=== PATIENT | female | born 1995 | race Caucasian/White ===

== ENCOUNTER 2018-01-25 22:03 | Emergency (ER) | payer MEDICAID, SELFPAY ==
[2018-01-25 22:03] VITALS: BP 141/63; PULSE 90; RESP 16; TEMP 36.8; O2SAT 99; BMI 39.0
--- NOTE | 2018-01-25 22:16 | ED.VISSUMM ---
- ER Visit Summary Date of Service: 01/25/18 Chief Complaint: Abscess History of Present Illness: The patient is a 22 F presents to the emergency department abscess. Patient has a history of recurrent MRSA. She has had multiple I&D's. She does follow with Dr. phyllis jose. States over the past 3 days, she has had an increase her right scalp. She does describe some increasing pain. She denies fevers or chills but does admit to mild nausea. She is not on any current antibiotics. She states that her boyfriend tried to squeeze it, but nothing came out. Since then, it has increased in size. Physical Examination: Afebrile, vitals unremarkable. Well-appearing female no acute distress. Patient does have a 2 cm ovoid abscess in the right posterior occipital area at the edge of the hairline. There is some mild crusting. There is some central fluctuance. There is no streaking. There is no cellulitis. Neck is nontender. Heart regular rate and rhythm. Lungs clear. Test Results: [] Emergency Department Course and Treatment: I did feel this was going to require incision and drainage. Patient was consented. The area was prepped in sterile fashion. It was anesthetized with lidocaine. 11 blade was used. Some scant purulence was able to be expressed. Pocket was very small. It would not tolerate any packing. The patient will be placed on Bactrim. She is given her first dose here. She will be given [place] home pack. The patient will be discharged home. She was counseled on wound care and reasons to return. She will follow up with primary care in 48 hours for wound reevaluation or return to the emergency department. Treatment Plan: [] Disposition: Discharge Impression:. Abscess posterior scalp with incision and drainage This note was generated with [employer] dictation software. It may contain incorrect words, spelling, and punctuation that were not noted in review of the chart prior to signing ED Disposition - Plan for ED Patient: Chief Complaint: Wound Check Instructions: ED Abscess IandD Prescriptions: Smz/Tmp Ds [Bactrim Ds] 2 tab PO BID #28 tab Referrals: Peter Levine MD [STAFF PHYSICIAN] - 2 Days for wound check
[2018-01-25] MEDS: HYDROcodone Bitartrate/Apap 5/325 Tablet PO ×2 (22:23→22:46)
[2018-01-25] MEDS: Ondansetron ODT 4 MG Tablet PO ×2 (22:23→22:52)
[2018-01-25] MEDS: Smz/Tmp Ds Tablet 2 TABLET PO (22:47)
[2018-01-25 22:55] VITALS: BP 140/90; PULSE 77; O2SAT 97
== END 2018-01-25 22:58 | disposition home or self-care (01) ==
LOC: ED 22:16
PROVIDERS: Emergency Provider Emergency Medicine
DX: L02.811 Cutaneous abscess of head [any part, except face] (principal); B96.89 Other specified bacterial agents as the cause of diseases classified elsewhere; Z86.14 Personal history of Methicillin resistant Staphylococcus aureus infection; F32.9 Major depressive disorder, single episode, unspecified; Z79.899 Other long term (current) drug therapy
CPT/HCPCS: 10060; 99283

== ENCOUNTER 2018-03-09 17:52 | Emergency (ER) | payer SELFPAY ==
[2018-03-09 17:54] VITALS: BP 146/69; PULSE 104; RESP 16; TEMP 36.6; O2SAT 97; BMI 39.5
--- NOTE | 2018-03-09 18:19 | ED.VISSUMM ---
- ER Visit Summary Date of Service: 03/09/18 Chief Complaint: Abscess History of Present Illness: The patient is a 22 F who has a history of recurrent abscesses. She does have a history of MRSA. Patient noted an abscess to the left axilla over the past 3 days. She reports addictive fevers, myalgias, nausea, and vomiting. She did take a test at home this morning that was negative. Her last dose of Tylenol was approximately 4-1/2 hours ago. Physical Examination: Vital signs are unremarkable. She is afebrile here 97.8. Patient sitting upright in bed no acute distress. She is nontoxic appearing. Heart is regular rate and rhythm. Lung sounds are clear. Abdomen is soft nontender. Active bowel sounds are noted throughout. Skin examination does reveal 1 x 3 cm fluctuant abscess in the left axilla. There is no lymphangitic streaking. Test Results: [] Emergency Department Course and Treatment: Let is applied to the wound. Following this 3 cc 1% lidocaine were infused locally. Incision is made with a #11 blade. There is a significant amount of pus expressed. Loculations were broken up. Patient was treated with [place], Zofran, and Bactrim. She be given prescriptions for the same. Should be referred for follow-up with Dr. Levine who she is seen in the past. Treatment Plan: [] Disposition: Discharge Impression: Left axilla abscess, status post I&D This note was generated with [employer] dictation software. It may contain incorrect words, spelling, and punctuation that were not noted in review of the chart prior to signing ED Disposition - Plan for ED Patient: Disposition: Home or Assisted Living Chief Complaint: Abscess Instructions: ED Abscess IandD Prescriptions: Hydrocodone Bitart/Apap 5-325 [[place] 5MG-325MG] 1 tablet PO Q4H PRN PRN 2 Days #10 tablet PRN Reason: Pain Ondansetron [Zofran Odt] 4 mg PO Q8H PRN PRN #10 tab PRN Reason: Nausea Smz/Tmp Ds [Bactrim Ds] 1 tab PO BID #20 tab Referrals: Peter Levine MD [STAFF PHYSICIAN] - 1-2 Weeks Julissa Bingham NP-C [Primary Care Provider] -
[2018-03-09] MEDS: HYDROcodone Bitartrate/Apap 5/325 Tablet PO (18:44)
[2018-03-09] MEDS: Smz/Tmp Ds Tablet 1 TABLET PO (18:44)
[2018-03-09] MEDS: Ondansetron ODT 4 MG Tablet PO (18:44)
[2018-03-09] MEDS: Lidocaine/Epi/Tetracaine 50 ML 1 APPLIC TOPICAL (18:45)
--- NOTE | 2018-03-09 19:33 | ED.DEP ---
ED Disposition - Plan for ED Patient: Disposition: Home or Assisted Living Chief Complaint: Abscess Instructions: ED Abscess IandD Prescriptions: Hydrocodone Bitart/Apap 5-325 [[place] 5MG-325MG] 1 tablet PO Q4H PRN PRN 2 Days #10 tablet PRN Reason: Pain Ondansetron [Zofran Odt] 4 mg PO Q8H PRN PRN #10 tab PRN Reason: Nausea Smz/Tmp Ds [Bactrim Ds] 1 tab PO BID #20 tab Referrals: Julissa Bingham, FLIGHT INFORMATION EXPEDITER-C [Primary Care Provider] - Peter Levine MD [STAFF PHYSICIAN] - 1-2 Weeks
--- NOTE | 2018-03-09 19:36 | DCINST.ED_ITS ---
ED Disposition - Plan for ED Patient: Disposition: Home or Assisted Living Chief Complaint: Abscess Instructions: ED Abscess IandD Prescriptions: Hydrocodone Bitart/Apap 5-325 [[place] 5MG-325MG] 1 tablet PO Q4H PRN PRN 2 Days # 10 tablet PRN Reason: Pain Ondansetron [Zofran Odt] 4 mg PO Q8H PRN PRN #10 tab PRN Reason: Nausea Smz/Tmp Ds [Bactrim Ds] 1 tab PO BID #20 tab Referrals: Julissa Bingham, MANAGER BUSINESS PROCESS-C [Primary Care Provider] - Peter Levine MD [STAFF PHYSICIAN] - 1-2 Weeks
[2018-03-09 19:42] VITALS: BP 125/78; PULSE 76; RESP 18; O2SAT 100
== END 2018-03-09 19:44 | disposition home or self-care (01) ==
PROVIDERS: Emergency Provider Emergency Medicine; Family Provider Nurse Practitioner Family; PCP Nurse Practitioner Family
DX: L02.412 Cutaneous abscess of left axilla (principal); B96.89 Other specified bacterial agents as the cause of diseases classified elsewhere; Z86.14 Personal history of Methicillin resistant Staphylococcus aureus infection
CPT/HCPCS: 10060; 99282

== ENCOUNTER 2018-04-03 03:20 | Emergency (ER) | payer MEDICAID, SELFPAY ==
[2018-04-03 03:20] VITALS: BP 145/96; PULSE 82; RESP 17; TEMP 36.8; O2SAT 100; BMI 40.5
--- NOTE | 2018-04-03 03:28 | CT_ITS ---
STUDY: CT BRAIN WITHOUT CONTRAST REASON FOR EXAM: Female, 22 years old. Posttraumatic headache status post fall. RADIATION DOSAGE (If Supplied By Facility): CTDIvol = ( 44.99 ) mGy, DLP = ( 796.11 ) mGycm TECHNIQUE: Transaxial CT imaging of the brain was performed without administration of intravenous contrast material. Individualized dose optimization techniques were used for this CT. COMPARISON: None. FINDINGS: Left frontal scalp soft tissue swelling with associated laceration. No underlying fracture. Normal size ventricles and extra-axial spaces for the patient's age. Normal white matter tracts of the cerebral hemispheres. Normal basal ganglia and thalami. Normal brainstem. Normal cerebellum. There is no intracranial hemorrhage. There are no findings of an acute ischemic infarction. Normal visualized paranasal sinuses. CT/Brain/Head without Contrast IMPRESSION: Left frontal scalp laceration and hematoma with no underlying fracture no evidence of an acute intracranial abnormality. Electronically Signed: Neil Gamboa MD at 4:52 EDT Tel , Service support ,
[2018-04-03] MEDS: Ondansetron ODT 4 MG Tablet PO (03:38)
[2018-04-03] MEDS: Diphth,Pertuss(Acell),Tet Vac 0.5 ML Vial IM (03:39)
--- NOTE | 2018-04-03 05:02 | ED.VISSUMM ---
- ER Visit Summary Date of Service: 04/03/18 Chief Complaint: [] History of Present Illness: The patient is a 22 F [] patient reports mechanical fall striking her head into the corner of a counter. Reports headache. Reports obvious laceration to her forehead. Denies neck pain. No other complaints at this time. She is unsure of her tetanus status. Physical Examination: [] Afebrile, vital signs stable. Head exam reveals a 3 cm flap laceration to the left forehead. Remainder of exam is unremarkable. Test Results: [] CT head: Negative. Emergency Department Course and Treatment: [] CT of the head returned negative. Patient was given Zofran ODT and ibuprofen orally for symptom relief. Patient received tetanus update emergency department. Patient had her forehead wound cleaned with saline and Shur-Clens. Patient had the laceration approximated nicely with #4 6.0 nylon sutures. She tolerated the procedure well. Treatment Plan: [] Patient instructed to have sutures removed in 5 days. Follow-up with PCP. Disposition: [] Discharge, stable. Impression: [] Close head injury Head laceration, 3 cm Tetanus update Laceration repair by emergency department physician This note was generated with [employer] dictation software. It may contain incorrect words, spelling, and punctuation that were not noted in review of the chart prior to signing ED Disposition - Plan for ED Patient: Chief Complaint: Head Injury Referrals: Julissa Bingham NP-C [Primary Care Provider] -
--- NOTE | 2018-04-03 05:05 | ED.DEP ---
ED Disposition - Plan for ED Patient: Disposition: Home or Assisted Living Chief Complaint: Head Injury Instructions: ED Concussion, ED Laceration All Referrals: Julissa Bingham, SERA-C [Primary Care Provider] -
[2018-04-03] MEDS: Ibuprofen 400 MG Tablet 800 MG PO (05:13)
--- NOTE | 2018-04-03 05:16 | ED.RN ---
DISCHARGE INSTRUCTIONS GIVEN TO AND REVIEWED WITH PATIENT, PATIENT DENIES QUESTIONS OR CONCERNS AND VOICES UNDERSTANDING OF DISCHARGE INSTRUCTIONS. PT AMBULATES OUT OF ROOM WITHOUT DIFFICULTY.
== END 2018-04-03 05:17 | disposition home or self-care (01) ==
PROVIDERS: Emergency Provider Emergency Medicine; Family Provider Nurse Practitioner Family; PCP Nurse Practitioner Family
DX: S01.81XA Laceration without foreign body of other part of head, initial encounter (principal); W19.XXXA Unspecified fall, initial encounter; Y93.9 Activity, unspecified; Y92.9 Unspecified place or not applicable; F32.9 Major depressive disorder, single episode, unspecified; F41.9 Anxiety disorder, unspecified
CPT/HCPCS: 12013; 70450; 90471; 90715; 99283

== ENCOUNTER 2018-04-03 20:26 | Emergency (ER) | payer MEDICAID, SELFPAY ==
[2018-04-03 20:27] VITALS: BP 150/88; PULSE 81; RESP 16; TEMP 36.9; O2SAT 100; BMI 37.0
[2018-04-03] MEDS: Ketorolac 60 MG/2 ML Vial IM (21:11)
[2018-04-03] MEDS: Ondansetron 8 MG Tablet PO (21:11)
--- NOTE | 2018-04-03 21:15 | NURSING ---
doctor was okay with giving to oral zofran 4 mg pills
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
== END 2018-04-03 22:30 | disposition home or self-care (01) ==
PROVIDERS: Emergency Provider Emergency Medicine
DX: G44.319 Acute post-traumatic headache, not intractable (principal); F07.81 Postconcussional syndrome; F32.9 Major depressive disorder, single episode, unspecified; F41.9 Anxiety disorder, unspecified
CPT/HCPCS: 96372; 99281

== ENCOUNTER 2018-05-29 21:11 | Emergency (ER) | payer MEDICAID, SELFPAY ==
[2018-05-29 21:13] VITALS: BP 127/113; PULSE 79; RESP 18; TEMP 36.7; O2SAT 99; BMI 39.3
[2018-05-29] MEDS: Triamcinolone Acetonide 40 MG/ML Vial 80 MG IM (22:05)
--- NOTE | 2018-05-29 22:10 | ED.DCSUM_ITS ---
- ER Visit Summary Date of Service: 05/29/18 Chief Complaint: Rash on legs History of Present Illness: The patient is a 22 F who states that she has had a rash on her legs for a couple days now. She describes it as burning and spreading up her thighs. Few days ago she had it on her dorsum of her left hand that has went away. She states that she is tried some Tylenol ibuprofen cannot seem to stop the burning. She has tried some topical cortisone cream with no success. Patient denies any change in soaps lotions or creams etc. Physical Examination: Afebrile vital signs are stable Patient has a flat blanching red discrete 1 mm or less lesions about both legs up into the medial thighs. It does look a bit like razor burn but the patient states she has not shaved her legs for a couple weeks. I do not see any pustules. Emergency Department Course and Treatment: I cannot say definitively what this rashes. Patient will be treated with a dose of IM Kenalog. She should continue cortisone cream. She may follow-up with dermatology if not improving Impression: 1. Dermatitis This note was generated with [employer] dictation software. It may contain incorrect words, spelling, and punctuation that were not noted in review of the chart prior to signing ED Disposition - Plan for ED Patient: Disposition: Home or Assisted Living Chief Complaint: Rash Instructions: ED Dermatitis Non Specific Rash Referrals: Jillian Wheeler [NON-STAFF] - 1 Week if not improving
[2018-05-29 22:35] VITALS: BP 120/95
== END 2018-05-29 22:37 | disposition home or self-care (01) ==
PROVIDERS: Emergency Provider Emergency Medicine
DX: L30.9 Dermatitis, unspecified (principal); E66.9 Obesity, unspecified; Z68.39 Body mass index [BMI] 39.0-39.9, adult; Z72.0 Tobacco use
CPT/HCPCS: 96372; 99283

== ENCOUNTER 2018-06-12 16:27 | Emergency (ER) | payer MEDICAID, SELFPAY ==
[2018-06-12 16:28] VITALS: BP 134/98; PULSE 71; RESP 18; TEMP 36.6; O2SAT 98; BMI 39.6
--- NOTE | 2018-06-12 16:42 | ED.VISSUMM ---
- ER Visit Summary Date of Service: 06/12/18 History of Present Illness: The patient is a 22 F who presents with dental pain left lower jar region since yesterday no fever or chills Physical Examination: There is tenderness over the left lower last 2 molars, no abscess no facial swelling normal soft palate normal exam otherwise \ Emergency Department Course and Treatment: Patient will be treated with analgesia, antibiotics she has an appointment with her dentist in the morning. Discharge stable condition Impression: Odontalgia This note was generated with [employer] dictation software. It may contain incorrect words, spelling, and punctuation that were not noted in review of the chart prior to signing ED Disposition - Plan for ED Patient: Disposition: Home or Assisted Living Chief Complaint: Dental Instructions: ED Tooth Pain Prescriptions: Naproxen [Naprosyn] 500 mg PO BID PRN #20 tab Clindamycin [Cleocin] 300 mg PO TID #60 cap Referrals: Care Physician,No Primary [Primary Care Provider] -
[2018-06-12] MEDS: Clindamycin HCl 150 MG Capsule 300 MG PO (17:10)
[2018-06-12] MEDS: HYDROcodone Bitartrate/Apap 5/325 Tablet PO (17:11)
== END 2018-06-12 17:20 | disposition home or self-care (01) ==
PROVIDERS: Emergency Provider Emergency Medicine
DX: K08.89 Other specified disorders of teeth and supporting structures (principal)
CPT/HCPCS: 99283

== ENCOUNTER 2018-08-20 05:14 | Emergency (ER) | payer MEDICAID, SELFPAY ==
[2018-08-20 05:15] VITALS: BP 118/94; PULSE 82; RESP 18; TEMP 36.6; O2SAT 99; BMI 38.7
--- NOTE | 2018-08-20 05:24 | RAD_ITS ---
STUDY: X-RAY - LEFT TIBIA AND FIBULA REASON FOR EXAM: Female, 22 years old. Trauma TECHNIQUE: 2 view(s) of the tibia and fibula were obtained. # of Images: 4 COMPARISON: None. FINDINGS: Normal visualized tibia. Normal visualized fibula. The soft tissue structures are unremarkable. RAD/Tibia & Fibula 2 Views IMPRESSION: Normal x-ray examination of the tibia and fibula. Electronically Signed: Pro Ramos MD at 5:59 EDT Tel , Service support ,
--- NOTE | 2018-08-20 05:25 | RAD_ITS ---
STUDY: X-RAY - LEFT FOOT CLINICAL: Female, 22 years old. Trauma TECHNIQUE: 3 view(s) of the foot. # of Images: 3 COMPARISON: None. FINDINGS: Normal talus, calcaneus, and tarsal bones. Normal visualized subtalar, talonavicular, calcaneocuboid, tarsal and tarsometatarsal articulations. Normal metatarsi. Normal metatarsophalangeal joint of the great toe. Normal tibial and fibular sesamoid bones. Normal interphalangeal joint of the great toe. Normal phalanges of the great toe. Normal second through fifth metatarsophalangeal joints. Normal interphalangeal joints and phalanges of the lesser toes. The soft tissue structures are unremarkable. RAD/Foot min 3 Views IMPRESSION: Normal x-ray examination of the foot. Electronically Signed: Pro Ramos MD at 6:18 EDT Tel , Service support ,
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
[2018-08-20 06:20] VITALS: BP 126/84; PULSE 78; RESP 16; O2SAT 97
== END 2018-08-20 06:43 | disposition home or self-care (01) ==
PROVIDERS: Emergency Provider Emergency Medicine
DX: S93.602A Unspecified sprain of left foot, initial encounter (principal); X50.1XXA Overexertion from prolonged static or awkward postures, initial encounter; Y93.9 Activity, unspecified; Y92.410 Unspecified street and highway as the place of occurrence of the external cause
CPT/HCPCS: 73590; 73630; 99285

== ENCOUNTER 2018-12-20 23:42 | Emergency (ER) | payer MEDICAID, SELFPAY ==
[2018-12-20 23:44] VITALS: BP 134/72; PULSE 86; RESP 15; TEMP 36.8; O2SAT 100; BMI 40.4
--- NOTE | 2018-12-21 00:29 | ED.VISSUMM ---
- ER Visit Summary Date of Service: 12/21/18 Chief Complaint: Nausea, vomiting History of Present Illness: The patient is a 23 F presenting with nausea, vomiting. She states this started one week ago. She has had 4 episodes of vomiting today. Complains of constipation. Denies diarrhea. She has mild abdominal cramping. She denies fever. She does have sick contacts. Denies other complaints. Physical Examination: Vitals are stable. Patient is afebrile. Alert no acute distress. HEENT exam dry mucous membranes Neck is supple. Lungs are clear and equal bilaterally. Heart is regular rate and rhythm. Abdomen is soft mild epigastric tenderness with no rebound or guarding Extremities are unremarkable. Skin is warm and dry. Remainder of exam is unremarkable. Emergency Department Course and Treatment: Patient given IV fluids, Zofran. CBC, chemistries unremarkable. Liver lipase are normal. is positive. She is now tolerating p.o. in the emergency department. She is feeling improved. She is given a prescription for Zofran. Advised to follow-up with her REDEVELOPMENT MANAGER. Advised return to ED for worsening symptoms. Disposition: Discharge home Impression: Nausea vomiting, This note was generated with [employer] dictation software. It may contain incorrect words, spelling, and punctuation that were not noted in review of the chart prior to signing ED Disposition - Plan for ED Patient: Instructions: Care for a Healthy Baby, ED Nausea Vomiting Prescriptions: Ondansetron [Zofran Odt] 4 mg PO Q8H PRN PRN #10 tablet PRN Reason: Nausea Referrals: Nicole Croft MD [STAFF PHYSICIAN] -
[2018-12-21] MEDS: 0.9% Normal Saline 1,000 ML 1000 ML IV ×2 (00:41)
[2018-12-21] MEDS: Ondansetron 4 MG/2 ML Vial IV (00:42)
[2018-12-21 00:54] LABS: Absolute Lymphocyte Count 3.09 X10^3/ul (0.83-4.51); Absolute Neutrophil Count 5.6 X10^3/uL (2.0-7.7); Basophil# 0.02 X10^3/uL; Basophil% 0.2 % (0-1); Eosinophil# 0.08 X10^3/uL; Eosinophils% 0.8 % (0-5); Hematocrit 40.1 % (37-47); Hemoglobin 13.9 g/dl (12.0-15.0); Lymphocyte # 3.09 X10^3/ul (4.0); Lymphocyte % 32.5 % (19-41); Mean Corp Hgb Conc 34.7 g/gl (32-36); Mean Corpuscular Hgb 31.2 pg (27.0-32.0); Mean Corpuscular Volume 89.9 fL (81-99); Mean Platelet Vol. 10.4 fl (6.2-12.0); Monocyte# 0.76 X10^3/uL; Neutrophil # 5.55 X10^3/uL (2.7-7.7); Neutrophil % 58.3 % (47-70); Platelet Count 242 K/mm3 (150-450); RBC Distribution Width CV 13.2 % (11.6-14.6); RBC Distribution Width SD 42.7 fl (35.1-43.9); Red Blood Count 4.46 M/mm3 (4.2-5.4); White Blood Count 9.5 K/mm3 (4.4-11.0)
[2018-12-21 00:55] LABS: POSITIVE DIFFERENTIAL NO
[2018-12-21 00:56] LABS: POSITIVE COUNT NO; POSITIVE MORPHOLOGY NO
[2018-12-21 01:10] LABS: AST(SGOT) 25 U/L (15-37); Alanine Aminotransfer ALT/SGPT 42 U/L (13-56); Albumin, Serum 3.3 g/dL (3.2-5.0); Alkaline Phosphatase 62 U/L (45-117); Anion Gap 8 (5-15); BUN 7 mg/dL (7-18); Bilirubin, Direct 0.09 mg/dL (0.00-0.30); Calcium,Total 8.8 mg/dL (8.5-10.1); Chloride 106 mmol/L (98-107); Creatinine, Serum 0.54 mg/dL (0.55-1.02); EST Glomerular Filtration Rate 150 mL/min (>60); Est Glom Filt Rate - Afr Amer 181 mL/min (>60); Estimated Creatinine Clearance 117.38 ml/min; Globulin 3.7 g/dL (2.2-4.2); Glucose 71 mg/dL (74-106); Lipase 123 U/L (73-393); Potassium 3.6 mmol/L (3.5-5.1); Sodium Level 139 mmol/L (136-145)
[2018-12-21 01:24] LABS: Pregnancy, Serum, hCG Quali. POSITIVE Negative (0-9 Nonpreg)
--- NOTE | 2018-12-21 01:26 | ED.RN ---
DR CUNHA NOTIFIED OF PREG RESULTS
--- NOTE | 2018-12-21 01:48 | ED.DEP ---
ED Disposition - Plan for ED Patient: Instructions: ED Nausea Vomiting, Care for a Healthy Baby Prescriptions: Ondansetron [Zofran Odt] 4 mg PO Q8H PRN PRN #10 tablet PRN Reason: Nausea Referrals: Nicole Croft MD [STAFF PHYSICIAN] -
[2018-12-21 02:04] VITALS: BP 124/68; PULSE 78; RESP 15; O2SAT 100
== END 2018-12-21 02:04 | disposition home or self-care (01) ==
PROVIDERS: Emergency Provider Emergency Medicine
DX: O21.9 Vomiting of pregnancy, unspecified (principal); Z3A.00 Weeks of gestation of pregnancy not specified
CPT/HCPCS: 80048; 80076; 83690; 84703; 85025; 96361; 96374; 99283; J7030; J2405

== ENCOUNTER 2019-01-01 15:22 | Emergency (ER) | payer MEDICAID, SELFPAY ==
[2019-01-01 15:24] VITALS: BP 113/67; PULSE 100; RESP 18; TEMP 37; O2SAT 100; BMI 38.7
[2019-01-01 15:58] LABS: Red Blood Cells-Urine 0 SEEN /hpf (0-5)
[2019-01-01 16:03] LABS: Absolute Lymphocyte Count 0.55 X10^3/ul (0.83-4.51); Absolute Neutrophil Count 5.7 X10^3/uL (2.0-7.7); Basophil# 0.01 X10^3/uL; Basophil% 0.1 % (0-1); Differential Indicated SCAN CRITERIA MET; Eosinophil# 0.05 X10^3/uL; Eosinophils% 0.7 % (0-5); Hematocrit 41.6 % (37-47); Lymphocyte # 0.55 X10^3/ul (4.0); Lymphocyte % 7.7 % (19-41); Mean Corp Hgb Conc 33.7 g/gl (32-36); Mean Corpuscular Hgb 30.3 pg (27.0-32.0); Mean Platelet Vol. 10.2 fl (6.2-12.0); Monocyte% 11.2 % (0-10); Neutrophil # 5.74 X10^3/uL (2.7-7.7); Neutrophil % 80.2 % (47-70); POSITIVE COUNT NO; POSITIVE DIFFERENTIAL YES; POSITIVE MORPHOLOGY NO; Platelet Count 193 K/mm3 (150-450); RBC Distribution Width CV 13.4 % (11.6-14.6); RBC Distribution Width SD 43.3 fl (35.1-43.9); Red Blood Count 4.62 M/mm3 (4.2-5.4); White Blood Count 7.2 K/mm3 (4.4-11.0)
[2019-01-01 16:04] LABS: Color, Urine Yellow (Yellow); Glucose, Dipstick Normal (Normal); Leukocyte Esterase-Dipstick 25 /ul (Negative); Nitrite-Dipstick Negative (Negative); Occult Blood-Urine Negative /ul (Negative); Protein-Dipstick 15 mg/dl (Negative); Urine Bilirubin Dipstick Negative (Negative); Urine Clarity Sl. Cloudy (Clear); Urine Urobilinogen Normal (Normal)
[2019-01-01 16:06] LABS: Ketone-Dipstick 150 mg/dl (Negative)
[2019-01-01 16:10] LABS: Bacteria RARE /hpf (None Seen); Squamous Epithelial Cells - UA 0-5 SEEN /hpf (5-10); White Blood Cells 0-5 SEEN /hpf (0-5)
[2019-01-01 16:11] LABS: Mucous, Urine 1+ /hpf (<or=2+)
[2019-01-01 16:13] LABS: Anion Gap 8 (5-15); BUN 5 mg/dL (7-18); BUN/Creat Ratio 8.7 RATIO (10-20); Calcium,Total 8.8 mg/dL (8.5-10.1); Chloride 108 mmol/L (98-107); Creatinine, Serum 0.58 mg/dL (0.55-1.02); EST Glomerular Filtration Rate 138 mL/min (>60); Est Glom Filt Rate - Afr Amer 167 mL/min (>60); Estimated Creatinine Clearance 109.28 ml/min; Glucose 77 mg/dL (74-106); Potassium 3.6 mmol/L (3.5-5.1); Sodium Level 137 mmol/L (136-145)
[2019-01-01] MEDS: 0.9% Normal Saline 1,000 ML 999 ML IV ×2 (16:29→18:15)
[2019-01-01] MEDS: proMETHazine 25 MG/ML Syringe 6.25 MG IV (16:30)
[2019-01-01 16:37] LABS: Differential Comment SCANNED
--- NOTE | 2019-01-01 16:59 | ED.DCSUM_ITS ---
- ER Visit Summary Date of Service: 01/01/19 Chief Complaint: Nausea, vomiting History of Present Illness: The patient is a 23 F presenting with nausea, vomiting. She states she has had morning sickness and has had vomiting daily for weeks. She states this worsened today. She has had approximately 12 epi sodes of vomiting today. She is 9 weeks . She had an ultrasound last week which showed intrauterine per patient. She is Ab1. She has had some intermittent low back pain. She denies fever. Denies other complaints. Physical Examination: Vitals are stable. Patient is afebrile. Alert no acute distress. HEENT exam is unremarkable. Neck is supple. Lungs are clear and equal bilaterally. Heart is regular rate and rhythm. Abdomen is soft nontender nondistended. No guarding or rebound Back nontender Extremities are unremarkable. Skin is warm and dry. No focal neurologic deficit. Remainder of exam is unremarkable. Emergency Department Course and Treatment: Patient given IV fluids, Phenergan. CBC, chemistries unremarkable. Urinalysis shows ketones, 0-5 white blood cells, 0 red cells. On reevaluation, patient is able to tolerate p.o. Discussed with Dr. Coon. Patient will be given a prescription for Zofran. Advised to follow-up in the office. Advised return to ED for worsening complaints. Disposition: Discharge home Impression: Vomiting in This note was generated with [employer] dictation software. It may contain incorrect words, spelling, and punctuation that were not noted in review of the chart prior to signing ED Disposition - Plan for ED Patient: Instructions: ED Nausea Vomiting Prescriptions: Ondansetron [Zofran Odt] 4 mg PO Q8H PRN PRN #10 tablet PRN Reason: Nausea Referrals: Nicole Croft MD [STAFF PHYSICIAN] -
--- NOTE | 2019-01-01 18:26 | ED.DEP ---
ED Disposition - Plan for ED Patient: Instructions: ED Nausea Vomiting Prescriptions: Ondansetron [Zofran Odt] 4 mg PO Q8H PRN PRN #10 tablet PRN Reason: Nausea Referrals: Nicole Croft MD [STAFF PHYSICIAN] -
[2019-01-01 18:39] VITALS: BP 132/67; PULSE 79; RESP 15; O2SAT 96
[2019-01-01] MEDS: Ondansetron 4 MG/2 ML Vial IV (18:39)
== END 2019-01-01 18:40 | disposition home or self-care (01) ==
PROVIDERS: Emergency Provider Emergency Medicine
DX: O21.9 Vomiting of pregnancy, unspecified (principal); Z3A.09 9 weeks gestation of pregnancy
CPT/HCPCS: 80048; 81001; 85025; 96361; 96374; 96375; 99283; J7030; A4216; J2405

== ENCOUNTER 2019-01-18 23:32 | Emergency (ER) | payer MEDICAID, SELFPAY ==
[2019-01-18 23:33] VITALS: BP 133/88; PULSE 88; RESP 16; TEMP 36.8; O2SAT 100; BMI 39.4
--- NOTE | 2019-01-18 23:40 | ED.VIS.GEN ---
History of Present Illness Chief Complaint: Nausea/Vomiting Informant: Patient Narrative: She is 12 w. She has had nausea and vomiting probable first trimester. Patient stated she took 2 doses of Zofran today but could not keep them down. She has had 10 episodes of emesis throughout the day today. She is been using Zofran daily. 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 She has had 2 ER visits in the last month for nausea and vomiting as well. She has had this in previous pregnancies. She recently had lab work done approximately 2 and half weeks ago that was unremarkable. She denies any pain other than a slight headache. She tried Tylenol earlier today but could not keep it down. She denies any other symptoms. Current severity is moderate. She is trying to drink fluids but is having intermittent success. Past Medical History - Allergies and Home Meds Allergies/Adverse Reactions: Allergies Bleach (Sodium Hypochlorite) Allergy (Verified 01/01/19 15:22) Hives diphenhydramine HCl [From Benadryl] Allergy (Verified 01/01/19 15:22) [facility] Primary [facility] Physician: Nicole Croft MD [Primary Care Provider] - Prior records reviewed: Yes Past Medical History: - - Migraine headache, felon, MRSA skin abscess Surgical History: - - Carpal tunnel Lives: With Family Smoking Status: Never smoker Alcohol: None Drugs: None Review of Systems General: Denies: Chills, Fever, Sweats Eyes: Denies: Visual changes - bilaterally, Diplopia ENT: Denies: Rhinorrhea, Sore throat Cardiovascular: Denies: Chest pain, Palpitations Respiratory: Denies: Dyspnea, Cough, Dyspnea on exertion Gastrointestinal: Reports: Nausea, Vomiting. Denies: Abdominal pain, Diarrhea, Melena, Hematochezia Genitourinary: Denies: Dysuria, Hematuria, Frequency Musculoskeletal: Denies: Back pain, Extremity Pain Skin: Denies: Rash, Wounds Neurological: Reports: Headache. Denies: Weakness, Numbness Physical Exam Vital Signs/Narrative: Vital Signs Temp Pulse Resp BP Pulse Ox 01/18/19 23:33 98.2 F 88 16 133/88 H 100 General: Well nourished, Well developed, No Acute Distress Head: Normocephalic, Atraumatic Eyes: Perrl, EOMI ENT: Moist mucous membranes, No rhinorrhea Neck: Supple, Nontender Cardiovascular: Regular rate, Regular rhythm, No murmurs Respiratory: No distress, CTA bilaterally, Chest nontender Abdomen: Soft, Nontender, Normal bowel sounds, - - She has gravid. Negative for: Guarding, Rebound tenderness Back: Nontender, Normal Inspection Extremities: Nontender, No edema Skin: Normal color, No rash Neurological: Alert, Oriented x3, Cranial nerves II-XII grossly intact, Normal Strength, Normal Sensation Psychological: Normal affect, Normal Mood Diagnostic/Tx/Re-eval - Medical Decision Making Given IV fluids, Phenergan and Tylenol. Patient felt much better after treatment but did need a dose of Zofran and Reglan as well. Nausea has resolved. She did have one diarrheal bowel movement. Given Imodium. I do not think she needs further lab work. I think she is having hyperemesis in her first trimester. She will be discharged with Reglan and Zofran. She will follow-up as an outpatient. ED Disposition - Plan for ED Patient: Diagnosis: Hyperemesis gravidarum Instructions: ED Preg Morning Sickness Prescriptions: Ondansetron [Zofran Odt] 4 mg PO Q8H PRN PRN #10 tab PRN Reason: Nausea Metoclopramide [Reglan] 10 mg PO TID PRN #10 tab PRN Reason: Nausea Referrals: Nicole Croft MD [Primary Care Provider] -
[2019-01-18] MEDS: proMETHazine 25 MG/ML Syringe 12.5 MG IV (23:55)
[2019-01-18] MEDS: 0.9% Normal Saline 1,000 ML 1000 ML IV (23:56)
[2019-01-19] MEDS: Ondansetron 4 MG/2 ML Vial IV (00:59)
[2019-01-19 01:02] VITALS: BP 104/57; PULSE 75; RESP 16; O2SAT 100
[2019-01-19] MEDS: Metoclopramide 10 MG/2 ML Vial 5 MG IV (01:40)
[2019-01-19] MEDS: Loperamide 2 MG Capsule 4 MG PO (02:18)
[2019-01-19 02:19] VITALS: BP 114/85; PULSE 86; RESP 16; O2SAT 100
== END 2019-01-19 02:20 | disposition home or self-care (01) ==
PROVIDERS: Emergency Provider Emergency Medicine; Family Provider Obstetrics & Gynecology; PCP Obstetrics & Gynecology
DX: O21.0 Mild hyperemesis gravidarum (principal); Z3A.11 11 weeks gestation of pregnancy
CPT/HCPCS: 96361; 96374; 96375; 99284; J7030; J7040; A4216; J2405

== ENCOUNTER 2019-01-19 15:16 | Observation (INO) | payer MEDICAID, SELFPAY ==
[2019-01-18 23:33] VITALS: BMI 39.4
[2019-01-19 15:35] VITALS: BP 130/102; PULSE 78; RESP 18; TEMP 37.2; O2SAT 99
--- NOTE | 2019-01-19 16:11 | PCM.HP.OB ---
History Date of Admission: 04/29/16 Final SRIDEVI Source: US <20 weeks History of this : This is a 23 year-old, at 11&6 weeks gestational age presents with N&V. She had been feeling well until yesterday. The N&V was severe and prompted an ED visit. She still has been unable to tolerate any PO today. Patient feels weak and awful. Denies VB/LOF/ctxs. She reports chills but denies fevers. Medical History: Medical History (Last Updated 01/19/19 @ 16:13 by Alvaro Green) Asthma J45.909 Depression affecting O99.340, F32.9 Hepatitis C B19.20 History of MRSA infection Z86.14 Obesity E66.9 Surgical History: Surgical History (Last Updated 01/19/19 @ 16:13 by Alvaro Green) Hx of oral surgery Z98.890 S/P ERCP Z98.890 Allergies Bleach (Sodium Hypochlorite) Allergy (Verified 01/01/19 15:22) Hives diphenhydramine HCl [From Benadryl] Allergy (Verified 01/01/19 15:22) Hives Home Medications: Home Medications Folic Acid DAILY 01/01/19 Ondansetron [Zofran Odt] 4 mg PO Q8H PRN PRN #10 tablet 01/01/19 Vit No.130/Iron/Folic [ Tablet] 1 each PO DAILY 01/01/19 Pyridoxine HCl [Vitamin B-6] 50 mg PO DAILY 01/01/19 Metoclopramide [Reglan] 10 mg PO TID PRN #10 tab 01/19/19 Ondansetron [Zofran Odt] 4 mg PO Q8H PRN PRN #10 tab 01/19/19 Smoking Status: Never smoker History Past Pregnancies: Past Pregnancies Delivery Date Name GA/Weeks Outcome Route Weight Gender Labor Length Anesthesia Delivery Location Provider FOB Review of Systems Constitutional: Reports: Chills Cardiovascular: Denies: Chest Pain, Palpitations Respiratory: Denies: Cough, Shortness of breath at rest, Sputum production Physical Exam Vitals: Vital Signs Temp Pulse Resp BP Pulse Ox 99.0 F 78 18 130/102 H 99 01/19/19 15:35 01/19/19 15:35 01/19/19 15:35 01/19/19 15:35 01/19/19 15:35 Assessment/Plan All Active Problems (Last Updated 01/19/19 @ 16:13 by Alvaro Green) Felon of finger of right hand (Acute) Open wound of right middle finger without damage to nail (Acute) Abscess of left external cheek (Acute) Cutaneous abscess of neck (Acute) Open wound of left cheek (Acute) Open wound of neck (Acute) Hyperemesis gravidarum (Acute) This is a 23 year-old, at 11&6 weeks gestational age with N&V Admit to med surg for 23hr obs Patient with dehydration from suspected GI virus Check labs including LFTs as patient with known hepatitis C IV fluids and antiemetics ordered Routine care FHTs in office 150 and reassuring
[2019-01-19 16:16] VITALS: BMI 38.9
[2019-01-19] MEDS: 0.9% Normal Saline 1,000 ML 500 ML IV (17:01)
[2019-01-19 17:07] LABS: Absolute Lymphocyte Count 1.45 X10^3/ul (0.83-4.51); Absolute Neutrophil Count 3.1 X10^3/uL (2.0-7.7); Basophil# 0.02 X10^3/uL; Basophil% 0.4 % (0-1); Eosinophil# 0.06 X10^3/uL; Eosinophils% 1.2 % (0-5); Hematocrit 34.8 % (37-47); Hemoglobin 11.9 g/dl (12.0-15.0); Lymphocyte # 1.45 X10^3/ul (4.0); Lymphocyte % 29.4 % (19-41); Mean Corp Hgb Conc 34.2 g/gl (32-36); Mean Corpuscular Hgb 30.4 pg (27.0-32.0); Mean Platelet Vol. 9.9 fl (6.2-12.0); Monocyte# 0.33 X10^3/uL; Monocyte% 6.7 % (0-10); Neutrophil # 3.06 X10^3/uL (2.7-7.7); Neutrophil % 62.1 % (47-70); POSITIVE COUNT NO; POSITIVE DIFFERENTIAL NO; POSITIVE MORPHOLOGY NO; Platelet Count 187 K/mm3 (150-450); RBC Distribution Width CV 13.1 % (11.6-14.6); RBC Distribution Width SD 42.4 fl (35.1-43.9); Red Blood Count 3.91 M/mm3 (4.2-5.4); White Blood Count 4.9 K/mm3 (4.4-11.0)
[2019-01-19] MEDS: 0.9% NaCl Peripheral Flush Adult/Peds IV (17:10)
[2019-01-19] MEDS: Ondansetron 4 MG/2 ML Vial IV (17:10)
[2019-01-19 17:27] LABS: AST(SGOT) 19 U/L (15-37); Alanine Aminotransfer ALT/SGPT 22 U/L (13-56); Alkaline Phosphatase 50 U/L (45-117); Anion Gap 9 (5-15); BUN 6 mg/dL (7-18); BUN/Creat Ratio 11.6 RATIO (10-20); Bilirubin, Direct 0.14 mg/dL (0.00-0.30); Calcium,Total 8.3 mg/dL (8.5-10.1); Chloride 109 mmol/L (98-107); Creatinine, Serum 0.52 mg/dL (0.55-1.02); EST Glomerular Filtration Rate 157 mL/min (>60); Est Glom Filt Rate - Afr Amer 189 mL/min (>60); Estimated Creatinine Clearance 121.89 ml/min; Globulin 3.3 g/dL (2.2-4.2); Glucose 72 mg/dL (74-106); Potassium 3.3 mmol/L (3.5-5.1); Protein, Total 6.3 g/dL (6.4-8.2); Sodium Level 140 mmol/L (136-145)
[2019-01-19 18:27] LABS: Color, Urine Yellow (Yellow); Glucose, Dipstick Normal (Normal); Ketone-Dipstick 50 mg/dl (Negative); Leukocyte Esterase-Dipstick 25 /ul (Negative); Nitrite-Dipstick Negative (Negative); Occult Blood-Urine Negative /ul (Negative); Protein-Dipstick 15 mg/dl (Negative); Urine Clarity Clear (Clear); Urine Urobilinogen 12 mg/dl (Normal)
[2019-01-19 18:29] LABS: Urine Bilirubin Dipstick 1 mg/dL (Negative)
[2019-01-19 20:30] VITALS: BP 102/60; PULSE 79; RESP 16; TEMP 36.4; O2SAT 100
[2019-01-19] MEDS: proMETHazine 25 MG/ML Syringe 12.5 MG IV (20:32)
[2019-01-20 02:30] VITALS: BP 101/59; PULSE 67; RESP 16; TEMP 36.6; O2SAT 100
[2019-01-20] MEDS: Ondansetron ODT 4 MG Tablet PO (05:31)
[2019-01-20 06:42] LABS: Color, Urine Straw (Yellow); Glucose, Dipstick Normal (Normal); Ketone-Dipstick Negative (Negative); Leukocyte Esterase-Dipstick 100 /ul (Negative); Nitrite-Dipstick Negative (Negative); Occult Blood-Urine Negative /ul (Negative); Protein-Dipstick Negative (Negative); Specific Gravity, Urine 1.005 (1.002-1.030); Urine Bilirubin Dipstick Negative (Negative); Urine Clarity Clear (Clear); Urine Urobilinogen Normal (Normal)
--- NOTE | 2019-01-20 08:40 | DCINST_ITS ---
- Discharge Diagnoses Reason(s) for Visit for Discharge Instructions: Hyperemesis of at 11+6 weeks gestation You will use the following diet at home:: Regular - Start with BRAT diet and advance as tolerated Your food should be the consistency of: Regular Your liquids should be the consistency of: Regular/Thin Discharge Activity: Return to Normal Activity May resume sexual activity in: No Restrictions Call your doctor if you observe: Fever of 101 or Higher, Inability to urinate, Inability to have a bowel movement Allergies/Adverse Reactions: Allergies Bleach (Sodium Hypochlorite) Allergy (Verified 01/01/19 15:22) Hives diphenhydramine HCl [From Benadryl] Allergy (Verified 01/01/19 15:22) Hives Medications to take at Discharge Folic Acid DAILY 01/01/19 Vit No.130/Iron/Folic [ Tablet] 1 each PO DAILY 01/01/19 Pyridoxine HCl [Vitamin B6] 50 mg PO DAILY 01/01/19 Ondansetron [Zofran Odt] 4 mg PO Q6H PRN PRN #30 tablet 01/20/19 proMETHazine tablet [Phenergan tablet] 12.5 mg PO Q6H PRN PRN #30 tablet 01/20/19 The following prescriptions were given: Ondansetron [Zofran Odt] 4 mg PO Q6H PRN PRN #30 tablet PRN Reason: NAUSEA proMETHazine tablet [Phenergan tablet] 12.5 mg PO Q6H PRN PRN #30 tablet PRN Reason: NAUSEA/VOMITING Primary Care Physician: Care Physician,No Primary [Primary Care Provider] - Test Results: Test results from this visit will be discussed in further detail at your follow- up appointment, if applicable. Please Follow Up With: Alvaro Green - As scheduled next week for appt. and ultrasound Proposed Discharge Date: 01/20/19
--- NOTE | 2019-01-20 08:45 | PN_ITS ---
Patient Problems: Active and Suspected Problems (Last Updated 01/19/19 @ 16:13 by Alvaro Green) Hyperemesis affecting , antepartum (Acute) Subjective: Patient able to sleep well throughout the night. Reports continued nausea but had no emesis overnight. Patient has tolerated IV fluids and PO BRAT diet well. Plan to discharge to home today on PO antiemetic medications. Objective: VSS, Afebrile - see nursing note - Physical Exam General: Alert, Oriented x3, Cooperative HEENT: Atraumatic, Normocephalic Oral: Moist Mucosa Neck: Supple Lungs: Normal air movement Cardiovascular: Regular rate, Regular Rhythm Abdomen: Soft, Non Tender, Passing Flatus, Appropriate for Gestational Age Extremities: No edema, Capillary Refill Less than 3 Seconds Skin: No rashes, No breakdown Musculoskeletal: No Tenderness to Palpation of Joints or Extremities Neurological: Cranial nerves II-XII grossly intact, Deep Tendon Reflexes 2+/4 and Symmetrical Psych/Mental Status: Normal Affect, Appropriate Vital Signs Temp Pulse Resp BP Pulse Ox 97.8 F 67 16 101/59 L 100 01/20/19 02:30 01/20/19 02:30 01/20/19 02:30 01/20/19 02:30 01/20/19 02:30 Oxygen Delivery Method Room Air Weight: 199 lb 11.821 oz Body Mass Index (BMI) 38.9 Intake and Output for Last 24 Hours 01/18/19 01/19/19 01/20/19 23:59 23:59 23:59 Intake Total 440 / 440 2390 / 2390 Output Total 45 / 45 Balance 395 / 395 2390 / 2390 Laboratory Tests Past 24 Hrs 01/19/19 01/19/19 01/19/19 15:40 16:55 16:55 WBC 4.9 RBC 3.91 L Hgb 11.9 L Hct 34.8 L MCV 89.0 MCH 30.4 MCHC 34.2 RDW 13.1 RDW Differential 42.4 Plt Count 187 MPV 9.9 Immature Gran % (Auto) 0.200 Neut % (Auto) 62.1 Lymph % (Auto) 29.4 [place] % (Auto) 6.7 Eos % (Auto) 1.2 Baso % (Auto) 0.4 Absolute Neuts (auto) 3.1 Absolute Lymphs (auto) 1.45 Total Counted Not Reportable Sodium 140 Potassium 3.3 L Chloride 109 H Carbon Dioxide 22.0 Anion Gap 9 BUN 6 L Creatinine 0.52 L Estim Creat Clear Calc 121.89 Est GFR (MDRD) Af Amer 189 Est GFR (MDRD) Non-Af 157 BUN/Creatinine Ratio 11.6 Glucose 72 L Calcium 8.3 L Total Bilirubin 0.40 Direct Bilirubin 0.14 AST 19 ALT 22 Alkaline Phosphatase 50 Total Protein 6.3 L Albumin 3.0 L Globulin 3.3 Urine Color Yellow Urine Clarity Clear Urine pH 7.0 Ur Specific [place] 1.010 Urine Protein 15 H Urine Glucose (UA) Normal Urine Ketones 50 H Urine Occult Blood Negative Urine Nitrite Negative Urine Bilirubin 1 H Urine Urobilinogen 12 H Ur Leukocyte Esterase 25 H 01/20/19 06:30 WBC RBC Hgb Hct MCV MCH MCHC RDW RDW Differential Plt Count MPV Immature Gran % (Auto) Neut % (Auto) Lymph % (Auto) [place] % (Auto) Eos % (Auto) Baso % (Auto) Absolute Neuts (auto) Absolute Lymphs (auto) Total Counted Sodium Potassium Chloride Carbon Dioxide Anion Gap BUN Creatinine Estim Creat Clear Calc Est GFR (MDRD) Af Amer Est GFR (MDRD) Non-Af BUN/Creatinine Ratio Glucose Calcium Total Bilirubin Direct Bilirubin AST ALT Alkaline Phosphatase Total Protein Albumin Globulin Urine Color Straw Urine Clarity Clear Urine pH 7.0 Ur Specific [place] 1.005 Urine Protein Negative Urine Glucose (UA) Normal Urine Ketones Negative Urine Occult Blood Negative Urine Nitrite Negative Urine Bilirubin Negative Urine Urobilinogen Normal Ur Leukocyte Esterase 100 H Medical Necessity - Tobacco Use Smoking Status: Never smoker Assessment/Plan All Active Problems (Last Updated 01/19/19 @ 16:13 by Alvaro Green) Felon of finger of right hand (Acute) Open wound of right middle finger without damage to nail (Acute) Abscess of left external cheek (Acute) Cutaneous abscess of neck (Acute) Open wound of left cheek (Acute) Open wound of neck (Acute) Hyperemesis affecting , antepartum (Acute) 23 y/o @ 11+6 weeks, Hypermesis of P: 1) No emesis overnight - plan to discharge today on PO meds 2) Dr. Green in agreement with plan 3) Discharge teaching reviewed 4) Return to office as scheduled - next visit in 1 week with ultrasound Dilcia Bhat APRN-[place]
[2019-01-20 09:05] VITALS: BP 94/60; PULSE 78; RESP 14; TEMP 36.7; O2SAT 100
[2019-01-20] MEDS: proMETHazine 25 MG Tablet 12.5 MG PO (09:17)
== END 2019-01-20 09:30 | disposition home or self-care (01) ==
PROVIDERS: Admitting Provider Obstetrics & Gynecology; Referring Provider Obstetrics & Gynecology; Visit Provider Obstetrics & Gynecology
DX: O21.1 Hyperemesis gravidarum with metabolic disturbance (principal); Z3A.11 11 weeks gestation of pregnancy; Z86.19 Personal history of other infectious and parasitic diseases
CPT/HCPCS: 36415; 80048; 80076; 81002; 85025; 87086; 87088; 96361; 96374; 96375; 99218; J7030; A4216; G0378; G0379; J2405

== ENCOUNTER 2019-04-30 16:55 | Outpatient (CLI) | payer MEDICAID, SELFPAY ==
[2019-01-19 16:16] VITALS: BMI 38.9
[2019-04-30 17:11] VITALS: BMI 41.3
--- NOTE | 2019-04-30 17:58 | NURSING ---
Pt presented by squad for bilat ankle injury. Reactive NST obtained in OB then transferred to ED for evaluation.
--- NOTE | 2019-04-30 19:38 | OB.TRI.NOTE ---
History of Present Illness Date of Service: 04/30/19 Was patient seen by the physician?: No Reason For Visit: FALL; DECREASED MOVEMENT Date of Service: 04/30/19 Final SRIDEVI Source: US <20 weeks Allergies Bleach (Sodium Hypochlorite) Allergy (Verified 04/30/19 17:46) Hives diphenhydramine HCl [From Benadryl] Allergy (Verified 04/30/19 17:46) Hives - Pertinent Past Medical History Medical History: Past Medical History (Last Updated 01/20/19 @ 08:44 by Dilcia Bhat CNM) Felon of finger of right hand (Acute) felon right long finger Open wound of right middle finger without damage to nail (Acute) open felon wound right long finger Migraine headache without aura (Chronic) Asthma (Chronic) Abscess of left external cheek (Acute) L02.01 left preauricular abscess Cutaneous abscess of neck (Acute) L02.11 left posterior neck abscess Personal history of MRSA (methicillin resistant Staphylococcus aureus) (Chronic) Z86.14 Open wound of left cheek (Acute) open surgical wound left preauricular area Open wound of neck (Acute) open surgical wound left posterior neck Asthma Depression affecting Hepatitis C History of MRSA infection Obesity Surgical History: Past Surgical History (Last Updated 01/19/19 @ 16:13 by Alvaro Green) Hx of oral surgery S/P ERCP NST - FHR Rate Baby A Baseline: 130 Variability:: Moderate Accelerations:: 10 x 10 Decelerations:: None NST Reactive:: Yes, Appropriate for gestational age FHR Category:: Category I Uterine Activity:: no ctx Impression/Plan G3, P2 at 26.2 weeks status post fall with decreased movement NST is reactive no contractions noted on the monitor Rh+ DC to the ER for evaluation of trauma to lower extremity
== END 2019-04-30 17:25 | disposition home or self-care (01) ==
LOC: WPOUT 16:59 → WP 16:59
PROVIDERS: Visit Provider Obstetrics & Gynecology
DX: O99.89 Other specified diseases and conditions complicating pregnancy, childbirth and the puerperium (principal); S89.90XA Unspecified injury of unspecified lower leg, initial encounter; W19.XXXA Unspecified fall, initial encounter; Y93.9 Activity, unspecified; Y92.9 Unspecified place or not applicable; O36.8120 Decreased fetal movements, second trimester, not applicable or unspecified; O99.212 Obesity complicating pregnancy, second trimester; E66.9 Obesity, unspecified; O98.412 Viral hepatitis complicating pregnancy, second trimester; B19.20 Unspecified viral hepatitis C without hepatic coma; O99.342 Other mental disorders complicating pregnancy, second trimester; F32.9 Major depressive disorder, single episode, unspecified; O99.512 Diseases of the respiratory system complicating pregnancy, second trimester; J45.909 Unspecified asthma, uncomplicated; Z3A.26 26 weeks gestation of pregnancy
CPT/HCPCS: 59025; 59050; 99218; G0378

== ENCOUNTER 2019-04-30 17:45 | Emergency (ER) | payer MEDICAID, SELFPAY ==
[2019-04-30 17:11] VITALS: BMI 41.3
[2019-04-30 17:47] VITALS: BP 125/70; PULSE 76; RESP 17; TEMP 36.7; O2SAT 100; BMI 44.4
--- NOTE | 2019-04-30 18:00 | RAD_ITS ---
HISTORY:pain after fall pain after fall COMPARISON: None FINDINGS: # of images incl. paperwork: 3 XR Foot Min 3 Views: Left BONE AND JOINTS: No acute fracture or subluxation. SOFT TISSUES: Unremarkable. No radiopaque foreign body. RAD/Foot min 3 Views IMPRESSION: No acute pathology If symptoms persist repeat study in 7-10 days or sooner if clinically indicated at 1848 Reported and signed by: Caitlin Cortez DO Electronically Signed: Caitlin Cortez DO at 18:47 EDT Tel , Service support ,
--- NOTE | 2019-04-30 18:00 | RAD_ITS ---
HISTORY:PAIN S/P FALL PAIN S/P FALL COMPARISON: None FINDINGS: # of images incl. paperwork: 3 XR Foot Min 3 Views: Right BONE AND JOINTS: No acute fracture or subluxation. SOFT TISSUES: Unremarkable. No radiopaque foreign body. RAD/Foot min 3 Views IMPRESSION: No acute pathology If symptoms persist repeat study in 7-10 days or sooner if clinically indicated at 1846 Reported and signed by: Catilin Cortez DO Electronically Signed: Caitlin Cortez DO at 18:45 EDT Tel , Service support ,
--- NOTE | 2019-04-30 18:00 | RAD_ITS ---
HISTORY:pain after fall. pain after fall. COMPARISON: January 23, 2016 FINDINGS: # of images incl. paperwork: 2 XR Tibia/Fibula 2 Views: Right BONE AND JOINTS: No acute fracture or subluxation. SOFT TISSUES: Unremarkable. No radiopaque foreign body. RAD/Tibia & Fibula 2 Views IMPRESSION: No acute pathology If symptoms persist repeat study in 7-10 days or sooner if clinically indicated at 1851 Reported and signed by: Caitlin Cortez DO Electronically Signed: Caitlin Cortez DO at 18:49 EDT Tel , Service support ,
--- NOTE | 2019-04-30 18:00 | RAD_ITS ---
HISTORY:PAIN S/P FALL PAIN S/P FALL COMPARISON: August 20, 2018 FINDINGS: # of images incl. paperwork: 2 XR Tibia/Fibula 2 Views: Left BONE AND JOINTS: No acute fracture or subluxation. SOFT TISSUES: Unremarkable. No radiopaque foreign body. RAD/Tibia & Fibula 2 Views IMPRESSION: No acute pathology If symptoms persist repeat study in 7-10 days or sooner if clinically indicated at 1847 Reported and signed by: Caitlin Cortez DO Electronically Signed: Caitlin Cortez DO at 18:46 EDT Tel , Service support ,
--- NOTE | 2019-04-30 18:59 | ED.VISSUMM ---
- ER Visit Summary Date of Service: 04/30/19 Chief Complaint: [Fall with injury to both ankles and feet] History of Present Illness: The patient is a 23 F [presents to the emergency department with a fall that occurred about an hour ago. Patient states that she was coming down some steps in a hurry and she slid on the step and fell landing onto her right side and hitting her head on the step. No loss of consciousness. Patient states that she had heard cracks in her ankles. Patient unable to bear weight afterwards. Patient is 6 months . Denies abdominal pain or vaginal bleeding. Patient was initially taken via EMS up to OB for evaluation and was then released to the ER. Patient denies any chest pain or abdominal pain. She denies neck or back pain.] Physical Examination: [HEENT-PERRLA, EOMI. Cranial nerves II through XII grossly intact. TMs clear. Mucous membranes moist. No adenopathy. Cardiovascular-regular rate and rhythm without murmur or ectopy Lungs-clear to auscultation, chest wall stable without crepitus or subcu emphysema Abdomen-normoactive bowel sounds, soft, nontender, no rebound or rigidity, no peritoneal signs. Extremities-intact ?4, normal range of motion, normal pulses, atraumatic. Right leg-patient has diffuse tenderness about the right ankle and foot. There is no ecchymosis or bruising. There is no deformity. She is neurovascular intact distally. Mild tenderness diffusely at the proximal fibular head. Neurovascularly intact. Left leg-patient has diffuse tenderness over the foot and ankle once again as well as the proximal fibular head. No obvious deformity. No soft tissue swelling or ecchymosis noted. She is neurovascular intact.] Test Results: [X-rays of the right foot and right tib-fib obtained showed no fractures. X-rays of the left foot and left tib-fib showed no fractures.] Emergency Department Course and Treatment: [Patient requested pain medication and I offered her Tylenol but she wanted something stronger therefore she was given one [place] p.o. Patient will be given air splint and crutches.] Treatment Plan: [Advised to use Tylenol for discomfort. Patient to ice and elevate the extremities. Patient to follow-up with primary care physician 5 to 7 days. Patient is telling me she has minimal pain in the right leg and she thinks she can use crutches.] Disposition: [Discharged home in stable condition.] Impression: [Chemical fall Foot and ankle sprains bilateral] This note was generated with [employer] dictation software. It may contain incorrect words, spelling, and punctuation that were not noted in review of the chart prior to signing ED Disposition - Plan for ED Patient: Referrals: Care Physician,No Primary [Primary Care Provider] -
--- NOTE | 2019-04-30 19:02 | ED.DEP ---
ED Disposition - Plan for ED Patient: Instructions: Sprain Foot, Sprain, Ankle, No X-Ray Referrals: Care Physician,No Primary [Primary Care Provider] - Nicole Croft MD [STAFF PHYSICIAN] - 5-7 Days
--- NOTE | 2019-04-30 19:30 | ED.RN ---
AFTER DR DUGAN WENT INTO ROOM TO TALK TO PT ABOUT D/C PT'S MOTHER CALLED THIS NURSE OVER THE PHONE AND STARTED YELLING AT THIS NURSE STATING THAT WE NEEDED TO GIVE HER DAUGHTER PAIN MEDS BECAUSE IF WE DIDNT GIVE HER PAIN MEDS SHE WOULD NOT BE ABLE TO TAKE CARE OF HER KIDS AT HOME. THIS PT WAS EXPLAINED TO BY THE DR THAT SHE WAS NOT GETTING PAIN MEDS DUE TO HER BEING 6 MONTHS . THE PT WAS TOLD BY THE DR TO TAKE TYLENOL AT HOME AND ICE AND ELEVATE HER LEGS TO HELP WITH THE PAIN, THE PT UNDERSTOOD. WHEN THIS NURSE WENT IN TO GIVE THIS PT AN AIR STIRRUP, CRUTCHES AND D/C INSTRUCTIONS, THIS NURSE INSTRUCTED THE PT ON HOW TO USE THE CRUTCHES PROPERLY, WHEN THE PT STOOD UP WITH THE CRUTCHES SHE STATED THAT THE PAIN WAS TOO BAD AND THEN PROCEEDED TO LEAN AGAINST THE WALL. THE PT WANTED THIS NURSE TO TALK TO THE DR AGAIN AND ONCE THIS NURSE EXPLAINED TO THE DR WHAT WAS GOING ON HE SAID AGAIN SHE DOES NOT NEED PAIN MEDS. THIS NURSE THEN GRABBED A WHEELCHAIR AND THE PT THEN STATED SHE WAS JUST HUNGRY AND WANTED TO GO HOME AND THEN HOPPED ON HER RIGHT FOOT WITHOUT HESITATION TO THE WHEELCHAIR
== END 2019-04-30 19:19 | disposition home or self-care (01) ==
LOC: ED 18:09
PROVIDERS: Emergency Provider Emergency Medicine
DX: O99.89 Other specified diseases and conditions complicating pregnancy, childbirth and the puerperium (principal); S93.402A Sprain of unspecified ligament of left ankle, initial encounter; S93.401A Sprain of unspecified ligament of right ankle, initial encounter; S93.602A Unspecified sprain of left foot, initial encounter; S93.601A Unspecified sprain of right foot, initial encounter; W10.9XXA Fall (on) (from) unspecified stairs and steps, initial encounter; Y93.01 Activity, walking, marching and hiking; Y93.02 Activity, running; Y92.9 Unspecified place or not applicable; O36.8120 Decreased fetal movements, second trimester, not applicable or unspecified; E66.9 Obesity, unspecified; O98.412 Viral hepatitis complicating pregnancy, second trimester; B19.20 Unspecified viral hepatitis C without hepatic coma; O99.342 Other mental disorders complicating pregnancy, second trimester; O99.512 Diseases of the respiratory system complicating pregnancy, second trimester; J45.909 Unspecified asthma, uncomplicated; Z3A.26 26 weeks gestation of pregnancy
CPT/HCPCS: 59025; 59050; 73590; 73630; 99218; 99285; G0378

== ENCOUNTER 2019-06-26 21:35 | Outpatient (CLI) | payer MEDICAID, SELFPAY ==
[2019-06-26 22:15] LABS: Bacteria 0 SEEN /hpf (None Seen); Mucous, Urine 0 SEEN /hpf (<or=2+); Red Blood Cells-Urine 0 SEEN /hpf (0-5)
[2019-06-26 22:20] LABS: Color, Urine Yellow (Yellow); Glucose, Dipstick Normal (Normal); Ketone-Dipstick Negative (Negative); Leukocyte Esterase-Dipstick 25 /ul (Negative); Nitrite-Dipstick Negative (Negative); Occult Blood-Urine 10 /ul (Negative); Protein-Dipstick Negative (Negative); Urine Bilirubin Dipstick Negative (Negative); Urine Clarity Clear (Clear); Urine Urobilinogen Normal (Normal)
[2019-06-26 22:27] VITALS: BMI 45.8
[2019-06-26 22:27] LABS: Squamous Epithelial Cells - UA 0-5 SEEN /hpf (5-10); White Blood Cells 0-5 SEEN /hpf (0-5)
[2019-06-26 22:39] LABS: ROM Internal Control Test YES-OK TO RESULT pt. (Internal QC); ROM Patient Test Negative (Negative)
[2019-06-27] MEDS: Acetaminophen 500 MG Tablet 1000 MG PO (00:19)
--- NOTE | 2019-06-27 07:58 | OB.TRI.NOTE ---
History of Present Illness Date of Service: 06/26/19 Was patient seen by the physician?: No Reason For Visit: R/O LABOR Date of Service: 06/26/19 Final SRIDEVI: 08/04/19 Final SRIDEVI Source: US <20 weeks Gestational age: 34 Weeks and 4 Days Allergies Bleach (Sodium Hypochlorite) Allergy (Verified 04/30/19 17:46) Hives diphenhydramine HCl [From Benadryl] Allergy (Verified 04/30/19 17:46) Hives - Pertinent Past Medical History Medical History: Past Medical History (Last Updated 01/20/19 @ 08:44 by Dilcia Bhat CNM) Felon of finger of right hand (Acute) felon right long finger Open wound of right middle finger without damage to nail (Acute) open felon wound right long finger Migraine headache without aura (Chronic) Asthma (Chronic) Abscess of left external cheek (Acute) L02.01 left preauricular abscess Cutaneous abscess of neck (Acute) L02.11 left posterior neck abscess Personal history of MRSA (methicillin resistant Staphylococcus aureus) (Chronic) Z86.14 Open wound of left cheek (Acute) open surgical wound left preauricular area Open wound of neck (Acute) open surgical wound left posterior neck Asthma Depression affecting Hepatitis C History of MRSA infection Obesity Surgical History: Past Surgical History (Last Updated 01/19/19 @ 16:13 by Alvaro Green) Hx of oral surgery S/P ERCP Laboratory Studies: Laboratory Tests 06/26/19 06/26/19 Range/Units 22:00 22:00 Urine Color Yellow (Yellow) Urine Clarity Clear (Clear) Urine pH 7.0 (5.0 - 8.0) Ur Specific [place] 1.010 (1.002-1.030) Urine Protein Negative (Negative) mg/dl Urine Glucose (UA) Normal (Normal) mg/dl Urine Ketones Negative (Negative) mg/dl Urine Occult Blood 10 H (Negative) /ul Urine Nitrite Negative (Negative) Urine Bilirubin Negative (Negative) mg/dL Urine Urobilinogen Normal (Normal) mg/dl Ur Leukocyte Esterase 25 H (Negative) /ul Urine RBC 0 SEEN (0-5) /hpf Urine WBC 0-5 SEEN (0-5) /hpf Ur Squamous Epith Cells 0-5 SEEN (5-10) /hpf Urine Bacteria 0 SEEN (None Seen) /hpf Urine Mucus 0 SEEN (<or=2+) /hpf Vag Amniotic Fld Detect Negative (Negative) NST - FHR Rate Baby A Baseline: 120 Variability:: Moderate Accelerations:: 15 x 15 Decelerations:: Variable NST Reactive:: Yes FHR Category:: Category I Uterine Activity:: irregular contractions Impression/Plan 23-year-old 4 para 2 at 34+ weeks gestation-rule out labor. ROM plus was negative Cervix remains unchanged NST was reactive category 1. She did have a few variables but overall the tracing is reassuring for gestational age.
== END 2019-06-27 02:30 | disposition home or self-care (01) ==
LOC: WPOUT 21:43 → WP 21:44
PROVIDERS: Referring Provider Obstetrics & Gynecology; Visit Provider Obstetrics & Gynecology
DX: O47.03 False labor before 37 completed weeks of gestation, third trimester (principal); O99.213 Obesity complicating pregnancy, third trimester; E66.9 Obesity, unspecified; Z3A.34 34 weeks gestation of pregnancy
CPT/HCPCS: 59025; 59050; 81001; 84112; 87086; 87088; 99218; G0378

== ENCOUNTER 2019-06-27 12:40 | Outpatient (CLI) | payer MEDICAID, SELFPAY ==
[2019-06-26 22:27] VITALS: BMI 45.8
[2019-06-27 12:55] VITALS: BMI 45.2
[2019-06-27] MEDS: Lactated Ringers 1,000 ML 999 ML IV (13:05)
[2019-06-27 13:19] LABS: Hematocrit 33.6 % (37-47); Hemoglobin 11.3 g/dL (12.0-15.0); Mean Corp Hgb Conc 33.6 g/dL (32-36); Mean Corpuscular Hgb 30.5 pg (27.0-32.0); Mean Corpuscular Volume 90.8 fL (81-99); Mean Platelet Vol. 9.9 fl (6.2-12.0); Platelet Count 242 K/mm3 (150-450); RBC Distribution Width CV 14.3 % (11.6-14.6); RBC Distribution Width SD 46.5 fl (35.1-43.9); White Blood Count 9.2 K/mm3 (4.4-11.0)
[2019-06-27] MEDS: Ondansetron 4 MG/2 ML Vial 8 MG IV (13:26)
[2019-06-27 13:34] LABS: ALB/GLOB Ratio 0.7 RATIO (0.9-2.4); AST(SGOT) 19 U/L (15-37); Alanine Aminotransfer ALT/SGPT 22 U/L (13-56); Albumin, Serum 2.5 g/dL (3.2-5.0); Alkaline Phosphatase 101 U/L (45-117); Anion Gap 9 (5-15); BUN 5 mg/dL (7-18); BUN/Creat Ratio 9.9 RATIO (10-20); Calcium,Total 8.6 mg/dL (8.5-10.1); Chloride 112 mmol/L (98-107); EST Glomerular Filtration Rate 162 mL/min (>60); Est Glom Filt Rate - Afr Amer 196 mL/min (>60); Estimated Creatinine Clearance 126.77 ml/min; Globulin 3.8 g/dL (2.2-4.2); Glucose 79 mg/dL (74-106); Potassium 3.6 mmol/L (3.5-5.1); Protein, Total 6.3 g/dL (6.4-8.2); Sodium Level 143 mmol/L (136-145)
[2019-06-27] MEDS: Dext 5%-0.45% NS 1,000 ML 200 ML IV (14:13)
[2019-06-27] MEDS: Loperamide 2 MG Capsule 4 MG PO (14:14)
[2019-06-27 15:48] LABS: Color, Urine Yellow (Yellow); Glucose, Dipstick Normal (Normal); Ketone-Dipstick Negative (Negative); Leukocyte Esterase-Dipstick 25 /ul (Negative); Nitrite-Dipstick Negative (Negative); Occult Blood-Urine Negative /ul (Negative); Protein-Dipstick Negative (Negative); Urine Bilirubin Dipstick Negative (Negative); Urine Clarity Cloudy (Clear); Urine Urobilinogen Normal (Normal); Urine pH 6.5 (5.0 - 8.0)
[2019-06-27 16:04] LABS: Amphetamine Urine VISTA NEGATIVE (<1000 ng/mL); Barbiturate Urine VISTA NEGATIVE (< 200 ng/mL); Benzodiazepine Urine VISTA NEGATIVE (< 200 ng/mL); Cocaine Urine VISTA NEGATIVE (< 300 ng/mL); Ecstacy Urine VISTA NEGATIVE (< 500 ng/mL); Methadone Urine VISTA NEGATIVE (< 300 ng/mL); PCP Urine VISTA NEGATIVE (< 25 ng/mL); THC Urine VISTA NEGATIVE (< 50 ng/mL); Vista UDS pH Range 6
--- NOTE | 2019-06-29 12:28 | OB.TRI.HP_ITS ---
History of Present Illness Date of Service: 06/27/19 Was patient seen by the physician?: No Reason For Visit: DEHYDRATION Date of Service: 06/27/19 Final SRIDEVI: 08/04/19 Final SRIDEVI Source: US <20 weeks Gestational age: 34 4/7 Allergies Bleach (Sodium Hypochlorite) Allergy (Verified 04/30/19 17:46) Hives diphenhydramine HCl [From Benadryl] Allergy (Verified 06/27/19 12:57) Hives - Pertinent Past Medical History Medical History: Past Medical History (Last Updated 01/20/19 @ 08:44 by Dilcia Bhat CNM) Felon of finger of right hand (Acute) felon right long finger Open wound of right middle finger without damage to nail (Acute) open felon wound right long finger Migraine headache without aura (Chronic) Asthma (Chronic) Abscess of left external cheek (Acute) L02.01 left preauricular abscess Cutaneous abscess of neck (Acute) L02.11 left posterior neck abscess Personal history of MRSA (methicillin resistant Staphylococcus aureus) (Chronic) Z86.14 Open wound of left cheek (Acute) open surgical wound left preauricular area Open wound of neck (Acute) open surgical wound left posterior neck Asthma Depression affecting Hepatitis C History of MRSA infection Obesity Surgical History: Past Surgical History (Last Updated 01/19/19 @ 16:13 by Alvaro Green) Hx of oral surgery S/P ERCP Laboratory Studies: Laboratory Tests 06/27/19 06/27/19 06/27/19 Range/Units 15:20 15:20 13:05 WBC (4.4-11.0) K/mm3 RBC (4.2-5.4) M/mm3 Hgb (12.0-15.0) g/dL Hct (37-47) % MCV (81-99) fL MCH (27.0-32.0) pg MCHC (32-36) g/dL RDW Std Deviation (35.1-43.9) fl RDW Coeff of Joya (11.6-14.6) % Plt Count (150-450) K/mm3 MPV (6.2-12.0) fl Sodium 143 (136-145) mmol/L Potassium 3.6 (3.5-5.1) mmol/L Chloride 112 H (98-107) mmol/L Carbon Dioxide 22.0 (21.0-32.0) mmol/L Anion Gap 9 (5-15) BUN 5 L (7-18) mg/dL Creatinine 0.50 L (0.55-1.02) mg/dL Estim Creat Clear Calc 126.77 ml/min Est GFR (MDRD) Af Amer 196 (>60) mL/min Est GFR (MDRD) Non-Af 162 (>60) mL/min BUN/Creatinine Ratio 9.9 L (10-20) RATIO Glucose 79 (74-106) mg/dL Calcium 8.6 (8.5-10.1) mg/dL Total Bilirubin 0.30 (0.20-1.00) mg/dL AST 19 (15-37) U/L ALT 22 (13-56) U/L Alkaline Phosphatase 101 (45-117) U/L Total Protein 6.3 L (6.4-8.2) g/dL Albumin 2.5 L (3.2-5.0) g/dL Globulin 3.8 (2.2-4.2) g/dL Albumin/Globulin Ratio 0.7 L (0.9-2.4) RATIO Urine Color Yellow (Yellow) Urine Clarity Cloudy (Clear) Urine pH 6.5 (5.0 - 8.0) Ur Specific [place] 1.010 (1.002-1.030) Urine Protein Negative (Negative) mg/dl Urine Glucose (UA) Normal (Normal) mg/dl Urine Ketones Negative (Negative) mg/dl Urine Occult Blood Negative (Negative) /ul Urine Nitrite Negative (Negative) Urine Bilirubin Negative (Negative) mg/dL Urine Urobilinogen Normal (Normal) mg/dl Ur Leukocyte Esterase 25 H (Negative) /ul Urine Opiates Screen NEGATIVE (< 300 ng/mL) Urine Methadone Screen NEGATIVE (< 300 ng/mL) Ur Barbiturates Screen NEGATIVE (< 200 ng/mL) Ur Phencyclidine Scrn NEGATIVE (< 25 ng/mL) Ur Amphetamines Screen NEGATIVE (<1000 ng/mL) U Methamphetamin-MDMA NEGATIVE (< 500 ng/mL) U Benzodiazepines Scrn NEGATIVE (< 200 ng/mL) Urine Cocaine Screen NEGATIVE (< 300 ng/mL) U Cannabinoids Screen NEGATIVE (< 50 ng/mL) Ur Drug Screen Comment 06/27/19 Range/Units 13:05 WBC 9.2 (4.4-11.0) K/mm3 RBC 3.70 L (4.2-5.4) M/mm3 Hgb 11.3 L (12.0-15.0) g/dL Hct 33.6 L (37-47) % MCV 90.8 (81-99) fL MCH 30.5 (27.0-32.0) pg MCHC 33.6 (32-36) g/dL RDW Std Deviation 46.5 H (35.1-43.9) fl RDW Coeff of Joya 14.3 (11.6-14.6) % Plt Count 242 (150-450) K/mm3 MPV 9.9 (6.2-12.0) fl Sodium (136-145) mmol/L Potassium (3.5-5.1) mmol/L Chloride (98-107) mmol/L Carbon Dioxide (21.0-32.0) mmol/L Anion Gap (5-15) BUN (7-18) mg/dL Creatinine (0.55-1.02) mg/dL Estim Creat Clear Calc ml/min Est GFR (MDRD) Af Amer (>60) mL/min Est GFR (MDRD) Non-Af (>60) mL/min BUN/Creatinine Ratio (10-20) RATIO Glucose (74-106) mg/dL Calcium (8.5-10.1) mg/dL Total Bilirubin (0.20-1.00) mg/dL AST (15-37) U/L ALT (13-56) U/L Alkaline Phosphatase (45-117) U/L Total Protein (6.4-8.2) g/dL Albumin (3.2-5.0) g/dL Globulin (2.2-4.2) g/dL Albumin/Globulin Ratio (0.9-2.4) RATIO Urine Color (Yellow) Urine Clarity (Clear) Urine pH (5.0 - 8.0) Ur Specific [place] (1.002-1.030) Urine Protein (Negative) mg/dl Urine Glucose (UA) (Normal) mg/dl Urine Ketones (Negative) mg/dl Urine Occult Blood (Negative) /ul Urine Nitrite (Negative) Urine Bilirubin (Negative) mg/dL Urine Urobilinogen (Normal) mg/dl Ur Leukocyte Esterase (Negative) /ul Urine Opiates Screen (< 300 ng/mL) Urine Methadone Screen (< 300 ng/mL) Ur Barbiturates Screen (< 200 ng/mL) Ur Phencyclidine Scrn (< 25 ng/mL) Ur Amphetamines Screen (<1000 ng/mL) U Methamphetamin-MDMA (< 500 ng/mL) U Benzodiazepines Scrn (< 200 ng/mL) Urine Cocaine Screen (< 300 ng/mL) U Cannabinoids Screen (< 50 ng/mL) Ur Drug Screen Comment NST - FHR Rate Baby A Baseline: 110 Variability:: Moderate Accelerations:: 15 x 15 Decelerations:: Early NST Reactive:: Yes FHR Category:: Category I Uterine Activity:: irreg ctxs Impression/Plan 23-year-old female high risk multigravida at 34-4/7 weeks gestation. Threatened labor, nausea vomiting and dehydration likely due to viral gastroenteritis. After IV hydration, patient had no further emesis and no further diarrhea while she was here. Was discharged home and follow-up in the office or as needed.
== END 2019-06-27 15:30 | disposition home or self-care (01) ==
LOC: WPOUT 12:44 → WP 12:45
PROVIDERS: Referring Provider Obstetrics & Gynecology; Visit Provider Obstetrics & Gynecology
DX: O60.03 Preterm labor without delivery, third trimester (principal); O26.893 Other specified pregnancy related conditions, third trimester; E86.0 Dehydration; O21.2 Late vomiting of pregnancy; O09.93 Supervision of high risk pregnancy, unspecified, third trimester; O99.513 Diseases of the respiratory system complicating pregnancy, third trimester; J45.909 Unspecified asthma, uncomplicated; O99.213 Obesity complicating pregnancy, third trimester; E66.9 Obesity, unspecified; O99.343 Other mental disorders complicating pregnancy, third trimester; F32.9 Major depressive disorder, single episode, unspecified; Z3A.34 34 weeks gestation of pregnancy; Z86.14 Personal history of Methicillin resistant Staphylococcus aureus infection
CPT/HCPCS: 96361 ×2; 96374; 36415; 59025; 59050; 80053; 80307; 81002; 85027; 99218; J7120; G0378; J2405; J7799

== ENCOUNTER 2019-07-10 18:30 | Outpatient (CLI) | payer MEDICAID, SELFPAY ==
[2019-07-10 19:30] VITALS: BMI 46.3
[2019-07-10 20:00] LABS: Bacteria 0 SEEN /hpf (None Seen); Mucous, Urine 0 SEEN /hpf (<or=2+); White Blood Cells 0 SEEN /hpf (0-5)
[2019-07-10 20:05] LABS: Color, Urine Yellow (Yellow); Glucose, Dipstick Normal (Normal); Ketone-Dipstick Negative (Negative); Leukocyte Esterase-Dipstick 25 /ul (Negative); Nitrite-Dipstick Negative (Negative); Occult Blood-Urine 10 /ul (Negative); Protein-Dipstick Negative (Negative); Urine Bilirubin Dipstick Negative (Negative); Urine Clarity Sl. Cloudy (Clear); Urine Urobilinogen Normal (Normal)
[2019-07-10 20:19] LABS: Red Blood Cells-Urine 0-5 SEEN /hpf (0-5); Squamous Epithelial Cells - UA 0-5 SEEN /hpf (5-10)
--- NOTE | 2019-07-11 08:19 | OB.TRI.NOTE ---
History of Present Illness Reason For Visit: RULE OUT LABOR Final SRIDEVI Source: US <20 weeks Allergies Bleach (Sodium Hypochlorite) Allergy (Verified 04/30/19 17:46) Hives diphenhydramine HCl [From Benadryl] Allergy (Verified 06/27/19 12:57) Hives - Pertinent Past Medical History Medical History: Past Medical History (Last Updated 01/20/19 @ 08:44 by Dilcia Bhat CNM) Felon of finger of right hand (Acute) felon right long finger Open wound of right middle finger without damage to nail (Acute) open felon wound right long finger Migraine headache without aura (Chronic) Asthma (Chronic) Abscess of left external cheek (Acute) L02.01 left preauricular abscess Cutaneous abscess of neck (Acute) L02.11 left posterior neck abscess Personal history of MRSA (methicillin resistant Staphylococcus aureus) (Chronic) Z86.14 Open wound of left cheek (Acute) open surgical wound left preauricular area Open wound of neck (Acute) open surgical wound left posterior neck Asthma Depression affecting Hepatitis C History of MRSA infection Obesity Surgical History: Past Surgical History (Last Updated 01/19/19 @ 16:13 by Alvaro Green) Hx of oral surgery S/P ERCP Laboratory Studies: Laboratory Tests 07/10/19 Range/Units 19:40 Urine Color Yellow (Yellow) Urine Clarity Sl. Cloudy (Clear) Urine pH 7.0 (5.0 - 8.0) Ur Specific [place] 1.010 (1.002-1.030) Urine Protein Negative (Negative) mg/dl Urine Glucose (UA) Normal (Normal) mg/dl Urine Ketones Negative (Negative) mg/dl Urine Occult Blood 10 H (Negative) /ul Urine Nitrite Negative (Negative) Urine Bilirubin Negative (Negative) mg/dL Urine Urobilinogen Normal (Normal) mg/dl Ur Leukocyte Esterase 25 H (Negative) /ul Urine RBC 0-5 SEEN (0-5) /hpf Urine WBC 0 SEEN (0-5) /hpf Ur Squamous Epith Cells 0-5 SEEN (5-10) /hpf Urine Bacteria 0 SEEN (None Seen) /hpf Urine Mucus 0 SEEN (<or=2+) /hpf NST - FHR Rate Baby A Baseline: 110 Variability:: Moderate, Marked Decelerations:: None NST Reactive:: Yes FHR Category:: Category I Uterine Activity:: irreg ctxs Impression/Plan 23-year-old 4 para 2 at 36-3/7 weeks with threatened labor. NST is reactive. No evidence of labor. Patient was discharged home with routine follow-up and instructions.
== END 2019-07-10 19:50 | disposition home or self-care (01) ==
LOC: WPOUT 19:11 → WP 19:11
PROVIDERS: Referring Provider Obstetrics & Gynecology; Visit Provider Obstetrics & Gynecology
DX: O60.03 Preterm labor without delivery, third trimester (principal); O99.213 Obesity complicating pregnancy, third trimester; E66.9 Obesity, unspecified; Z3A.36 36 weeks gestation of pregnancy
CPT/HCPCS: 59025; 59050; 81001; 99218; G0378

== ENCOUNTER 2019-07-28 06:11 | Outpatient (CLI) | payer MEDICAID, SELFPAY ==
[2019-07-28 06:54] VITALS: BMI 47.2
--- NOTE | 2019-07-28 08:43 | OB.TRI.PN ---
Progress Notes Date of Service: 07/28/19 Progress Note: 23 year old female at 39 weeks at 39 weeks. presented for discomfort. Having leg pain, vaginal pain, and overall discomfort. No LOF, VB or regular contractions. Had mild headache on and off, no visual changes or RUQ pain. Tylenol effective and nothing currently. Requesting elective IOL. O: vitals stable Heart: RRR, no murmur Lungs: CTA bilaterally Abd: soft, non tender, no palpable contractions Ext: No edema, clonus negative, DTR +2/4 bilateral patellar FHT 125, moderate variability, accels TOCO: Irregular Cervix: 2-3cm/60/-2, same as office visit yesterday. A: Maternal discomfort Irregular contractions P: 1) Discharge home. Reviewed elective IOL and unable to safely induce at this time due to staffing. IOL rescheduled for 08/01/19 at 7am. 2) Reviewed labor signs and when to call 3) Vague complaints and no signs of pre-e. No current complaints of pre-e symptoms.
== END 2019-07-28 08:55 | disposition home health service (06) ==
LOC: WPOUT 06:49 → WP 06:50
PROVIDERS: Referring Provider Obstetrics & Gynecology; Visit Provider Obstetrics & Gynecology
DX: O26.893 Other specified pregnancy related conditions, third trimester (principal); R10.2 Pelvic and perineal pain; R51 Headache; Z3A.39 39 weeks gestation of pregnancy
CPT/HCPCS: 59025; 59050; 99218; G0378

== ENCOUNTER 2019-07-29 20:42 | Outpatient (CLI) | payer MEDICAID, SELFPAY ==
[2019-07-28 06:54] VITALS: BMI 47.2
[2019-07-29 21:56] VITALS: BMI 46.9
[2019-07-29 22:04] LABS: ROM Internal Control Test YES-OK TO RESULT pt. (Internal QC); ROM Patient Test Negative (Negative); Record Kit Lot#, ROM+ J8255
[2019-07-29 22:15] LABS: Bacteria 0 SEEN /hpf (None Seen); Red Blood Cells-Urine 0 SEEN /hpf (0-5)
[2019-07-29 22:18] LABS: Color, Urine Yellow (Yellow); Glucose, Dipstick Normal (Normal); Ketone-Dipstick 5 mg/dl (Negative); Leukocyte Esterase-Dipstick 100 /ul (Negative); Nitrite-Dipstick Negative (Negative); Occult Blood-Urine 25 /ul (Negative); Protein-Dipstick 30 mg/dl (Negative); Specific Gravity, Urine 1.015 (1.002-1.030); Urine Bilirubin Dipstick Negative (Negative); Urine Clarity Sl. Cloudy (Clear); Urine Urobilinogen 4 mg/dl (Normal); Urine pH 6.5 (5.0 - 8.0)
[2019-07-29 22:36] LABS: White Blood Cells 0-5 SEEN /hpf (0-5)
[2019-07-29 22:37] LABS: Mucous, Urine 1+ /hpf (<or=2+); Squamous Epithelial Cells - UA 0-5 SEEN /hpf (5-10)
[2019-07-29] MEDS: proMETHazine 25 MG/ML Syringe 12.5 MG IM (23:25)
--- NOTE | 2019-07-31 07:37 | OB.TRI.PN_ITS ---
Progress Notes Date of Service: 07/29/19 Progress Note: at 39w1d 23 year old female presents for complaint of uterine contractions and possible ROM. Good movement, no vaginal bleeding O: ROM negative with no gross rupture FHT 125, moderate variability, accels, Reactive strip TOCO: Irregular uterine contractions No cervical change for last exam A: False Labor P: 1) D/C home with labor instructions 2) Return for IOL as instructed Laboratory Studies: Laboratory Tests 07/29/19 07/29/19 Range/Units 21:50 21:00 Urine Color Yellow (Yellow) Urine Clarity Sl. Cloudy (Clear) Urine pH 6.5 (5.0 - 8.0) Ur Specific [place] 1.015 (1.002-1.030) Urine Protein 30 H (Negative) mg/dl Urine Glucose (UA) Normal (Normal) mg/dl Urine Ketones 5 H (Negative) mg/dl Urine Occult Blood 25 H (Negative) /ul Urine Nitrite Negative (Negative) Urine Bilirubin Negative (Negative) mg/dL Urine Urobilinogen 4 H (Normal) mg/dl Ur Leukocyte Esterase 100 H (Negative) /ul Urine RBC 0 SEEN (0-5) /hpf Urine WBC 0-5 SEEN (0-5) /hpf Ur Squamous Epith Cells 0-5 SEEN (5-10) /hpf Urine Bacteria 0 SEEN (None Seen) /hpf Urine Mucus 1+ (<or=2+) /hpf Vag Amniotic Fld Detect Negative (Negative)
== END 2019-07-29 23:40 | disposition home or self-care (01) ==
LOC: WPOUT 21:09 → WP 21:10
PROVIDERS: Obstetrics & Gynecology; Referring Provider Advanced Practice Midwife; Visit Provider Advanced Practice Midwife
DX: O47.1 False labor at or after 37 completed weeks of gestation (principal); Z3A.39 39 weeks gestation of pregnancy
CPT/HCPCS: 59025; 59050; 81001; 84112; 87086; 87088; 96372; 99218; G0378

== ENCOUNTER 2019-08-01 06:57 | Inpatient (IN) | payer MEDICAID, SELFPAY ==
[2019-08-01] VITALS (11 sets, daily range): BP systolic 116–149; BP diastolic 64–85; PULSE 68–90; RESP 15–20; TEMP 36.4–37.5; O2SAT 97–100; BMI 41.5
[2019-08-01] MEDS: Lactated Ringers 1,000 ML 50 ML IV (08:00)
[2019-08-01 08:10] LABS: Absolute Lymphocyte Count 2.23 X10^3/uL (0.83-4.51); Absolute Neutrophil Count 5.4 X10^3/uL (2.0-7.7); Basophil# 0.03 X10^3/uL; Basophil% 0.3 % (0-1); Eosinophil# 0.08 X10^3/uL; Eosinophils% 0.9 % (0-5); Hematocrit 33.4 % (37-47); Lymphocyte # 2.23 X10^3/ul (4.0); Lymphocyte % 25.9 % (19-41); Mean Corp Hgb Conc 32.9 g/dL (32-36); Mean Corpuscular Hgb 29.2 pg (27.0-32.0); Mean Corpuscular Volume 88.6 fL (81-99); Mean Platelet Vol. 10.7 fl (6.2-12.0); Monocyte% 9.3 % (0-10); NRBC Flagged by Analyzer 0 % (0-5); Neutrophil # 5.38 X10^3/uL (2.7-7.7); Neutrophil % 62.6 % (47-70); Platelet Count 210 K/mm3 (150-450); RBC Distribution Width CV 14.1 % (11.6-14.6); RBC Distribution Width SD 45.2 fl (35.1-43.9); Red Blood Count 3.77 M/mm3 (4.2-5.4); White Blood Count 8.6 K/mm3 (4.4-11.0)
[2019-08-01] MEDS: Oxytocin 30 units/NS 500 ml 30 UNITS/500 ML IV.SOLN IV (08:46)
[2019-08-01] MEDS: Lactated Ringers 500 ML 999 ML IV ×3 (10:16→14:36)
[2019-08-01] MEDS: fentaNYL-bupivacaine (epidural) 100 ML BAG EPIDURAL ×2 (11:33→16:30)
[2019-08-01] MEDS: Lactated Ringers 1,000 ML 200 ML IV (15:27)
[2019-08-01] MEDS: Oxytocin 30 units/NS 500 ml 30 UNITS/500 ML IV.SOLN 334 UNITS IV (16:05)
--- NOTE | 2019-08-01 16:25 | HP.PCM_ITS ---
History Date of Admission: 04/29/16 Final SRIDEVI: 08/04/19 Final SRIDEVI Source: US <20 weeks Gestational age: 39 Weeks and 4 Days History of this : This is a 23 year-old, -0-1-2 at 39-4/7 weeks gestation with EDC of 08/04/2019 presents for elective induction of labor. She denies any vaginal bleeding or leaking of fluid. She has had good movement. has been complicated to date by history of kidney stones asthma, hepatitis C, maternal obesity, nausea and vomiting early in , and history of depression. Medical History: Medical History (Last Updated 01/20/19 @ 08:44 by Dilcia Bhat CNM) Felon of finger of right hand (Acute) L03.011 felon right long finger Open wound of right middle finger without damage to nail (Acute) S61.202A open felon wound right long finger Migraine headache without aura (Chronic) G43.009 Asthma (Chronic) J45.909 Abscess of left external cheek (Acute) L02.01 L02.01 left preauricular abscess Cutaneous abscess of neck (Acute) L02.11 L02.11 left posterior neck abscess Personal history of MRSA (methicillin resistant Staphylococcus aureus) (Chronic) Z86.14 Z86.14 Open wound of left cheek (Acute) S01.402A open surgical wound left preauricular area Open wound of neck (Acute) S11.90XA open surgical wound left posterior neck Asthma J45.909 Depression affecting O99.340, F32.9 Hepatitis C B19.20 History of MRSA infection Z86.14 Obesity E66.9 Surgical History: Surgical History (Last Updated 01/19/19 @ 16:13 by Alvaro Green) Hx of oral surgery Z98.890 S/P ERCP Z98.890 Allergies Bleach (Sodium Hypochlorite) Allergy (Verified 08/01/19 07:44) Hives diphenhydramine HCl [From Benadryl] Allergy (Verified 08/01/19 07:44) Hives Home Medications: Home Medications Vit No.130/Iron/Folic [ Tablet] 1 each PO DAILY 01/01/19 Ranitidine [Zantac] 150 mg PO DAILY 07/28/19 Acetaminophen [Tylenol] 650 mg PO PRN PRN 10/01/19 Smoking Status: Never smoker History Past Pregnancies: Past Pregnancies Delivery Date Name GA/Weeks Outcome Route Weight Gender Labor Length Anesthesia Delivery Location Provider FOB Expected Delivery Method: Spontaneous Vaginal Review of Systems Constitutional: Denies: Chills, Fever Eyes: Denies: Blurred vision Cardiovascular: Denies: Chest Pain Respiratory: Reports: Cough Skin: Denies: Rash Neurological: Denies: Blurred vision Physical Exam General: Alert, Cooperative, No apparent distress Cardiovascular: Regular rate Lungs: Normal air movement Abdomen: Soft, Non Tender, Non-Distended, Gravid, Appropriate for Gestational Age Extremities:: Other - edema 2+ DIRECTOR OF FRONT OFFICE: Normal external genitalia Estimated gestational size: Appropriate for gestational size Presentation: Cephalic Cervix Dilation (cm): 4 Station: -2 Effacement (%): 60 Assessment/Plan All Active Problems (Last Updated 01/20/19 @ 08:44 by Dilcia Bhat CNM) Felon of finger of right hand (Acute) Open wound of right middle finger without damage to nail (Acute) Abscess of left external cheek (Acute) Cutaneous abscess of neck (Acute) Open wound of left cheek (Acute) Open wound of neck (Acute) Hyperemesis affecting , antepartum (Acute) This is a 23 year-old, 4 para 2-0-1-2 at 39-4/7 weeks gestation for elective induction of labor. Risk benefits and alternatives to induction been discussed, consent was signed and patient desires to proceed. We will proceed with Pitocin and artificial rupture membranes. In addition patient would like generalization. Discussed with her if acuity and staffing of the unit and anesthesia will allow for this, will proceed. Otherwise may need to be scheduled as outpatient. This is permanent, irreversible risk of failure and regret were discussed with the patient. Reversible methods were reviewed and patient declines them. She would like to proceed with tubal.
--- NOTE | 2019-08-01 16:34 | PCM.OPRPT ---
Vaginal Delivery Maternal Presentation: Elective Induction Method of Induction: Pitocin, Amniotomy Amniotic Membrane Rupture Type: Artificial Amniotic Fluid Description: Clear Final SRIDEVI: 08/03/19 Final SRIDEVI Source: US <20 weeks Gestational age: 39 Weeks and 5 Days Date of Procedure: 08/01/19 Pre-Operative Diagnosis: 39 week , maternal discomfort, labor Post-Operative Diagnosis: same Surgery/ Procedure Performed: Spontaneous Vaginal Delivery Type of Anesthesia: Epidural Description of Procedure: A vigorous [female] was delivered LUI over intact perineum. The remainder the infant was delivered with maternal pushing and gentle traction only in less than 15 seconds. The Pitocin infusion was initiated for active management of the third stage. The cord was clamped and cut [after 1 minute]. The was attended to by the waiting nursing staff. The placenta was delivered spontaneously and intact. The cervix and vagina were intact. Sponge and needle counts were correct. A vaginal sweep was completed by me. Neonates name- Michael Presentation: LUI Placental Delivery Description: Spontaneous Placenta Disposition: [facility] Cord Vessel Description: 3 Vessels Nuchal Cord Compression: Without compression Cord Entanglement: None Drain: - - nonbe Estimated Blood Loss: 200 A gender: Female (1 minute): 8 (5 minute): 9 Episiotomy Description: None Laceration: None Medications given after delivery: IV Pitocin Complications: None
[2019-08-01] MEDS: Methylergonovine 0.2 MG/ML Ampul IM (16:56)
[2019-08-01] MEDS: Lactated Ringers 1,000 ML 100 ML IV (17:26)
--- NOTE | 2019-08-01 17:36 | FALS_PTH ---
PATIENT: RAYA CASTLE LOC: [facility] U#:[id number] AGE/SX: 23/F ROOM: WP005 RE08/01/[address]: Dr. Nicole Croft MD : [id number] BED: 1 DIS: 08/03/2019 SPEC #: [id number] RECD: 08/01/19 23:02 STATUS: RACHELLE BEV #: [id number] EUGENIA: 08/01/19 17:[address]: Nicole Croft DEPT: SURGICAL PATHOLOGY RECD BY: Frank Cody ENTERED: 08/02/19 09:51 SP TYPE: FALL TUBES OTHR DR: No Primary Care Phys Tissues: Fallopian tube Procedures: Surgery Specimen Level II HEADER OPERATION: Tubal ligation PRE-OP DIAGNOSIS: Sterilization TISSUE SUBMITTED: Bilateral fallopian tubes MICROSCOPIC DIAGNOSIS Bilateral fallopian tubes, salpingectomy: Bilateral fallopian tubes including fimbrial ends, no pathologic diagnosis. MARY:zi 08/03/19 MICROSCOPIC DESCRIPTION Slides are reviewed. GROSS DESCRIPTION Received is one container labeled with the patient's name and designated bilateral fallopian tubes. The specimen consists of bilateral fallopian tubes including fimbrial ends measuring 4 cm in length and up to 1 cm in diameter. Sections do not reveal any mass lesion. The fallopian tubes are not identified as right or left. Sections reveal unremarkable cut surfaces. [employer] sections are submitted in two cassettes with each cassette containing one fallopian tube. / SJ:zi 08/02/19 TC:4 [facility]: [id number] x2
--- NOTE | 2019-08-01 18:31 | PCM.OPRPT ---
Report of Operation Date of Procedure: 08/01/19 Pre-Operative Diagnosis: Sterilization request Post-Operative Diagnosis: same Surgery/Procedure Performed:: bilateral salpingectomy Description of Surgical Findings:: normal appearing ovaries and fallopian tubes respiratory therapy director: Apurva blakely Type of Anesthesia:: Epidural Anesthesiologist: Elida Tello Special Medications: none Specimen's removed: bilateral fallopian tubes Drains: none Estimated Blood Loss (mL): 10 Fluids Replaced: 500cc Description of Procedure: The patient was taken to the operating room where she is prepped and draped in dorsal supine position. After ensuring adequacy of anesthesia, an incision that was approximately 4 cm long was made under the umbilicus. It was carried through to underlying fascia with the scalpel. The fascia was incised sharply, and the fascial incision extended with the Hyatt scissors. The peritoneum was entered sharply. The peritoneal incision was stretched. The patient was turned to the left and the right fallopian tube was identified and followed out to the fimbriated end. The LigaSure device was then used to clamp, seal and transect along the antimesenteric portion of the tube to the tubal insertion. The LigaSure device was used to clamp across the tube, seal it and amputate the tube from the corneal end of the uterus. The site hemostatic. Attention was then turned to the other tube, and the same procedure was performed on the contralateral side. Again hemostasis was assured of the pedicles. The fascia and peritoneum were then closed en bloc with a 0 Vicryl suture in a running standard fashion. The subtenons tissue was reapproximated with 3-0 Monocryl suture. The skin was closed in subcuticular with 3-0 Monocryl suture. I performed the entire procedure with assistance. Grafts/Implants Used: none - Complications none - Admit VTE Documentation VTE Present on Admission: No VTE Mechan Device Prophylaxis: SCD's VTE Pharm Prophylaxis ordered?: No Reason prophylaxis not ordered:: Procedure Not Indicated
[2019-08-01] MEDS: Acetaminophen 500 MG Tablet 1000 MG PO (20:16)
[2019-08-01] MEDS: oxyCODONE 5 MG Tablet PO (20:59)
--- NOTE | 2019-08-01 22:10 | NURSING ---
Epidural catheter removed with tip intact. Pt OOB to chair.
[2019-08-02] VITALS (7 sets, daily range): BP systolic 108–133; BP diastolic 55–79; PULSE 68–90; RESP 16–18; TEMP 36.1–37.1; O2SAT 97–99
[2019-08-02] MEDS: oxyCODONE 5 MG Tablet PO ×5 (01:07→19:31)
[2019-08-02 06:03] LABS: Hematocrit 33.4 % (37-47); Hemoglobin 10.7 g/dL (12.0-15.0); Mean Corpuscular Hgb 28.9 pg (27.0-32.0); Mean Corpuscular Volume 90.3 fL (81-99); Mean Platelet Vol. 10.9 fl (6.2-12.0); Platelet Count 187 K/mm3 (150-450); RBC Distribution Width CV 14.3 % (11.6-14.6); RBC Distribution Width SD 46.1 fl (35.1-43.9)
--- NOTE | 2019-08-02 08:35 | PCM.PN.OB ---
Subjective: Doing well per patient and nursing staff. Ambulating and taking PO without difficulty. Voiding and passing flatus. Denies headache, visual changes, increased vaginal bleeding or clots, no leg pain. Pain controlled. Planning D/C home tomorrow. - Physical Exam General: Alert, Oriented x3, Cooperative HEENT: Atraumatic, Normocephalic Neck: Trachea Midline Lungs: Clear to auscultation, Normal air movement, No rhonchi, No wheeze Cardiovascular: Regular rate, Regular Rhythm, No murmurs Abdomen: Bowel Sounds Present, Soft, - - Fundus firm 2 below U. Incision dressing dry and intact Extremities: No edema Psych/Mental Status: Normal Affect, Appropriate Vital Signs Temp Pulse Resp BP Pulse Ox 98.7 F 68 16 118/71 99 08/02/19 07:55 08/02/19 07:55 08/02/19 07:55 08/02/19 07:55 08/02/19 07:55 Oxygen Delivery Method Room Air Weight: 241 lb 13.553 oz Body Mass Index (BMI) 41.5 Intake and Output for Last 24 Hours 07/31/19 08/01/19 08/02/19 23:59 23:59 23:59 Intake Total 3658.53 / 3658.53 Output Total 2850 / 2850 300 / 300 Balance 808.53 / 808.53 -300 / -300 Laboratory Tests Past 24 Hrs 08/01/19 08/02/19 08:00 05:50 WBC 11.0 RBC 3.70 L Hgb 10.7 L Hct 33.4 L MCV 90.3 MCH 28.9 MCHC 32.0 RDW Std Deviation 46.1 H RDW Coeff of Joya 14.3 Plt Count 187 MPV 10.9 Blood Type A POSITIVE Antibody Screen NEGATIVE Medical Necessity - Tobacco Use Smoking Status: Never smoker Assessment/Plan All Active Problems (Last Updated 01/20/19 @ 08:44 by Dilcia Bhat CNM) Felon of finger of right hand (Acute) Open wound of right middle finger without damage to nail (Acute) Abscess of left external cheek (Acute) Cutaneous abscess of neck (Acute) Open wound of left cheek (Acute) Open wound of neck (Acute) Hyperemesis affecting , antepartum (Acute) A:PPD#1 S/P bilateral salpingectomy P: 1) Routine instructions reviewed 2) Continue current pain management 3) vitals and CBC stable 4) Planning D/C home tomorrow
[2019-08-02] MEDS: Naproxen 250 MG Tablet 500 MG PO (09:19)
--- NOTE | 2019-08-02 09:24 | NURSING ---
This nurse directly observed the medication administration documentation completed by Anders Bergman, student nurse.
[2019-08-02] MEDS: Acetaminophen 500 MG Tablet 1000 MG PO (13:44)
--- NOTE | 2019-08-02 15:02 | NURSING ---
This occupational health nursing director reviewed the documentation completed by Elaina, student nurse and it is complete.
--- NOTE | 2019-08-02 15:53 | CASEMGMT ---
Social Work Labor and Delivery Unit Notified by nursing staff of need for social work consult this admission. 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 Chart reviewed. This script writer familiar with MOB from first delivery at [facility]. Will plan to see MOB tomorrow, 08.03.2019, for assessment. -KACY Altman, CULTURIST
[2019-08-02] MEDS: Senna/Docusate Sodium 1 Tablet PO (19:31)
[2019-08-03] MEDS: oxyCODONE 5 MG Tablet PO ×2 (00:15→06:30)
[2019-08-03] MEDS: Naproxen 250 MG Tablet 500 MG PO ×3 (00:16→22:58)
[2019-08-03 02:16] VITALS: BP 106/55; PULSE 62; RESP 16; TEMP 36.7; O2SAT 96
[2019-08-03] MEDS: Acetaminophen 500 MG Tablet 1000 MG PO ×2 (05:01→17:42)
[2019-08-03 08:16] VITALS: BP 112/67; PULSE 87; RESP 16; TEMP 36.6; O2SAT 97
--- NOTE | 2019-08-03 09:25 | PCM.PN.OB ---
Subjective: No complaints - Physical Exam General: Alert, Oriented x3 Abdomen: Soft, Non Tender, Non-Distended - ff mid & below umb; inc - bandage c/d/i Extremities: No Calf Tenderness Vital Signs Temp Pulse Resp BP Pulse Ox 97.9 F 87 16 112/67 97 08/03/19 08:16 08/03/19 08:16 08/03/19 08:16 08/03/19 08:16 08/03/19 08:16 Oxygen Delivery Method Room Air Weight: 241 lb 13.553 oz Body Mass Index (BMI) 41.5 Intake and Output for Last 24 Hours 08/01/19 08/02/19 08/03/19 23:59 23:59 23:59 Intake Total 3658.53 / 3658.53 Output Total 2850 / 2850 1050 / 1050 Balance 808.53 / 808.53 -1050 / -1050 Medical Necessity - Tobacco Use Smoking Status: Never smoker Assessment/Plan All Active Problems (Last Updated 01/20/19 @ 08:44 by Dilcia Bhat CNM) Felon of finger of right hand (Acute) Open wound of right middle finger without damage to nail (Acute) Abscess of left external cheek (Acute) Cutaneous abscess of neck (Acute) Open wound of left cheek (Acute) Open wound of neck (Acute) Hyperemesis affecting , antepartum (Acute) PPD#2 D/c home
--- NOTE | 2019-08-03 09:26 | DCINST_ITS ---
Discharge Diet: No Restrictions Discharge Activity: May not drive while taking narcotic pain medications., May Shower May resume sexual activity in: 6 weeks Weight Bearing Status: Weight bearing as tolerated Call your doctor if your incision/area has: Continuous Slow Oozing, Sudden Increased Bleeding, Increased Pain/ Swelling, Increased Redness, Foul Smelling Discharge, Swelling at the incision site Suture Line Care: Avoid Pulling/Pushing, Avoid Pinching/Bending Cleanse incision/area with: Soap & Water Additional Instructions: If you experience any of the following, contact your healthcare provider. * Bleeding that soaks a pad every hour for 2 hours * Fever 100.4 or higher * Unrelieved incision or abdominal pain * Swelling, redness, discharge or bleeding from your incision or episiotomy site * Your incision begins to separate * Problems urinating (including inability to urinate or burning while urinating). * Visual changes * Severe headache * Flu-like symptoms * Pain or redness in one of both of your breasts * Pain, warmth, tenderness or swelling in your legs, especially the calf area * Frequent nausea and vomiting * Symptoms of depression or anxiety If you experience any of the following, call 911 or go to the nearest Emergency Room. * Chest pain * Problems breathing * Seizure activity * Partial or complete paralysis of a body part, slurred speech, weakness or drooping of the face, or a sudden inability to walk or hold your balance Allergies/Adverse Reactions: Allergies Bleach (Sodium Hypochlorite) Allergy (Verified 08/01/19 07:44) Hives diphenhydramine HCl [From Benadryl] Allergy (Verified 08/01/19 07:44) Hives Medications to take at Discharge Vit No.130/Iron/Folic [ Tablet] 1 each PO DAILY 01/01/19 Ranitidine [Zantac] 150 mg PO DAILY 07/28/19 Acetaminophen [Tylenol] 1,000 mg PO Q8H PRN PRN #60 tab 08/03/19 Ibuprofen 600 mg PO Q8H PRN PRN #40 tab 08/03/19 Oxycodone [Oxyir] 5 mg PO Q6H PRN PRN 2 Days #5 tab 08/03/19 The following prescriptions were given: Ibuprofen 600 mg PO Q8H PRN PRN #40 tab PRN Reason: Pain Score 1-10/10 Prescription Printed Oxycodone [Oxyir] 5 mg PO Q6H PRN PRN 2 Days #5 tab PRN Reason: Pain Score 4-10/10 Prescription Printed Acetaminophen [Tylenol] 1,000 mg PO Q8H PRN PRN #60 tab PRN Reason: Pain Score 1-3/10 Prescription Printed Primary Care Physician: Care Physician,No Primary [Primary Care Provider] - Test Results: Test results from this visit will be discussed in further detail at your follow- up appointment, if applicable.
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
[2019-08-03 14:00] VITALS: BP 136/86; PULSE 95; RESP 16; TEMP 36.9; O2SAT 97
[2019-08-03 14:45] LABS: Pathology Specimen OB SEE PATHOLOGY REPORT
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
[2019-08-03 17:45] VITALS: BP 121/81; PULSE 64; RESP 16; TEMP 36.8; O2SAT 99
[2019-08-03 18:51] VITALS: BP 115/72; PULSE 79; RESP 18; TEMP 36.8; O2SAT 98
--- NOTE | 2019-08-03 19:18 | NURSING ---
1300 Discussing with the pt s/sx of withdrawal the baby is showing. Pt's mom is at the bedside becomes hostile and yelling at this nurse. Explained to the pt the baby scores a VIOLET score of 12. Pt's mom is screaming that I am trying to get the pt in trouble. 1400 Pt states she has been taking Neurontin. 1600 Baby's VIOLET score is 21. I pull the chart up in the pt's room and we went thru it together, I asked the pt specifically do you see the baby jittery, she answered yes, we went thru the entire list together, and I would ask the mom have you seen this an example was sneezing she replies yes have you seen that the baby cries and you cant soothe her the pt replies yes. The result was given to the well baby nursery Lashaun and the baby was taken to the well baby nursery. 1830 reports to this nurse the pt stated to him she may have taken tramodol as well.
[2019-08-03] MEDS: Bisacodyl 10 MG Suppository RECTAL (20:48)
[2019-08-03 23:22] VITALS: BP 126/80; PULSE 80; RESP 16; TEMP 36.7; O2SAT 95
--- NOTE | 2019-08-03 23:37 | NURSING ---
Hotel papers signed and filled out.
== END 2019-08-03 23:37 | disposition home or self-care (01) | DRG 541 ==
PROVIDERS: Admitting Provider Obstetrics & Gynecology; Referring Provider Obstetrics & Gynecology; Visit Provider Obstetrics & Gynecology
DX: O26.893 Other specified pregnancy related conditions, third trimester (principal); O99.02 Anemia complicating childbirth; D50.9 Iron deficiency anemia, unspecified; O21.0 Mild hyperemesis gravidarum; O99.62 Diseases of the digestive system complicating childbirth; K21.9 Gastro-esophageal reflux disease without esophagitis; O98.42 Viral hepatitis complicating childbirth; B19.20 Unspecified viral hepatitis C without hepatic coma; O99.214 Obesity complicating childbirth; E66.01 Morbid (severe) obesity due to excess calories; Z3A.39 39 weeks gestation of pregnancy; Z37.0 Single live birth; Z30.2 Encounter for sterilization
CPT/HCPCS: 59025; 59050; 81001; 84112; 85025; 85027; 86850; 86900; 86901; 87086; 87088; 88302; 96372; 99218; J7120; G0378

== ENCOUNTER 2019-08-20 07:17 | Emergency (ER) | payer MEDICAID, SELFPAY ==
[2019-08-01 07:43] VITALS: BMI 41.5
[2019-08-20 07:18] VITALS: BP 118/92; PULSE 79; RESP 18; TEMP 35.8; O2SAT 96; BMI 37.1
--- NOTE | 2019-08-20 07:26 | ED.DCSUM_ITS ---
- ER Visit Summary Date of Service: 08/20/19 Chief Complaint: Left flank pain History of Present Illness: The patient is a 23 F who presents with left flank pain that began today. Patient states it woke her up approximately 2 hours prior to arrival. Patient describes the pain is sharp. Patient states pain is over the left flank area. Patient states this is similar to prior kidney stone pain. Patient denies any dysuria hematuria. Patient does admit to some nausea and vomiting. Patient denies any fevers or chills. Patient denies any chest pain or shortness of breath. Patient states nothing makes her pain better or worse. Physical Examination: Vital signs are stable. Patient is afebrile. Patient is in no acute distress. Oral mucosa is pink and moist. Neck is supple. Trachea is midline. There is no JVD. Heart was regular rate and rhythm. Lungs are clear and equal bilaterally. Abdomen is soft. Bowel sounds are normal. There is left CVA tenderness. There is no rebound or guarding noted. Cranial nerves II through XII are intact. There are no focal motor or sensory deficits noted. Test Results: CT scan of the abdomen pelvis was obtained. There is a 2 x 1 mm stone at the left ureterovesicular junction. There is hydronephrosis noted. This is interpreted by the radiologist and reviewed by myself. CBC and basic metabolic profile within normal limits. Urinalysis does not show any evidence of urinary tract infection. Serum hCG was positive. Quantitative hCG was then obtained and was 9. Patient had recently delivered a child. Patient also had tubal ligation after her delivery. Emergency Department Course and Treatment: Patient was given IV fluids, Toradol, and Zofran here. Patient was still having some pain with this. Patient was given a dose of morphine here. Patient felt better on reevaluation. Patient was instructed to strain her urine. Patient was instructed to follow-up with her primary care physician in 5 to 7 days. Patient was also instructed to follow-up with Dr. Ignacio in 5 to 7 days as needed. Patient understood and was agreeable with the plan. All questions were answered. Disposition: Discharge home Impression: Left ureteral calculus This note was generated with MySongToYouation software. It may contain incorrect words, spelling, and punctuation that were not noted in review of the chart prior to signing ED Disposition - Plan for ED Patient: Disposition: Home or Assisted Living Diagnosis: Left ureteral calculus Instructions: KIDNEY STONE w/ Colic Prescriptions: Hydrocodone Bitart/Apap 5-325 [[place] 5MG-325MG] 1 tab PO Q6H PRN PRN 3 Days #10 tab PRN Reason: Pain Prescription Printed Referrals: Care Physician,No Primary [Primary Care Provider] - Denver Arreguin MD [NON-STAFF] - 3-5 Days Rob Ignacio MD [STAFF PHYSICIAN] - 3-5 Days if not improving
[2019-08-20 07:39] LABS: Absolute Lymphocyte Count 2.19 X10^3/uL (0.83-4.51); Absolute Neutrophil Count 5.5 X10^3/uL (2.0-7.7); Basophil# 0.06 X10^3/uL; Basophil% 0.7 % (0-1); Eosinophil# 0.18 X10^3/uL; Eosinophils% 2.1 % (0-5); Hematocrit 40.4 % (37-47); Hemoglobin 13.1 g/dL (12.0-15.0); Lymphocyte # 2.19 X10^3/ul (4.0); Lymphocyte % 25.5 % (19-41); Mean Corp Hgb Conc 32.4 g/dL (32-36); Mean Corpuscular Hgb 28.4 pg (27.0-32.0); Mean Corpuscular Volume 87.6 fL (81-99); Mean Platelet Vol. 10.2 fl (6.2-12.0); Monocyte# 0.64 X10^3/uL; Monocyte% 7.5 % (0-10); NRBC Flagged by Analyzer 0 % (0-5); Neutrophil # 5.47 X10^3/uL (2.7-7.7); Neutrophil % 63.6 % (47-70); Platelet Count 327 K/mm3 (150-450); RBC Distribution Width CV 13.3 % (11.6-14.6); RBC Distribution Width SD 42.5 fl (35.1-43.9); Red Blood Count 4.61 M/mm3 (4.2-5.4); White Blood Count 8.6 K/mm3 (4.4-11.0)
[2019-08-20] MEDS: 0.9% Normal Saline 1,000 ML 250 ML IV (07:43)
[2019-08-20] MEDS: Ondansetron 4 MG/2 ML Vial IV (07:43)
[2019-08-20] MEDS: Ketorolac 30 MG/ML Syringe IV (07:43)
[2019-08-20 07:52] LABS: Anion Gap 8 (5-15); BUN 7 mg/dL (7-18); BUN/Creat Ratio 8.4 RATIO (10-20); Calcium,Total 9.1 mg/dL (8.5-10.1); Chloride 111 mmol/L (98-107); Creatinine, Serum 0.83 mg/dL (0.55-1.02); EST Glomerular Filtration Rate 90 mL/min (>60); Est Glom Filt Rate - Afr Amer 109 mL/min (>60); Estimated Creatinine Clearance 87.95 ml/min; Glucose 114 mg/dL (74-106); Potassium 3.4 mmol/L (3.5-5.1); Sodium Level 143 mmol/L (136-145)
--- NOTE | 2019-08-20 08:23 | CT_ITS ---
HISTORY: LEFT FLANK PAIN, HX KS, RECENT CHILD , BILAT SALPINGECTOMY EXAMINATION: CT Abdomen And Pelvis W/O Contrast Injection TECHNIQUE: Helically acquired images were obtained of the abdomen both before and after IV contrast. A radiation dose optimization technique was used for this scan. IV Contrast dosage and agent: Oral contrast: None. COMPARISON: 07/28/2017 FINDINGS: Lower thorax: Clear. No pleural effusion or pericardial effusion. Limited non-infusion exam. No radiopaque gallstones and no biliary dilatation. Negative liver, spleen, and pancreas. Both kidneys are normal in position. The right kidney shows multiple small stones, approximately 6 stones measuring 1-2 mm at the mid and lower pole calyceal regions. No hydronephrosis or hydroureter on the right. Left renal 2 x 1 mm mid pole calyceal stone. Mild hydronephrosis and hydroureter on the left secondary to a 2 x 1 mm left UVJ stone. This stone is new compared to previous. The adrenal glands are not enlarged. Normal abdominal aorta. No ascites or retroperitoneal lymph node enlargement. GI tract: No obstruction. Normal appendix. No pneumoperitoneum. Pelvis: Recent childbirth. The uterus remains mildly enlarged. No endometritis identified. The urinary bladder is normally distended. As above, left UVJ small stone. No free fluid or lymph node enlargement. Ventral abdominal Wall: Lower right parasagittal postsurgical change. No abscess seen. CT/Abdomen/Pelvis without Cont IMPRESSION: 1. Mild hydronephrosis and hydroureter on the left secondary to a left UVJ 2 x 1 mm stone. 2. Bilateral intrarenal small stones, more numerous on the right. No hydronephrosis on the right. 3. Recent childbirth and the uterus remains mildly enlarged. No free fluid. Individualized dose optimization techniques were used for this CT. at 1205 Reported and signed by: Julian Chow MD Electronically Signed: Julian Chow, at 12:04 EDT Tel , Service support ,
[2019-08-20 09:29] LABS: Internal QC Validated? YES +Cl - CLEAR BKGD
[2019-08-20 09:33] LABS: Pregnancy, Serum, hCG Quali. POSITIVE Negative
[2019-08-20 10:14] LABS: hCG Titer Quant., Serum 9 mIU/mL (1-3)
[2019-08-20 10:47] VITALS: BP 112/75; PULSE 59; RESP 16; O2SAT 99
[2019-08-20 10:50] LABS: Bacteria 0 SEEN /hpf (None Seen); Mucous, Urine 0 SEEN /hpf (<or=2+)
[2019-08-20 10:51] LABS: Color, Urine Yellow (Yellow); Glucose, Dipstick Normal (Normal); Ketone-Dipstick Negative (Negative); Leukocyte Esterase-Dipstick 100 /ul (Negative); Nitrite-Dipstick Negative (Negative); Occult Blood-Urine 250 /ul (Negative); Protein-Dipstick 30 mg/dl (Negative); Urine Bilirubin Dipstick Negative (Negative); Urine Clarity Sl. Cloudy (Clear); Urine Urobilinogen Normal (Normal)
[2019-08-20 11:07] LABS: Red Blood Cells-Urine 0-5 SEEN /hpf (0-5); Squamous Epithelial Cells - UA 0-5 SEEN /hpf (5-10); White Blood Cells 5-10 SEEN /hpf (0-5)
[2019-08-20] MEDS: Morphine 4 MG/ML Syringe IV (11:59)
[2019-08-20 13:17] VITALS: BP 126/74; PULSE 47; RESP 16
== END 2019-08-20 13:18 | disposition home or self-care (01) ==
PROVIDERS: Emergency Provider Emergency Medicine
DX: N13.2 Hydronephrosis with renal and ureteral calculous obstruction (principal); Z87.442 Personal history of urinary calculi
CPT/HCPCS: 36415; 74176; 80048; 81001; 84702; 84703; 85025; 96361; 96374; 96375; 99285; J2405

== ENCOUNTER → 2019-09-12 17:19 | Outpatient (CLI) | payer MEDICAID, SELFPAY ==
[2019-08-20 07:18] VITALS: BMI 37.1
== END ==
PROVIDERS: Referring Provider Otolaryngology Otolaryngology/Facial Plastic Surgery; Visit Provider Otolaryngology Otolaryngology/Facial Plastic Surgery
DX: J02.9 Acute pharyngitis, unspecified (principal)
CPT/HCPCS: 87070

== ENCOUNTER 2019-11-06 23:40 | Emergency (ER) | payer MEDICAID, SELFPAY ==
[2019-11-06 23:42] VITALS: BP 157/109; PULSE 82; RESP 21; TEMP 36.5; O2SAT 100; BMI 43.4
[2019-11-06 23:47] VITALS: BP 157/109; PULSE 82; RESP 21; TEMP 36.5; O2SAT 100
--- NOTE | 2019-11-07 00:03 | RAD_ITS ---
STUDY: X-RAY CHEST REASON FOR EXAM: Female, 24 years old. Short of breath. TECHNIQUE: Frontal chest COMPARISON: 10/30/2016 chest radiographs. FINDINGS: No apparent pneumothorax, pneumonia, pleural effusion, or edema. Cardiac silhouette, jeromy and mediastinal contours are within normal limits. No acute osseous abnormality. No evidence of free air under the diaphragm. RAD/Chest 1 View (Portable) IMPRESSION: Negative chest radiograph. Electronically Signed: Zeeshan Patel, at 0:47 EST Tel , Service support ,
--- NOTE | 2019-11-07 00:03 | EKG12_ITS ---
Test Reason : DYSRHYTHMIA Blood Pressure : / mmHG Vent. Rate : 097 BPM Atrial Rate : 097 BPM P-R Int : 118 ms QRS Dur : 080 ms QT Int : 372 ms P-R-T Axes : 042 029 046 degrees QTc Int : 472 ms Sinus rhythm with marked sinus arrhythmia Nonspecific T wave abnormality Confirmed by ARELY ZULAUGA, SHAMIKA ([id number]), rewrite editor COURTNEY WARNER ([id number]) on 11/08/2019 11:03:02 AM Referred By: JASWINDER Confirmed By:SHAMIKA MCGEE MD
--- NOTE | 2019-11-07 00:04 | CT_ITS ---
STUDY: CT BRAIN WITHOUT CONTRAST REASON FOR EXAM: Female, 24 years old. Altered mental status. TECHNIQUE: Transaxial CT imaging of the brain was performed without administration of intravenous contrast material. Individualized dose optimization techniques were used for this CT. COMPARISON: 04/03/2018 CT brain. FINDINGS: No evidence of intracranial hemorrhage, mass, infarct or hydrocephalus. No skull fracture. Visualized paranasal sinuses and mastoid air cells patent. Visualized extracranial soft tissues unremarkable. CT/Brain/Head without Contrast IMPRESSION: Negative CT brain without contrast. Electronically Signed: Zeeshan Patel, at 1:42 EST Tel , Service support ,
--- NOTE | 2019-11-07 00:06 | ED.DCSUM_ITS ---
History of Present Illness Chief Complaint: Overdose Informant: Patient, Family Onset: Today - unk period of time Narrative: Limited evaluation due to patient's altered mental status. She can provide no history about the events prior to her arrival at the ER but she admits to using methamphetamine yesterday. According to her mother who is here with her, states she got a call from the patient's brother that she was acting weird. Upon arriving talking to her daughter, she admitted to using methamphetamine, mother states that was not surprising since he is a drug addict. 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 States she took her gabapentin today when she was put on relatively recently for carpal tunnel in both sides, she is scheduled to have surgery on her hands for that and was put on the gabapentin to help control the nerve pain. She states she took 2 of those tonight but was not overdosing or taking any other pills, drugs, or prescriptions. She denies being suicidal. States she feels numb all over and nauseated. Per EMS, she was hyperventilating and in and out of consciousness at times, relatively briefly. They said she was very anxious and they were trying to calm her down. - Past Medical History (1) Carpal tunnel syndrome, bilateral Status: Chronic (2) Asthma Status: Chronic (3) Migraine headache without aura Status: Chronic (4) Personal history of MRSA (methicillin resistant Staphylococcus aureus) Status: Chronic Comment: Z86.14 Past Medical History - Allergies and Home Meds Allergies/Adverse Reactions: Allergies Bleach (Sodium Hypochlorite) Allergy (Verified 11/06/19 23:48) Hives diphenhydramine HCl [From Benadryl] Allergy (Verified 11/06/19 23:48) Hives Primary Care Physician: [facility] [STAFF PHYSICIAN] - Surgical History: - - Carpal tunnel Smoking Status: Never smoker Review of Systems ROS: Unable to Obtain - very limited eval due to mental status Gastrointestinal: Reports: Nausea Neurological: Reports: Numbness - feel numb all over Psych: Reports: Anxiety. Denies: Suicidal thoughts, Suicidal ideations Physical Exam Vital Signs/Narrative: Vital Signs Temp Pulse Resp BP Pulse Ox 11/06/19 23:47 97.7 F L 82 21 H 157/109 H 100 11/06/19 23:42 97.7 F L 82 21 H 157/109 H 100 Inital Vital Signs reviewed: Yes General: Well nourished, Well developed, Acute Distress - wincing, tachypneic, somewhat somnolent but follows commands and responds to questions; says no when asked to open eyes. GCS 13. Head: Normocephalic, Atraumatic Eyes: Perrl - 2-3mm bilat, EOMI - grossly ENT: Moist mucous membranes, No rhinorrhea Neck: Supple - FROM, Nontender Cardiovascular: Regular rate, Regular rhythm, No murmurs. Negative for: Tachycardia Respiratory: CTA bilaterally, Chest nontender, - - tachypneic Abdomen: Soft, Nontender, Nondistended, Normal bowel sounds Back: Nontender, Normal Inspection Extremities: Nontender, No edema. Negative for: Calf Tenderness Skin: Normal color, No rash, No Trauma Neurological: Alert, Oriented x3, Cranial nerves II-XII grossly intact, Normal Strength - except pt will not move feet; localizes to painful stim. no response on Babinski testing bilat., Normal Sensation Psychological: Agitated Diagnostic/Tx/Re-eval Impressions Chest X-Ray 11/07/19 00:03 IMPRESSION: Negative chest radiograph. Electronically Signed: Zeeshan Patel, at 0:47 EST Tel , Service support , Brain CT 11/07/19 00:04 IMPRESSION: Negative CT brain without contrast. Electronically Signed: Zeeshan Patel, at 1:42 EST Tel , Service support , 11/07/19 00:03 Chest 1 View (Portable) [RAD] Stat 11/07/19 00:04 Brain/Head without Contrast [CT] Stat Laboratory Results 11/06/19 11/06/19 11/06/19 23:45 23:45 23:45 WBC 11.3 H RBC 4.81 Hgb 13.9 Hct 41.8 MCV 86.9 MCH 28.9 MCHC 33.3 RDW Std Deviation 45.5 H RDW Coeff of Joya 14.3 Plt Count 294 MPV 10.0 Immature Gran % (Auto) 0.400 Neut % (Auto) 56.3 Lymph % (Auto) 34.0 Garfield % (Auto) 8.2 Eos % (Auto) 0.6 Baso % (Auto) 0.5 Absolute Neuts (auto) 6.4 Absolute Lymphs (auto) 3.83 Nucleated RBC % 0 Sodium 139 Potassium 3.3 L Chloride 109 H Carbon Dioxide 23.0 Anion Gap 7 BUN 13 Creatinine 0.93 Estim Creat Clear Calc 67.58 Est GFR (MDRD) Af Amer 95 Est GFR (MDRD) Non-Af 79 BUN/Creatinine Ratio 13.9 Glucose 90 Calcium 10.0 Troponin I < 0.015 Urine Color Urine Clarity Urine pH Ur Specific [place] Urine Protein Urine Glucose (UA) Urine Ketones Urine Occult Blood Urine Nitrite Urine Bilirubin Urine Urobilinogen Ur Leukocyte Esterase Urine RBC Urine WBC Ur Squamous Epith Cells Calcium Oxalate Crystal Urine Bacteria Urine Mucus Urine Test Salicylates < 1.7 L Urine Opiates Screen Urine Methadone Screen Acetaminophen < 2.0 L Ur Barbiturates Screen Ur Phencyclidine Scrn Ur Amphetamines Screen U Methamphetamin-MDMA U Benzodiazepines Scrn Urine Cocaine Screen U Cannabinoids Screen Ur Drug Screen Comment POC Glucose 11/07/19 11/07/19 11/07/19 00:36 01:18 01:18 WBC RBC Hgb Hct MCV MCH MCHC RDW Std Deviation RDW Coeff of Joya Plt Count MPV Immature Gran % (Auto) Neut % (Auto) Lymph % (Auto) Garfield % (Auto) Eos % (Auto) Baso % (Auto) Absolute Neuts (auto) Absolute Lymphs (auto) Nucleated RBC % Sodium Potassium Chloride Carbon Dioxide Anion Gap BUN Creatinine Estim Creat Clear Calc Est GFR (MDRD) Af Amer Est GFR (MDRD) Non-Af BUN/Creatinine Ratio Glucose Calcium Troponin I Urine Color Urine Clarity Urine pH Ur Specific [place] Urine Protein Urine Glucose (UA) Urine Ketones Urine Occult Blood Urine Nitrite Urine Bilirubin Urine Urobilinogen Ur Leukocyte Esterase Urine RBC Urine WBC Ur Squamous Epith Cells Calcium Oxalate Crystal Urine Bacteria Urine Mucus Urine Test Negative Salicylates Urine Opiates Screen NEGATIVE Urine Methadone Screen NEGATIVE Acetaminophen Ur Barbiturates Screen NEGATIVE Ur Phencyclidine Scrn NEGATIVE Ur Amphetamines Screen POSITIVE H U Methamphetamin-MDMA POSITIVE H U Benzodiazepines Scrn NEGATIVE Urine Cocaine Screen NEGATIVE U Cannabinoids Screen NEGATIVE Ur Drug Screen Comment POC Glucose 89 11/07/19 01:18 WBC RBC Hgb Hct MCV MCH MCHC RDW Std Deviation RDW Coeff of Joya Plt Count MPV Immature Gran % (Auto) Neut % (Auto) Lymph % (Auto) Garfield % (Auto) Eos % (Auto) Baso % (Auto) Absolute Neuts (auto) Absolute Lymphs (auto) Nucleated RBC % Sodium Potassium Chloride Carbon Dioxide Anion Gap BUN Creatinine Estim Creat Clear Calc Est GFR (MDRD) Af Amer Est GFR (MDRD) Non-Af BUN/Creatinine Ratio Glucose Calcium Troponin I Urine Color Yellow Urine Clarity Sl. Cloudy Urine pH 6.0 Ur Specific [place] 1.025 Urine Protein 100 H Urine Glucose (UA) Normal Urine Ketones 50 H Urine Occult Blood 10 H Urine Nitrite Negative Urine Bilirubin 1 H Urine Urobilinogen 1 H Ur Leukocyte Esterase 100 H Urine RBC 0 SEEN Urine WBC 5-10 SEEN Ur Squamous Epith Cells > 100 SEEN Calcium Oxalate Crystal RARE Urine Bacteria 0 SEEN Urine Mucus 2+ Urine Test Salicylates Urine Opiates Screen Urine Methadone Screen Acetaminophen Ur Barbiturates Screen Ur Phencyclidine Scrn Ur Amphetamines Screen U Methamphetamin-MDMA U Benzodiazepines Scrn Urine Cocaine Screen U Cannabinoids Screen Ur Drug Screen Comment POC Glucose - Medical Decision Making Patient presents in an altered condition. History was barely obtainable from her and help from family members was necessary. Therefore I performed a thorough work-up for altered mental status, taking all factors into consideration. Other than the presence of methamphetamine, her work-up is unremarkable. She was treated in the meantime with IV fluids and Ativan. On reevaluation she is much improved and states that she feels much better, and is able to carry on a normal conversation unlike initially. She is keenly alert. She states that she did not do methamphetamine tonight, the last time she used it was 2 days ago, and that she started the gabapentin 3 or 4 days ago for her carpal tunnel symptoms, she took 2 of them tonight and then bent her wrist in a funny way, saying that it shot signals up her arms, and she could not take it and that was why she was in the condition she was. When asked why she was unable to simply communicate that with us, she had no explanation. When asked if she is addicted to methamphetamine, she states she does not know, she does not use it every day and does not think she is but then states that since she uses from time to time, that she probably has. She was given appropriate resources to use in case she desires treatment, and discharged with her mother i n stable condition. ED Disposition - Plan for ED Patient: Disposition: Home or Assisted Living Diagnosis: Methamphetamine abuse, Psychomotor agitation Instructions: Understanding Methamphetamine Abuse and Addiction, Anxiety Reaction Referrals: [facility] [STAFF PHYSICIAN] -
[2019-11-07 00:14] LABS: Absolute Lymphocyte Count 3.83 X10^3/uL (0.83-4.51); Absolute Neutrophil Count 6.4 X10^3/uL (2.0-7.7); Basophil# 0.06 X10^3/uL; Basophil% 0.5 % (0-1); Eosinophil# 0.07 X10^3/uL; Eosinophils% 0.6 % (0-5); Hematocrit 41.8 % (37-47); Hemoglobin 13.9 g/dL (12.0-15.0); Lymphocyte # 3.83 X10^3/ul (4.0); Mean Corp Hgb Conc 33.3 g/dL (32-36); Mean Corpuscular Hgb 28.9 pg (27.0-32.0); Mean Corpuscular Volume 86.9 fL (81-99); Monocyte# 0.92 X10^3/uL; Monocyte% 8.2 % (0-10); NRBC Flagged by Analyzer 0 % (0-5); Neutrophil # 6.35 X10^3/uL (2.7-7.7); Neutrophil % 56.3 % (47-70); Platelet Count 294 K/mm3 (150-450); RBC Distribution Width CV 14.3 % (11.6-14.6); RBC Distribution Width SD 45.5 fl (35.1-43.9); Red Blood Count 4.81 M/mm3 (4.2-5.4); White Blood Count 11.3 K/mm3 (4.4-11.0)
[2019-11-07] MEDS: 0.9% Normal Saline 1,000 ML 999 ML IV (00:25)
[2019-11-07] MEDS: LORazepam 2 MG/ML Syringe 1 MG IV (00:26)
[2019-11-07] MEDS: Ondansetron 4 MG/2 ML Vial IV (00:26)
[2019-11-07 00:27] LABS: Anion Gap 7 (5-15); BUN 13 mg/dL (7-18); BUN/Creat Ratio 13.9 RATIO (10-20); Chloride 109 mmol/L (98-107); Creatinine, Serum 0.93 mg/dL (0.55-1.02); EST Glomerular Filtration Rate 79 mL/min (>60); Est Glom Filt Rate - Afr Amer 95 mL/min (>60); Estimated Creatinine Clearance 67.58 ml/min; Glucose 90 mg/dL (74-106); Potassium 3.3 mmol/L (3.5-5.1); Sodium Level 139 mmol/L (136-145)
[2019-11-07 00:45] LABS: Bedside Glucose 89 mg/dL (70-110)
[2019-11-07 00:45] LABS: Acetaminophen (Tylenol) Level < 2.0 ug/mL (10.0-30.0); Salicylate < 1.7 mg/dL (2.8-20.0)
[2019-11-07 00:47] VITALS: TEMP 36.8
[2019-11-07 01:25] LABS: Bacteria 0 SEEN /hpf (None Seen); Red Blood Cells-Urine 0 SEEN /hpf (0-5)
[2019-11-07 01:26] LABS: Color, Urine Yellow (Yellow); Glucose, Dipstick Normal (Normal); Ketone-Dipstick 50 mg/dl (Negative); Leukocyte Esterase-Dipstick 100 /ul (Negative); Nitrite-Dipstick Negative (Negative); Occult Blood-Urine 10 /ul (Negative); Protein-Dipstick 100 mg/dl (Negative); Specific Gravity, Urine 1.025 (1.002-1.030); Urine Clarity Sl. Cloudy (Clear); Urine Urobilinogen 1 mg/dl (Normal)
[2019-11-07 01:28] LABS: Internal QC Validated? YES +Cl - CLEAR BKGD; Pregnancy, Urine Negative Negative
[2019-11-07 01:29] LABS: Urine Bilirubin Dipstick 1 mg/dL (Negative)
[2019-11-07 01:30] LABS: Vista UDS pH Range 6
[2019-11-07 01:37] LABS: Calcium Oxalate Crystals Ur RARE /hpf (<or=2+); Mucous, Urine 2+ /hpf (<or=2+); Squamous Epithelial Cells - UA > 100 SEEN /hpf (5-10); White Blood Cells 5-10 SEEN /hpf (0-5)
[2019-11-07 01:41] VITALS: BP 119/98; PULSE 101; RESP 16; O2SAT 97
[2019-11-07 01:43] LABS: Amphetamine Urine VISTA POSITIVE (<1000 ng/mL); Barbiturate Urine VISTA NEGATIVE (< 200 ng/mL); Benzodiazepine Urine VISTA NEGATIVE (< 200 ng/mL); Cocaine Urine VISTA NEGATIVE (< 300 ng/mL); Ecstacy Urine VISTA POSITIVE (< 500 ng/mL); Methadone Urine VISTA NEGATIVE (< 300 ng/mL); PCP Urine VISTA NEGATIVE (< 25 ng/mL); THC Urine VISTA NEGATIVE (< 50 ng/mL)
[2019-11-07 02:24] VITALS: BP 119/98; PULSE 101; RESP 16; O2SAT 97
== END 2019-11-07 02:24 | disposition home or self-care (01) ==
PROVIDERS: Emergency Provider Emergency Medicine
DX: F15.10 Other stimulant abuse, uncomplicated (principal); R45.1 Restlessness and agitation; R06.4 Hyperventilation; R41.82 Altered mental status, unspecified; G56.03 Carpal tunnel syndrome, bilateral upper limbs; J45.909 Unspecified asthma, uncomplicated; G43.909 Migraine, unspecified, not intractable, without status migrainosus; F41.9 Anxiety disorder, unspecified; Z79.899 Other long term (current) drug therapy; Z88.8 Allergy status to other drugs, medicaments and biological substances; Z86.14 Personal history of Methicillin resistant Staphylococcus aureus infection; Z86.19 Personal history of other infectious and parasitic diseases
CPT/HCPCS: 70450; 71045; 80048; 80307; 80329; 81001; 81025; 82962; 84484; 85025; 93005; 96361; 96374; 96375; 99285; J7030; A4216; G0480; J2405

== ENCOUNTER 2019-11-15 14:42 | Emergency (ER) | payer MEDICAID, SELFPAY ==
[2019-11-15 14:43] VITALS: BP 159/31; PULSE 82; RESP 26; TEMP 35.6; O2SAT 99; BMI 43.4
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
[2019-11-15] MEDS: Ondansetron 4 MG/2 ML Vial IV (15:15)
[2019-11-15] MEDS: Ketorolac 30 MG/ML Syringe IV (15:15)
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
[2019-11-15 16:00] LABS: Bacteria 0 SEEN /hpf (None Seen); Mucous, Urine 0 SEEN /hpf (<or=2+)
[2019-11-15 16:05] LABS: Color, Urine Yellow (Yellow); Glucose, Dipstick Normal (Normal); Ketone-Dipstick 5 mg/dl (Negative); Leukocyte Esterase-Dipstick 25 /ul (Negative); Nitrite-Dipstick Negative (Negative); Occult Blood-Urine 250 /ul (Negative); Protein-Dipstick 15 mg/dl (Negative); Urine Bilirubin Dipstick Negative (Negative); Urine Clarity Cloudy (Clear); Urine Urobilinogen 1 mg/dl (Normal)
[2019-11-15] MEDS: Morphine 4 MG/ML Syringe IV (16:10)
[2019-11-15 16:14] LABS: Internal QC Validated? YES +Cl - CLEAR BKGD; Pregnancy, Urine Negative Negative
[2019-11-15 16:49] LABS: Red Blood Cells-Urine 10-25 SEEN /hpf (0-5); Squamous Epithelial Cells - UA 0-5 SEEN /hpf (5-10); White Blood Cells 0-5 SEEN /hpf (0-5)
== END 2019-11-15 17:24 | disposition home or self-care (01) ==
PROVIDERS: Emergency Provider Emergency Medicine
DX: N23 Unspecified renal colic (principal); N13.30 Unspecified hydronephrosis; Z87.442 Personal history of urinary calculi; S60.222A Contusion of left hand, initial encounter; Y09 Assault by unspecified means; Z72.0 Tobacco use
CPT/HCPCS: 73130; 74176; 81001; 81025; 96374; 96375; 99283; J7030; A4216; J2405

== ENCOUNTER 2019-11-20 16:04 | Emergency (ER) | payer MEDICAID, SELFPAY ==
[2019-11-20 16:05] VITALS: BP 130/75; PULSE 78; RESP 16; TEMP 35.9; BMI 43.7
[2019-11-20] MEDS: Ondansetron ODT 4 MG Tablet 8 MG PO (16:55)
[2019-11-20] MEDS: morphine 10 MG/ML Syringe 4 MG SC (16:55)
[2019-11-20] MEDS: Ketorolac 30 MG/ML Syringe IM (16:56)
--- NOTE | 2019-11-20 17:12 | ED.DCSUM_ITS ---
History of Present Illness Chief Complaint: Complaint Informant: Patient - Abdominal Pain/Flank Pain Onset: Hours - several Context: Sudden Onset Timing: Continuous, Waxes and wanes Quality: Aching Location: Right Flank Current Severity: Severe Maximum Severity: Severe Worsened by: Nothing - tried aleve, tylenol Relieved by: Nothing - Nausea/Vomiting/Emesis GI Symptom: Nausea. Negative for: Vomiting - Diarrhea/Melena/Hematochezia GI Symptom: Negative for: Diarrhea, Melena, Hematochezia Associated Symptoms: Negative for: Dysuria, Frequency, Hematuria Prior similar symptoms: Yes - KS pain she had last week; surg to remove KS in past - Past Medical History (1) Kidney stones Status: Chronic (2) Asthma Status: Chronic (3) Migraine headache without aura Status: Chronic (4) Personal history of MRSA (methicillin resistant Staphylococcus aureus) Status: Chronic Comment: Z86.14 Past Medical History - Allergies and Home Meds Allergies/Adverse Reactions: Allergies Bleach (Sodium Hypochlorite) Allergy (Verified 11/06/19 23:48) Hives diphenhydramine HCl [From Benadryl] Allergy (Verified 11/06/19 23:48) Hives Primary Care Physician: Care Physician,No Primary [Primary Care Provider] - Surgical History: - - Carpal tunnel Smoking Status: Never smoker Drugs: None Review of Systems General: Denies: Chills, Fever, Sweats Eyes: Denies: Visual changes - bilaterally, Diplopia ENT: Denies: Bilateral ear pain, Rhinorrhea, Sore throat Cardiovascular: Denies: Chest pain, Palpitations Respiratory: Denies: Dyspnea, Cough, Dyspnea on exertion Gastrointestinal: Reports: Nausea. Denies: Abdominal pain, Vomiting, Diarrhea, Melena, Hematochezia Genitourinary: Denies: Dysuria, Hematuria, Frequency Musculoskeletal: Reports: Back pain. Denies: Extremity Pain Skin: Denies: Rash, Wounds Neurological: Denies: Headache, Weakness, Numbness Physical Exam Vital Signs/Narrative: Vital Signs Temp Pulse Resp BP 11/20/19 16:05 96.6 F L 78 16 130/75 H Inital Vital Signs reviewed: Yes General: Well nourished, Well developed, Obese, Acute Distress - mild, pain Head: Normocephalic, Atraumatic Eyes: Perrl, EOMI ENT: Moist mucous membranes, No rhinorrhea Neck: Supple, Nontender Cardiovascular: Regular rate, Regular rhythm, No murmurs Respiratory: No distress, CTA bilaterally, Chest nontender Abdomen: Soft, Nontender, Nondistended, Normal bowel sounds Back: Normal Inspection, CVA tenderness - right Extremities: Nontender, No edema Skin: Normal color, No rash Neurological: Alert, Oriented x3, Cranial nerves II-XII grossly intact, Normal Strength, Normal Sensation, Normal Gait Psychological: Normal affect, Normal Mood Diagnostic/Tx/Re-eval Laboratory Results 11/20/19 16:45 Urine Color Yellow Urine Clarity Cloudy Urine pH 5.0 Ur Specific [place] 1.025 Urine Protein 15 H Urine Glucose (UA) Normal Urine Ketones 15 H Urine Occult Blood 150 H Urine Nitrite Negative Urine Bilirubin Negative Urine Urobilinogen 1 H Ur Leukocyte Esterase 25 H Urine RBC 5-10 SEEN Urine WBC 0-5 SEEN Ur Squamous Epith Cells 0-5 SEEN Urine Bacteria 1+ Urine Mucus 2+ - Medical Decision Making Patient feels much better after morphine, Toradol, Zofran. Her pain is well controlled. She had a CT scan last week that showed multiple tiny stones in the right kidney. I presume 1 of those is now passing and in her right ureter. I do not think she needs a new CT scan given her exam and symptoms and history. Her urine shows no sign of infection and is positive for a small amount of blood consistent with all of this. She is stable for discharge home, expectant management is indicated at this time. Given reasons to follow-up with urology, prescription for analgesics and Zofran as well as strainers for home. Also, removed some sutures in her right hand that have been in for 2 weeks. She had 2 different lacerations, the more distal one in her palm were ready to be removed, the more proximal ones may be not and she is following up with orthopedics who put them in in 3 days. They were all bothering her, so she wanted the more distal 1000 if it they were ready and they are. Procedures Procedure(s): Suture removal. 2 sutures in the distal right palm of the hand were removed after prepping with isopropanol. There were no complications, bleeding, dehiscence. The skin is nontender and without any erythema. ED Disposition - Plan for ED Patient: Disposition: Home or Assisted Living Diagnosis: Urolithiasis, Ureteral colic, Encounter for removal of sutures Instructions: KIDNEY STONE w/ Colic Prescriptions: Hydrocodone Bitart/Apap 5-325 [[place] 5MG-325MG] 1 tablet PO Q6H PRN PRN 3 Days #10 tablet PRN Reason: Pain Transmission Status: Sent to [facility] [place] [facility] Ondansetron [Zofran Odt] 4 - 8 mg PO Q8H PRN PRN #16 tab PRN Reason: Nausea Transmission Status: Pending to [facility] [place] [facility] Referrals: Care Physician,No Primary [Primary Care Provider] - Genaro Mcgraw MD [STAFF PHYSICIAN] - Keep [facility] appointment Stefany Angel MD [STAFF PHYSICIAN] - 1 Week if not improving
[2019-11-20 17:32] LABS: Color, Urine Yellow (Yellow); Glucose, Dipstick Normal (Normal); Ketone-Dipstick 15 mg/dl (Negative); Leukocyte Esterase-Dipstick 25 /ul (Negative); Nitrite-Dipstick Negative (Negative); Occult Blood-Urine 150 /ul (Negative); Protein-Dipstick 15 mg/dl (Negative); Specific Gravity, Urine 1.025 (1.002-1.030); Urine Bilirubin Dipstick Negative (Negative); Urine Clarity Cloudy (Clear); Urine Urobilinogen 1 mg/dl (Normal)
[2019-11-20 17:38] LABS: Mucous, Urine 2+ /hpf (<or=2+)
[2019-11-20 17:39] LABS: Red Blood Cells-Urine 5-10 SEEN /hpf (0-5); White Blood Cells 0-5 SEEN /hpf (0-5)
[2019-11-20 17:40] LABS: Bacteria 1+ /hpf (None Seen)
[2019-11-20 17:42] LABS: Squamous Epithelial Cells - UA 0-5 SEEN /hpf (5-10)
[2019-11-20 18:25] VITALS: PULSE 67; RESP 16; O2SAT 99
== END 2019-11-20 18:39 | disposition home or self-care (01) ==
PROVIDERS: Emergency Provider Emergency Medicine
DX: N20.0 Calculus of kidney (principal); N23 Unspecified renal colic; Z87.442 Personal history of urinary calculi; Z48.02 Encounter for removal of sutures; E66.9 Obesity, unspecified; Z68.41 Body mass index [BMI] 40.0-44.9, adult
CPT/HCPCS: 81001; 96372; 99284

== ENCOUNTER 2019-11-24 12:22 | Emergency (ER) | payer MEDICAID, SELFPAY ==
[2019-11-24 12:23] VITALS: BP 154/94; PULSE 81; RESP 18; TEMP 36.6; O2SAT 99; BMI 43.0
--- NOTE | 2019-11-24 13:47 | ED.VISSUMM ---
- ER Visit Summary Date of Service: 11/24/19 Chief Complaint: Recurrent intermittent right flank pain History of Present Illness: The patient is a 24 F no history of kidney stones. Also hep C and migraine headaches and asthma. Patient states the last 2 weeks she is had intermittent episodes of right flank pain other times she is felt well. Been pain-free. Is also had intermittent nausea vomiting. Denies any dysuria. She is had a prior tubal ligation. Last menstrual period was about 3 days ago. She denies any fever or chills. She was seen in the emergency department 2 times prior to today. She has known multiple kidney stones in the right kidney but they did not see any obstruction on her most recent CAT scan. Physical Examination: Young female no acute distress complaining of right flank pain. Vital signs are stable she is afebrile. She does not look septic or toxic. H EENT exam unremarkable. Moist with membranes. Neck nontender. Lungs clear to auscultation bilaterally. Heart regular rhythm no murmur. Abdomen is soft. Nontender. Nondistended. Normal bowel sounds. Extremities moves all 4. Neurovascular intact. No edema. Tattoos. Skin unremarkable. Back she describes right flank tenderness is not reproducible. Neurologically she is awake alert with no focal motor deficits. Test Results: Urinalysis will be obtained except for blood otherwise no acute abnormality. No infection. A prior CAT scan showed multiple right renal stones but no ureteral calculi at that time and no obstruction. I do not think she needs to be CAT scan today. Emergency Department Course and Treatment: Patient treated with IV morphine, Toradol and Phenergan and reassess. Exam patient is doing well at 1552. She is resting comfortably. She and I went over her test results. There is no signs of urinary tract infection. Treatment Plan: Toradol for pain. Follow-up with local urologist. Disposition: Discharge Impression: Acute right flank pain History ureteral calculi This note was generated with [employer] dictation software. It may contain incorrect words, spelling, and punctuation that were not noted in review of the chart prior to signing ED Disposition - Plan for ED Patient: Referrals: Care Physician,No Primary [Primary Care Provider] -
[2019-11-24] MEDS: Ketorolac 30 MG/ML Syringe IV (14:08)
[2019-11-24] MEDS: morphine 8 MG/ML Syringe IV (14:09)
[2019-11-24] MEDS: proMETHazine 25 MG/ML Syringe 12.5 MG IV (14:11)
[2019-11-24 14:12] VITALS: BP 124/71; PULSE 64; RESP 14; O2SAT 100
[2019-11-24 14:58] LABS: Bacteria 0 SEEN /hpf (None Seen); Mucous, Urine 0 SEEN /hpf (<or=2+); Red Blood Cells-Urine 0 SEEN /hpf (0-5); Squamous Epithelial Cells - UA 0 SEEN /hpf (5-10); White Blood Cells 0 SEEN /hpf (0-5)
[2019-11-24 15:11] LABS: Color, Urine Yellow (Yellow); Glucose, Dipstick Normal (Normal); Ketone-Dipstick Negative (Negative); Leukocyte Esterase-Dipstick 25 /ul (Negative); Nitrite-Dipstick Negative (Negative); Occult Blood-Urine 150 /ul (Negative); Protein-Dipstick 15 mg/dl (Negative); Specific Gravity, Urine 1.015 (1.002-1.030); Urine Bilirubin Dipstick Negative (Negative); Urine Clarity Sl. Cloudy (Clear); Urine Urobilinogen Normal (Normal); Urine pH 6.5 (5.0 - 8.0)
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
--- NOTE | 2019-11-24 15:53 | ED.DEP ---
ED Disposition - Plan for ED Patient: Disposition: Home or Assisted Living Instructions: FLANK PAIN, Uncertain Cause Prescriptions: Ketorolac [Toradol] 10 mg PO Q6H #14 tab Prescription Printed Referrals: Rob Ignacio MD [STAFF PHYSICIAN] - 3-5 Days if not improving Additional Instructions: Follow-up with the urologist if you not improving. Toradol for pain as needed. May also use Tylenol.
[2019-11-24 16:08] VITALS: BP 122/88; PULSE 57; RESP 16; O2SAT 100
== END 2019-11-24 16:17 | disposition home or self-care (01) ==
PROVIDERS: Emergency Provider Emergency Medicine
DX: R10.9 Unspecified abdominal pain (principal); Z87.442 Personal history of urinary calculi; N20.0 Calculus of kidney; J45.909 Unspecified asthma, uncomplicated; G43.909 Migraine, unspecified, not intractable, without status migrainosus; Z86.19 Personal history of other infectious and parasitic diseases
CPT/HCPCS: 81001; 96374; 96375; 99284; J7030; A4216

== ENCOUNTER 2019-12-17 22:54 | Emergency (ER) | payer MEDICAID, SELFPAY ==
[2019-12-17 22:56] VITALS: BP 152/101; PULSE 86; RESP 15; TEMP 36.1; O2SAT 100; BMI 44.7
--- NOTE | 2019-12-17 23:25 | ED.VIS.GEN ---
History of Present Illness Chief Complaint: Other, Pain/Inj Detail of Chief Complaint: Neck pain and headache Informant: Patient Onset: Days - 3 days Context: Gradual Onset Current Severity: Moderate Maximum Severity: Moderate Narrative: Patient presents with 3-day history of left posterior neck pain. She states was mildly achy the first day and the next day seem to worsen and spasm. She now has pain that radiates up across the back of her head and she feels like this is triggering her migraine. She is tried multiple [id number] medications without improvement. She states pain will occasionally go down her left arm. She denies any known injury. - Past Medical History (1) Asthma Status: Chronic (2) Carpal tunnel syndrome, bilateral Status: Chronic (3) Kidney stones Status: Chronic (4) Migraine headache without aura Status: Chronic Past Medical History - Allergies and Home Meds Allergies/Adverse Reactions: Allergies Bleach (Sodium Hypochlorite) Allergy (Verified 12/17/19 22:55) Hives diphenhydramine HCl [From Benadryl] Allergy (Verified 12/17/19 22:55) Hives Primary Care Physician: Care Physician,No Primary [Primary Care Provider] - Prior records reviewed: Yes Surgical History: - - Carpal tunnel Lives: With Family Smoking Status: Current every day smoker Review of Systems General: Denies: Chills, Fever Eyes: Reports: Blurred Vision - bilaterally ENT: Denies: Bilateral ear pain Cardiovascular: Denies: Chest pain Respiratory: Denies: Dyspnea, Cough Gastrointestinal: Denies: Abdominal pain, Vomiting, Diarrhea Musculoskeletal: Reports: Neck pain, Extremity Pain Skin: Denies: Rash Neurological: Reports: Headache Allergy: Denies: Uticaria Physical Exam Vital Signs/Narrative: Vital Signs Temp Pulse Resp BP Pulse Ox 12/17/19 22:56 96.9 F L 86 15 152/101 H 100 Inital Vital Signs reviewed: Yes General: Well nourished, Well developed Head: Normocephalic ENT: Moist mucous membranes Neck: Supple, - - Patient has reproducible tenderness in the left cervical paraspinal muscles with palpable spasm. There is a superficial skin abrasion noted but no sign of infection or abscess. Cardiovascular: Regular rate, Regular rhythm Respiratory: No distress, CTA bilaterally Abdomen: Soft, Nontender Extremities: Nontender Skin: Normal color, No rash Neurological: Alert, Oriented x3, Normal Strength, Normal Sensation Psychological: Normal affect Diagnostic/Tx/Re-eval - Medical Decision Making Patient be given 1 tab of [place] here along with Flexeril for muscle spasm. Prescription for naproxen and Flexeril be sent to [facility] [place] for her. ED Disposition - Plan for ED Patient: Disposition: Home or Assisted Living Diagnosis: Muscle spasm Instructions: Muscle Spasm Prescriptions: cycloBENZAPRine HCl [Flexeril] 10 mg PO TID PRN #20 tab PRN Reason: Muscle Spasm Transmission Status: Pending to [facility] [place] #[facility] Naproxen [Naprosyn] 500 mg PO BID PRN #14 tab PRN Reason: Pain Score 4-10/10 Transmission Status: Pending to [facility] [place] #[facility] Referrals: Siddhartha Manriquez MD [NON-STAFF] - As Needed
[2019-12-17] MEDS: cycloBENZAPRine HCl 10 MG Tablet PO (23:33)
[2019-12-17] MEDS: HYDROcodone Bitartrate/Apap 5/325 Tablet PO (23:33)
[2019-12-17 23:42] VITALS: RESP 16
== END 2019-12-17 23:43 | disposition home or self-care (01) ==
PROVIDERS: Emergency Provider Emergency Medicine
DX: M62.838 Other muscle spasm (principal); M54.2 Cervicalgia; R51 Headache; J45.909 Unspecified asthma, uncomplicated; F17.200 Nicotine dependence, unspecified, uncomplicated
CPT/HCPCS: 99283

== ENCOUNTER 2020-01-09 13:34 | Emergency (ER) | payer MEDICAID, SELFPAY ==
[2020-01-09 13:35] VITALS: BP 142/98; PULSE 124; RESP 18; TEMP 35.8; O2SAT 100; BMI 43.0
[2020-01-09 14:20] VITALS: BP 142/98; PULSE 80; RESP 18; TEMP 36.6; O2SAT 100
--- NOTE | 2020-01-09 14:23 | ED.VIS.GEN ---
History of Present Illness Chief Complaint: Flank Pain Informant: Patient Onset: Today Current Severity: Moderate Maximum Severity: Moderate Narrative: Patient presents with right flank pain that started between 9 and 10 AM this morning. She does have history of multiple kidney stones that feels similar. She denies hematuria. She states she has urinary frequency but is only able to pass a small amount of urine. She does have some nausea but no vomiting. She does not follow with a urologist. - Past Medical History (1) Asthma Status: Chronic (2) Carpal tunnel syndrome, bilateral Status: Chronic (3) Kidney stones Status: Chronic (4) Migraine headache without aura Status: Chronic (5) Personal history of MRSA (methicillin resistant Staphylococcus aureus) Status: Chronic Comment: Z86.14 Past Medical History - Allergies and Home Meds Allergies/Adverse Reactions: Allergies Bleach (Sodium Hypochlorite) Allergy (Verified 01/09/20 13:35) Hives diphenhydramine HCl [From Benadryl] Allergy (Verified 01/09/20 13:35) Hives Primary Care Physician: Care Physician,No Primary [Primary Care Provider] - Prior records reviewed: Yes Surgical History: - - Carpal tunnel Lives: With Family Smoking Status: Current every day smoker Review of Systems General: Denies: Chills, Fever Eyes: Denies: Visual changes - bilaterally ENT: Denies: Bilateral ear pain Cardiovascular: Denies: Chest pain Respiratory: Denies: Dyspnea, Cough Gastrointestinal: Reports: Abdominal pain, Nausea. Denies: Vomiting, Diarrhea Genitourinary: Reports: Frequency. Denies: Dysuria Musculoskeletal: Denies: Extremity Pain Skin: Denies: Rash Neurological: Denies: Headache Hematologic: Denies: Easy bruising, Easy bleeding Allergy: Denies: Uticaria Physical Exam Vital Signs/Narrative: Vital Signs Temp Pulse Resp BP Pulse Ox 01/09/20 14:20 98 F 80 18 142/98 H 100 01/09/20 13:35 96.4 F L 124 H 18 142/98 H 100 Inital Vital Signs reviewed: Yes General: Well nourished, Well developed Head: Normocephalic ENT: Moist mucous membranes Neck: Supple Cardiovascular: Regular rate, Regular rhythm Respiratory: No distress, CTA bilaterally Abdomen: Soft, Tender - Mild tenderness in the right lower quadrant., Hypoactive bowel sounds Back: CVA tenderness - Right CVA tenderness. Extremities: Nontender Skin: Normal color, No rash Neurological: Alert, Oriented x3 Psychological: Normal affect Diagnostic/Tx/Re-eval Laboratory Results 01/09/20 01/09/20 01/09/20 14:40 14:40 14:40 WBC 7.3 RBC 4.57 Hgb 13.2 Hct 40.1 MCV 87.7 MCH 28.9 MCHC 32.9 RDW Std Deviation 42.4 RDW Coeff of Joya 13.3 Plt Count 226 MPV 9.6 Immature Gran % (Auto) 0.700 Neut % (Auto) 69.3 Lymph % (Auto) 20.4 [place] % (Auto) 8.8 Eos % (Auto) 0.4 Baso % (Auto) 0.4 Absolute Neuts (auto) 5.1 Absolute Lymphs (auto) 1.49 Nucleated RBC % 0 Sodium 141 Potassium 3.4 L Chloride 111 H Carbon Dioxide 24.0 Anion Gap 6 BUN 7 Creatinine 0.95 Estim Creat Clear Calc 66.15 Est GFR (MDRD) Af Amer 93 Est GFR (MDRD) Non-Af 77 BUN/Creatinine Ratio 7.4 L Glucose 89 Calcium 9.3 Serum , Qual NEGATIVE Urine Color Urine Clarity Urine pH Ur Specific [place] Urine Protein Urine Glucose (UA) Urine Ketones Urine Occult Blood Urine Nitrite Urine Bilirubin Urine Urobilinogen Ur Leukocyte Esterase Urine RBC Urine WBC Ur Squamous Epith Cells Urine Bacteria Urine Mucus 01/09/20 15:00 WBC RBC Hgb Hct MCV MCH MCHC RDW Std Deviation RDW Coeff of [place] Plt Count MPV Immature Gran % (Auto) Neut % (Auto) Lymph % (Auto) [place] % (Auto) Eos % (Auto) Baso % (Auto) Absolute Neuts (auto) Absolute Lymphs (auto) Nucleated RBC % Sodium Potassium Chloride Carbon Dioxide Anion Gap BUN Creatinine Estim Creat Clear Calc Est GFR (MDRD) Af Amer Est GFR (MDRD) Non-Af BUN/Creatinine Ratio Glucose Calcium Serum , Qual Urine Color Yellow Urine Clarity Clear Urine pH 7.0 Ur Specific [place] 1.010 Urine Protein Negative Urine Glucose (UA) Normal Urine Ketones Negative Urine Occult Blood 10 H Urine Nitrite Negative Urine Bilirubin Negative Urine Urobilinogen Normal Ur Leukocyte Esterase 25 H Urine RBC 0-5 SEEN Urine WBC 0 SEEN Ur Squamous Epith Cells 0-5 SEEN Urine Bacteria 1+ Urine Mucus 0 SEEN - Medical Decision Making Patient was treated with Toradol, morphine, Zofran, and IV fluids. On repeat evaluation symptoms are improved. I did review her CT scan from November 15 of this year. She had tiny nonobstructive right intrarenal calculi at that time. I do not think repeat CT image at this time will change our management. Patient will be treated for kidney stones and will be referred to Dr. Angel for outpatient follow-up. ED Disposition - Plan for ED Patient: Disposition: Home or Assisted Living Diagnosis: Kidney stone Instructions: KIDNEY STONE w/ Colic Prescriptions: Hydrocodone Bitart/Apap 5-325 [[place] 5MG-325MG] 1 tablet PO Q6H PRN PRN 3 Days #10 tablet PRN Reason: Pain Transmission Status: Sent to [facility]30 - [place] Ketorolac [Toradol] 10 mg PO Q6H PRN #14 tab PRN Reason: Pain Score 4-10/10 Transmission Status: Pending to [facility] - [place] Ondansetron [Zofran Odt] 4 mg PO Q8H PRN PRN #10 tab PRN Reason: Nausea Transmission Status: Pending to [facility] - [place] Referrals: Stefany Angel MD [STAFF PHYSICIAN] - 1-2 Weeks
[2020-01-09] MEDS: Ketorolac 30 MG/ML Syringe IV (14:51)
[2020-01-09] MEDS: 0.9% Normal Saline 1,000 ML 250 ML IV (14:51)
[2020-01-09 14:52] LABS: Absolute Lymphocyte Count 1.49 X10^3/uL (0.83-4.51); Absolute Neutrophil Count 5.1 X10^3/uL (2.0-7.7); Basophil# 0.03 X10^3/uL; Basophil% 0.4 % (0-1); Eosinophil# 0.03 X10^3/uL; Eosinophils% 0.4 % (0-5); Hematocrit 40.1 % (37-47); Hemoglobin 13.2 g/dL (12.0-15.0); Lymphocyte # 1.49 X10^3/ul (4.0); Lymphocyte % 20.4 % (19-41); Mean Corp Hgb Conc 32.9 g/dL (32-36); Mean Corpuscular Hgb 28.9 pg (27.0-32.0); Mean Corpuscular Volume 87.7 fL (81-99); Mean Platelet Vol. 9.6 fl (6.2-12.0); Monocyte# 0.64 X10^3/uL; Monocyte% 8.8 % (0-10); NRBC Flagged by Analyzer 0 % (0-5); Neutrophil # 5.06 X10^3/uL (2.7-7.7); Neutrophil % 69.3 % (47-70); Platelet Count 226 K/mm3 (150-450); RBC Distribution Width CV 13.3 % (11.6-14.6); RBC Distribution Width SD 42.4 fl (35.1-43.9); Red Blood Count 4.57 M/mm3 (4.2-5.4); White Blood Count 7.3 K/mm3 (4.4-11.0)
[2020-01-09] MEDS: Ondansetron 4 MG/2 ML Vial IV (14:52)
[2020-01-09] MEDS: Morphine 4 MG/ML Syringe IV (14:53)
[2020-01-09 15:05] LABS: Mucous, Urine 0 SEEN /hpf (<or=2+); White Blood Cells 0 SEEN /hpf (0-5)
[2020-01-09 15:05] LABS: Anion Gap 6 (5-15); BUN 7 mg/dL (7-18); BUN/Creat Ratio 7.4 RATIO (10-20); Calcium,Total 9.3 mg/dL (8.5-10.1); Chloride 111 mmol/L (98-107); Creatinine, Serum 0.95 mg/dL (0.55-1.02); EST Glomerular Filtration Rate 77 mL/min (>60); Est Glom Filt Rate - Afr Amer 93 mL/min (>60); Estimated Creatinine Clearance 66.15 ml/min; Glucose 89 mg/dL (74-106); Potassium 3.4 mmol/L (3.5-5.1); Sodium Level 141 mmol/L (136-145)
[2020-01-09 15:10] LABS: Color, Urine Yellow (Yellow); Glucose, Dipstick Normal (Normal); Ketone-Dipstick Negative (Negative); Leukocyte Esterase-Dipstick 25 /ul (Negative); Nitrite-Dipstick Negative (Negative); Occult Blood-Urine 10 /ul (Negative); Protein-Dipstick Negative (Negative); Urine Bilirubin Dipstick Negative (Negative); Urine Clarity Clear (Clear); Urine Urobilinogen Normal (Normal)
[2020-01-09 15:10] LABS: Internal QC Validated? YES +Cl - CLEAR BKGD; Pregnancy, Serum, hCG Quali. NEGATIVE Negative
[2020-01-09 15:16] LABS: Bacteria 1+ /hpf (None Seen); Red Blood Cells-Urine 0-5 SEEN /hpf (0-5); Squamous Epithelial Cells - UA 0-5 SEEN /hpf (5-10)
[2020-01-09 16:02] VITALS: PULSE 71; RESP 16; O2SAT 98
== END 2020-01-09 16:03 | disposition home or self-care (01) ==
PROVIDERS: Emergency Provider Emergency Medicine
DX: N20.0 Calculus of kidney (principal); Z87.442 Personal history of urinary calculi; Z72.0 Tobacco use
CPT/HCPCS: 80048; 81001; 84703; 85025; 96361; 96374; 96375; 99283; J7030; A4216; J2405

== ENCOUNTER 2020-01-22 17:59 | Emergency (ER) | payer MEDICAID, SELFPAY ==
[2020-01-22 18:00] VITALS: BP 132/79; PULSE 93; RESP 16; TEMP 36.6; O2SAT 98; BMI 45.3
[2020-01-22] MEDS: Clindamycin HCl 150 MG Capsule 300 MG PO (18:22)
--- NOTE | 2020-01-22 18:30 | ED.DEP ---
ED Disposition - Plan for ED Patient: Instructions: ABSCESS, Incision and Drainage Prescriptions: Clindamycin [Cleocin] 300 mg PO 4X/DAY #80 capsule Referrals: Pro Corbin MD [NON-STAFF] -
--- NOTE | 2020-01-22 18:36 | ED.VISSUMM ---
- ER Visit Summary Date of Service: 01/22/20 Chief Complaint: Abscess History of Present Illness: The patient is a 24 F presenting with abscess right jaw. Patient states this started 2 days ago. She has a history of previous methamphetamine use but has not used recently. She states she used to get these when she used methamphetamine. She denies fever. Denies drainage. Denies other complaints. Physical Examination: Vitals are stable. Patient is afebrile. Alert no acute distress. HEENT exam 2cm abscess right mandible with induration, no fluctuance. No intraoral fluctuance. No sublingual edema Neck is supple. Lungs are clear and equal bilaterally. Heart is regular rate and rhythm. Extremities are unremarkable. Skin is warm and dry. Remainder of exam is unremarkable. Emergency Department Course and Treatment: I&D was performed. Anesthetized with lidocaine. Incised with 11 blade. Probed to break up loculations. Small amount of pus was drained. Irrigated with saline. Patient was put on clindamycin. She is given Tylenol. Advised to follow-up with primary care physician. Advised return to ED if worsening complaints. Disposition: Discharge home Impression: Facial abscess, I&D This note was generated with Canatu dictation software. It may contain incorrect words, spelling, and punctuation that were not noted in review of the chart prior to signing ED Disposition - Plan for ED Patient: Instructions: ABSCESS, Incision and Drainage Prescriptions: Clindamycin [Cleocin] 300 mg PO 4X/DAY #80 cap Prescription Printed Referrals: Pro Corbin MD [NON-STAFF] -
[2020-01-22] MEDS: Acetaminophen 500 MG Tablet 1000 MG PO (18:47)
[2020-01-22 18:58] VITALS: RESP 18
== END 2020-01-22 19:01 | disposition home or self-care (01) ==
LOC: ED 18:46
PROVIDERS: Emergency Provider Emergency Medicine; PCP Nurse Practitioner Pediatrics
DX: L02.01 Cutaneous abscess of face (principal)

== ENCOUNTER 2020-01-22 20:32 | Emergency (ER) | payer MEDICAID, SELFPAY ==
[2020-01-22 18:00] VITALS: BMI 45.3
[2020-01-22 20:35] VITALS: BP 144/102; PULSE 84; RESP 16; TEMP 36.9; O2SAT 99; BMI 45.3
[2020-01-22] MEDS: Ondansetron ODT 4 MG Tablet PO (20:49)
--- NOTE | 2020-01-22 21:03 | ED.DCSUM_ITS ---
History of Present Illness Chief Complaint: Nausea/Vomiting Informant: Patient Onset: Today Context: Sudden Onset Timing: Intermittent Quality: Emesis x1 Location: Hold Current Severity: - - Complains of nausea and facial pain Maximum Severity: - - Not applicable Worsened by: Nothing Relieved by: Nothing Associated Symptoms: Facial pain status post I&D of subcutaneous abscess Narrative: Patient is a 24-year-old woman with history of methamphetamine who was seen earlier today and had incision and drainage of facial abscess right side over the area of the body of the mandible. There is no dental pain. There is no trismus. There is no difficulty opening closing mouth. Is no change in voice. There is no difficulty swallowing or change in voice. She has no other complaints. Prior similar symptoms: No Recent Illness/Hospitalization: Yes - Past Medical History (1) Abscess of left external cheek Status: Acute Comment: L02.01 left preauricular abscess (2) Asthma Status: Chronic (3) Carpal tunnel syndrome, bilateral Status: Chronic (4) Kidney stones Status: Chronic (5) Migraine headache without aura Status: Chronic (6) Personal history of MRSA (methicillin resistant Staphylococcus aureus) Status: Chronic Comment: Z86.14 Past Medical History - Allergies and Home Meds Allergies/Adverse Reactions: Allergies Bleach (Sodium Hypochlorite) Allergy (Verified 01/22/20 18:03) Hives diphenhydramine HCl [From Benadryl] Allergy (Verified 01/22/20 18:03) Hives Primary Care Physician: Stella Joradn NP-C [Primary Care Provider] - Prior records reviewed: Yes Surgical History: - - Carpal tunnel Lives: Spouse/ Significant Other Smoking Status: Never smoker Alcohol: Rare Drugs: - - History of methamphetamine use Review of Systems General: Denies: Chills, Fever, Malaise, Sweats Eyes: Denies: Visual changes - bilaterally, Blurred Vision - bilaterally ENT: Reports: - - Repeat HPI. Denies: Bilateral ear pain, Sore throat Respiratory: Denies: Dyspnea, Cough, Sputum Gastrointestinal: Reports: Nausea, Vomiting. Denies: Abdominal pain, Diarrhea Musculoskeletal: Denies: Myalgias, Arthralgias, Neck pain, Back pain, Swelling, Extremity Pain Skin: Reports: Abscess - At his post drainage 2 hours prior to return visit, Wounds - Due to I&D. Denies: Rash Hematologic: Denies: Easy bruising, Easy bleeding Physical Exam Vital Signs/Narrative: Vital Signs Temp Pulse Resp BP Pulse Ox 01/22/20 20:35 98.4 F 84 16 144/102 H 99 Inital Vital Signs reviewed: Yes General: Well nourished, Well developed, Obese, No Acute Distress Head: Normocephalic, Atraumatic Eyes: Perrl, EOMI. Negative for: Pale conjunctiva, Scleral icterus ENT: Moist mucous membranes, No rhinorrhea, TM's clear, - - Is no trismus. There is no TMJ tenderness. Site of I&D is slightly tender. There is no erythema, warmth or induration. There is no fluctuance. There is no submandibular lymphadenopathy. Neck: Supple, Nontender, No lymphadenopathy Cardiovascular: Regular rate, Regular rhythm, No murmurs, Normal S1, Normal S2 Respiratory: No distress, CTA bilaterally Skin: Normal color, No rash Neurological: Alert, Oriented x3, Cranial nerves II-XII grossly intact, Normal Strength, Normal Sensation Psychological: Depressed Diagnostic/Tx/Re-eval - Medical Decision Making Patient was treated with Zofran 4 mg ODT. 30 minutes later she was treated with Naprosyn and one [place] tablet. ED Disposition - Plan for ED Patient: Disposition: Home or Assisted Living Diagnosis: Nausea with vomiting, Pain associated with surgical procedure Instructions: VOMITING (7y-Adult) Prescriptions: Ondansetron [Zofran Odt] 4 mg PO Q8H PRN PRN #3 tab PRN Reason: Nausea Transmission Status: Pending to [facility] #30 Referrals: Stella Jordan NP-C [Primary Care Provider] - 2 Days for wound check
[2020-01-22] MEDS: Naproxen 500 MG Tablet PO (21:24)
[2020-01-22] MEDS: HYDROcodone Bitartrate/Apap 5/325 Tablet PO (21:24)
== END 2020-01-22 21:27 | disposition home or self-care (01) ==
PROVIDERS: Emergency Provider Emergency Medicine; PCP Nurse Practitioner Pediatrics
DX: R11.2 Nausea with vomiting, unspecified (principal); E66.9 Obesity, unspecified; M27.2 Inflammatory conditions of jaws; L02.01 Cutaneous abscess of face
CPT/HCPCS: 42310; 99283

== ENCOUNTER 2020-04-29 11:08 | Emergency (ER) | payer MEDICAID, SELFPAY ==
[2020-04-29 11:11] VITALS: BP 152/87; PULSE 78; RESP 18; TEMP 36.4; O2SAT 98; BMI 45.5
--- NOTE | 2020-04-29 12:53 | ED.DCSUM_ITS ---
- ER Visit Summary Date of Service: 04/29/20 Chief Complaint: Right hand pain and swelling History of Present Illness: The patient is a 24 F who presents with right hand pain and swelling that is been getting worse over the past couple days. Patient states she had carpal tunnel surgery done [address] Mcgraw at [facility] here in [place]. Patient states she has not followed up with him. Patient came to the emergency department today because she thought it was getting infected. Patient denies any fevers or chills. Patient denies any discharge or drainage. Patient admits to some increased swelling around the incision. Physical Examination: Vital signs are stable. Patient is afebrile. Patient is in no acute distress. Musculoskeletal exam reveals tenderness over the palmar aspect of the right hand over the incision. There is some surrounding erythema. There is no active discharge or drainage. Sutures are in place. Range of motion was limited in all motions of the fingers of the right hand secondary to pain. Sensation was intact to light touch in all digits. Capillary refill was less than 2 seconds in all digits. There is no tenderness over the flexor tendon sheath. Radial pulses are equal bilaterally. Test Results: CBC and basic metabolic profile were obtained and were within normal limits. X-rays of the right hand were obtained. There is minimal soft tissue swelling. There is no other acute abnormality. This was interpreted by the radiologist and reviewed by myself. Emergency Department Course and Treatment: Patient was given IV fluids. Patient was given a dose of Ancef here. Patient was given a dose of morphine. Patient was given a prescription for Keflex. Patient was instructed to follow-up with her surgeon in 2 to 3 days. Patient understood and was agreeable with the plan. All questions were answered. Disposition: Discharge home Impression: 1. Postoperative pain 2. Wound infection This note was generated with GROUNDFLOORation software. It may contain incorrect words, spelling, and punctuation that were not noted in review of the chart prior to signing ED Disposition - Plan for ED Patient: Disposition: Home or Assisted Living Diagnosis: Postoperative pain, Wound infection after surgery Instructions: ED Wound Infection after surgery Prescriptions: Cephalexin [Keflex] 500 mg PO Q6 #40 cap Prescription Printed Referrals: Stella Jordan NP-C [NON-STAFF] - 3-5 Days Genaro Mcgraw MD [STAFF PHYSICIAN] - 2 Days
[2020-04-29 13:26] LABS: Absolute Lymphocyte Count 2.55 X10^3/uL (0.83-4.51); Absolute Neutrophil Count 6.4 X10^3/uL (2.0-7.7); Basophil# 0.06 X10^3/uL; Basophil% 0.6 % (0-1); Eosinophils% 2.9 % (0-5); Hematocrit 43.4 % (37-47); Hemoglobin 13.6 g/dL (12.0-15.0); Lymphocyte # 2.55 X10^3/ul (4.0); Mean Corp Hgb Conc 31.3 g/dL (32-36); Mean Corpuscular Hgb 29.2 pg (27.0-32.0); Mean Corpuscular Volume 93.1 fL (81-99); Mean Platelet Vol. 10.2 fl (6.2-12.0); Monocyte# 0.82 X10^3/uL; NRBC Flagged by Analyzer 0 % (0-5); Neutrophil # 6.44 X10^3/uL (2.7-7.7); Platelet Count 224 K/mm3 (150-450); RBC Distribution Width CV 13.3 % (11.6-14.6); RBC Distribution Width SD 44.7 fl (35.1-43.9); Red Blood Count 4.66 M/mm3 (4.2-5.4); White Blood Count 10.2 K/mm3 (4.4-11.0)
[2020-04-29] MEDS: Morphine 4 MG/ML Syringe IV (13:38)
[2020-04-29] MEDS: Cefazolin 1 GM/50 ML BAG IV (13:40)
[2020-04-29 13:41] LABS: Anion Gap 5 (5-15); BUN 9 mg/dL (7-18); BUN/Creat Ratio 14.4 RATIO (10-20); Calcium,Total 8.7 mg/dL (8.5-10.1); Chloride 110 mmol/L (98-107); Creatinine, Serum 0.62 mg/dL (0.55-1.02); EST Glomerular Filtration Rate 125 mL/min (>60); Est Glom Filt Rate - Afr Amer 151 mL/min (>60); Estimated Creatinine Clearance 101.37 ml/min; Glucose 73 mg/dL (74-106); Potassium 4.7 mmol/L (3.5-5.1); Sodium Level 135 mmol/L (136-145)
--- NOTE | 2020-04-29 13:42 | RAD_ITS ---
STUDY: X-RAY - RIGHT HAND REASON FOR EXAM: Female, 24 years old. RIGHT HAND PAIN, SWELLING. INFECTION IN WOUND POST CARPAL TUNNEL SURGERY X 2 WEEKS AGO TECHNIQUE: 3 view(s) of the hand. COMPARISON: None. FINDINGS: No acute fracture, dislocation or osseous destruction. No significant joint space narrowing. No significant productive changes. Minimal soft tissue swelling. No radiopaque foreign body. RAD/Hand Min 3 Views IMPRESSION: Right hand intact Minimal soft tissue swelling Electronically Signed: Leandro Jacobo DO at 13:57 EDT Tel , Service support ,
[2020-04-29 14:44] VITALS: BP 133/84; PULSE 72; RESP 15; TEMP 36.6; O2SAT 98
== END 2020-04-29 14:45 | disposition home or self-care (01) ==
PROVIDERS: Emergency Provider Emergency Medicine
DX: G89.18 Other acute postprocedural pain (principal); L08.9 Local infection of the skin and subcutaneous tissue, unspecified
CPT/HCPCS: 73130; 80048; 85025; 96365; 96375; 99285; A4216

== ENCOUNTER 2020-06-28 23:02 | Emergency (ER) | payer MEDICAID, SELFPAY ==
[2020-06-28 23:03] VITALS: BP 143/87; PULSE 87; RESP 16; TEMP 36.5; O2SAT 100; BMI 44.9
--- NOTE | 2020-06-28 23:11 | ED.VIS.GEN ---
History of Present Illness Chief Complaint: Complaint Informant: Patient Narrative: Stated she started having hematuria today. She has some left lower back and flank pain. History of renal stones in the remote past. Multiple visits for flank pain in the past. She denies any dysuria. She does have a urgency and frequency. No intra-abdominal pain. No blood thinners. Current severity is mild. Comes in for further evaluation. No home treatment. - Past Medical History (1) Abscess of left external cheek Status: Acute Comment: L02.01 left preauricular abscess (2) Cutaneous abscess of neck Status: Acute Comment: L02.11 left posterior neck abscess (3) Felon of finger of right hand Status: Acute Comment: felon right long finger (4) Hyperemesis affecting , antepartum Status: Acute (5) Open wound of left cheek Status: Acute Comment: open surgical wound left preauricular area (6) Open wound of neck Status: Acute Comment: open surgical wound left posterior neck (7) Open wound of right middle finger without damage to nail Status: Acute Comment: open felon wound right long finger (8) Asthma Status: Chronic (9) Carpal tunnel syndrome, bilateral Status: Chronic (10) Kidney stones Status: Chronic (11) Migraine headache without aura Status: Chronic (12) Personal history of MRSA (methicillin resistant Staphylococcus aureus) Status: Chronic Comment: Z86.14 Past Medical History - Allergies and Home Meds Allergies/Adverse Reactions: Allergies Bleach (Sodium Hypochlorite) Allergy (Verified 06/28/20 23:05) Hives diphenhydramine HCl [From Benadryl] Allergy (Verified 06/28/20 23:05) Hives Primary Care Physician: Rob Ignacio MD [STAFF PHYSICIAN] - Prior records reviewed: Yes Past Medical History: - - See problem list Surgical History: - - Carpal tunnel Lives: With Family Smoking Status: Never smoker Alcohol: None Drugs: None Review of Systems General: Denies: Chills, Fever, Sweats Eyes: Denies: Visual changes - bilaterally, Diplopia ENT: Denies: Rhinorrhea, Sore throat Cardiovascular: Denies: Chest pain, Palpitations Respiratory: Denies: Dyspnea, Cough, Dyspnea on exertion Gastrointestinal: Reports: - - Left flank pain. Denies: Abdominal pain, Nausea, Vomiting, Diarrhea, Melena, Hematochezia Genitourinary: Reports: Hematuria, Frequency. Denies: Dysuria Musculoskeletal: Reports: Back pain - Left lower back pain. Denies: Extremity Pain Skin: Denies: Rash, Wounds Neurological: Denies: Headache, Weakness, Numbness Physical Exam Vital Signs/Narrative: Vital Signs Temp Pulse Resp BP Pulse Ox 06/28/20 23:03 97.7 F L 87 16 143/87 H 100 General: Well nourished, Well developed, No Acute Distress Head: Normocephalic, Atraumatic Eyes: Perrl, EOMI ENT: Moist mucous membranes, No rhinorrhea Neck: Supple, Nontender Cardiovascular: Regular rate, Regular rhythm, No murmurs Respiratory: No distress, CTA bilaterally, Chest nontender Abdomen: Soft, Nontender, Nondistended, Normal bowel sounds Back: Nontender, Normal Inspection Extremities: Nontender, No edema Skin: Normal color, No rash Neurological: Alert, Oriented x3, Cranial nerves II-XII grossly intact, Normal Strength, Normal Sensation Psychological: Normal affect, Normal Mood Diagnostic/Tx/Re-eval - Medical Decision Making Established given IV fluids Toradol morphine Zofran. Lab work obtained. Lab work shows no acute abnormalities other than hematuria with RBCs in the urine. He she has 5-10 white blood cells but only rare bacteria. I do not feel this is an infection. At this time I feel the patient likely has a kidney stone. We discussed doing a CAT scan but this time I think we should hold off that she has had them in the past. She will be given a short course of Percocet and Zofran for home and follow-up with urology as I suspect a kidney stone ED Disposition - Plan for ED Patient: Disposition: Home or Assisted Living Diagnosis: Kidney stone Instructions: Understanding Kidney Stones Prescriptions: Oxycodone HCl/Acetaminophen [Percocet 5/325] 1 - 2 tab PO Q6H PRN PRN 3 Days #12 tab PRN Reason: Pain Prescription Printed Ondansetron [Zofran Odt] 8 mg PO Q8H PRN PRN #20 tab PRN Reason: Nausea Prescription Printed Referrals: Rob Ignacio MD [STAFF PHYSICIAN] -
[2020-06-28] MEDS: 0.9% Normal Saline 1,000 ML 250 ML IV (23:30)
[2020-06-28] MEDS: Ondansetron 4 MG/2 ML Vial IV (23:31)
[2020-06-28] MEDS: Ketorolac 30 MG/ML Syringe IV (23:32)
[2020-06-28] MEDS: Morphine 4 MG/ML Syringe IV (23:34)
[2020-06-28 23:37] LABS: Absolute Lymphocyte Count 2.95 X10^3/uL (0.83-4.51); Absolute Neutrophil Count 5.6 X10^3/uL (2.0-7.7); Basophil# 0.05 X10^3/uL; Basophil% 0.5 % (0-1); Eosinophil# 0.23 X10^3/uL; Eosinophils% 2.4 % (0-5); Hematocrit 38.6 % (37-47); Hemoglobin 12.8 g/dL (12.0-15.0); Lymphocyte # 2.95 X10^3/ul (4.0); Lymphocyte % 30.5 % (19-41); Mean Corp Hgb Conc 33.2 g/dL (32-36); Mean Corpuscular Hgb 29.4 pg (27.0-32.0); Mean Corpuscular Volume 88.5 fL (81-99); Mean Platelet Vol. 9.9 fl (6.2-12.0); Monocyte# 0.78 X10^3/uL; Monocyte% 8.1 % (0-10); NRBC Flagged by Analyzer 0 % (0-5); Neutrophil # 5.62 X10^3/uL (2.7-7.7); Platelet Count 238 K/mm3 (150-450); RBC Distribution Width CV 12.8 % (11.6-14.6); RBC Distribution Width SD 41.3 fl (35.1-43.9); Red Blood Count 4.36 M/mm3 (4.2-5.4); White Blood Count 9.7 K/mm3 (4.4-11.0)
[2020-06-28 23:38] VITALS: BP 143/87; PULSE 87; RESP 16; TEMP 36.5; O2SAT 100
[2020-06-28 23:49] LABS: Anion Gap 7 (5-15); BUN 9 mg/dL (7-18); BUN/Creat Ratio 13.7 RATIO (10-20); Calcium,Total 8.6 mg/dL (8.5-10.1); Chloride 111 mmol/L (98-107); Creatinine, Serum 0.66 mg/dL (0.55-1.02); EST Glomerular Filtration Rate 118 mL/min (>60); Est Glom Filt Rate - Afr Amer 142 mL/min (>60); Estimated Creatinine Clearance 95.22 ml/min; Glucose 100 mg/dL (74-106); Potassium 3.5 mmol/L (3.5-5.1); Sodium Level 143 mmol/L (136-145)
[2020-06-29] LABS: Internal QC Validated? YES +Cl - CLEAR BKGD; Pregnancy, Serum, hCG Quali. NEGATIVE Negative
[2020-06-29] LABS: Color, Urine Amber (Yellow); Glucose, Dipstick Normal (Normal); Ketone-Dipstick 5 mg/dl (Negative); Leukocyte Esterase-Dipstick 100 /ul (Negative); Mucous, Urine 0 SEEN /hpf (<or=2+); Nitrite-Dipstick Negative (Negative); Occult Blood-Urine 250 /ul (Negative); Protein-Dipstick 30 mg/dl (Negative); Urine Bilirubin Dipstick Negative (Negative); Urine Clarity Cloudy (Clear); Urine Urobilinogen 1 mg/dl (Normal)
[2020-06-29 00:12] LABS: White Blood Cells 5-10 SEEN /hpf (0-5)
[2020-06-29 00:13] LABS: Bacteria RARE /hpf (None Seen); Squamous Epithelial Cells - UA 0-5 SEEN /hpf (5-10)
[2020-06-29 00:18] LABS: Red Blood Cells-Urine > 100 SEEN /hpf (0-5)
[2020-06-29] MEDS: Morphine 4 MG/ML Syringe IV (00:26)
[2020-06-29 00:33] VITALS: BP 103/92; PULSE 69; RESP 18; TEMP 36.6; O2SAT 100
== END 2020-06-29 00:45 | disposition home or self-care (01) ==
PROVIDERS: Emergency Provider Emergency Medicine
DX: N20.0 Calculus of kidney (principal); Z87.442 Personal history of urinary calculi; Z86.14 Personal history of Methicillin resistant Staphylococcus aureus infection
CPT/HCPCS: 80048; 81001; 84703; 85025; 96361; 96374; 96375; 96376; 99283; J7030; A4216; J2405

== ENCOUNTER 2020-07-06 22:48 | Emergency (ER) | payer MEDICAID, SELFPAY ==
[2020-07-06 22:49] VITALS: BP 149/99; PULSE 73; RESP 16; TEMP 36.5; BMI 48.0
--- NOTE | 2020-07-06 23:04 | CT_ITS ---
HISTORY: RT FLANK PAIN,NAUSEA AND VOMITING,PT HAD DIARRHEA YESTERDAY,PREG TEST WAS NEGATIVEHX:,HEP C,KIDNEY STONES-HAS HAD STONE RETRIVAL SURGERY EXAMINATION: CT Abdomen And Pelvis W/O Contrast Injection TECHNIQUE: Helically acquired images were obtained of the abdomen and pelvis without oral or IV contrast as per renal stone protocol. A radiation dose optimization technique was used for this scan. IV Contrast dosage and agent: None Oral contrast: None. COMPARISON: 11/15/2019 FINDINGS: Lower thorax: Clear. No pleural effusion or pericardial effusion. No radiopaque gallstones and no biliary dilatation. Limited non-infusion exam. Allowing for this, normal liver, spleen, and pancreas. Both kidneys show normal size and position. Previously approximately 4 small right renal stones which are no longer identified and compatible with interval passage. 2 mm calyceal stone, mid pole of the left kidney without significant change. No ureteral stones identified. No hydronephrosis or hydroureter. No perinephric inflammatory change seen. The adrenal glands are not enlarged. Abdominal aorta stone in caliber. No ascites or retroperitoneal lymph node enlargement. GI tract: No obstruction. Normal appendix. Pelvis: Anteverted uterus which is normal in size. Poor distention of the urinary bladder. Pelvic phleboliths. No urinary bladder stones identified. Bones: No acute osseous abnormality. CT/Abdomen/Pelvis without Cont IMPRESSION: 1. Previously approximately 4 small right renal stones which are no longer identified compatible with interval passage. 2. Left renal tiny nonobstructing stone, unchanged. 3. No current findings of hydronephrosis or obstructive uropathy. No acute abdominal disease identified. Individualized dose optimization techniques were used for this CT. at 0126 Reported and signed by: Julian Chow MD Electronically Signed: Julian Chow, at 1:25 EDT Tel , Service support ,
[2020-07-06] MEDS: Ketorolac 30 MG/ML Syringe IV (23:15)
[2020-07-06] MEDS: Ondansetron 4 MG/2 ML Vial IV (23:16)
[2020-07-06] MEDS: 0.9% Normal Saline 1,000 ML 250 ML IV (23:16)
[2020-07-06] MEDS: Morphine 4 MG/ML Syringe IV (23:16)
--- NOTE | 2020-07-06 23:21 | ED.DCSUM_ITS ---
- ER Visit Summary Date of Service: 07/06/20 Chief Complaint: Flank pain History of Present Illness: The patient is a [address] Angel and [facility] as her primary care physician. She reports that she has had flank pain for months. It worsened today. She describes it as a throbbing pain is 10 out of 10 in severity. It is worsened by movement. She taken Tylenol without relief. She does report that she has mild relief with the position. She is had nausea, vomiting. She reports she had 10 episodes of diarrhea yesterday. She has not had diarrhea today. She denies any blood in her stools or black tarry stools. Patient reports that she has dysuria and frequency. She is on her menstrual period now. She denies any vaginal discharge. States that this is similar to when she had kidney stones in the past. Physical Examination: Vitals: Stable. Afebrile. General: Well-nourished and well-developed. Head: Normocephalic atraumatic. Neck: Supple, no lymphadenopathy. No JVD. Nontender. Cardiovascular: Regular rate and rhythm. No murmurs. Respiratory: No respiratory distress. Clear to auscultation bilaterally. Abdominal: Soft, mild diffuse tenderness to palpation. No localized tenderness, nondistended, normal bowel sounds. No guarding, rebound, or peritoneal signs. Back: Mild diffuse tenderness palpation over the entire thoracic and lumbar spine. Moderate CVA tenderness bilaterally. 5 out of 5 dorsiflexion, plantarflexion, extensor hallucis longus bilaterally. Normal sensation light touch. Negative straight leg raise bilaterally. Extremities: Nontender, no edema. Skin: Normal color, no rash. Neurologic: Alert and oriented ?3. Cranial nerves II through XII are intact. Normal strength and sensation. Psych: Normal affect. Test Results: CBC shows a hematocrit of 36.6. Chem-7 shows a chloride of 112. UA shows no evidence of infection. There are 10-25 red blood cells, but the patient is on her menses. test is negative. Clinical Impression(s) from Imaging Studies Abdomen/Pelvis CT 07/06/20 23:04 IMPRESSION: 1. Previously approximately 4 small right renal stones which are no longer identified compatible with interval passage. 2. Left renal tiny nonobstructing stone, unchanged. 3. No current findings of hydronephrosis or obstructive uropathy. No acute abdominal disease identified. Individualized dose optimization techniques were used for this CT. at 0126 Reported and signed by: Julian Chow MD Electronically Signed: Julian Chow, at 1:25 EDT Tel , Service support , Emergency Department Course and Treatment: Patient had an IV placed. She is gi mayco a liter normal saline. She was given Toradol, Zofran, and morphine IV. She is resting more comfortably. An [facility] report was obtained which shows patient's had 8 prescriptions for opiates in the past year. She got a prescription for 12 Percocet 1 week ago. Treatment Plan: Patient will be discharged with naproxen and Zofran. Instructed to follow-up with her primary care physician in 1 week if not improving. Return to the emergency department for any worsening symptoms. Disposition: To home in improved and stable condition. Impression: 1. Back pain. This note was generated with [employer] dictation software. It may contain incorrect words, spelling, and punctuation that were not noted in review of the chart prior to signing ED Disposition - Plan for ED Patient: Instructions: ED Back Pain Acute or Chronic Prescriptions: Naproxen [Naprosyn] 500 mg PO BID #14 tablet Ondansetron [Zofran Odt] 4 mg PO Q8H PRN PRN #10 tablet PRN Reason: Nausea Referrals: Greta Shields PA [Primary Care Provider] - 1 Week if not improving
[2020-07-06 23:26] LABS: Bacteria 0 SEEN /hpf (None Seen); Mucous, Urine 0 SEEN /hpf (<or=2+); Squamous Epithelial Cells - UA 0 SEEN /hpf (5-10)
[2020-07-06 23:28] LABS: Color, Urine Yellow (Yellow); Glucose, Dipstick Normal (Normal); Ketone-Dipstick Negative (Negative); Leukocyte Esterase-Dipstick 25 /ul (Negative); Nitrite-Dipstick Negative (Negative); Occult Blood-Urine 250 /ul (Negative); Protein-Dipstick 15 mg/dl (Negative); Urine Bilirubin Dipstick Negative (Negative); Urine Clarity Clear (Clear); Urine Urobilinogen 4 mg/dl (Normal)
[2020-07-06 23:30] LABS: Absolute Lymphocyte Count 3.39 X10^3/uL (0.83-4.51); Absolute Neutrophil Count 5.4 X10^3/uL (2.0-7.7); Basophil# 0.06 X10^3/uL; Basophil% 0.6 % (0-1); Eosinophil# 0.23 X10^3/uL; Eosinophils% 2.3 % (0-5); Hematocrit 36.6 % (37-47); Hemoglobin 12.3 g/dL (12.0-15.0); Lymphocyte # 3.39 X10^3/ul (4.0); Lymphocyte % 34.5 % (19-41); Mean Corp Hgb Conc 33.6 g/dL (32-36); Mean Corpuscular Hgb 29.1 pg (27.0-32.0); Mean Corpuscular Volume 86.5 fL (81-99); Monocyte# 0.74 X10^3/uL; Monocyte% 7.5 % (0-10); NRBC Flagged by Analyzer 0 % (0-5); Neutrophil # 5.39 X10^3/uL (2.7-7.7); Neutrophil % 54.8 % (47-70); Platelet Count 270 K/mm3 (150-450); RBC Distribution Width CV 12.7 % (11.6-14.6); RBC Distribution Width SD 39.4 fl (35.1-43.9); Red Blood Count 4.23 M/mm3 (4.2-5.4); White Blood Count 9.8 K/mm3 (4.4-11.0)
[2020-07-06 23:35] LABS: Red Blood Cells-Urine 10-25 SEEN /hpf (0-5); White Blood Cells 0-5 SEEN /hpf (0-5)
[2020-07-06 23:40] LABS: Anion Gap 7 (5-15); BUN 10 mg/dL (7-18); BUN/Creat Ratio 11.8 RATIO (10-20); Calcium,Total 8.8 mg/dL (8.5-10.1); Chloride 112 mmol/L (98-107); Creatinine, Serum 0.84 mg/dL (0.55-1.02); EST Glomerular Filtration Rate 88 mL/min (>60); Est Glom Filt Rate - Afr Amer 107 mL/min (>60); Estimated Creatinine Clearance 74.82 ml/min; Glucose 95 mg/dL (74-106); Potassium 3.7 mmol/L (3.5-5.1); Sodium Level 143 mmol/L (136-145)
[2020-07-06 23:54] LABS: Internal QC Validated? YES +Cl - CLEAR BKGD; Pregnancy, Serum, hCG Quali. NEGATIVE Negative
[2020-07-07 01:35] VITALS: PULSE 82; RESP 16; O2SAT 98
== END 2020-07-07 01:37 | disposition home or self-care (01) ==
LOC: ED 23:11
PROVIDERS: Emergency Provider Emergency Medicine; PCP Physician Assistant
DX: M54.9 Dorsalgia, unspecified (principal); Z87.442 Personal history of urinary calculi
CPT/HCPCS: 74176; 80048; 81001; 84703; 85025; 96361; 96374; 96375; 99283; J7030; A4216; J2405

== ENCOUNTER 2020-09-18 21:31 | Emergency (ER) | payer MEDICAID, SELFPAY ==
[2020-09-18 21:33] VITALS: BP 145/95; PULSE 88; RESP 16; TEMP 36; O2SAT 100; BMI 46.8
--- NOTE | 2020-09-18 21:47 | ED.DCSUM_ITS ---
- ER Visit Summary Date of Service: 09/18/20 Chief Complaint: Stepped on a nail History of Present Illness: The patient is a [address] Shields. She reports that approximately an hour ago she stepped on a nail that was sticking out through her carpet. She was barefoot. She complains of a sharp, throbbing pain is 9-10 [address] she walks and 7 out of 10 at rest. She is not taken anything for pain. Her tetanus is not up-to-date. Physical Examination: Vitals: Stable. Afebrile. General: Well-nourished and well-developed. Head: Normocephalic atraumatic. Neck: Supple, no lymphadenopathy. No JVD. Nontender. Cardiovascular: Regular rate and rhythm. No murmurs. Respiratory: No respiratory distress. Clear to auscultation bilaterally. Abdominal: Soft, nontender, nondistended, normal bowel sounds. No guarding, rebound, or peritoneal signs. Back: Nontender. Extremities: Mild tenderness to palpation over the plantar surface of her foot over the distal first metatarsal. However, there is no puncture wound visualized. There is no bleeding. She has a 2+ dorsalis pedis pulse. Skin: Normal color, no rash. Neurologic: Alert and oriented ?3. Cranial nerves II through XII are intact. Normal strength and sensation. Psych: Normal affect. Emergency Department Course and Treatment: Patient was reassured. She had her tetanus updated. She refused pain medications. Treatment Plan: Patient be discharged instructions to watch for redness. Follow-up with her primary care physician 1 week if not improving. Return to the emergency department for any worsening symptoms. Disposition: To home in improved and stable condition. Impression: 1. Puncture wound right foot. This note was generated with [employer] dictation software. It may contain incorrect words, spelling, and punctuation that were not noted in review of the chart prior to signing ED Disposition - Plan for ED Patient: Instructions: ED Wound Puncture Foot Referrals: Greta Shields PA [Primary Care Provider] - 1 Week if not improving
[2020-09-18] MEDS: Diphth,Pertuss(Acell),Tet Vac 0.5 ML Vial IM (22:10)
== END 2020-09-18 22:26 | disposition home or self-care (01) ==
LOC: ED 21:46
PROVIDERS: Emergency Provider Emergency Medicine; PCP Physician Assistant
DX: S91.331A Puncture wound without foreign body, right foot, initial encounter (principal); W45.0XXA Nail entering through skin, initial encounter
CPT/HCPCS: 90471; 90715; 99282

== ENCOUNTER 2020-10-08 12:28 | Emergency (ER) | payer MEDICAID, SELFPAY ==
[2020-10-08 12:29] VITALS: BP 152/99; PULSE 99; RESP 22; TEMP 36.6; O2SAT 97; BMI 46.8
--- NOTE | 2020-10-08 12:50 | ED.DCSUM_ITS ---
- ER Visit Summary Date of Service: 10/08/20 Chief Complaint: [Sore throat and cough, vomiting and diarrhea] History of Present Illness: The patient is a 25 F [presents to the emergency department with multiple complaints. Patient states she started feeling poorly about 4 days ago. Patient initially started with nausea and vomiting. Since yesterday she has been having diarrhea as well and has had about 8-9 watery stools. She denies urinary symptoms. She complains of sore throat as well as cough and body aches. She complains of bilateral ear pain. Patient had chills and sweats. She denies any exposures to COVID-19. Patient has history of hep C and MRSA.] Patient states that she cannot keep anything down anytime she tries to drink. Complains of feeling lightheaded at times. Physical Examination: [HEENT-PERRLA, EOMI. Cranial nerves II through XII grossly intact. TMs clear. Mucous membranes moist. No adenopathy. Cardiovascular-regular rate and rhythm without murmur or ectopy Lungs-clear to auscultation, chest wall stable without crepitus or subcu emphysema Abdomen-normoactive bowel sounds, soft, nontender, no rebound or rigidity, no peritoneal signs. Extremities-intact ?4, normal range of motion, normal pulses, atraumatic. Patient has a small soft tissue abscess to the right axilla measuring approximately 3 cm in diameter. There are some faint surrounding erythema. Area is firm to palpation and tender to palpation.] Test Results: [CBC with differential showing a 10.4, hemoglobin 13.5, hematocrit 39.7, placed 275. Chemistries unremarkable. Urinalysis was normal. Chest x- ray was normal. COVID-19 test was negative] Emergency Department Course and Treatment: [IV line established on arrival. Patient was given a liter mostly fluid bolus. Patient treated with Zofran 4 mg IV. Patient was offered incision and drainage of suspected abscess to which she agreed. Patient states that she got a lot of purulent debris from it this morning. Area sterilely draped and prepped. Wound cleansed with Shur-Clens. Wound anesthetized locally with 1% lidocaine total 4 cc. Using an 11 blade a 2 cm incision was made with small amount of purulent debris obtained. I used curved hemostats to undermine the tissues and again expressed small amount of purulent debris. Wound was irrigated. Clean dressing applied.] Treatment Plan: [Patient will be started on clindamycin and given Zofran. Patient requested something to help her sleep at night and I will write her prescription for few Ambien. Patient states that she has tried [id number] Benadryl and melatonin without any success.] Disposition: [Discharged home in stable condition] Impression: [Viral syndrome Soft tissue abscess right axilla with incision and drainage] This note was generated with [employer] dictation software. It may contain incorrect words, spelling, and punctuation that were not noted in review of the chart prior to signing ED Disposition - Plan for ED Patient: Referrals: Greta Shields, PA [NON-STAFF] -
[2020-10-08] MEDS: Lidocaine 1% (20 ml mdv) 20 ML Vial 4 ML INFILT (13:09)
[2020-10-08] MEDS: Ondansetron 4 MG/2 ML Vial IV (13:09)
[2020-10-08] MEDS: 0.9% Normal Saline 1,000 ML 1000 ML IV (13:09)
[2020-10-08 13:11] LABS: Absolute Lymphocyte Count 1.66 X10^3/uL (0.83-4.51); Absolute Neutrophil Count 7.9 X10^3/uL (2.0-7.7); Basophil# 0.05 X10^3/uL; Basophil% 0.5 % (0-1); Eosinophil# 0.09 X10^3/uL; Eosinophils% 0.9 % (0-5); Hematocrit 39.7 % (37-47); Hemoglobin 13.5 g/dL (12.0-15.0); Lymphocyte # 1.66 X10^3/ul (4.0); Lymphocyte % 15.9 % (19-41); Mean Corpuscular Hgb 29.4 pg (27.0-32.0); Mean Corpuscular Volume 86.5 fL (81-99); Mean Platelet Vol. 10.1 fl (6.2-12.0); Monocyte# 0.67 X10^3/uL; Monocyte% 6.4 % (0-10); NRBC Flagged by Analyzer 0 % (0-5); Neutrophil # 7.93 X10^3/uL (2.7-7.7); Neutrophil % 75.9 % (47-70); Platelet Count 275 K/mm3 (150-450); RBC Distribution Width CV 12.8 % (11.6-14.6); RBC Distribution Width SD 39.6 fl (35.1-43.9); Red Blood Count 4.59 M/mm3 (4.2-5.4); White Blood Count 10.4 K/mm3 (4.4-11.0)
[2020-10-08 13:12] VITALS: BP 152/99; PULSE 99; RESP 22; TEMP 36.6; O2SAT 97
--- NOTE | 2020-10-08 13:15 | RAD_ITS ---
STUDY: X-RAY CHEST REASON FOR EXAM: Female, 25 years old. Fatigue, shortness of breath, cough, sore throat TECHNIQUE: Single AP portable view of the chest. COMPARISON: Comparison is made with prior study dated 11/07/2019. FINDINGS: The lungs are clear and expanded. There is no demonstrated pleural abnormality. Normal size heart. Normal mediastinum and jeromy. Normal visualized pulmonary arteries. Normal visualized aortic arch and descending thoracic aorta. Normal visualized thoracic spine. Normal visualized ribs, clavicles, and shoulders. There is no demonstrated abnormality of the visualized soft tissue structures of the upper abdomen. RAD/Chest 1 View (Portable) IMPRESSION: Normal x-ray examination of the chest. Electronically Signed: Colby Colmenares, at 13:35 EST , Service support ,
[2020-10-08 13:26] LABS: Anion Gap 7 (5-15); BUN 5 mg/dL (7-18); BUN/Creat Ratio 8.5 RATIO (10-20); Calcium,Total 8.8 mg/dL (8.5-10.1); Chloride 110 mmol/L (98-107); Creatinine, Serum 0.59 mg/dL (0.55-1.02); EST Glomerular Filtration Rate 133 mL/min (>60); Est Glom Filt Rate - Afr Amer 161 mL/min (>60); Estimated Creatinine Clearance 105.61 ml/min; Glucose 89 mg/dL (74-106); Potassium 3.4 mmol/L (3.5-5.1); Sodium Level 140 mmol/L (136-145)
[2020-10-08 13:40] LABS: Bacteria 0 SEEN /hpf (None Seen); Mucous, Urine 0 SEEN /hpf (<or=2+); White Blood Cells 0 SEEN /hpf (0-5)
[2020-10-08 13:47] LABS: Color, Urine Yellow (Yellow); Glucose, Dipstick Normal (Normal); Ketone-Dipstick Negative (Negative); Leukocyte Esterase-Dipstick Negative /ul (Negative); Nitrite-Dipstick Negative (Negative); Occult Blood-Urine Negative /ul (Negative); Protein-Dipstick Negative (Negative); Urine Bilirubin Dipstick Negative (Negative); Urine Clarity Clear (Clear); Urine Urobilinogen Normal (Normal); Urine pH 6.5 (5.0 - 8.0)
[2020-10-08 13:54] LABS: Red Blood Cells-Urine 0-5 SEEN /hpf (0-5); Squamous Epithelial Cells - UA 0-5 SEEN /hpf (5-10)
--- NOTE | 2020-10-08 14:06 | ED.DEP ---
ED Disposition - Plan for ED Patient: Instructions: ED Viral Syndrome (Adult), ED Abscess Incision And Drainage Prescriptions: Zolpidem Tartrate [Ambien] 10 mg PO QHS PRN #7 tab PRN Reason: Insomnia Prescription Printed Clindamycin HCl [Cleocin] 300 mg PO Q6H #40 cap Prescription Printed Ondansetron [Zofran Odt] 4 mg PO Q8H PRN PRN #10 tab PRN Reason: Nausea Prescription Printed Referrals: Greta Shields PA [NON-STAFF] - 3-5 Days
== END 2020-10-08 14:17 | disposition home or self-care (01) ==
LOC: ED 13:20
PROVIDERS: Emergency Provider Emergency Medicine; PCP Nurse Practitioner Family
DX: B34.9 Viral infection, unspecified (principal); L02.411 Cutaneous abscess of right axilla
CPT/HCPCS: 10060; 71045; 80048; 81001; 85025; 87426; 96374; 99283; J7030; A4216; J2405

== ENCOUNTER 2020-11-12 21:49 | Emergency (ER) | payer MEDICAID, SELFPAY ==
[2020-11-12 21:50] VITALS: BP 135/95; PULSE 89; RESP 18; TEMP 36.6; O2SAT 97; BMI 46.8
--- NOTE | 2020-11-12 22:10 | ED.VIS.GEN ---
History of Present Illness Chief Complaint: Wound Informant: Patient Onset: Hours Context: Sudden Onset Timing: Continuous Quality: Pain Location: Right heel Current Severity: Mild Maximum Severity: Moderate Worsened by: Movement Relieved by: Remaining still Associated Symptoms: No other complaints Narrative: Patient is a 25-year-old woman who was walking in her house wearing socks. She stepped on a finishing nail. Finishing nail has penetrated the plantar surface of her right foot near the posterior aspect of the heel. She denies paresthesia, anesthesia or motor weakness. She denies history of diabetes. Prior similar symptoms: No Recent Illness/Hospitalization: No - Past Medical History (1) Asthma Status: Chronic (2) Kidney stones Status: Chronic Past Medical History - Allergies and Home Meds Allergies/Adverse Reactions: Allergies Bleach (Sodium Hypochlorite) Allergy (Verified 11/12/20 21:50) Hives diphenhydramine HCl [From Benadryl] Allergy (Verified 11/12/20 21:50) Hivgene Primary Care Physician: Elizabeth Jones CALENDER RUNNER, CALENDER RUNNER-C [Primary Care Provider] - Surgical History: noncontributory, - - Carpal tunnel Lives: Spouse/ Significant Other Smoking Status: Never smoker Alcohol: None Drugs: None Review of Systems General: Denies: Chills, Fever, Malaise Musculoskeletal: Reports: Extremity Pain. Denies: Myalgias, Arthralgias, Swelling Skin: Reports: Wounds. Denies: Rash Neurological: Denies: Weakness, Parasthesia, Numbness Hematologic: Denies: Easy bruising, Easy bleeding Physical Exam Vital Signs/Narrative: Vital Signs Temp Pulse Resp BP Pulse Ox 11/12/20 21:50 97.9 F 89 18 135/95 H 97 Inital Vital Signs reviewed: Yes General: Well nourished, Well developed, Acute Distress Head: Normocephalic, Atraumatic Eyes: Perrl, EOMI Cardiovascular: Regular rate, Regular rhythm Respiratory: No distress Extremities: Tenderness, - - A finishing nail is noted plantar surface right foot over the calcaneus. PT and PT pulse are palpable. Skin: Normal color, Trauma Neurological: Alert, Oriented x3, Cranial nerves II-XII grossly intact, Normal Strength, Normal Sensation Diagnostic/Tx/Re-eval Chest X-Ray - ED: 2 View, Read by ED Physician, - - View x-ray of the foot was obtained. There is a metallic foreign body consistent with a finishing nail noted in the soft tissue. There is no involvement of the calcaneus. The x-ray was interpreted by me at 2239. Impressions Foot X-Ray 11/12/20 22:18 IMPRESSION: Foreign body consistent with a nail embedded in the soft tissues of the heel. Electronically Signed: Ernie Simon MD at 22:39 EST , Service support , 11/12/20 22:18 Xray Foot [Foot 2 Views] [RAD] Stat - Medical Decision Making Tray was ordered to determine if the nail is in the calcaneus or just in soft tissue. If it is in the calcaneus will consult podiatry. Otherwise will remove nail and treat for puncture wound. Procedures Procedure(s): The nail was removed without difficulty. ED Disposition - Plan for ED Patient: Disposition: Home or Assisted Living Diagnosis: Puncture wound of foot with foreign body Instructions: ED Puncture Wound (Foot) Referrals: Elizabeth Jones NP, CALENDER RUNNER-C [Primary Care Provider] - As Needed
--- NOTE | 2020-11-12 22:18 | RAD_ITS ---
STUDY: X-RAY - RIGHT FOOT CLINICAL: Female, 25 years old. STEPPED ON FINISHING NAIL AND GOT STUCK IN PATIENT''S HEEL. TECHNIQUE: 2 view(s) of the foot. COMPARISON: None. FINDINGS: There is a nail embedded in the soft tissues of the heel. It extends approximately 1.5 cm into the soft tissues. It does not reach the calcaneus. No other abnormalities. RAD/Foot 2 Views IMPRESSION: Foreign body consistent with a nail embedded in the soft tissues of the heel. Electronically Signed: Ernie Simon MD at 22:39 EST , Service support ,
== END 2020-11-12 23:33 | disposition home or self-care (01) ==
PROVIDERS: Emergency Provider Emergency Medicine; PCP Nurse Practitioner Family
DX: S91.341A Puncture wound with foreign body, right foot, initial encounter (principal); Y93.01 Activity, walking, marching and hiking
CPT/HCPCS: 73620; 99284

== ENCOUNTER 2020-12-04 08:59 | Emergency (ER) | payer MEDICAID, SELFPAY ==
[2020-12-04 09:00] VITALS: BP 158/79; PULSE 103; RESP 17; TEMP 36.6; O2SAT 97; BMI 43.7
--- NOTE | 2020-12-04 09:09 | CT_ITS ---
STUDY: CT ABDOMEN AND PELVIS WITHOUT CONTRAST REASON FOR EXAM: Female, 25 years old. LEFT FLANK PAIN WITH HISTORY OF KIDNEY STONES RADIATION DOSAGE (If Supplied By Facility): CTDIvol = ( 21.84 ) mGy, DLP = ( 1135.18 ) mGycm TECHNIQUE: Transaxial images were obtained from the dome of the diaphragm to the symphysis pubis without oral contrast, and without intravenous contrast. Sagittal and coronal images were reconstructed. Individualized dose optimization techniques were used for this CT. COMPARISON: Comparison is made with prior study of 07/07/2020. FINDINGS: The visualized lung bases are unremarkable. The visualized portions of the heart are within normal limits. There is decreased attenuation of the liver consistent with steatosis. Normal gallbladder and extrahepatic biliary system. Normal spleen. Normal pancreas. Normal bilateral adrenal glands. Normal right kidney. Mild degree of left hydronephrosis and left hydroureter due to a 1 cm calculus in the mid left ureter. Normal visualized stomach. Normal small intestine. Normal colon. The appendix is visualized and appears normal. Normal abdominal aorta. Normal inferior vena cava. Normal retroperitoneum. Normal urinary bladder. Normal abdominal wall. Normal osseous structures. CT/Abdomen/Pelvis without Cont IMPRESSION: 1 cm calculus in the midportion of the left ureter causing left hydronephrosis and left hydroureter. Electronically Signed: Colby Colmenares MD at 10:44 EST , Service support ,
--- NOTE | 2020-12-04 09:18 | ED.DCSUM_ITS ---
- ER Visit Summary Date of Service: 12/04/20 Chief Complaint: Left flank pain History of Present Illness: The patient is a 25 F presenting with left flank pain. Patient states this started last night. It feels similar to her previous kidney stones. She has nausea with no vomiting. Denies fever. Denies other complaints. Physical Examination: Vitals are stable. Patient is afebrile. Alert no acute distress. HEENT exam is unremarkable. Neck is supple. Lungs are clear and equal bilaterally. Heart is regular rate and rhythm. Abdomen is soft nontender nondistended. Back: Left CVA tenderness Extremities are unremarkable. Skin is warm and dry. Remainder of exam is unremarkable. Emergency Department Course and Treatment: Patient was given morphine, Zofran IV. She continued to have pain was given Dilaudid and Toradol. She later ment ioned that she is on Subutex per Dr. Parker. Urinalysis shows 10-25 white blood cells. hCG negative. Urine culture was sent. CT flank shows 1 cm calculus in the midportion of the left ureter causing left hydronephrosis and left hydroureter. CBC, chemistries unremarkable. CT addendum report. The previously mentioned 1 cm calculus in the left ureter most likely represents a pill in the small bowel loop. There is however a 3 mm calculus in the distal portion of the left ureter just proximal to the ureterovesical junction. Discussed with Dr. Ignacio. He is in agreement that the previously mentioned 1 cm calculus is a pill. She has a 3 mm calculus distal portion of the left ureter. She was given prescriptions for Bactrim, Zofran, Naprosyn. She is advised to follow-up with Dr. Ignacio as needed. Advised return to the ED for worsening complaints. Disposition: Discharge home Impression: Urolithiasis This note was generated with [employer] dictation software. It may contain incorrect words, spelling, and punctuation that were not noted in review of the chart prior to signing ED Disposition - Plan for ED Patient: Instructions: ED Kidney Stone w/ Colic Prescriptions: Smz/Tmp Ds [Bactrim Ds] 1 tab PO BID #14 tab Prescription Printed Naproxen [Naprosyn] 500 mg PO BID PRN #20 tab Prescription Printed Ondansetron [Zofran Odt] 4 mg PO Q8H PRN PRN #10 tab PRN Reason: Nausea Prescription Printed Referrals: Rob Ignacio MD [STAFF PHYSICIAN] - Elizabeth Jones NP, PEDIATRIC SPEECH THERAPIST-C [Primary Care Provider] -
[2020-12-04] MEDS: 0.9% Normal Saline 1,000 ML 1000 ML IV (09:20)
[2020-12-04] MEDS: Morphine 4 MG/ML Syringe IV (09:20)
[2020-12-04] MEDS: Ondansetron 4 MG/2 ML Vial IV (09:20)
[2020-12-04 09:38] LABS: Internal QC Validated? YES +Cl - CLEAR BKGD; Pregnancy, Serum, hCG Quali. NEGATIVE Negative
[2020-12-04] MEDS: Ketorolac 15 MG/ML Vial IV (10:04)
[2020-12-04] MEDS: HYDROmorphone 1 MG/ML Syringe IV ×2 (10:05→11:44)
[2020-12-04 11:03] LABS: Mucous, Urine 0 SEEN /hpf (<or=2+)
[2020-12-04 11:05] LABS: Color, Urine Yellow (Yellow); Glucose, Dipstick Normal (Normal); Ketone-Dipstick 5 mg/dl (Negative); Leukocyte Esterase-Dipstick 100 /ul (Negative); Nitrite-Dipstick Negative (Negative); Occult Blood-Urine 50 /ul (Negative); Protein-Dipstick 30 mg/dl (Negative); Specific Gravity, Urine 1.025 (1.002-1.030); Urine Bilirubin Dipstick Negative (Negative); Urine Clarity Turbid (Clear); Urine Urobilinogen 1 mg/dl (Normal)
[2020-12-04 11:11] LABS: Amorphous Sediment 2+ URATE; Bacteria 2+ /hpf (None Seen); Calcium Oxalate Crystals Ur 1+ /hpf (<or=2+); Red Blood Cells-Urine 0-5 SEEN /hpf (0-5); Squamous Epithelial Cells - UA 0-5 SEEN /hpf (5-10); White Blood Cells 10-25 SEEN /hpf (0-5)
[2020-12-04 11:38] VITALS: BP 123/85; O2SAT 99
[2020-12-04 11:55] LABS: Absolute Lymphocyte Count 2.52 X10^3/uL (0.83-4.51); Absolute Neutrophil Count 3.6 X10^3/uL (2.0-7.7); Basophil# 0.05 X10^3/uL; Basophil% 0.7 % (0-1); Eosinophil# 0.26 X10^3/uL; Eosinophils% 3.8 % (0-5); Hematocrit 40.6 % (37-47); Hemoglobin 13.5 g/dL (12.0-15.0); Lymphocyte # 2.52 X10^3/ul (4.0); Lymphocyte % 36.4 % (19-41); Mean Corp Hgb Conc 33.3 g/dL (32-36); Mean Corpuscular Hgb 28.7 pg (27.0-32.0); Mean Corpuscular Volume 86.4 fL (81-99); Monocyte# 0.53 X10^3/uL; Monocyte% 7.6 % (0-10); NRBC Flagged by Analyzer 0 % (0-5); Neutrophil # 3.55 X10^3/uL (2.7-7.7); Neutrophil % 51.2 % (47-70); Platelet Count 306 K/mm3 (150-450); RBC Distribution Width CV 12.8 % (11.6-14.6); RBC Distribution Width SD 40.1 fl (35.1-43.9); White Blood Count 6.9 K/mm3 (4.4-11.0)
[2020-12-04 12:16] LABS: Anion Gap 4 (5-15); BUN 12 mg/dL (7-18); Calcium,Total 9.2 mg/dL (8.5-10.1); Chloride 113 mmol/L (98-107); Creatinine, Serum 0.71 mg/dL (0.55-1.02); EST Glomerular Filtration Rate 108 mL/min (>60); Est Glom Filt Rate - Afr Amer 130 mL/min (>60); Estimated Creatinine Clearance 101.07 ml/min; Glucose 94 mg/dL (74-106); Potassium 3.8 mmol/L (3.5-5.1); Sodium Level 143 mmol/L (136-145)
--- NOTE | 2020-12-04 12:36 | DCINST.ED_ITS ---
ED Disposition - Plan for ED Patient: Instructions: ED Kidney Stone w/ Colic Prescriptions: Smz/Tmp Ds [Bactrim Ds] 1 tab PO BID #14 tab Prescription Printed Naproxen [Naprosyn] 500 mg PO BID PRN #20 tab Prescription Printed Ondansetron [Zofran Odt] 4 mg PO Q8H PRN PRN #10 tab PRN Reason: Nausea Prescription Printed Referrals: Elizabeth Jones NP, SPECIAL CERTIFICATE DICTATOR-C [Primary Care Provider] - Rob Ignacio MD [STAFF PHYSICIAN] -
[2020-12-04 12:39] VITALS: BP 117/76; PULSE 76; RESP 16; TEMP 36.7; O2SAT 98
[2020-12-04] MEDS: Smz/Tmp Ds Tablet 1 TABLET PO (12:50)
== END 2020-12-04 12:51 | disposition home or self-care (01) ==
LOC: ED 09:19
PROVIDERS: Emergency Provider Emergency Medicine; PCP Nurse Practitioner Family
DX: N20.9 Urinary calculus, unspecified (principal); Z87.442 Personal history of urinary calculi
CPT/HCPCS: 74176; 80048; 81001; 84703; 85025; 87086; 87088; 96361; 96374; 96375; 96376; 99284; J7030; A4216; J2405

== ENCOUNTER 2021-04-01 08:40 | Emergency (ER) | payer MEDICAID, SELFPAY ==
[2021-04-01 08:42] VITALS: BP 126/66; PULSE 73; RESP 15; TEMP 36.8; O2SAT 100
--- NOTE | 2021-04-01 08:58 | EDS_ITS ---
HPI History of Present Illness Chief Complaint: Headache Detail of Chief Complaint: Patient with a headache that started initially 2 weeks ago Informant: patient Onset/Context/Timing Context: Gradual Quality -Headache: Positive for Similar Prior Headaches and Throbbing Location: Diffuse Associated Symptoms/Injury Associated Symptoms: Positive for Nausea, Vomiting and Photophobia Injury - PEGUERO: Negative for Direct Trauma, Fall and Assault Narrative Narrative: Patient presents to the emergency department with a headache that she has had off-and-on for the last 2 weeks. Patient states that the headache came on gradually and she has been trying to manage at home with Tylenol and ibuprofen and Excedrin. This morning she woke up and the pain was more severe and she felt lightheaded and vomited. Patient has vomited x2. She had similar headaches in the past but this 1 seems to be more severe. She has been to the ER before for migraines. She is had no falls or head injuries. She denies re cent illness. Patient has no significant medical history otherwise. No family history of brain tumors or brain aneurysms. [facility] Medical History (Updated 04/01/21 @ 10:[address] Anastacia Portillo, ) Abscess of left external cheek Asthma Asthma Cutaneous abscess of neck Depression affecting Felon of finger of right hand Hepatitis C History of MRSA infection Migraine headache without aura Obesity Open wound of left cheek Open wound of neck Open wound of right middle finger without damage to nail Personal history of MRSA (methicillin resistant Staphylococcus aureus) Home Medications buprenorphine-naloxone 1 ea SL DAILY 11/12/20 [History Last Taken Unknown] buprenorphine-naloxone 12/04/20 [History Last Taken Unknown] Allergy/AdvReac Type Severity Reaction Status Date / Time Bleach (Sodium Hypochlorite) Allergy Hives Verified 04/01/21 08:41 diphenhydramine HCl Allergy Hives Verified 04/01/21 08:41 [From Benadryl] Surgical History Hx of oral surgery S/P ERCP Social History Smoking Status: Never smoker ROS ROS ED Constitutional Constitutional ED: Reports systems reviewed and no addt'l complaints, except as documented; Denies body ache(s), change in weight or chills Eyes Eyes: Denies acute decrease in peripheral vision, change in vision, double vision or loss of vision ENT ENT ED: Reports none; Denies ear pain, lip swelling, loss taste/smell, neck pain, otalgia or sore throat Cardiovascular Cardiovascular: Reports none; Denies abdominal pain, chest pain with activity, leg edema, lightheadedness, palpitations, rapid heart rate or syncope Respiratory/Chest Respiratory/Chest: Reports none; Denies change in mental status, dry cough, dyspnea, hemoptysis, shortness of breath at rest or shortness of breath with exertion Gastrointestinal Gastrointestinal: Reports none, nausea and vomiting; Denies abdominal pain, change in stool character, diarrhea, hematemesis, hematochezia, melena or rectal bleeding Genitourinary Genitourinary ED: Reports none; Denies abdominal discomfort, anuria, dysuria, genital pain or polyuria Musculoskeletal Musculoskeletal: Reports none; Denies arthralgias, back pain, difficulty walking, extremity pain, muscle weakness or myalgias Integumentary Reports none; Denies abscess or rash Neurologic Neurologic: Reports none and headache(s); Denies abnormal gait, confusion, focal weakness, frequent falls, loss of vision, numbness, paresthesias, radicular pain, vertigo or weakness Psychiatric Psychiatric: Reports systems reviewed and no addt'l complaints, except as documented and none; Denies behavioral changes, confusion, difficulty concentrating, hallucinations, suicidal ideation, tactile hallucinations or visual hallucinations Endocrine Endocrinology: Denies none, cold intolerance, excessive sweating, fatigue or heat intolerance Hematologic/Lymphatic Hematologic/Lymphatic: Reports none; Denies anemia, easy bleeding or easy bruising Allergic/Immunologic Allergic/Immunologic ED: Denies as per HPI, none, lip swelling, mouth swelling, throat swelling, tongue swelling or hives EXAM Physical Exam Const Vital Signs: 04/01/21 08:42 Temperature 98.3 F Temperature Source Oral Pulse Rate 73 Respiratory Rate 15 Blood Pressure 126/66 H Blood Pressure Mean 86 Pulse Ox 100 Oxygen Delivery Method Room Air Positive well nourished and well developed General Appearance ED: well developed and NAD HEENT Reports TM's clear and moist mucous membranes normocephalic and atraumatic; Negative for trauma or tenderness Tympanic Membrane ED: Yes TM's clear Eyes PERRL and EOMs intact bilaterally General Eye ED: Negative for pale conjunctiva or scleral icterus Neck no lymphadenopathy, supple and no JVD General: Negative for tenderness Chest Wall inspection of chest normal and palpation of chest normal Chest: Negative for tenderness Resp normal respiratory effort and clear to auscultation bilaterally Effort and Inspection: Negative for respiratory distress or pain with movement Auscultation: Negative for rhonchi, wheezes or diminished lung sounds Cardio regular rate, regular rhythm, S1 normal heart sound, S2 normal heart sound and no murmurs Peripheral Pulses: pulses 2+ throughout GI normal to inspection, nondistended, normoactive bowel sounds, soft to palpation, non-tender, non-distended and no masses Back/Spine no CVA tenderness and no thoracic nor lumbar tenderness Extremity normal to inspection General Extremety ED: Negative for edema General Extremity: Negative for edema Neuro oriented x3, CN's II-XII intact bilaterally, no sensory deficits noted and gait normal Sensorium / Orientation: awake, alert, oriented to person, oriented to place and oriented to time Coordination / Balance: [id number] test normal, orjy-gr-[id number] test normal and Romberg test negative Speech: speech normal Motor Exam: strength 5/5 throughout and strength abnormal Psych mental status grossly normal Skin no rashes or lesions noted and no wounds Rashes: no rashes MDM MDM MDM Narrative Medical decision making narrative: Patient received Reglan as well as Toradol as well as a liter of fluid initially. Patient started feeling very anxious related to the Reglan and she received a milligram of Cogentin which resolved her symptoms. Currently her headaches resolved. Discharge Plan Triage Chief Complaint: Headache ED Provider: Anastacia Portillo Dx/Rx/DC Orders Clinical Impression: Headache, migraine Instructions: ED, Migraine (Classical) Prescriptions: No Action buprenorphine-naloxone 1 EACH tablet, sublingual 1 ea SL DAILY RF: 0 buprenorphine-naloxone 1 EACH tablet, sublingual RF: 0 Primary Care Provider: Elizabeth Jones NP Referrals: Elizabeth Jones NP, [facility] [Primary Care Provider] - 3-5 Days Disposition Disposition: Home, self care
[2021-04-01] MEDS: Metoclopramide 10 MG/2 ML Vial IV (09:05)
[2021-04-01] MEDS: Ketorolac 30 MG/ML Syringe IV (09:05)
[2021-04-01 10:18] VITALS: BP 134/69; PULSE 71; RESP 15; O2SAT 98
== END 2021-04-01 10:22 | disposition home or self-care (01) ==
PROVIDERS: Emergency Provider Emergency Medicine; PCP Nurse Practitioner Family
DX: G43.909 Migraine, unspecified, not intractable, without status migrainosus (principal)
CPT/HCPCS: 96374; 96375; 99285; J7030

== ENCOUNTER 2021-05-06 04:16 | Emergency (ER) | payer MEDICAID, SELFPAY ==
[2021-05-06 04:18] VITALS: BP 119/85; PULSE 76; RESP 20; TEMP 36; O2SAT 100; BMI 42.5
--- NOTE | 2021-05-06 04:29 | EX.ED.DYSGE1 ---
HPI History of Present Illness Chief Complaint: Anxiety Narrative Narrative: Patient presenting for evaluation secondary to anxiety and diarrhea. Patient states that she has been dealing with a GI illness over the course of the last couple of days. She reports that she likely contracted this from her daughter. States that it was initially associated with nausea and vomiting, now the nausea and vomiting have since subsided but she has been having persistent issues with loose watery diarrhea. She states that she had a virtual visit with a physician coming earlier this morning, but states that she now is having issues with anxiety. She reports that she took melatonin tonight, but woke up tossing and turning and is very concerned, and her relaxation techniques have not been alleviating this. She does not take any controller or as needed medications for anxiety but does have a history of anxiety in the past. Patient states specifically she was anxious about the fact that her boss is threatening to fire her if she does not come back into work. Patient has been taking Pepto-Bismol for treatment of her diarrhea, initially they gave her some relief but now she is having crampy abdominal pain and continued diarrhea. No recent antibiotic exposures or sick contacts other than her daughter [facility] exposures, hospital exposures. Review of systems otherwise negative. PFSH [facility] Medical History Abscess of left external cheek Asthma Asthma Cutaneous abscess of neck Depression affecting Felon of finger of right hand Hepatitis C History of MRSA infection Migraine headache without aura Obesity Open wound of left cheek Open wound of neck Open wound of right middle finger without damage to nail Personal history of MRSA (methicillin resistant Staphylococcus aureus) Home Medications hydroxyzine pamoate 25 mg PO TID PRN PRN #30 capsule 05/06/21 [Rx Last Taken Unknown] ondansetron 4 mg PO Q8H PRN PRN #10 tab 05/06/21 [Rx Last Taken Unknown] Allergy/AdvReac Type Severity Reaction Status Date / Time Bleach (Sodium Hypochlorite) Allergy Hives Verified 04/01/21 08:41 diphenhydramine HCl Allergy Hives Verified 04/01/21 08:41 [From Benadryl] Surgical History Hx of oral surgery S/P ERCP Social History Smoking Status: Never smoker ROS ROS ED Constitutional Constitutional ED: Denies chills or fever(s) ENT ENT ED: Denies rhinorrhea Cardiovascular Cardiovascular: Denies chest pain Respiratory/Chest Respiratory/Chest: Denies cough or dyspnea Gastrointestinal Gastrointestinal: Reports abdominal pain, diarrhea, nausea and vomiting Genitourinary Genitourinary ED: Denies dysuria or hematuria Musculoskeletal Musculoskeletal: Denies back pain Integumentary Denies rash Neurologic Neurologic: Denies paresthesias or weakness Psychiatric Psychiatric: Reports anxiety Endocrine Endocrinology: Denies fatigue Allergic/Immunologic Allergic/Immunologic ED: Denies urticaria EXAM Physical Exam Const Vital Signs: 05/06/21 04:18 Temperature 96.8 F L Temperature Source Temporal Pulse Rate 76 Respiratory Rate 20 H Blood Pressure 119/85 H Blood Pressure Mean 96 Pulse Ox 100 Oxygen Delivery Method Room Air Positive well nourished and well developed General Appearance ED: well developed and NAD HEENT Reports moist mucous membranes Negative for trauma or tenderness Eyes EOMs intact bilaterally Neck no lymphadenopathy, supple and no JVD Chest Wall inspection of chest normal Resp normal respiratory effort and clear to auscultation bilaterally Cardio regular rate, regular rhythm, no murmurs and peripheral pulses 2+ throughout GI normal to inspection, nondistended, normoactive bowel sounds, non-tender and no masses GI Narrative: Patient does not have any reproducible abdominal tenderness Palpation: soft Back/Spine normal to inspection Extremity normal to inspection General Extremety ED: Negative for tenderness Neuro oriented x3 and no sensory deficits noted Sensorium / Orientation: alert Motor Exam: strength 5/5 throughout Psych mental status grossly normal Psych Narrative: Patient is well-appearing, has good insight and judgment, reports anxiety but does not appear to be internally stimulated is not suicidal homicidal or hallucinating. Skin no rashes or lesions noted MDM MDM MDM Narrative Medical decision making narrative: Patient presented with a GI illness as well as anxiety. Patient does not appear to have decompensation of her psychiatric status I believe that she safely can be treated with a course of hydroxyzine at home. Patient did develop some nausea vomiting in the emergency department she was treated with Zofran should be discharged with a course of the same. Recommended that she use as needed Imodium for treatment of her diarrhea. Patient will be provided with a work note. Patient was discharged in stable condition. Discharge Plan Triage Chief Complaint: Anxiety ED Provider: Pilo Mckeon Dx/Rx/DC Orders Clinical Impression: Anxiety, Gastroenteritis Instructions: ED Gastroenteritis, Noninfectious, ED Panic Attack Prescriptions: New ondansetron 4 mg tablet,disintegrating 4 mg PO Q8H PRN PRN (Reason: Nausea) Qty: 10 RF: 0 hydroxyzine pamoate 25 mg capsule 25 mg PO TID PRN PRN (Reason: Anxiety) Qty: 30 RF: 0 Primary Care Provider: Elizabeth Jones NP Referrals: Elizabeth Jones NP, [facility] [Primary Care Provider] - Disposition Disposition: Home, Self Care
[2021-05-06] MEDS: Ondansetron ODT 4 MG Tablet PO (04:43)
[2021-05-06] MEDS: hydrOXYzine PAM 25 MG Capsule PO (04:59)
== END 2021-05-06 05:00 | disposition home or self-care (01) ==
PROVIDERS: Emergency Provider Emergency Medicine; PCP Nurse Practitioner Family
DX: F41.9 Anxiety disorder, unspecified (principal); K52.9 Noninfective gastroenteritis and colitis, unspecified; E66.9 Obesity, unspecified; Z86.14 Personal history of Methicillin resistant Staphylococcus aureus infection
CPT/HCPCS: 99283

== ENCOUNTER 2021-08-06 00:26 | Emergency (ER) | payer MEDICAID, SELFPAY ==
[2021-08-06] VITALS (10 sets, daily range): BP systolic 100–135; BP diastolic 65–99; PULSE 65–89; RESP 12–21; TEMP 36.6; O2SAT 95–99; BMI 38.7
--- NOTE | 2021-08-06 01:02 | EX.ED.VIS.PS ---
HPI HPI - Psych History of Present Illness Chief Complaint: Overdose Informant: patient and EMS Onset/Context/Timing Onset: Today and Hours Conflict: Family Timing: Continuous Current Severity: Moderate Maximum Severity: Moderate Associated Symptoms Associated Symptoms - Psych: Positive for Depressed Narrative Narrative: 25-year-old female history of anxiety and depression. PTSD and borderline personality disorder. Reportedly patient got an argument with her mother glen. And tried to commit suicide by overdosing on her hydroxyzine she took around thirty 25 mg pills around 2 hours ago. She does state this was a suicide attempt. Patient denies any prior attempts. She denies any recent psychiatric hospitalization. She states she does go to the counseling center. She denies overdosing on anything else. Prior similar symptoms: No Recent Illness/Hospitalization: No PFSH PFSH Medical History Abscess of left external cheek Asthma Asthma Borderline personality disorder Cutaneous abscess of neck Depression affecting Felon of finger of right hand Hepatitis C History of MRSA infection Migraine headache without aura Obesity Open wound of left cheek Open wound of neck Open wound of right middle finger without damage to nail Personal history of MRSA (methicillin resistant Staphylococcus aureus) PTSD (post-traumatic stress disorder) Home Medications hydroxyzine pamoate 25 mg PO TID PRN PRN #30 capsule 05/06/21 [Rx Last Taken Unknown] Allergy/AdvReac Type Severity Reaction Status Date / Time Bleach (Sodium Hypochlorite) Allergy Hives Verified 08/06/21 00:36 diphenhydramine HCl Allergy Hives Verified 08/06/21 00:36 [From Benadryl] Surgical History Hx of oral surgery S/P ERCP Social History Smoking Status: Never smoker ROS ROS ED ROS Narrative Denies recent illness. Review of Systems ROS Unobtainable: Denies due to encephalopathy Constitutional Constitutional ED: Denies fever(s) Eyes Eyes: Denies change in vision ENT ENT ED: Denies ear pain Cardiovascular Cardiovascular: Denies chest pain Respiratory/Chest Respiratory/Chest: Denies dyspnea Gastrointestinal Gastrointestinal: Denies abdominal pain, diarrhea, nausea or vomiting Genitourinary Genitourinary ED: Denies dysuria Musculoskeletal Musculoskeletal: Denies myalgias Integumentary Denies rash Neurologic Neurologic: Denies headache(s) Psychiatric Psychiatric: Denies depression Endocrine Endocrinology: Denies polyuria Hematologic/Lymphatic Hematologic/Lymphatic: Denies easy bruising Allergic/Immunologic Allergic/Immunologic ED: Denies urticaria EXAM Physical Exam Narrative Exam Narrative: 25-year-old female no acute distress. Vital signs are stable afebrile. Pulse ox 99%. Patient is resting comfortably in bed. She is drowsy but will answer questions awake and alert easily arousable. H EENT exam unremarkable. Moist with memories. Neck nontender no lymphadenopathy. Lungs clear to auscultation bilaterally. Heart regular rhythm rate about 80 no murmur. Abdomen soft nontender normal bowel sounds no peritoneal signs. Moving all 4 extremities. No signs of trauma. No lacerations. Back nontender. Neurologically she is awake she is alert she is answering questions. She is drowsy but easily arousable. Const Vital Signs: 08/06/21 00:28 08/06/21 01:27 Temperature 97.8 F Temperature Source Oral Pulse Rate 83 75 Respiratory Rate 14 20 H Blood Pressure 132/99 H 118/68 Blood Pressure Mean 110 84 Pulse Ox 99 96 Oxygen Delivery Method Room Air Room Air Positive well nourished, well developed and obese; Negative for cachectic, contractures or unkempt General Appearance ED: well developed and NAD; Negative for unkempt, cachectic, contractures or pallor Nutritional Appearance: obese; Negative for cachectic HEENT Reports moist mucous membranes normocephalic and atraumatic; Negative for trauma or tenderness Eyes PERRL and EOMs intact bilaterally Neck no lymphadenopathy, supple and no JVD Resp normal respiratory effort and clear to auscultation bilaterally Auscultation: Negative for rales, rhonchi or wheezes Cardio S1 normal heart sound, S2 normal heart sound and no murmurs Rate: regular rate Rhythm: regular rhythm GI non-tender, non-distended and no masses Inspection: Negative for abdominal distention Auscultation: normoactive bowel sounds Palpation: soft; Negative for tender or guarding Back/Spine no CVA tenderness Extremity normal to inspection Extremity Narrative: No signs of injury or self-inflicted wounds. General Extremety ED: Negative for edema or tenderness General Extremity: Negative for edema Neuro oriented x3 Sensorium / Orientation: alert, oriented to person, oriented to place and oriented to time; Negative for confused, lethargic or stuporous Psych Negative for denies suicidal ideation Psych Narrative: Depressed and suicidal. Appearance: grossly normal; Negative for unkempt Skin General Skin Exam: Negative for jaundice or pallor Lesions: no lesions Rashes: no rashes Trauma: Negative for abrasion or laceration MDM MDM MDM Narrative Medical decision making narrative: 25-year-old female history of anxiety and depression. Mom called and spoke to nursing the patient is upset because her significant other is going to go to snf for reportedly lengthy period time. She became more depressed. She and her mom got in a argument tonight and she tried to overdose and took around 30 hydroxyzine. Patient will undergo an ED mental health evaluation. She will be placed in the hospital overnight for close observation due to the overdose. And then she will need to be sent to a psychiatric facility. Once she is medically cleared. Repeat exam at 2:16 AM patient doing well. Responds to questioning. She is relaxing comfortably. She is in no distress. She will will be observed overnight. Her labs are basically unremarkable. She has not become any more somnolent and she is easily arousable. Crisis will be involved in the morning for placement. Lab Data Attestation: I reviewed the patient's lab results. Lab results narrative: CBC unremarkable white count 11.6. Hemoglobin 13.4. Electrolytes unremarkable gap at 9 normal creatinine. Glucose 96 Tox screen positive for amphetamines. Alcohol negative. Serum test negative. Tylenol level negative. Labs: Laboratory Results - last 24 hr 08/06/21 08/06/21 08/06/21 01:00 01:08 01:08 WBC 11.6 H RBC 4.44 Hgb 13.4 Hct 39.6 MCV 89.2 MCH 30.2 MCHC 33.8 RDW Std Deviation 41.4 RDW Coeff of Joya 12.7 Plt Count 273 MPV 9.8 Immature Gran % (Auto) 0.600 Neut % (Auto) 55.0 Lymph % (Auto) 34.4 Webster % (Auto) 7.8 Eos % (Auto) 1.7 Baso % (Auto) 0.5 Absolute Neuts (auto) 6.4 Absolute Lymphs (auto) 4.00 Nucleated RBC % 0 Sodium 141 Potassium 3.6 Chloride 106 Carbon Dioxide 26.0 Anion Gap 9 BUN 12 Creatinine 0.76 Estim Creat Clear Calc 98.56 Est GFR (MDRD) Af Amer 120 Est GFR (MDRD) Non-Af 99 BUN/Creatinine Ratio 15.9 Glucose 96 Calcium 9.1 Serum , Qual Urine Opiates Screen NEGATIVE Urine Methadone Screen NEGATIVE Acetaminophen Ur Barbiturates Screen NEGATIVE Ur Phencyclidine Scrn NEGATIVE Ur Amphetamines Screen POSITIVE H U Methamphetamin-MDMA NEGATIVE U Benzodiazepines Scrn NEGATIVE Urine Cocaine Screen NEGATIVE U Cannabinoids Screen NEGATIVE Ur Drug Screen Comment Ethyl Alcohol 08/06/21 08/06/21 08/06/21 01:08 01:08 01:08 WBC RBC Hgb Hct MCV MCH MCHC RDW Std Deviation RDW Coeff of Joya Plt Count MPV Immature Gran % (Auto) Neut % (Auto) Lymph % (Auto) Webster % (Auto) Eos % (Auto) Baso % (Auto) Absolute Neuts (auto) Absolute Lymphs (auto) Nucleated RBC % Sodium Potassium Chloride Carbon Dioxide Anion Gap BUN Creatinine Estim Creat Clear Calc Est GFR (MDRD) Af Amer Est GFR (MDRD) Non-Af BUN/Creatinine Ratio Glucose Calcium Serum , Qual NEGATIVE Urine Opiates Screen Urine Methadone Screen Acetaminophen < 2.0 L Ur Barbiturates Screen Ur Phencyclidine Scrn Ur Amphetamines Screen U Methamphetamin-MDMA U Benzodiazepines Scrn Urine Cocaine Screen U Cannabinoids Screen Ur Drug Screen Comment Ethyl Alcohol 10.0 Discharge Plan Triage Chief Complaint: Overdose ED Provider: Sadi Thomas Dx/Rx/DC Orders Clinical Impression: Suicide attempt, Overdose, History of depression Prescriptions: No Action hydroxyzine pamoate 25 mg capsule 25 mg PO TID PRN PRN (Reason: Anxiety) Qty: 30 RF: 0 Primary Care Provider: Elizabeth Jones NP Referrals: Elizabeth Jones NP, [employer] [Primary Care Provider] - Disposition Disposition: Psychiatric Hospital or Unit
[2021-08-06 01:19] LABS: Absolute Neutrophil Count 6.4 X10^3/uL (2.0-7.7); Basophil# 0.06 X10^3/uL; Basophil% 0.5 % (0-1); Eosinophils% 1.7 % (0-5); Hematocrit 39.6 % (37-47); Hemoglobin 13.4 g/dL (12.0-15.0); Lymphocyte % 34.4 % (19-41); Mean Corp Hgb Conc 33.8 g/dL (32-36); Mean Corpuscular Hgb 30.2 pg (27.0-32.0); Mean Corpuscular Volume 89.2 fL (81-99); Mean Platelet Vol. 9.8 fl (6.2-12.0); Monocyte# 0.91 X10^3/uL; Monocyte% 7.8 % (0-10); NRBC Flagged by Analyzer 0 % (0-5); Neutrophil # 6.39 X10^3/uL (2.7-7.7); Platelet Count 273 K/mm3 (150-450); RBC Distribution Width CV 12.7 % (11.6-14.6); RBC Distribution Width SD 41.4 fl (35.1-43.9); Red Blood Count 4.44 M/mm3 (4.2-5.4); White Blood Count 11.6 K/mm3 (4.4-11.0)
[2021-08-06 01:23] LABS: Amphetamine Urine VISTA POSITIVE (<1000 ng/mL); Barbiturate Urine VISTA NEGATIVE (< 200 ng/mL); Benzodiazepine Urine VISTA NEGATIVE (< 200 ng/mL); Cocaine Urine VISTA NEGATIVE (< 300 ng/mL); Ecstacy Urine VISTA NEGATIVE (< 500 ng/mL); Methadone Urine VISTA NEGATIVE (< 300 ng/mL); PCP Urine VISTA NEGATIVE (< 25 ng/mL); THC Urine VISTA NEGATIVE (< 50 ng/mL); Vista UDS pH Range 5
[2021-08-06 01:29] LABS: Internal QC Validated? YES +Cl - CLEAR BKGD; Pregnancy, Serum, hCG Quali. NEGATIVE Negative
[2021-08-06 01:33] LABS: Anion Gap 9 (5-15); BUN 12 mg/dL (7-18); BUN/Creat Ratio 15.9 RATIO (10-20); Calcium,Total 9.1 mg/dL (8.5-10.1); Chloride 106 mmol/L (98-107); Creatinine, Serum 0.76 mg/dL (0.55-1.02); EST Glomerular Filtration Rate 99 mL/min (>60); Est Glom Filt Rate - Afr Amer 120 mL/min (>60); Estimated Creatinine Clearance 98.56 ml/min; Glucose 96 mg/dL (74-106); Potassium 3.6 mmol/L (3.5-5.1); Sodium Level 141 mmol/L (136-145)
[2021-08-06 01:45] LABS: Acetaminophen (Tylenol) Level < 2.0 ug/mL (10.0-30.0)
--- NOTE | 2021-08-06 07:10 | NURSING ---
CALLED [facility]. TALKED TO ANSWERING SERVICE. RONEY GEOSPATIAL INFORMATION SCIENTIST
--- NOTE | 2021-08-06 07:48 | NURSING ---
RONEY, MARGOT, CALLED BACK. IT WILL GO TO NEXT SHIFT. WILL FAX CHART TO BOTH NUMBERS
[2021-08-06] MEDS: LORazepam 1 MG Tablet PO (10:05)
--- NOTE | 2021-08-06 10:06 | ED.RN ---
Pt. requesting something for diarrhea. Will follow up with doctor.
[2021-08-06] MEDS: Loperamide 2 MG Capsule 4 MG PO (10:27)
--- NOTE | 2021-08-06 10:37 | NURSING ---
GIOVANY, CRISIS, HERE FOR PATIENT
--- NOTE | 2021-08-06 11:57 | ED.RN ---
CR[facility] PLANS TO PLACE PT
--- NOTE | 2021-08-06 12:57 | NURSING ---
PHYSICIANS STATED AT 12:56P, THAT THE ETA FOR THIS PATIENT WOULD BE 90MIN
--- NOTE | 2021-08-06 13:12 | ED.RN ---
PHYSICIANS ETA 90 MINUTES
--- NOTE | 2021-08-06 15:02 | NURSING ---
CALLED PHYSICANS. ETA IS 30 MIN
== END 2021-08-06 16:04 ==
PROVIDERS: Emergency Provider Emergency Medicine; PCP Nurse Practitioner Family
DX: T43.592A Poisoning by other antipsychotics and neuroleptics, intentional self-harm, initial encounter (principal); E66.9 Obesity, unspecified; Y92.9 Unspecified place or not applicable; Z79.899 Other long term (current) drug therapy
CPT/HCPCS: 80048; 80307; 80329; 82077; 84703; 85025; 87426; 99285; A4216; G0480

== ENCOUNTER 2022-03-25 19:22 | Emergency (ER) | payer MEDICAID, SELFPAY ==
[2022-03-25 19:23] VITALS: BP 124/68; PULSE 55; RESP 19; TEMP 36.3; O2SAT 100; BMI 40.4
--- NOTE | 2022-03-25 19:36 | EX.ED.VIS.HA ---
HPI History of Present Illness Chief Complaint: Headache Informant: patient Narrative Narrative: Patient presents with migraine headache. She states she has gotten these for a long time ever since she was a child but she does not get them frequently. This 1 started yesterday. She is not sure exactly what time but it slowly gotten worse. She tried Tylenol Motrin which did not help. She came in because she is now started nausea and vomiting which is typical for her. She has no sinus congestion. No cough. No neck pain. No trauma. This is a typical pattern of her headache that runs from the front across the top to the back. Nothing specifically starts them. Patient is on multiple meds but none of these are new. She is on hydroxyzine, trazodone, Suboxone, and a few other meds for bipolar depression [facility] Medical History Abscess of left external cheek Asthma Asthma Borderline personality disorder Cutaneous abscess of neck Depression affecting Felon of finger of right hand Hepatitis C History of MRSA infection Migraine headache without aura Obesity Open wound of left cheek Open wound of neck Open wound of right middle finger without damage to nail Personal history of MRSA (methicillin resistant Staphylococcus aureus) PTSD (post-traumatic stress disorder) Home Medications hydroxyzine pamoate 25 mg PO TID PRN PRN #30 capsule 05/06/21 [Rx Last Taken Unknown] buprenorphine-naloxone 03/25/22 [History Last Taken Unknown] prazosin 1 mg PO QHS 03/25/22 [History Last Taken Unknown] sertraline 50 mg PO QHS 03/25/22 [History Last Taken Unknown] trazodone 100 mg PO QHS 03/25/22 [History Last Taken Unknown] Allergy/AdvReac Type Severity Reaction Status Date / Time Bleach (Sodium Hypochlorite) Allergy Hives Verified 03/25/22 19:24 diphenhydramine HCl Allergy Hives Verified 03/25/22 19:24 [From Benadryl] Surgical History Hx of oral surgery S/P ERCP Social History Smoking Status: Never smoker ROS ROS ED Constitutional Constitutional ED: Denies chills or fever(s) Eyes Eyes: Reports other Details: Mild photophobia ; Denies blurry vision, change in vision or diplopia ENT ENT ED: Denies rhinorrhea or sore throat Cardiovascular Cardiovascular: Denies chest pain Respiratory/Chest Respiratory/Chest: Denies cough or dyspnea Gastrointestinal Gastrointestinal: Reports nausea and vomiting; Denies abdominal pain or diarrhea Genitourinary Genitourinary ED: Denies dysuria Musculoskeletal Musculoskeletal: Denies myalgias Integumentary Denies rash Neurologic Neurologic: Reports headache(s); Denies weakness Psychiatric Psychiatric: Reports anxiety and depression Endocrine Endocrinology: Denies polydipsia or polyuria Hematologic/Lymphatic Hematologic/Lymphatic: Denies easy bruising Allergic/Immunologic Allergic/Immunologic ED: Denies urticaria EXAM Physical Exam Const Vital Signs: 03/25/22 19:23 Temperature 97.3 F L Temperature Source Temporal Pulse Rate 55 L Respiratory Rate 19 H Blood Pressure 124/68 H Blood Pressure Mean 86 Pulse Ox 100 Oxygen Delivery Method Room Air Positive well nourished and well developed General Appearance ED: well developed and NAD; Negative for cyanotic or diaphoretic HEENT Reports normocephalic HEENT Narrative: No sinus tenderness. No temporal artery tenderness. No facial rashes. Mucous membranes are still moist. atraumatic Eyes PERRL and EOMs intact bilaterally Eyes Narrative: Very mild photophobia. Normal range of motion. No injection of the conjunctive a. Neck no lymphadenopathy, supple and no meningeal signs Resp normal respiratory effort and clear to auscultation bilaterally Cardio regular rate and regular rhythm GI non-tender and non-distended Palpation: soft Back/Spine no CVA tenderness Extremity Extremity Narrative: No edema or tenderness. There is an electronic ankle bracelet on her right ankle. No erosions or irritation. Neuro oriented x3 and no sensory deficits noted Sensorium / Orientation: awake and alert; Negative for lethargic Speech: speech normal Motor Exam: strength 5/5 throughout Skin Lesions: no lesions Rashes: no rashes MDM MDM MDM Narrative Medical decision making narrative: Patient is given IV fluids Zofran and Toradol. She has improvement of her pain. It is getting much better. Plan will be to get her home. She states that she is so much better. We discussed reasons to return. Discharge Plan Triage Chief Complaint: Headache ED Provider: Ramos King Dx/Rx/DC Orders Clinical Impression: Headache, migraine Instructions: ED, Migraine (Classical) Prescriptions: No Action hydroxyzine pamoate 25 mg capsule 25 mg PO TID PRN PRN (Reason: Anxiety) Qty: 30 RF: 0 prazosin 1 mg Capsule 1 mg PO QHS RF: 0 trazodone 100 mg Tablet 100 mg PO QHS RF: 0 sertraline 50 mg Tablet 50 mg PO QHS RF: 0 buprenorphine-naloxone 8-2 mg film RF: 0 Primary Care Provider: Elizabeth Jones NP Referrals: Elizabeth Jones NP, RADIOLOGY CT TECHNOLOGIST-C [Primary Care Provider] - As Needed Disposition Disposition: Home, Self Care
[2022-03-25] MEDS: 0.9% Normal Saline 1,000 ML 999 ML IV (19:42)
[2022-03-25] MEDS: Ondansetron 4 MG/2 ML Vial IV (19:42)
[2022-03-25] MEDS: Ketorolac 15 MG/ML Vial IV (19:42)
== END 2022-03-25 20:34 | disposition home or self-care (01) ==
LOC: ED 19:50
PROVIDERS: Emergency Provider Emergency Medicine; PCP Nurse Practitioner Family; Visit Provider Emergency Medicine
DX: G43.909 Migraine, unspecified, not intractable, without status migrainosus (principal); F43.10 Post-traumatic stress disorder, unspecified; Z79.899 Other long term (current) drug therapy
CPT/HCPCS: 96361; 96374; 96375; 99284; J2405

== ENCOUNTER 2022-04-14 21:56 | Emergency (ER) | payer MEDICAID, SELFPAY ==
[2022-04-14 21:57] VITALS: BP 147/90; PULSE 78; RESP 14; TEMP 36.3; O2SAT 97; BMI 43.6
--- NOTE | 2022-04-14 22:19 | EX.ED.DYSGE1 ---
HPI History of Present Illness Chief Complaint: Back Narrative Narrative: Patient is a 26-year-old female who reports that she has had bilateral back pain for approximately 1 to 2 weeks. She denies any trauma prior to the pain beginning. She states the pain is in the bilateral back and is worse with motion. She denies any loss of bowel or bladder control or IV drug use. She does admit to being on Suboxone for previous opiate addiction but states its been about 5 months since her last use. She denies any type of dysuria or hematuria or concern for . She states she is been trying [id number] medications with minimal symptom improvement and therefore comes in for evaluation [facility] Medical History Abscess of left external cheek Asthma Asthma Borderline personality disorder Cutaneous abscess of neck Depression affecting Felon of finger of right hand Hepatitis C History of MRSA infection Migraine headache without aura Obesity Open wound of left cheek Open wound of neck Open wound of right middle finger without damage to nail Personal history of MRSA (methicillin resistant Staphylococcus aureus) PTSD (post-traumatic stress disorder) Home Medications hydroxyzine pamoate 25 mg PO TID PRN PRN #30 capsule 05/06/21 [Rx Last Taken Unknown] buprenorphine-naloxone 03/25/22 [History Last Taken Unknown] prazosin 1 mg PO QHS 03/25/22 [History Last Taken Unknown] sertraline 50 mg PO QHS 03/25/22 [History Last Taken Unknown] trazodone 100 mg PO QHS 03/25/22 [History Last Taken Unknown] buprenorphine-naloxone [Suboxone] 8 ea SUBLINGUAL BID 04/14/22 [History Last Taken Unknown] methocarbamol 1,000 mg PO 4X/DAY PRN PRN 7 Days #56 tab 04/14/22 [Rx Last Taken Unknown] Allergy/AdvReac Type Severity Reaction Status Date / Time Bleach (Sodium Hypochlorite) Allergy Hives Verified 04/14/22 21:57 diphenhydramine HCl Allergy Hives Verified 04/14/22 21:57 [From Benadryl] Surgical History Hx of oral surgery S/P ERCP Social History Smoking Status: Never smoker ROS ROS ED Constitutional Constitutional ED: Denies chills or fever(s) ENT ENT ED: Denies sore throat Cardiovascular Cardiovascular: Denies chest pain Respiratory/Chest Respiratory/Chest: Denies cough or dyspnea Gastrointestinal Gastrointestinal: Denies abdominal pain, diarrhea, nausea or vomiting Genitourinary Genitourinary ED: Denies dysuria Musculoskeletal Musculoskeletal: Reports back pain; Denies myalgias Integumentary Denies rash Neurologic Neurologic: Denies headache(s) or paresthesias Hematologic/Lymphatic Hematologic/Lymphatic: Denies easy bleeding or easy bruising EXAM Physical Exam Const Vital Signs: 04/14/22 21:57 Temperature 97.3 F L Temperature Source Temporal Pulse Rate 78 Respiratory Rate 14 Blood Pressure 147/90 H Blood Pressure Mean 109 Pulse Ox 97 Oxygen Delivery Method Room Air Positive well nourished and well developed General Appearance ED: well developed Eyes PERRL and EOMs intact bilaterally Neck supple Resp normal respiratory effort and clear to auscultation bilaterally Cardio regular rate and regular rhythm Back/Spine Back/Spine Narrative: No bony deformity or step-off of the thoracic or lumbar spine. There is diffuse pain with palpation of the bilateral paralumbar and lower parathoracic muscle belly region. The pain is worse with extension and rotation. No saddle anesthesia. Negative straight leg. No clonus or Babinski. Patellar reflexes are plus 3 out of 4 bilaterally. No overlying soft tissue changes to suggest trauma or infection Extremity normal to inspection Neuro oriented x3 and CN's II-XII intact bilaterally Sensorium / Orientation: alert Motor Exam: strength 5/5 throughout Psych mental status grossly normal Skin no rashes or lesions noted MDM MDM MDM Narrative Medical decision making narrative: Patient presented to the ER in no acute distress with no report or signs of trauma. She does have a remote history of drug use but has not been ending for 4 to 5 months. On top of this she has not had any type of fever. Her exam is most consistent with musculoskeletal cause of her pain that is worse with motion and is bilateral. We discussed possible urine sample and blood work with possible imaging study to further assess the cause of your back pain. The patient states that she is scheduled to have blood work done in a few days and as the exam indicates this is most likely musculoskeletal in nature she does not want to perform any testing at this time. Therefore patient was given Toradol and Norflex and Decadron and was released on Robaxin for home. She was instructed on symptomatic care for musculoskeletal back pain and advised to return if symptoms fail to improve or worsen. Patient states she is agreeable to this plan. Discharge Plan Triage Chief Complaint: Back ED Provider: Fabrizio Nguyen Dx/Rx/DC Orders Clinical Impression: Acute lumbosacral myofascial strain, Muscle spasm of back Instructions: ED Back Spasm, No Trauma, ED Back Sprain/Strain Prescriptions: New methocarbamol 500 mg tablet 1,000 mg PO 4X/DAY PRN PRN (Reason: Muscle pain/spasm) 7 Days Qty: 56 RF: 0 No Action hydroxyzine pamoate 25 mg capsule 25 mg PO TID PRN PRN (Reason: Anxiety) Qty: 30 RF: 0 prazosin 1 mg Capsule 1 mg PO QHS RF: 0 trazodone 100 mg Tablet 100 mg PO QHS RF: 0 sertraline 50 mg Tablet 50 mg PO QHS RF: 0 buprenorphine-naloxone 8-2 mg film RF: 0 buprenorphine-naloxone [Suboxone] 8-2 mg film 8 ea sublingual BID RF: 0 Primary Care Provider: Elizabeth Jones NP Referrals: Elizabeth Jones NP, LENS SHAPER GRINDER-C [Primary Care Provider] - Activity Restrictions/Additional Instructions: Please continue to stretch and heat your back to help reduce pain and speed healing. If you develop a fever over 100.4 or do not have any symptom improvement please return to the ER for repeat evaluation Disposition Disposition: Home, Self Care
[2022-04-14] MEDS: Ketorolac 30 MG/ML Syringe IM (22:43)
[2022-04-14] MEDS: Orphenadrine 60 MG/2 ML Ampul IM (22:45)
[2022-04-14] MEDS: dexAMETHasone 10 MG/ML Vial IM (22:48)
[2022-04-14 23:05] VITALS: BP 136/90; PULSE 76; RESP 15; O2SAT 98
== END 2022-04-14 23:05 | disposition home or self-care (01) ==
PROVIDERS: Emergency Provider Emergency Medicine; PCP Nurse Practitioner Family; Visit Provider Emergency Medicine
DX: S39.012A Strain of muscle, fascia and tendon of lower back, initial encounter (principal); M62.830 Muscle spasm of back; Z23 Encounter for immunization; X58.XXXA Exposure to other specified factors, initial encounter
CPT/HCPCS: 90471; 96372; 99284

== ENCOUNTER 2022-05-05 00:35 | Emergency (ER) | payer MEDICAID, SELFPAY ==
[2022-05-05 00:38] VITALS: BP 151/88; PULSE 96; RESP 18; TEMP 36.4; O2SAT 98; BMI 44.9
--- NOTE | 2022-05-05 00:54 | EDS_ITS ---
HPI History of Present Illness Chief Complaint: Dental Informant: patient Narrative Narrative: Patient's been having dental pain for a while. She bit into something a few days ago and she is having more pain in the right upper jaw. No swelling. No fevers chills. No drainage. Chewing her cold things make it worse. Nothing makes it better. [facility] Medical History Abscess of left external cheek Asthma Asthma Borderline personality disorder Cutaneous abscess of neck Depression affecting Felon of finger of right hand Hepatitis C History of MRSA infection Migraine headache without aura Obesity Open wound of left cheek Open wound of neck Open wound of right middle finger without damage to nail Personal history of MRSA (methicillin resistant Staphylococcus aureus) PTSD (post-traumatic stress disorder) Home Medications buprenorphine 8 mg-naloxone 2 mg sublingual film 03/25/22 [History Last Taken Unknown] sertraline 50 mg tablet 50 mg PO QHS 03/25/22 [History Last Taken Unknown] trazodone 100 mg tablet 100 mg PO QHS 03/25/22 [History Last Taken Unknown] buprenorphine 8 mg-naloxone 2 mg sublingual film (Suboxone) 8 ea sublingual BID 04/14/22 [History Last Taken Unknown] hydroxyzine pamoate 25 mg capsule 25 mg PO 4X/DAY 05/05/22 [History Last Taken Unknown] naproxen 500 mg tablet 500 mg PO BID #20 tabs 05/05/22 [Rx Last Taken Unknown] penicillin V potassium 500 mg tablet 500 mg PO 4X/DAY #40 tabs 05/05/22 [Rx Last Taken Unknown] Allergy/AdvReac Type Severity Reaction Status Date / Time Bleach (Sodium Hypochlorite) Allergy Hives Verified 05/05/22 00:36 diphenhydramine HCl Allergy Hives Verified 05/05/22 00:36 [From Benadryl] Surgical History Hx of oral surgery S/P ERCP Social History Smoking Status: Current every day smoker tobacco type: e-cigarettes ROS ROS ED Constitutional Constitutional ED: Denies chills or fever(s) ENT ENT ED: Reports other Details: See history of present illness peer Cardiovascular Cardiovascular: Denies chest pain Gastrointestinal Gastrointestinal: Denies nausea or vomiting Hematologic/Lymphatic Hematologic/Lymphatic: Denies easy bleeding, easy bruising or lymphadenopathy EXAM Physical Exam Const Vital Signs: 05/05/22 00:38 Temperature 97.5 F L Temperature Source Temporal Pulse Rate 96 Respiratory Rate 18 Blood Pressure 151/88 H Blood Pressure Mean 109 Pulse Ox 98 Oxygen Delivery Method Room Air Positive well nourished and well developed Constitutional Narrative: Patient sitting calmly on the bed. No sign of significant discomfort. Nontoxic in appearance. General Appearance ED: well developed and NAD HEENT HEENT Narrative: She has multiple teeth that are poor. She has multiple cavities in the upper jaw. The most posterior molar that she has on the right does have a posterior segment that is missing and she has tenderness. Mild erythema of the gums. No swelling. No sign of Ludewig's angina. Voice is normal for Eyes EOMs intact bilaterally Neck no lymphadenopathy, supple and no JVD Cardio regular rate Skin no rashes or lesions noted MDM MDM MDM Narrative Medical decision making narrative: Patient we treated with nonsteroidals and antibiotics. Only allergy to medications is Benadryl. She is already on Suboxone. She will follow-up with a dentist. Discharge Plan Triage Chief Complaint: Dental ED Provider: Ramos King Dx/Rx/DC Orders Clinical Impression: Pain, dental Instructions: ED Dental Pain Prescriptions: New penicillin V potassium 500 mg tablet 500 mg PO 4X/DAY Qty: 40 0RF naproxen 500 mg tablet 500 mg PO BID Qty: 20 0RF No Action trazodone 100 mg Tablet 100 mg PO QHS sertraline 50 mg Tablet 50 mg PO QHS buprenorphine-naloxone 8-2 mg film Label Comments: PLACE 1 FILM UNDER THE TONGUE TWICE DAILY buprenorphine-naloxone [Suboxone] 8-2 mg film 8 ea sublingual BID Label Comments: Place 1 film under tongue twice a day hydroxyzine pamoate 25 mg capsule 25 mg PO 4X/DAY Primary Care Provider: Elizabeth Jones NP Referrals: Elizabeth Jones NP, TICKETING CLERK-C [Primary Care Provider] - Activity Restrictions/Additional Instructions: Follow-up with your dentist as soon as possible. A list is provided for extra resources. Disposition Disposition: Home, Self Care
[2022-05-05] MEDS: Penicillin Vk 250 MG Tablet 500 MG PO (01:06)
[2022-05-05] MEDS: Naproxen 500 MG Tablet PO (01:07)
== END 2022-05-05 01:10 | disposition home or self-care (01) ==
PROVIDERS: Emergency Provider Emergency Medicine; PCP Nurse Practitioner Family; Visit Provider Emergency Medicine
DX: K08.89 Other specified disorders of teeth and supporting structures (principal); F60.3 Borderline personality disorder; F43.10 Post-traumatic stress disorder, unspecified; F17.290 Nicotine dependence, other tobacco product, uncomplicated; Z79.899 Other long term (current) drug therapy
CPT/HCPCS: 99283

== ENCOUNTER 2022-05-29 07:08 | Emergency (ER) | payer MEDICAID, SELFPAY ==
[2022-05-29 07:11] VITALS: BP 104/61; PULSE 80; RESP 17; TEMP 36.7; O2SAT 100; BMI 43.9
--- NOTE | 2022-05-29 07:26 | EX.ED.DYSGE1 ---
HPI History of Present Illness Chief Complaint: Nausea/Vomiting/Diarrhea Informant: patient Onset/Context/Timing Onset: Days (2) Context: Gradual Onset Timing: Continuous Quality: Pressure Location: Head Worsened by: Nothing Relieved by: Nothing Narrative Narrative: Patient presents with nausea, vomiting, diarrhea, and headache that has been getting worse over the last 2 days. Patient states it is gradually getting worse. Patient states she ran out of her Suboxone 3 to 4 days ago. Patient states her headache is diffuse across her head and radiates into her neck. Patient states nothing makes it better nothing makes it worse. Patient admits to some nausea and vomiting. Patient denies any hematemesis or coffee-ground emesis. Patient admits to diarrhea but denies any melena or hematochezia. Patient denies any urinary complaints. Patient admits to subjective chills and some blurry vision with her headache. [facility] Medical History (Updated 05/29/22 @ 10:[address] Leandro Burdick, DO) Abscess of left external cheek Asthma Asthma Borderline personality disorder Cutaneous abscess of neck Depression affecting Felon of finger of right hand Hepatitis C History of MRSA infection Kidney stones Migraine headache without aura Murmur Obesity Open wound of left cheek Open wound of neck Open wound of right middle finger without damage to nail Personal history of MRSA (methicillin resistant Staphylococcus aureus) PTSD (post-traumatic stress disorder) Home Medications sertraline 50 mg tablet 50 mg PO QHS 03/25/22 [History Last Taken Unknown] trazodone 100 mg tablet 100 mg PO QHS 03/25/22 [History Last Taken Unknown] buprenorphine 8 mg-naloxone 2 mg sublingual film (Suboxone) 8 ea sublingual BID 04/14/22 [History Last Taken 05/25/22] hydroxyzine pamoate 25 mg capsule 25 mg PO 4X/DAY 05/05/22 [History Last Taken Unknown] Allergy/AdvReac Type Severity Reaction Status Date / Time Bleach (Sodium Hypochlorite) Allergy Hives Verified 05/29/22 07:09 diphenhydramine HCl Allergy Hives Verified 05/29/22 07:09 [From Benadryl] Surgical History Hx of oral surgery S/P ERCP Social History Smoking Status: Current every day smoker tobacco type: e-cigarettes ROS ROS ED Constitutional Constitutional ED: Reports chills and subjective; Denies fever(s) Eyes Eyes: Reports blurry vision; Denies change in vision ENT ENT ED: Denies rhinorrhea or sore throat Cardiovascular Cardiovascular: Denies chest pain or palpitations Respiratory/Chest Respiratory/Chest: Reports cough; Denies dyspnea Gastrointestinal Gastrointestinal: Reports diarrhea, nausea and vomiting Genitourinary Genitourinary ED: Denies dysuria or hematuria Musculoskeletal Musculoskeletal: Reports neck pain; Denies back pain Integumentary Reports rash; Denies abscess Neurologic Neurologic: Reports headache(s); Denies weakness Allergic/Immunologic Allergic/Immunologic ED: Denies mouth swelling or urticaria EXAM Physical Exam Const Vital Signs: 05/29/22 07:11 05/29/22 08:46 Temperature 98.0 F Temperature Source Temporal Pulse Rate 80 68 Respiratory Rate 17 18 Blood Pressure 104/61 100/61 Blood Pressure Mean 75 74 Pulse Ox 100 98 Oxygen Delivery Method Room Air Room Air Positive well nourished, well developed and obese General Appearance ED: well developed and NAD Nutritional Appearance: obese HEENT Reports moist mucous membranes Neck supple and no JVD Resp normal respiratory effort and clear to auscultation bilaterally Cardio regular rate, regular rhythm and no murmurs GI normal to inspection, nondistended, normoactive bowel sounds and non-tender Palpation: soft Extremity normal to inspection General Extremety ED: Negative for edema or tenderness General Extremity: Negative for edema Neuro oriented x3, CN's II-XII intact bilaterally and no sensory deficits noted Sensorium / Orientation: alert Motor Exam: strength 5/5 throughout Psych Mood & Affect: anxious MDM MDM MDM Narrative Medical decision making narrative: Patient was given IV fluids, Reglan, Cogentin, and Toradol. Patient does have an allergy to Benadryl. Patient was also given a dose of clonidine here. COVID-19 rapid antigen was obtained and was positive. CBC was within normal limits. Comprehensive metabolic profile was within normal limits. Urinalysis does not show any evidence of urinary tract infection. Patient is feeling better on reevaluation. Patient was instructed to rest in a dark quiet room. Patient was instructed to wear a mask. Patient was instructed to quarantine. Patient was instructed to follow-up with her primary care physician in 5 to 7 days. Patient understood and was agreeable with the plan. All questions were answered. Lab Data Attestation: I reviewed the patient's lab results. Labs: Laboratory Results - last 24 hr 05/29/22 05/29/22 05/29/22 08:10 08:10 08:10 WBC 6.8 RBC 4.20 Hgb 12.7 Hct 37.2 MCV 88.6 MCH 30.2 MCHC 34.1 RDW Std Deviation 40.2 RDW Coeff of Joya 12.6 Plt Count 203 MPV 10.3 Immature Gran % (Auto) 0.600 Neut % (Auto) 81.4 H Lymph % (Auto) 6.6 L [place] % (Auto) 11.0 H Eos % (Auto) 0.1 Baso % (Auto) 0.3 Absolute Neuts (auto) 5.5 Absolute Lymphs (auto) 0.45 L Nucleated RBC % 0 Sodium 138 Potassium 3.8 Chloride 106 Carbon Dioxide 27.0 Anion Gap 5 BUN 10 Creatinine 0.67 Estim Creat Clear Calc 92.20 Est GFR (MDRD) Af Amer 138 Est GFR (MDRD) Non-Af 114 BUN/Creatinine Ratio 15.0 Glucose 112 H Calcium 8.7 Total Bilirubin 0.40 AST 20 ALT 36 Alkaline Phosphatase 68 Total Protein 6.7 Albumin 3.6 Globulin 3.1 Albumin/Globulin Ratio 1.2 Urine Color Yellow Urine Clarity Clear Urine pH 6.5 Ur Specific [place] 1.015 Urine Protein 15 H Urine Glucose (UA) Normal Urine Ketones 5 H Urine Occult Blood Negative Urine Nitrite Negative Urine Bilirubin Negative Urine Urobilinogen 8 H Ur Leukocyte Esterase Negative Urine RBC 0 SEEN Urine WBC 0 SEEN Ur Squamous Epith Cells 0-5 SEEN Urine Bacteria 0 SEEN Urine Mucus 0 SEEN Discharge Plan Triage Chief Complaint: Nausea/Vomiting/Diarrhea ED Provider: Leandro Burdick Dx/Rx/DC Orders Clinical Impression: COVID-19, Headache, migraine Instructions: Coronavirus Disease 2019 (COVID-19): Caring for Yourself or Others, ED, Migraine (Classical) Prescriptions: No Action trazodone 100 mg Tablet 100 mg PO QHS sertraline 50 mg Tablet 50 mg PO QHS buprenorphine-naloxone [Suboxone] 8-2 mg film 8 ea sublingual BID Label Comments: Place 1 film under tongue twice a day hydroxyzine pamoate 25 mg capsule 25 mg PO 4X/DAY Stand Alone Forms: ED Work / School Excuse Primary Care Provider: Elizabeth Jones NP Referrals: Elizabeth Jones NP, [employer] OF NURSING DIRECTOR-C [Primary Care Provider] - 5-7 Days Disposition Disposition: Home, Self Care
[2022-05-29 08:20] LABS: Bacteria 0 SEEN /hpf (None Seen); Mucous, Urine 0 SEEN /hpf (<or=2+); Red Blood Cells-Urine 0 SEEN /hpf (0-5); White Blood Cells 0 SEEN /hpf (0-5)
[2022-05-29 08:24] LABS: Absolute Lymphocyte Count 0.45 X10^3/uL (0.83-4.51); Absolute Neutrophil Count 5.5 X10^3/uL (2.0-7.7); Basophil# 0.02 X10^3/uL; Basophil% 0.3 % (0-1); Eosinophil# 0.01 X10^3/uL; Eosinophils% 0.1 % (0-5); Hematocrit 37.2 % (37-47); Hemoglobin 12.7 g/dL (12.0-15.0); Lymphocyte # 0.45 X10^3/ul (0.83-4.51); Lymphocyte % 6.6 % (19-41); Mean Corp Hgb Conc 34.1 g/dL (32-36); Mean Corpuscular Hgb 30.2 pg (27.0-32.0); Mean Corpuscular Volume 88.6 fL (81-99); Mean Platelet Vol. 10.3 fl (6.2-12.0); Monocyte# 0.75 X10^3/uL; NRBC Flagged by Analyzer 0 % (0-5); Neutrophil # 5.52 X10^3/uL (2.7-7.7); Neutrophil % 81.4 % (47-70); POSITIVE DIFFERENTIAL YES; Platelet Count 203 K/mm3 (150-450); RBC Distribution Width CV 12.6 % (11.6-14.6); RBC Distribution Width SD 40.2 fl (35.1-43.9); White Blood Count 6.8 K/mm3 (4.4-11.0)
[2022-05-29 08:25] LABS: Differential Indicated SCAN CRITERIA MET
[2022-05-29] MEDS: Metoclopramide 10 MG/2 ML Vial IV (08:29)
[2022-05-29] MEDS: 0.9% Normal Saline 1,000 ML 999 ML IV (08:29)
[2022-05-29] MEDS: Ketorolac 30 MG/ML Syringe IV (08:29)
[2022-05-29 08:31] LABS: Color, Urine Yellow (Yellow); Glucose, Dipstick Normal (Normal); Ketone-Dipstick 5 mg/dl (Negative); Leukocyte Esterase-Dipstick Negative /ul (Negative); Nitrite-Dipstick Negative (Negative); Occult Blood-Urine Negative /ul (Negative); Protein-Dipstick 15 mg/dl (Negative); Specific Gravity, Urine 1.015 (1.002-1.030); Urine Bilirubin Dipstick Negative (Negative); Urine Clarity Clear (Clear); Urine Urobilinogen 8 mg/dl (Normal); Urine pH 6.5 (5.0 - 8.0)
[2022-05-29 08:40] LABS: ALB/GLOB Ratio 1.2 RATIO (0.9-2.4); AST(SGOT) 20 U/L (15-37); Alanine Aminotransfer ALT/SGPT 36 U/L (13-56); Albumin, Serum 3.6 g/dL (3.2-5.0); Alkaline Phosphatase 68 U/L (45-117); Anion Gap 5 (5-15); BUN 10 mg/dL (7-18); Calcium,Total 8.7 mg/dL (8.5-10.1); Chloride 106 mmol/L (98-107); Creatinine, Serum 0.67 mg/dL (0.55-1.02); EST Glomerular Filtration Rate 114 mL/min (>60); Est Glom Filt Rate - Afr Amer 138 mL/min (>60); Globulin 3.1 g/dL (2.2-4.2); Glucose 112 mg/dL (74-106); Potassium 3.8 mmol/L (3.5-5.1); Protein, Total 6.7 g/dL (6.4-8.2); Sodium Level 138 mmol/L (136-145)
[2022-05-29 08:44] LABS: Squamous Epithelial Cells - UA 0-5 SEEN /hpf (5-10)
[2022-05-29 08:46] VITALS: BP 100/61; PULSE 68; RESP 18; O2SAT 98
[2022-05-29] MEDS: cloNIDine HCl 0.1 MG Tablet PO (09:30)
[2022-05-29 10:21] VITALS: BP 93/52; PULSE 66; RESP 18; O2SAT 97
== END 2022-05-29 10:26 | disposition home or self-care (01) ==
PROVIDERS: Emergency Provider Emergency Medicine; PCP Nurse Practitioner Family; Visit Provider Emergency Medicine
DX: U07.1 COVID-19 (principal); G43.909 Migraine, unspecified, not intractable, without status migrainosus; F17.290 Nicotine dependence, other tobacco product, uncomplicated; F43.10 Post-traumatic stress disorder, unspecified; Z79.899 Other long term (current) drug therapy
CPT/HCPCS: 36415; 80053; 81001; 85025; 87811; 96374; 96375; 99283; J7030; A4216

== ENCOUNTER 2022-05-30 13:40 | Emergency (ER) | payer MEDICAID, SELFPAY ==
[2022-05-30 13:41] VITALS: BP 127/83; PULSE 73; RESP 18; TEMP 36.8; O2SAT 100; BMI 44.1
--- NOTE | 2022-05-30 14:05 | EX.ED.VIS.HA ---
HPI History of Present Illness Chief Complaint: Headache Informant: patient Onset/Context/Timing Onset: Today Context: Gradual Timing: Continuous Current Severity: Mild Maximum Severity: Mild Associated Symptoms/Injury Associated Symptoms: Positive for Nausea and Vomiting; Negative for Numbness, Tingling, Preceding Aura, Visual Changes, Blurred Vision, Photophobia or Visual Loss Injury - PEGUERO: Negative for Direct Trauma, Fall or Assault Narrative Narrative: 26-year-old female diagnosed with COVID yesterday. Complaining of body aches, headache myalgias with nausea vomiting. She denies any head trauma. She has had extensive imaging of her brain in the past including CAT scans and MRIs all of which were negative. She has a history of PTSD and hep C. She is not vaccinated against COVID. Prior similar symptoms: No Recent Illness/Hospitalization: No PFSH PFSH Medical History Abscess of left external cheek Asthma Asthma Borderline personality disorder Cutaneous abscess of neck Depression affecting Felon of finger of right hand Hepatitis C History of MRSA infection Kidney stones Migraine headache without aura Murmur Obesity Open wound of left cheek Open wound of neck Open wound of right middle finger without damage to nail Personal history of MRSA (methicillin resistant Staphylococcus aureus) PTSD (post-traumatic stress disorder) Home Medications sertraline 50 mg tablet 50 mg PO QHS 03/25/22 [History Last Taken Unknown] trazodone 100 mg tablet 100 mg PO QHS 03/25/22 [History Last Taken Unknown] buprenorphine 8 mg-naloxone 2 mg sublingual film (Suboxone) 8 ea sublingual BID 04/14/22 [History Last Taken 05/25/22] hydroxyzine pamoate 25 mg capsule 25 mg PO 4X/DAY 05/05/22 [History Last Taken Unknown] nirmatrelvir 300 mg (150 mg x2)-ritonavir 100 mg tablet,dose pack(EUA) (Paxlovid) See Rx Instructions PO .COMPLEX 5 days #30 tabs 05/30/22 [Rx Last Taken Unknown] ondansetron 4 mg disintegrating tablet 4 mg PO Q8H PRN nausea and vomiting 43 days #7 tabs 05/30/22 [Rx Last Taken Unknown] Allergy/AdvReac Type Severity Reaction Status Date / Time Bleach (Sodium Hypochlorite) Allergy Hives Verified 05/30/22 13:41 diphenhydramine HCl Allergy Hives Verified 05/30/22 13:41 [From Benadryl] Surgical History Hx of oral surgery S/P ERCP Social History Smoking Status: Current every day smoker tobacco type: e-cigarettes ROS ROS ED ROS Narrative Headache, body aches, nausea and vomiting. Cough. Review of Systems ROS Unobtainable: Denies due to encephalopathy Constitutional Constitutional ED: Denies chills or fever(s) Eyes Eyes: Denies blurry vision ENT ENT ED: Reports rhinorrhea; Denies ear pain Cardiovascular Cardiovascular: Denies chest pain Respiratory/Chest Respiratory/Chest: Reports cough Gastrointestinal Gastrointestinal: Reports nausea and vomiting; Denies abdominal pain, constipation, diarrhea or melena Genitourinary Genitourinary ED: Denies dysuria or hematuria Musculoskeletal Musculoskeletal: Denies arthralgias Integumentary Denies abscess Neurologic Neurologic: Reports headache(s) Psychiatric Psychiatric: Denies anxiety Endocrine Endocrinology: Denies polydipsia Hematologic/Lymphatic Hematologic/Lymphatic: Denies easy bleeding EXAM Physical Exam Narrative Exam Narrative: [id number] female no acute distress. Is emotionally upset and tearful. She does not look septic or toxic. H EENT exam unremarkable. Pupils round reactive light. No facial or head trauma. No facial droop. Normal speech. Neck nontender no meningismus. No lymphadenopathy. Lungs clear. Heart regular rhythm rate about 70. Abdomen soft nontender. Moving all 4 extremities. 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 Back nontender. Neurologically she is awake alert with no focal motor deficits. NIH is 0. Const Vital Signs: 05/30/22 13:41 Temperature 98.2 F Temperature Source Temporal Pulse Rate 73 Respiratory Rate 18 Blood Pressure 127/83 H Blood Pressure Mean 97 Pulse Ox 100 Oxygen Delivery Method Room Air Positive well nourished, well developed and obese; Negative for cachectic, contractures or unkempt General Appearance ED: well developed and NAD; Negative for unkempt, cachectic, contractures, cyanotic or diaphoretic Nutritional Appearance: obese; Negative for cachectic HEENT Reports normocephalic and moist mucous membranes; Denies dry mucous membranes atraumatic; Negative for trauma or tenderness Face and Sinus: Negative for sinus tenderness Mouth ED: No dry mucous membranes Mouth: No dry mucous membranes Eyes PERRL and EOMs intact bilaterally General Eye ED: Negative for pale conjunctiva Neck no lymphadenopathy, supple, no meningeal signs and no JVD General: Negative for tenderness Resp normal respiratory effort and clear to auscultation bilaterally Effort and Inspection: Negative for retractions Auscultation: Negative for rales, rhonchi or wheezes Cardio regular rate, regular rhythm, S1 normal heart sound, S2 normal heart sound and no murmurs Rate: Negative for bradycardia Rhythm: Negative for abnormal rhythm GI non-tender and non-distended Auscultation: normoactive bowel sounds Palpation: soft; Negative for firm, tender, guarding or rigid Back/Spine no CVA tenderness General Back: Negative for CVA tenderness Cervical Spine: Negative for cervical spine tenderness Thoracic Spine / Upper Back: Negative for thoracic spinal tenderness Lumbar Spine / Lower Back: Negative for lumbar spinal tenderness Extremity normal to inspection, full ROM and normal capillary refill General Extremety ED: Negative for edema or tenderness General Extremity: Negative for edema Neuro oriented x3 and CN's II-XII intact bilaterally Sensorium / Orientation: awake, alert, oriented to person, oriented to place and oriented to time; Negative for orientation impaired, lethargic or stuporous Coordination / Balance: [id number] test normal Speech: speech normal Motor Exam: strength 5/5 throughout Comatose: Negative for other Psych mental status grossly normal Appearance: Negative for unkempt Attitude: No agitated Mood & Affect: tearful; Negative for depressed or anxious Skin Lesions: no lesions Rashes: no rashes MDM MDM MDM Narrative Medical decision making narrative: 29-year-old female with a headache and diagnosed with COVID yesterday. She be treated with IV Toradol, fluids and Zofran. Reassessed. Repeat exam patient is doing better. We went over her test results. She did 1 be placed on an antiviral Paxil event for her COVID. And she will also be given a prescription for Zofran. Lab Data Attestation: I reviewed the patient's lab results. Lab results narrative: Urinalysis negative. Labs: Laboratory Results - last 24 hr 05/30/22 14:45 Urine Color Yellow Urine Clarity Clear Urine pH 6.0 Ur Specific [place] 1.015 Urine Protein 15 H Urine Glucose (UA) Normal Urine Ketones Negative Urine Occult Blood Negative Urine Nitrite Negative Urine Bilirubin Negative Urine Urobilinogen 1 H Ur Leukocyte Esterase Negative Urine RBC 0 SEEN Urine WBC 0 SEEN Ur Squamous Epith Cells 0-5 SEEN Urine Bacteria 1+ Urine Mucus 0 SEEN Discharge Plan Triage Chief Complaint: Headache ED Provider: Sadi Thomas Dx/Rx/DC Orders Clinical Impression: Headache, COVID-19, Nausea & vomiting Instructions: Human Coronaviruses, ED Headache Unspecified Prescriptions: New Paxlovid (EUA) 300 mg (150 mg x 2)-100 mg tablets,dose pack See Rx Instructions .ROUTE .COMPLEX 5 Days Qty: 30 0RF Rx Instructions: take TWO 150 mg tablets of nirmatrelvir with ONE 100 mg tablet of ritonavir twice daily for 5 days ondansetron 4 mg tablet,disintegrating 4 mg PO Q8H PRN (Reason: nausea and vomiting) 43 Days Qty: 7 0RF No Action trazodone 100 mg Tablet 100 mg PO QHS sertraline 50 mg Tablet 50 mg PO QHS buprenorphine-naloxone [Suboxone] 8-2 mg film 8 ea sublingual BID Label Comments: Place 1 film under tongue twice a day hydroxyzine pamoate 25 mg capsule 25 mg PO 4X/DAY Primary Care Provider: Elizabeth Jones NP Referrals: Elizabeth Jones NP, [employer] [Primary Care Provider] - 1 Week if not improving Activity Restrictions/Additional Instructions: Plenty of fluids and rest. Motrin and Tylenol for body aches and fever. Zofran as needed for nausea. You may swallow it or let dissolve on your tongue. The antiviral Paxlovid for your COVID. Disposition Disposition: Home, Self Care
[2022-05-30] MEDS: Ondansetron 4 MG/2 ML Vial IV ×2 (14:16→15:34)
[2022-05-30] MEDS: 0.9% Normal Saline 1,000 ML 1000 ML IV (14:16)
[2022-05-30] MEDS: Ketorolac 30 MG/ML Syringe IV (14:16)
[2022-05-30 14:52] LABS: Mucous, Urine 0 SEEN /hpf (<or=2+); Red Blood Cells-Urine 0 SEEN /hpf (0-5); White Blood Cells 0 SEEN /hpf (0-5)
[2022-05-30 14:54] LABS: Color, Urine Yellow (Yellow); Glucose, Dipstick Normal (Normal); Ketone-Dipstick Negative (Negative); Leukocyte Esterase-Dipstick Negative /ul (Negative); Nitrite-Dipstick Negative (Negative); Occult Blood-Urine Negative /ul (Negative); Protein-Dipstick 15 mg/dl (Negative); Specific Gravity, Urine 1.015 (1.002-1.030); Urine Bilirubin Dipstick Negative (Negative); Urine Clarity Clear (Clear); Urine Urobilinogen 1 mg/dl (Normal)
[2022-05-30 16:21] LABS: Bacteria 1+ /hpf (None Seen)
[2022-05-30 16:22] LABS: Squamous Epithelial Cells - UA 0-5 SEEN /hpf (5-10)
[2022-05-30 17:09] VITALS: BP 99/72; PULSE 62; RESP 19; O2SAT 99
== END 2022-05-30 17:14 | disposition home or self-care (01) ==
PROVIDERS: Emergency Provider Emergency Medicine; PCP Nurse Practitioner Family; Visit Provider Emergency Medicine
DX: U07.1 COVID-19 (principal); R11.2 Nausea with vomiting, unspecified; R51.9 Headache, unspecified; F43.10 Post-traumatic stress disorder, unspecified; F17.290 Nicotine dependence, other tobacco product, uncomplicated; E66.9 Obesity, unspecified; Z28.310 Unvaccinated for COVID-19; Z79.899 Other long term (current) drug therapy
CPT/HCPCS: 81001; 96361; 96374; 96375; 96376; 99283; J7030; A4216; J2405

== ENCOUNTER 2022-08-06 20:01 | Inpatient (IN) | payer MEDICAID, SELFPAY ==
[2022-08-06 20:03] VITALS: BP 160/112; PULSE 118; RESP 18; TEMP 37.2; O2SAT 100; BMI 38.7
[2022-08-06 20:08] VITALS: BP 149/102; PULSE 97; RESP 20; O2SAT 100
[2022-08-06 20:26] VITALS: PULSE 100; RESP 16; O2SAT 100
[2022-08-06 21:23] LABS: Absolute Lymphocyte Count 2.99 X10^3/uL (0.83-4.51); Absolute Neutrophil Count 6.4 X10^3/uL (2.0-7.7); Basophil# 0.04 X10^3/uL; Basophil% 0.4 % (0-1); Eosinophil# 0.17 X10^3/uL; Eosinophils% 1.7 % (0-5); Hematocrit 39.7 % (37-47); Hemoglobin 13.8 g/dL (12.0-15.0); Lymphocyte # 2.99 X10^3/ul (0.83-4.51); Lymphocyte % 29.1 % (19-41); Mean Corp Hgb Conc 34.8 g/dL (32-36); Mean Corpuscular Volume 89.2 fL (81-99); Mean Platelet Vol. 9.7 fl (6.2-12.0); Monocyte# 0.66 X10^3/uL; Monocyte% 6.4 % (0-10); NRBC Flagged by Analyzer 0 % (0-5); Neutrophil # 6.37 X10^3/uL (2.7-7.7); Platelet Count 301 K/mm3 (150-450); RBC Distribution Width CV 13.4 % (11.6-14.6); RBC Distribution Width SD 43.8 fl (35.1-43.9); Red Blood Count 4.45 M/mm3 (4.2-5.4); White Blood Count 10.3 K/mm3 (4.4-11.0)
--- NOTE | 2022-08-06 21:26 | EX.ED.SAOD ---
HPI History of Present Illness Chief Complaint: Substance Abuse Narrative Narrative: Patient presents with her friend for detox from polysubstance abuse. She states that she injects fentanyl, drinks alcohol, abuses crystal meth, and smokes marijuana. She last drank alcohol last evening and injected fentanyl early this morning at 2 or 3:00, over 15 hours ago. She also used meth this afternoon. She states that she went through a rehab program once but called that a cult and that it does not work. She presents for detox from alcohol and fentanyl. [facility] Medical History Abscess of left external cheek Asthma Asthma Borderline personality disorder Cutaneous abscess of neck Depression affecting Felon of finger of right hand Hepatitis C History of MRSA infection Kidney stones Migraine headache without aura Murmur Obesity Open wound of left cheek Open wound of neck Open wound of right middle finger without damage to nail Personal history of MRSA (methicillin resistant Staphylococcus aureus) PTSD (post-traumatic stress disorder) Home Medications NK 08/06/22 [History Last Taken Unknown] Allergy/AdvReac Type Severity Reaction Status Date / Time Bleach (Sodium Hypochlorite) Allergy Hives Verified 08/06/22 20:02 diphenhydramine HCl Allergy Hives Verified 08/06/22 20:02 [From Benadryl] Family History Other Alcohol abuse Diabetes Drug abuse Hypertension Schizophrenia Tumor Surgical History History of salpingectomy History of tonsillectomy Hx of oral surgery S/P ERCP Social History Smoking Status: Current every day smoker tobacco type: e-cigarettes ROS ROS ED ROS Narrative Constitutional: No fever, no chills. HEENT: No sore throat. No neck pain. No loss of vision. No rhinorrhea. Cardiovascular: No chest pain. No palpitations. No pedal edema. Respiratory: No cough, no shortness of breath. Abdominal: No abdominal pain. No nausea. No vomiting. Genitourinary: No dysuria. No hematuria. Musculoskeletal: No myalgias. No arthralgias. Neurologic: No headaches. No dizziness. No lightheadedness. Skin: No rash. No change in color. Psychiatric: No depression. No anxiety. EXAM Physical Exam Narrative Exam Narrative: Afebrile. Vital signs noted. HEENT: Normocephalic. Atraumatic. PERRL, EOMI. Neck soft and supple. No point tenderness or step off. Cardiovascular: Regular rate and rhythm with intermittent tachycardia. No murmurs, rubs, or gallops appreciated. Respiratory: No tachypnea. Lungs clear to auscultation bilaterally. Gastrointestinal: Abdomen soft, nontender, with normoactive bowel sounds. No rebound or guarding. Neurological: Awake. Alert. Intermittently drowsy. Nonfocal, nonlateralizing. Moves all extremities. Skin: No rash. Normal color. No pallor. Musculoskeletal: No pedal edema. Full range of motion extremities. Const Vital Signs: 08/06/22 20:03 08/06/22 20:08 08/06/22 20:26 Temperature 98.9 F Temperature Source Temporal Pulse Rate 118 H 97 100 Respiratory Rate 18 20 H 16 Blood Pressure 160/112 H 149/102 H Blood Pressure Mean 128 117 Pulse Ox 100 100 100 Oxygen Delivery Method Room Air Room Air Room Air MDM MDM MDM Narrative Medical decision making narrative: Medical screening labs were obtained. CBC is grossly unremarkable. Urinalysis is positive for amphetamines and ecstasy, but negative for opiates. Ethyl alcohol is also negative. Potassium slightly low at 3.2. Serum is negative. Patient was discussed with Dr. Espinosa for admission to detox. Patient is in stable condition. Lab Data Attestation: I reviewed the patient's lab results. Labs: Laboratory Results - last 24 hr 08/06/22 08/06/22 08/06/22 20:55 21:00 21:00 WBC 10.3 RBC 4.45 Hgb 13.8 Hct 39.7 MCV 89.2 MCH 31.0 MCHC 34.8 RDW Std Deviation 43.8 RDW Coeff of Joya 13.4 Plt Count 301 MPV 9.7 Immature Gran % (Auto) 0.400 Neut % (Auto) 62.0 Lymph % (Auto) 29.1 [place] % (Auto) 6.4 Eos % (Auto) 1.7 Baso % (Auto) 0.4 Absolute Neuts (auto) 6.4 Absolute Lymphs (auto) 2.99 Nucleated RBC % 0 Sodium Potassium Chloride Carbon Dioxide Anion Gap BUN Creatinine Estim Creat Clear Calc Est GFR (MDRD) Af Amer Est GFR (MDRD) Non-Af BUN/Creatinine Ratio Glucose Calcium Total Bilirubin AST ALT Alkaline Phosphatase Total Protein Albumin Globulin Albumin/Globulin Ratio Serum , Qual Urine Opiates Screen NEGATIVE Urine Methadone Screen NEGATIVE Ur Barbiturates Screen NEGATIVE Ur Phencyclidine Scrn NEGATIVE Ur Amphetamines Screen POSITIVE H MDMA (Ecstasy) Screen POSITIVE H U Benzodiazepines Scrn NEGATIVE Urine Cocaine Screen NEGATIVE U Cannabinoids Screen NEGATIVE Ur Drug Screen Comment Ethyl Alcohol < 3.0 08/06/22 08/06/22 21:00 21:00 WBC RBC Hgb Hct MCV MCH MCHC RDW Std Deviation RDW Coeff of Joya Plt Count MPV Immature Gran % (Auto) Neut % (Auto) Lymph % (Auto) [place] % (Auto) Eos % (Auto) Baso % (Auto) Absolute Neuts (auto) Absolute Lymphs (auto) Nucleated RBC % Sodium 140 Potassium 3.2 L Chloride 107 Carbon Dioxide 27.0 Anion Gap 6 BUN 9 Creatinine 0.75 Estim Creat Clear Calc 82.36 Est GFR (MDRD) Af Amer 121 Est GFR (MDRD) Non-Af 100 BUN/Creatinine Ratio 12.0 Glucose 85 Calcium 9.4 Total Bilirubin 0.60 AST 22 ALT 37 Alkaline Phosphatase 68 Total Protein 7.4 Albumin 4.1 Globulin 3.3 Albumin/Globulin Ratio 1.2 Serum , Qual NEGATIVE Urine Opiates Screen Urine Methadone Screen Ur Barbiturates Screen Ur Phencyclidine Scrn Ur Amphetamines Screen MDMA (Ecstasy) Screen U Benzodiazepines Scrn Urine Cocaine Screen U Cannabinoids Screen Ur Drug Screen Comment Ethyl Alcohol Discharge Plan Dx/Rx/DC Orders Clinical Impression: Desire for detoxification, Polysubstance dependence Disposition Disposition: Acute Care Hospital [facility] Discharge Date/Time: 08/06/22 22:34
[2022-08-06 21:35] LABS: Internal QC Validated? YES +Cl - CLEAR BKGD; Pregnancy, Serum, hCG Quali. NEGATIVE Negative
[2022-08-06 21:42] LABS: ALB/GLOB Ratio 1.2 RATIO (0.9-2.4); AST(SGOT) 22 U/L (15-37); Alanine Aminotransfer ALT/SGPT 37 U/L (13-56); Albumin, Serum 4.1 g/dL (3.2-5.0); Alkaline Phosphatase 68 U/L (45-117); Anion Gap 6 (5-15); BUN 9 mg/dL (7-18); Calcium,Total 9.4 mg/dL (8.5-10.1); Chloride 107 mmol/L (98-107); Creatinine, Serum 0.75 mg/dL (0.55-1.02); EST Glomerular Filtration Rate 100 mL/min (>60); Est Glom Filt Rate - Afr Amer 121 mL/min (>60); Estimated Creatinine Clearance 82.36 ml/min; Globulin 3.3 g/dL (2.2-4.2); Glucose 85 mg/dL (74-106); Potassium 3.2 mmol/L (3.5-5.1); Protein, Total 7.4 g/dL (6.4-8.2); Sodium Level 140 mmol/L (136-145)
[2022-08-06 21:51] LABS: Alcohol, Blood (Medical)-Serum < 3.0 mg/dL
[2022-08-06 21:52] LABS: Amphetamine Urine VISTA POSITIVE (<1000 ng/mL); Barbiturate Urine VISTA NEGATIVE (< 200 ng/mL); Benzodiazepine Urine VISTA NEGATIVE (< 200 ng/mL); Cocaine Urine VISTA NEGATIVE (< 300 ng/mL); Ecstacy Urine VISTA POSITIVE (< 500 ng/mL); Methadone Urine VISTA NEGATIVE (< 300 ng/mL); PCP Urine VISTA NEGATIVE (< 25 ng/mL); THC Urine VISTA NEGATIVE (< 50 ng/mL); Vista UDS pH Range 4
--- NOTE | 2022-08-06 21:57 | HP.PCM.HOS_ITS ---
HPI - General General Date of Admission: 08/06/22 Date of Service: 08/06/22 Chief Complaint: Desire for detoxification HPI Narrative RAYA CASTLE, is a 26 F with a significant history of polysubstance abuse; and tobacco abuse who presents to the emergency department for detoxification. Of note patient was a heavy user of polysubstances but she had detoxification from December 2021 to March 2022. She reported her previous place of detoxification was like a cult and she does not want to go back there. Fentanyl use: She reports using fentanyl on and off for 4 years. Of note she stopped and resumed using only about 3 to 4 days before presentation. Reportedly she snorts and shoots. However she reports using only a minimal amount from friends. Last time she used was a day before presentation. Methamphetamine use: All in all she has been using for about 8 years. She shoots eats and smoke it. She stopped and resumed using the end of May 2022. Last time she used was few hours before presentation. At that time she gave up the rest of all her tracks to a friend. Marijuana use: Also patient smokes marijuana Patient denies being an alcoholic. However about 2 days before presentation she drank about 6 bottles of beer. She reports a feeling of fatigue and feeling like being hit by a truck. [facility] Medical History Abscess of left external cheek Asthma Asthma Borderline personality disorder Cutaneous abscess of neck Depression affecting Felon of finger of right hand Hepatitis C History of MRSA infection Kidney stones Migraine headache without aura Murmur Obesity Open wound of left cheek Open wound of neck Open wound of right middle finger without damage to nail Personal history of MRSA (methicillin resistant Staphylococcus aureus) PTSD (post-traumatic stress disorder) Allergy/AdvReac Type Severity Reaction Status Date / Time Bleach (Sodium Hypochlorite) Allergy Hives Verified 08/06/22 20:02 diphenhydramine HCl Allergy Hives Verified 08/06/22 20:02 [From Benadryl] Family History Other Alcohol abuse Diabetes Drug abuse Hypertension Schizophrenia Tumor Surgical History History of salpingectomy History of tonsillectomy Hx of oral surgery S/P ERCP Social History Smoking Status: Current every day smoker tobacco type: e-cigarettes ROS ROS Narrative Pertinent positives and pertinent negatives as noted in HPI. All other systems were reviewed and are negative Vital Signs Vital Signs Vital Signs: 08/06/22 20:03 08/06/22 20:08 08/06/22 20:26 Temperature 98.9 F Temperature Source Temporal Pulse Rate 118 H 97 100 Respiratory Rate 18 20 H 16 Blood Pressure 160/112 H 149/102 H Blood Pressure Mean 128 117 Pulse Ox 100 100 100 Oxygen Delivery Method Room Air Room Air Room Air Weight Weight: 90.1 kg Body Mass Index (BMI) 38.7 Physical Exam Narrative Physical exam: General: Well-nourished, well-developed. Head: Normocephalic, atraumatic, no tenderness Eyes: Vision is grossly intact. EOMI ENT, no trauma, moist mucous membranes, no rhinorrhea Neck: Nontender, full range of motion, no spinal tenderness. CVS: Regular rate and rhythm. S1-S2 present. No murmur, gallop or rub. Respiratory : clear to auscultation bilaterally, chest wall nontender, no wheezing Abdomen: Soft, nontender, nondistended, normal bowel sounds, no masses : Deferred Back: Nontender, no CVA tenderness, no midline spinal tenderness, deformities, step-offs Extremities: Nontender full range of motion, no trauma Skin: Erythema of bilateral hands and feet. Normal color, no trauma, abrasions Neuro: Drowsy, oriented, cranial nerves II through XII grossly intact. Psychiatry: Normal mood. Normal affect. Not depressed. Not anxious. Results Lab / Micro Data Result Diagrams: 08/06/22 21:00 08/06/22 21:00 Labs: Laboratory Results - last 24 hr 08/06/22 20:55: Urine Opiates Screen NEGATIVE, Urine Methadone Screen NEGATIVE, Ur Barbiturates Screen NEGATIVE, Ur Phencyclidine Scrn NEGATIVE, Ur Amphetamines Screen POSITIVE H, MDMA (Ecstasy) Screen POSITIVE H, U Benzodiazepines Scrn NEG ATIVE, Urine Cocaine Screen NEGATIVE, U Cannabinoids Screen NEGATIVE, Ur Drug Screen Comment 08/06/22 21:00: WBC 10.3, RBC 4.45, Hgb 13.8, Hct 39.7, MCV 89.2, MCH 31.0, MCHC 34.8, RDW Std Deviation 43.8, RDW Coeff of Joya 13.4, Plt Count 301, MPV 9.7, Immature Gran % (Auto) 0.400, Neut % (Auto) 62.0, Lymph % (Auto) 29.1, [place] % (Auto) 6.4, Eos % (Auto) 1.7, Baso % (Auto) 0.4, Absolute Neuts (auto) 6.4, Absolute Lymphs (auto) 2.99, Nucleated RBC % 0 08/06/22 21:00: Ethyl Alcohol < 3.0 08/06/22 21:00: Serum , Qual NEGATIVE 08/06/22 21:00: Sodium 140, Potassium 3.2 L, Chloride 107, Carbon Dioxide 27.0, Anion Gap 6, BUN 9, Creatinine 0.75, Estim Creat Clear Calc 82.36, Est GFR (MDRD) Af Amer 121, Est GFR (MDRD) Non-Af 100, BUN/Creatinine Ratio 12.0, Glucose 85, Calcium 9.4, Total Bilirubin 0.60, AST 22, ALT 37, Alkaline Phosphatase 68, Total Protein 7.4, Albumin 4.1, Globulin 3.3, Albumin/Globulin Ratio 1.2 Assessment & Plan Assessment/Plan (1) Polysubstance dependence: (2) Desire for detoxification: (3) Opioid use: (4) Methamphetamine abuse: PLAN: Plan Opioid abuse and desire for detoxification CBC on presentation normal. Serum negative. Toxicology positive for amphetamines and ecstasy. Negative for opiates. Negative for cannabinoids. Alcohol level less than 3. Due to minimal use and reportedly resuming use about 3 to 4 days prior to presentation would hold off Subutex at this time. We will start Subutex if need be. Adjunctive medications: Gabapentin as needed; dicyclomine as needed; Vistaril as needed; methocarbamol as needed; clonidine as needed; Imodium as needed; trazodone as needed and Zofran as needed. Monitor COWS and CINA score Methamphetamine abuse Supportive treatment as above. Hypokalemia Potassium of 3.2 on presentation. 40 mEq of potassium ordered. Check magnesium. Tobacco abuse Counseled Nicotine patch and nicotine gum prescribed. DVT prophylaxis Low risk Encourage to ambulate Charges/Coding Visit Charges Inpatient E&M: 60617 Init Hosp L2
[2022-08-06 22:14] VITALS: BP 130/94; PULSE 96; RESP 18; TEMP 36.4; O2SAT 99
[2022-08-06 22:44] VITALS: BMI 38.0
[2022-08-06 22:46] VITALS: BP 138/95; PULSE 100; RESP 16; TEMP 36.6; O2SAT 100
[2022-08-06] MEDS: Potassium Chloride Oral Tablet 20 MEQ 40 MEQ PO (23:06)
[2022-08-06] MEDS: traZODone 100 MG Tablet PO (23:55)
[2022-08-06] MEDS: Gabapentin 300 MG Capsule PO (23:55)
[2022-08-07 00:07] LABS: Magnesium 2.2 mg/dL (1.6-2.6)
[2022-08-07 06:49] VITALS: BP 77/63; PULSE 86; RESP 14; TEMP 36.6; O2SAT 100
[2022-08-07 09:00] VITALS: BP 116/79; PULSE 73; RESP 16; TEMP 36.7; O2SAT 99
--- NOTE | 2022-08-07 11:28 | PN.HOSP_ITS ---
Subjective Subjective Patient seen and examined. She had no active complaints and had an uneventful night. She denies any symptoms of withdrawal. Review of systems is otherwise negative. Objective Data Objective Data Vital Signs: Vital Signs Temp Pulse Resp BP Pulse Ox O2 Del Method 98.0 F 73 16 116/79 99 Room Air 08/07/22 09:00 08/07/22 09:00 08/07/22 09:00 08/07/22 09:00 08/07/22 09:00 08/07/22 09:00 Oxygen Delivery Method Room Air Weight: 194 lb 14.218 oz Body Mass Index (BMI) 38.0 Lab / Micro Data Result Diagrams: 08/06/22 21:00 08/06/22 21:00 Labs: Laboratory Results - last 24 hr 08/06/22 20:55: Urine Opiates Screen NEGATIVE, Urine Methadone Screen NEGATIVE, Ur Barbiturates Screen NEGATIVE, Ur Phencyclidine Scrn NEGATIVE, Ur Amphetamines Screen POSITIVE H, MDMA (Ecstasy) Screen POSITIVE H, U Benzodiazepines Scrn NEGATIVE, Urine Cocaine Screen NEGATIVE, U Cannabinoids Screen NEGATIVE, Ur Drug Screen Comment 08/06/22 21:00: WBC 10.3, RBC 4.45, Hgb 13.8, Hct 39.7, MCV 89.2, MCH 31.0, MCHC 34.8, RDW Std Deviation 43.8, RDW Coeff of Joya 13.4, Plt Count 301, MPV 9.7, Immature Gran % (Auto) 0.400, Neut % (Auto) 62.0, Lymph % (Auto) 29.1, [place] % (Auto) 6.4, Eos % (Auto) 1.7, Baso % (Auto) 0.4, Absolute Neuts (auto) 6.4, Absolute Lymphs (auto) 2.99, Nucleated RBC % 0 08/06/22 21:00: Ethyl Alcohol < 3.0 08/06/22 21:00: Serum , Qual NEGATIVE 08/06/22 21:00: Sodium 140, Potassium 3.2 L, Chloride 107, Carbon Dioxide 27.0, Anion Gap 6, BUN 9, Creatinine 0.75, Estim Creat Clear Calc 82.36, Est GFR (MDRD) Af Amer 121, Est GFR (MDRD) Non-Af 100, BUN/Creatinine Ratio 12.0, Glucose 85, Calcium 9.4, Total Bilirubin 0.60, AST 22, ALT 37, Alkaline Phosphatase 68, Total Protein 7.4, Albumin 4.1, Globulin 3.3, Albumin/Globulin Ratio 1.2 08/06/22 21:00: Magnesium 2.2 Physical Exam Const alert, oriented x3 and no apparent distress HEENT head/scalp atraumatic, moist oral mucous membranes and oropharynx normal Head and Scalp: normocephalic Mouth: oral and palatal mucosa normal Eyes PERRL, EOMs intact bilaterally and conjunctivae normal Neck no lymphadenopathy and supple Resp normal respiratory effort, no retractions, no use of accessory muscles and clear to auscultation bilaterally Cardio regular rate, regular rhythm, S1 normal heart sound, S2 normal heart sound and no murmurs GI normal to inspection, nondistended, normoactive bowel sounds, soft to palpation, non-tender and non-distended Extremity normal to inspection, full ROM and no clubbing, cyanosis or edema Neuro oriented x3, CN's II-XII intact bilaterally, moves all extremities and no focal motor deficits Sensorium / Orientation: awake and alert Motor Exam: strength 5/5 throughout Psych affect normal Assessment & Plan Assessment/Plan (1) Opioid use: (2) Desire for detoxification: PLAN: Plan #Acute opioid withdrawal * on opioid withdrawal protocol with buprenorphine * monitor CINA score * urine tox positive for amphetamines and ecstasy. alcohol level less than 3 * start buprenorphine * adjunctive meds for symptomatic relief * # Hypokalemia: potassium was 3.2 and was replaced. Will trend. #Nicotine dependence: counseled to quit. Nicotine patch 21mg daily DVT prophylaxis: low risk. Encourage to ambulate. Charges/Coding Visit Charges Inpatient E&M: 20391 Subs Hosp L2
--- NOTE | 2022-08-07 11:34 | NURSING ---
RESTING IN BED W/EYES CLOSED. NO DISTRESS NOTED. PT AROUSES W/VERBAL STIMULI STATES I DON'T FEEL GOOD. PT CONTINUES W/MUMBLED SPEECH. THIS NURSE ASKED FOR PT TO REPEAT WHAT SHE SAID. PT ROLLED OVER ONTO HER SIDE, MUMBLED AND APPEARED TO FALL ASLEEP. NO SYMPTOMS NOTED, NO SHAKING, ANXIETY, SWEATING ECT, PT APPEARS TO BE RESTING W/OUT DISTRESS. WILL CONT TO MONITOR.
--- NOTE | 2022-08-07 14:03 | ADDICTION ---
This com writer met with PT to conduct ASAM, MSE, AUDIT, DUDIT assessments and to plan for d/c. PT A+Ox4 and participated actively. All assessments completed and placed in PT's chart. PT plans to f/u with [facility] for residential treatment services. [facility] will provide transportation post d/c from [facility] on Wednesday by noon. [facility] when [facility] arrive.
[2022-08-07 14:28] VITALS: BP 132/90; PULSE 87; RESP 16; TEMP 36.8; O2SAT 100
[2022-08-07] MEDS: Gabapentin 300 MG Capsule PO (14:37)
[2022-08-07] MEDS: cloNIDine HCl 0.1 MG Tablet PO (14:37)
[2022-08-07] MEDS: Methocarbamol 750 MG Tablet 1500 MG PO ×2 (14:37→20:49)
[2022-08-07] MEDS: Ondansetron 8 MG Tablet PO (14:37)
[2022-08-07] MEDS: Dicyclomine 10 MG Capsule 20 MG PO (14:37)
[2022-08-07] MEDS: Buprenorphine HCl 2 MG TAB.SUBL SL ×2 (14:42→23:28)
[2022-08-07] MEDS: Nicotine Polacrilex 2 MG GUM PO (15:39)
[2022-08-07 17:29] VITALS: BP 120/74; PULSE 72; RESP 14; TEMP 36.6; O2SAT 98
[2022-08-07 19:11] LABS: Color, Urine Yellow (Yellow); Glucose, Dipstick Normal (Normal); Ketone-Dipstick 5 mg/dl (Negative); Leukocyte Esterase-Dipstick 25 /ul (Negative); Nitrite-Dipstick Negative (Negative); Occult Blood-Urine Negative /ul (Negative); Protein-Dipstick 30 mg/dl (Negative); Urine Clarity Sl. Cloudy (Clear); Urine Urobilinogen 1 mg/dl (Normal)
[2022-08-07 19:12] LABS: Urine Bilirubin Dipstick 1 mg/dL (Negative)
[2022-08-07 20:37] VITALS: BP 114/78; PULSE 61; RESP 16; TEMP 36.6; O2SAT 96
[2022-08-07] MEDS: Hydrocortisone 2.5% Crm 1 APPLIC TOPICAL (20:53)
[2022-08-07 23:25] VITALS: BP 117/79; PULSE 64; RESP 16; TEMP 36.4; O2SAT 98
[2022-08-07] MEDS: traZODone 100 MG Tablet PO (23:28)
[2022-08-08 02:45] VITALS: BP 122/67; PULSE 80; RESP 18; TEMP 35.8; O2SAT 96
[2022-08-08] MEDS: Buprenorphine HCl 2 MG TAB.SUBL SL ×3 (06:22→22:49)
[2022-08-08 06:26] VITALS: BP 104/55; PULSE 62; RESP 20; TEMP 36.2; O2SAT 93
[2022-08-08] MEDS: Gabapentin 300 MG Capsule PO ×2 (06:31→20:01)
--- NOTE | 2022-08-08 10:31 | PN.HOSP_ITS ---
Subjective Subjective Patient seen and examined. She complained of difficulty urinating overnight. However, her nurse informs me that patient urinated during the night. She denied any burning with urination. Review of systems is otherwise negative. Urinalysis showed no evidence of UTI Objective Data Objective Data Vital Signs: Vital Signs Temp Pulse Resp BP Pulse Ox O2 Del Method 97.2 F L 62 20 H 104/55 L 93 Room Air 08/08/22 06:26 08/08/22 06:26 08/08/22 06:26 08/08/22 06:26 08/08/22 06:26 08/08/22 06:26 Oxygen Delivery Method Room Air Weight: 194 lb 14.218 oz Body Mass Index (BMI) 38.0 Intake & Output: Intake and Output for Last 24 Hours 08/06/22 08/07/22 08/08/22 23:59 23:59 23:59 Intake Total 400 / 400 Balance 400 / 400 Lab / Micro Data Result Diagrams: 08/06/22 21:00 08/06/22 21:00 Labs: Laboratory Results - last 24 hr 08/07/22 18:46: Urine Color Yellow, Urine Clarity Sl. Cloudy, Urine pH 5.0, Ur Specific [place] 1.030, Urine Protein 30 H, Urine Glucose (UA) Normal, Urine Ketones 5 H, Urine Occult Blood Negative, Urine Nitrite Negative, Urine Bilirubin 1 H, Urine Urobilinogen 1 H, Ur Leukocyte Esterase 25 H Physical Exam Const alert, oriented x3 and no apparent distress HEENT head/scalp atraumatic, moist oral mucous membranes and oropharynx normal Head and Scalp: normocephalic Mouth: oral and palatal mucosa normal Eyes PERRL, EOMs intact bilaterally and conjunctivae normal Neck no lymphadenopathy and supple Resp normal respiratory effort, no retractions, no use of accessory muscles and clear to auscultation bilaterally Cardio regular rate, regular rhythm, S1 normal heart sound, S2 normal heart sound and no murmurs GI normal to inspection, nondistended, normoactive bowel sounds, soft to palpation, non-tender and non-distended Extremity normal to inspection, full ROM and no clubbing, cyanosis or edema Neuro oriented x3, CN's II-XII intact bilaterally, moves all extremities and no focal motor deficits Sensorium / Orientation: awake and alert Motor Exam: strength 5/5 throughout Psych affect normal Assessment & Plan Assessment/Plan (1) Opioid use: (2) Desire for detoxification: PLAN: Plan #Acute opioid withdrawal * on opioid withdrawal protocol with buprenorphine * monitor CINA score * urine tox positive for amphetamines and ecstasy. alcohol level less than 3 * start buprenorphine * adjunctive meds for symptomatic relief * # Hypokalemia: was replaced. Stable #Nicotine dependence: counseled to quit. Nicotine patch 21mg daily DVT prophylaxis: low risk. Encourage to ambulate. Charges/Coding Visit Charges Inpatient E&M: 97413 Subs Hosp L2
[2022-08-08 11:47] VITALS: BP 123/78; PULSE 66; RESP 16; TEMP 36.6; O2SAT 96
[2022-08-08] MEDS: Hydrocortisone 2.5% Crm 1 APPLIC TOPICAL ×2 (11:50→22:49)
[2022-08-08] MEDS: Methocarbamol 750 MG Tablet 1500 MG PO (17:33)
[2022-08-08 19:47] VITALS: BP 108/74; PULSE 68; RESP 12; TEMP 36.7; O2SAT 98
[2022-08-08] MEDS: Ondansetron 8 MG Tablet PO (19:56)
[2022-08-08] MEDS: traZODone 100 MG Tablet PO (22:49)
[2022-08-09 02:00] VITALS: BP 109/68; PULSE 62; RESP 12; TEMP 36.6; O2SAT 99
[2022-08-09] MEDS: Acetaminophen 325 MG Tablet 650 MG PO ×2 (02:44→09:04)
[2022-08-09] MEDS: Buprenorphine HCl 2 MG TAB.SUBL SL (06:47)
[2022-08-09 08:58] VITALS: BP 109/68; PULSE 80; RESP 16; TEMP 36.4; O2SAT 99
[2022-08-09] MEDS: Hydrocortisone 2.5% Crm 1 APPLIC TOPICAL (09:05)
--- NOTE | 2022-08-09 10:08 | PCM.DC ---
Discharge Instructions Diet Discharge Diet: No restrictions Activity Discharge Activity: Return to Normal Activity Weight Bearing Status: Weight bearing as tolerated Dressing / Incision Call your doctor if you observe: Fever of 101 or Higher, Shortness of breath, Dizziness, Swelling in the ankles, Chest pain and Increased palpitations (irregular heartbeat) Follow Up Care Test Results: Test results from this visit will be discussed in further detail at your follow-up appointment, if applicable. Discharge Plan Admission Admit Date/Time: 08/06/22 21:51 Primary Reason for Your Visit: acute opioid withdrawal Attending Provider: Keren De La Vega Primary Care Provider: Elizabeth Jones NP Consulting Providers: Ajay Espinosa Instructions Patient Instructions: ED Opioid Withdrawal Discharge Orders/Prescriptions Prescriptions: No Action NK Referrals / Follow Up: Elizabeth Jones NP, COAL DRIER OPERATOR-C [Primary Care Provider] - Within 2 Weeks Disposition Disposition (needs filled in before D/C Order can be placed): Home, Self Care
--- NOTE | 2022-08-09 10:09 | DS.PCM_ITS ---
Providers Date of Admission: 08/06/22 Date of Discharge: 08/09/22 Primary Care Physician: NEGRO Villa Diagnosis Discharge Diagnosis (1) Opioid use: Status: Acute Code(s): F11.90 - Opioid use, unspecified, uncomplicated (2) Desire for detoxification: Status: Acute Plan #Acute opioid withdrawal * on opioid withdrawal protocol with buprenorphine * monitor CINA score * urine tox positive for amphetamines and ecstasy. alcohol level less than 3 * start buprenorphine * adjunctive meds for symptomatic relief * # Hypokalemia: was replaced. Stable #Nicotine dependence: counseled to quit. Nicotine patch 21mg daily DVT prophylaxis: low risk. Encourage to ambulate. Medications at Discharge Home Medications NK 08/06/22 Hospital Course Procedures None Summary of Care Provided Minutes Spent on Discharge: 45 Hospital Course: Patient is a 26-year-old female with a past medical history of polysubstance abuse who was admitted through the ED on 08/06/2022 for acute opioid withdrawal. She had been on fentanyl and says she had been using it for 4 years on and off and stopped and had resumed this about 3 to 4 days prior to admission. She usually snorted or injected and last use was the day before presentation. Patient also admitted to using methamphetamine and marijuana. Urine tox was positive for amphetamines and ecstasy and negative for opiates and cannabinoids. Serum alcohol level was less than 3. She was admitted to be managed for acute opiate withdrawal. She was started on opiate withdrawal protocol with buprenorphine. She tolerated a 3-day detox process. Hospital course was complicated by hypokalemia which was replaced successfully. Patient remained stable and was discharged to [facility] services for residential treatm ent services. Patient seen and examined prior to discharge. She says she felt horrible but had no active complaints. She had an uneventful night and review of systems otherwise negative. Labs and vitals reviewed. Home medication reviewed and reconciled. Physical Exam Const alert, oriented x3 and no apparent distress General Appearance: cooperative, comfortable and well kempt Orientation / Consciousness: awake Exam Limitations: no limitations HEENT normocephalic, head/scalp atraumatic, hearing grossly normal bilaterally, moist oral mucous membranes and oropharynx normal Mouth: oral and palatal mucosa normal Eyes PERRL, EOMs intact bilaterally and conjunctivae normal Neck no lymphadenopathy and supple Resp normal respiratory effort, no retractions, no use of accessory muscles and clear to auscultation bilaterally Cardio regular rate, regular rhythm, S1 normal heart sound, S2 normal heart sound and no murmurs GI normal to inspection, nondistended, normoactive bowel sounds, soft to palpation, non-tender and non-distended Extremity normal to inspection, full ROM and no clubbing, cyanosis or edema Skin no rashes or lesions noted Neuro oriented x3, CN's II-XII intact bilaterally, moves all extremities and no focal motor deficits Sensorium / Orientation: awake and alert Motor Exam: strength 5/5 throughout Psych affect normal Weight / BMI Weight Weight: 194 lb 14.218 oz Body Mass Index (BMI) 38.0 ABG / Lab / Microbiology Data Result Diagrams: 08/06/22 21:00 08/06/22 21:00 D/C Instructions Discharge Diet: No restrictions Weight Bearing Status: Weight bearing as tolerated Call your doctor if you observe: Fever of 101 or Higher, Shortness of breath, Dizziness, Swelling in the ankles, Chest pain and Increased palpitations (irregular heartbeat) Meaningful Use Info Meaningful Use Diagnoses (Choose all that apply): None applicable Discharge Plan Admission Admit Date/Time: 08/06/22 21:51 Primary Reason for Your Visit: acute opioid withdrawal Attending Provider: Keren De La Vega Primary Care Provider: Elizabeth Jones NP Consulting Providers: Ajay Espinosa Instructions Patient Instructions: ED Opioid Withdrawal Discharge Orders/Prescriptions Prescriptions: No Action NK Referrals / Follow Up: Elizabeth Jones NP, DATA BASE DESIGN ANALYST-C [Primary Care Provider] - Within 2 Weeks Disposition Disposition (needs filled in before D/C Order can be placed): Inpatient Rehab Unit/Facility Charges/Coding Visit Charges Inpatient E&M: 19080 Disch Hosp
== END 2022-08-09 10:34 | DRG 773 ==
LOC: ED 21:48 → MS3 22:09
PROVIDERS: Admitting Provider Hospitalist; Emergency Provider Emergency Medicine; PCP Nurse Practitioner Family; Visit Provider Student in an Organized Health Care Education/Training Program
DX: F11.23 Opioid dependence with withdrawal (principal); E66.9 Obesity, unspecified; F15.10 Other stimulant abuse, uncomplicated; E87.6 Hypokalemia; F17.290 Nicotine dependence, other tobacco product, uncomplicated; J45.909 Unspecified asthma, uncomplicated; Z86.16 Personal history of COVID-19; Z68.38 Body mass index [BMI] 38.0-38.9, adult; Z86.19 Personal history of other infectious and parasitic diseases
CPT/HCPCS: 80053; 80307; 81002; 82077; 83735; 84703; 85025; 99285

== ENCOUNTER 2023-03-16 21:06 | Emergency (ER) | payer MEDICAID, SELFPAY ==
[2023-03-16 21:07] VITALS: BP 153/108; PULSE 97; RESP 17; TEMP 36.2; O2SAT 100; BMI 38.3
--- NOTE | 2023-03-16 21:16 | EX.ED.DYSGE1 ---
HPI History of Present Illness Chief Complaint: Overdose Informant: patient and EMS Narrative Narrative: Presents by EMS from home parents called due to accidental overdose. Patient states she smoked for which she thought was meth. EMS was contacted status post 8 mg of Narcan. EMS gave for Zofran for nausea. She had a fentanyl overdose this past August when she stopped using. She states since then has been smoking meth. She was injecting fentanyl previously. She states right before her overdose she is feeling some left kidney pain. Dysuria. Last menstrual period 5 days ago. Prior similar symptoms: Yes PFSH PFSH Medical History Abscess of left external cheek Asthma Asthma Borderline personality disorder Cutaneous abscess of neck Depression affecting Felon of finger of right hand Hepatitis C History of MRSA infection Kidney stones Migraine headache without aura Murmur Obesity Open wound of left cheek Open wound of neck Open wound of right middle finger without damage to nail Opioid use Personal history of MRSA (methicillin resistant Staphylococcus aureus) Polysubstance dependence PTSD (post-traumatic stress disorder) Home Medications cefuroxime axetil 500 mg tablet 500 mg PO BID #14 tabs 03/16/23 [Rx Last Taken Unknown] Allergy/AdvReac Type Severity Reaction Status Date / Time Bleach (Sodium Hypochlorite) Allergy Hives Verified 03/16/23 21:12 diphenhydramine HCl Allergy Hives Verified 03/16/23 21:12 [From Benadryl] Family History Other Alcohol abuse Diabetes Drug abuse Hypertension Schizophrenia Tumor Surgical History History of salpingectomy History of tonsillectomy Hx of oral surgery S/P ERCP Social History Smoking Status: Current every day smoker tobacco type: e-cigarettes ROS ROS ED Constitutional Constitutional ED: Denies chills, fever(s) or sweats Eyes Eyes: Denies change in vision ENT ENT ED: Denies dysphagia or sore throat Cardiovascular Cardiovascular: Denies chest pain, leg edema, palpitations or racing heartbeat Respiratory/Chest Respiratory/Chest: Denies cough, dyspnea or dyspnea on exertion Gastrointestinal Gastrointestinal: Denies abdominal pain, diarrhea, nausea or vomiting Genitourinary Genitourinary ED: Reports dysuria; Denies hematuria or urinary frequency Musculoskeletal Musculoskeletal: Reports back pain; Denies extremity pain or neck pain Integumentary Denies rash or wounds Neurologic Neurologic: Denies headache(s), paresthesias or weakness EXAM Physical Exam Const Vital Signs: 03/16/23 21:07 Temperature 97.2 F L Temperature Source Temporal Pulse Rate 97 Respiratory Rate 17 Blood Pressure 153/108 H Blood Pressure Mean 123 Pulse Ox 100 Oxygen Delivery Method Room Air Positive well nourished and well developed Constitutional Narrative: Awake answering questions, nontoxic General Appearance ED: well developed and NAD HEENT Reports moist mucous membranes normocephalic and atraumatic Eyes PERRL, EOMs intact bilaterally and conjunctivae normal General Eye ED: Yes normal appearance of both eyes Neck no lymphadenopathy and supple General: Negative for tenderness Chest Wall Chest: Negative for tenderness Resp normal respiratory effort and normal air movement Effort and Inspection: symmetric chest movement; Negative for respiratory distress Cardio regular rate, regular rhythm and no murmurs Peripheral Pulses: pulses 2+ throughout GI normal to inspection, nondistended, normoactive bowel sounds and non-tender Palpation: Negative for guarding or rebound tenderness present Back/Spine no CVA tenderness and no thoracic nor lumbar tenderness Extremity normal to inspection General Extremety ED: Negative for edema or tenderness General Extremity: Negative for edema Neuro oriented x3 and no sensory deficits noted Sensorium / Orientation: awake and alert Skin no rashes or lesions noted and no wounds MDM MDM MDM Narrative Medical decision making narrative: Interventions / MDM: Differential diagnosis: Opiate overdose, UTI Diagnosis considered but do not suspect: Kidney stones, however clinically stable no significant discomfort or concerns of this at this time My EKG interpretation: N/A Imaging independently reviewed and interpreted by myself: N/A External documents reviewed: N/A Test considered but not ordered: CT abdomen pelvis, however clinically no significant pain. ED course: Patient presenting overdose status post Narcan awake alert vitals are stable she was monitored. Reported left flank pain with dysuria. Work-up was initiated labs are stable creatinine 0.91 white count 6.1. urine did note infection signs. She has back pain culture sent and treated for complicated UTI. Rocephin IV, cefuroxime prescription sent to her pharmacy. She will use Tylenol or ibuprofen. Re-evaluation: stable, discussed drug use and overdose, she states she has been trying to get into the [employer] house however unsuccessful. She states she will try up in [place]. Disposition discussed with patient/family/significant other: Patient Case discussed with consulting clinician: N/A Lab Data Attestation: I reviewed the patient's lab results. Labs: Laboratory Results - last 24 hr 03/16/23 03/16/23 03/16/23 21:32 21:32 21:32 WBC 6.1 RBC 4.63 Hgb 14.0 Hct 41.3 MCV 89.2 MCH 30.2 MCHC 33.9 RDW Std Deviation 42.7 RDW Coeff of Joya 13.2 Plt Count 210 MPV 9.6 Immature Gran % (Auto) 0.300 Neut % (Auto) 45.9 L Lymph % (Auto) 45.0 H [place] % (Auto) 7.2 Eos % (Auto) 0.8 Baso % (Auto) 0.8 Absolute Neuts (auto) 2.8 Absolute Lymphs (auto) 2.76 Nucleated RBC % 0 Differential Comment SCANNED Sodium 140 Potassium 3.4 L Chloride 106 Carbon Dioxide 27.0 Anion Gap 7 BUN 8 Creatinine 0.91 Estim Creat Clear Calc 67.29 Est GFR (MDRD) Af Amer 96 Est GFR (MDRD) Non-Af 79 BUN/Creatinine Ratio 8.8 L Glucose 118 H Calcium 9.0 Serum , Qual NEGATIVE Urine Color Urine Clarity Urine pH Ur Specific [place] Urine Protein Urine Glucose (UA) Urine Ketones Urine Occult Blood Urine Nitrite Urine Bilirubin Urine Urobilinogen Ur Leukocyte Esterase Urine RBC Urine WBC Ur Squamous Epith Cells Amorphous Sediment Urine Bacteria Urine Mucus 03/16/23 22:30 WBC RBC Hgb Hct MCV MCH MCHC RDW Std Deviation RDW Coeff of Joya Plt Count MPV Immature Gran % (Auto) Neut % (Auto) Lymph % (Auto) [place] % (Auto) Eos % (Auto) Baso % (Auto) Absolute Neuts (auto) Absolute Lymphs (auto) Nucleated RBC % Differential Comment Sodium Potassium Chloride Carbon Dioxide Anion Gap BUN Creatinine Estim Creat Clear Calc Est GFR (MDRD) Af Amer Est GFR (MDRD) Non-Af BUN/Creatinine Ratio Glucose Calcium Serum , Qual Urine Color Mindy Urine Clarity Cloudy Urine pH 6.0 Ur Specific [place] 1.025 Urine Protein 30 H Urine Glucose (UA) Normal Urine Ketones 5 H Urine Occult Blood 50 H Urine Nitrite Positive H Urine Bilirubin 1 H Urine Urobilinogen 1 H Ur Leukocyte Esterase 500 H Urine RBC 5-10 SEEN Urine WBC 50-100 SEEN Ur Squamous Epith Cells 5-10 SEEN Amorphous Sediment 2+ URATE Urine Bacteria 1+ Urine Mucus 2+ Discharge Plan Triage Chief Complaint: Overdose ED Provider: Claude Thompson Dx/Rx/DC Orders Clinical Impression: Accidental overdose, Complicated urinary tract infection Instructions: Urinary Tract Infections in Women, ED Overdose, Opiate Prescriptions: New cefuroxime axetil 500 mg tablet 500 mg PO BID Qty: 14 0RF Primary Care Provider: Care Physician,No Primary Referrals: Elizabeth Jones MANAGER WASTEWATER, MANAGER WASTEWATER-C [Non-Staff] - 3-5 Days Activity Restrictions/Additional Instructions: Work-up positive for urinary tract infection. Take antibiotic as prescribed. Use ibuprofen as needed. Follow-up with your doctor. Disposition Disposition: Home, Self Care
[2023-03-16] MEDS: 0.9% Normal Saline 1,000 ML 1000 ML IV (21:31)
[2023-03-16 21:41] LABS: Absolute Lymphocyte Count 2.76 X10^3/uL (0.83-4.51); Absolute Neutrophil Count 2.8 X10^3/uL (2.0-7.7); Basophil# 0.05 X10^3/uL; Basophil% 0.8 % (0-1); Eosinophil# 0.05 X10^3/uL; Eosinophils% 0.8 % (0-5); Hematocrit 41.3 % (37-47); Lymphocyte # 2.76 X10^3/ul (0.83-4.51); Mean Corp Hgb Conc 33.9 g/dL (32-36); Mean Corpuscular Hgb 30.2 pg (27.0-32.0); Mean Corpuscular Volume 89.2 fL (81-99); Mean Platelet Vol. 9.6 fl (6.2-12.0); Monocyte# 0.44 X10^3/uL; Monocyte% 7.2 % (0-10); NRBC Flagged by Analyzer 0 % (0-5); Neutrophil # 2.81 X10^3/uL (2.7-7.7); Neutrophil % 45.9 % (47-70); POSITIVE MORPHOLOGY YES; Platelet Count 210 K/mm3 (150-450); RBC Distribution Width CV 13.2 % (11.6-14.6); RBC Distribution Width SD 42.7 fl (35.1-43.9); Red Blood Count 4.63 M/mm3 (4.2-5.4); White Blood Count 6.1 K/mm3 (4.4-11.0)
[2023-03-16 21:56] LABS: Anion Gap 7 (5-15); BUN 8 mg/dL (7-18); BUN/Creat Ratio 8.8 RATIO (10-20); Chloride 106 mmol/L (98-107); Creatinine, Serum 0.91 mg/dL (0.55-1.02); EST Glomerular Filtration Rate 79 mL/min (>60); Est Glom Filt Rate - Afr Amer 96 mL/min (>60); Estimated Creatinine Clearance 67.29 ml/min; Glucose 118 mg/dL (74-106); Potassium 3.4 mmol/L (3.5-5.1); Sodium Level 140 mmol/L (136-145)
[2023-03-16 21:58] LABS: Differential Indicated SCAN CRITERIA MET; Internal QC Validated? YES +Cl - CLEAR BKGD; Pregnancy, Serum, hCG Quali. NEGATIVE Negative
[2023-03-16 22:10] LABS: Differential Comment SCANNED
[2023-03-16 22:46] LABS: Color, Urine Amber (Yellow); Glucose, Dipstick Normal (Normal); Ketone-Dipstick 5 mg/dl (Negative); Leukocyte Esterase-Dipstick 500 /ul (Negative); Nitrite-Dipstick Positive (Negative); Occult Blood-Urine 50 /ul (Negative); Protein-Dipstick 30 mg/dl (Negative); Specific Gravity, Urine 1.025 (1.002-1.030); Urine Clarity Cloudy (Clear); Urine Urobilinogen 1 mg/dl (Normal)
[2023-03-16 22:48] LABS: Urine Bilirubin Dipstick 1 mg/dL (Negative)
[2023-03-16 22:56] LABS: Bacteria 1+ /hpf (None Seen); Mucous, Urine 2+ /hpf (<or=2+); Red Blood Cells-Urine 5-10 SEEN /hpf (0-5); Squamous Epithelial Cells - UA 5-10 SEEN /hpf (5-10); White Blood Cells 50-100 SEEN /hpf (0-5)
[2023-03-16 22:57] LABS: Amorphous Sediment 2+ URATE
[2023-03-16] MEDS: Ceftriaxone 1 GM/50 ML BAG IV (23:12)
[2023-03-16 23:35] VITALS: BP 142/102; PULSE 74; RESP 19; O2SAT 100
--- NOTE | 2023-03-16 23:40 | ED.RN ---
Pt family asking questions about pt overdose @ bedside. RN explained plan of care and discharge instructions. Family showing concern for pt stating, she didn't actually overdose family asking why Narcan was given. RN explained Narcan given by family pre-hospital with Zofran given by EMS for nausea. Pt not showing concern or asking any questions. Family @ bedside satisfied with RN answers. no further questions @ this time.
== END 2023-03-16 23:47 | disposition home or self-care (01) ==
PROVIDERS: Emergency Provider Emergency Medicine; Visit Provider Emergency Medicine
DX: F11.10 Opioid abuse, uncomplicated (principal); N39.0 Urinary tract infection, site not specified; F17.290 Nicotine dependence, other tobacco product, uncomplicated; Z87.891 Personal history of nicotine dependence
CPT/HCPCS: 80048; 81001; 84703; 85025; 87086; 87088; 87186; 96365; 99285; J7030; A4216

== ENCOUNTER 2023-07-04 05:02 | Emergency (ER) | payer MEDICAID, SELFPAY ==
[2023-07-04 05:03] VITALS: BP 150/99; PULSE 108; RESP 18; TEMP 35.8; O2SAT 100; BMI 34.9
--- NOTE | 2023-07-04 05:33 | EDS_ITS ---
HPI History of Present Illness Chief Complaint: Dental Informant: patient Onset/Context/Timing Onset: Weeks Context: Gradual Onset Timing: Continuous Quality: Sharp Location: Right lower premolar area Worsened by: Everything Relieved by: - (Cloves) Associated Symptoms Assocated Symptom - Dental: jaw swelling, cold sensitivity and hot sensitivity; Negative for fever or face swelling Narrative Narrative: Patient presents with right lower dental pain that has been getting worse over the past 3-1/2 weeks. Patient states it is gradually getting worse. Patient describes her pain as sharp. Patient states that everything makes it worse. Patient states that cloves seem to make it better. Patient admits to some swelling of her jaw. Patient also admits to hot and cold sensitivity. Patient has not seen a dentist for this. Patient denies any fevers or chills. PFSH [facility] Medical History Abscess of left external cheek Asthma Asthma Borderline personality disorder Cutaneous abscess of neck Depression affecting Felon of finger of right hand Hepatitis C History of MRSA infection Kidney stones Migraine headache without aura Murmur Obesity Open wound of left cheek Open wound of neck Open wound of right middle finger without damage to nail Opioid use Personal history of MRSA (methicillin resistant Staphylococcus aureus) Polysubstance dependence PTSD (post-traumatic stress disorder) Home Medications penicillin V potassium 500 mg tablet 500 mg PO 4X/DAY #40 tabs 07/04/23 [Rx Last Taken Unknown] Allergy/AdvReac Type Severity Reaction Status Date / Time Bleach (Sodium Hypochlorite) Allergy Hives Verified 07/04/23 05:03 diphenhydramine HCl Allergy Hives Verified 07/04/23 05:03 [From Benadryl] Family History Other Alcohol abuse Diabetes Drug abuse Hypertension Schizophrenia Tumor Surgical History History of salpingectomy History of tonsillectomy Hx of oral surgery S/P ERCP Social History Smoking Status: Current every day smoker tobacco type: e-cigarettes ROS ROS ED Constitutional Constitutional ED: Denies chills or fever(s) Eyes Eyes: Denies blurry vision or change in vision ENT ENT ED: Denies rhinorrhea or sore throat Cardiovascular Cardiovascular: Denies chest pain or palpitations Respiratory/Chest Respiratory/Chest: Denies cough or dyspnea Gastrointestinal Gastrointestinal: Denies nausea or vomiting Genitourinary Genitourinary ED: Denies dysuria or hematuria Musculoskeletal Musculoskeletal: Denies back pain or neck pain Integumentary Denies abscess or rash Neurologic Neurologic: Denies headache(s) or weakness Allergic/Immunologic Allergic/Immunologic ED: Denies mouth swelling or urticaria EXAM Physical Exam Const Vital Signs: 07/04/23 05:03 Temperature 96.5 F L Temperature Source Temporal Pulse Rate 108 H Respiratory Rate 18 Blood Pressure 150/99 H Blood Pressure Mean 116 Pulse Ox 100 Positive well nourished and well developed General Appearance ED: well developed and NAD HEENT Mouth ED: Yes lips normal and Yes tongue normal Mouth: lips normal and tongue normal Teeth and Gingiva: caries and gingiva abnormal Positive for gingival edema Throat: posterior oropharynx normal Eyes PERRL and EOMs intact bilaterally Neck no lymphadenopathy, supple and no JVD General: normal visual inspection; Negative for anterior neck swelling, tenderness or submandibular swelling Neuro oriented x3, CN's II-XII intact bilaterally, moves all extremities, no focal motor deficits and no sensory deficits noted Sensorium / Orientation: alert Motor Exam: strength 5/5 throughout Psych mental status grossly normal MDM MDM MDM Narrative Medical decision making narrative: Patient was advised that this most likely infected dental caries. Patient was given a dose of Pen-Vee K here. Patient is given a prescription for Pen-Vee K. Patient was given a dental referral list. Patient was instructed to follow-up with a dentist in 5 to 7 days. Patient was instructed to take Tylenol or ibuprofen as needed for pain. Patient understood and was agreeable with the plan. All questions were answered. Discharge Plan Triage Chief Complaint: Dental ED Provider: Leandro Burdick Dx/Rx/DC Orders Clinical Impression: Infected dental caries Instructions: ED Dental Pain, ED Dental Cavity Prescriptions: New penicillin V potassium 500 mg tablet 500 mg PO 4X/DAY Qty: 40 0RF Primary Care Provider: Care Physician,No Primary Referrals: Merna Villaseñor [Non-Staff] - 5-7 Days Care Physician,No Primary [Primary Care Provider] - Disposition Disposition: Home, Self Care
[2023-07-04] MEDS: Penicillin Vk 250 MG Tablet 500 MG PO (05:44)
[2023-07-04] MEDS: Acetaminophen 500 MG Tablet 1000 MG PO (05:45)
== END 2023-07-04 05:47 | disposition home or self-care (01) ==
PROVIDERS: Emergency Provider Emergency Medicine; Visit Provider Emergency Medicine
DX: K02.9 Dental caries, unspecified (principal); F17.290 Nicotine dependence, other tobacco product, uncomplicated
CPT/HCPCS: 99283

== ENCOUNTER 2023-08-21 08:28 | Inpatient (IN) | payer MEDICAID, SELFPAY ==
[2023-08-21 08:29] VITALS: BP 148/114; PULSE 110; RESP 16; TEMP 36.6; O2SAT 100; BMI 31.4
--- NOTE | 2023-08-21 08:40 | EX.ED.DYSGE1 ---
HPI History of Present Illness Chief Complaint: Substance Abuse Narrative Narrative: Patient is here for detox. She uses fentanyl and heroin, she also uses meth. She detoxed 2 years ago and was sober for 8-1/2 months. She denies . No fevers or chills, she missed a few times in the past few weeks on injection but she has bruises she has no signs of infection. [facility] Medical History Abscess of left external cheek Asthma Asthma Borderline personality disorder Cutaneous abscess of neck Depression affecting Felon of finger of right hand Hepatitis C History of MRSA infection Kidney stones Migraine headache without aura Murmur Obesity Open wound of left cheek Open wound of neck Open wound of right middle finger without damage to nail Opioid use Personal history of MRSA (methicillin resistant Staphylococcus aureus) Polysubstance dependence PTSD (post-traumatic stress disorder) Home Medications penicillin V potassium 500 mg tablet 500 mg PO 4X/DAY #40 tabs 07/04/23 [Rx Last Taken Unknown] Allergy/AdvReac Type Severity Reaction Status Date / Time Bleach (Sodium Hypochlorite) Allergy Hives Verified 08/21/23 08:29 diphenhydramine HCl Allergy Hives Verified 08/21/23 08:29 [From Benadryl] Family History Other Alcohol abuse Diabetes Drug abuse Hypertension Schizophrenia Tumor Surgical History History of salpingectomy History of tonsillectomy Hx of oral surgery S/P ERCP Social History Smoking Status: Current every day smoker tobacco type: e-cigarettes ROS ROS ED ROS Narrative Past medical history: Reviewed Medications: Reviewed Social history: Noncontributory Review of systems: All systems negative except as indicated General: No fever Eyes: No visual changes ENT: No upper airway congestion, normal voice Neck: No neck pain Cardiovascular: No chest pain Respiratory: No shortness of breath or cough Gastrointestinal: No abdominal pain, nausea vomiting or diarrhea Genitourinary: No dysuria Musculoskeletal: Denies myalgias no difficulty with ambulation Skin: No rash Neurological: No memory loss, confusion or any focal weakness Psych: She does feel anxious EXAM Physical Exam Narrative Exam Narrative: Physical exam General: Patient appears relatively comfortable. Head: Normocephalic, Atraumatic Eyes: Conjunctiva not pale ENT: Moist mucous membranes. Widespread dental decay right lower tooth has some tenderness and it is decayed but there is no abscess. Neck: Supple, Nontender, No lymphadenopathy Cardiovascular: Regular rhythm, slightly tachycardic. I listen at all 4 points, there is no murmur. Respiratory: No distress, CTA bilaterally Abdomen: Soft, Nontender, Nondistended Back: Nontender, Normal Inspection. Negative for: CVA tenderness Extremities: Multiple track maria on both arms, some ecchymoses but no erythema calor or any signs of infection. Skin: Normal color, No rash Neurological: Alert, Normal Strength, Normal Sensation Psychological: Somewhat anxious Const Vital Signs: 08/21/23 08:29 Temperature 97.8 F Temperature Source Temporal Pulse Rate 110 H Respiratory Rate 16 Blood Pressure 148/114 H Blood Pressure Mean 125 Pulse Ox 100 Oxygen Delivery Method Room Air MDM MDM MDM Narrative Medical decision making narrative: Patient will be medically cleared. We will try to get a room for her for detox. At this time she appears well. There is no signs of endocarditis, no signs of any kind of cellulitis. She has dental decay but I do not see any obvious dental infection. I do not believe antibiotics are needed. Discharge Plan Triage Chief Complaint: Substance Abuse ED Provider: Gideon Gardiner Dx/Rx/DC Orders Clinical Impression: Desire for detoxification, Opiate addiction, Arm bruise Prescriptions: No Action penicillin V potassium 500 mg tablet 500 mg PO 4X/DAY Qty: 40 0RF Primary Care Provider: Care Physician,No Primary Referrals: Care Physician,No Primary [Primary Care Provider] - Disposition Disposition: Acute Care [facility]
[2023-08-21 09:10] LABS: Amphetamine Urine VISTA POSITIVE (<1000 ng/mL); Barbiturate Urine VISTA NEGATIVE (< 200 ng/mL); Benzodiazepine Urine VISTA NEGATIVE (< 200 ng/mL); Cocaine Urine VISTA NEGATIVE (< 300 ng/mL); Ecstacy Urine VISTA POSITIVE (< 500 ng/mL); Methadone Urine VISTA NEGATIVE (< 300 ng/mL); PCP Urine VISTA NEGATIVE (< 25 ng/mL); THC Urine VISTA NEGATIVE (< 50 ng/mL); Vista UDS pH Range 5
[2023-08-21 09:22] LABS: Absolute Lymphocyte Count 2.58 X10^3/uL (0.83-4.51); Absolute Neutrophil Count 3.9 X10^3/uL (2.0-7.7); Basophil# 0.05 X10^3/uL; Basophil% 0.7 % (0-1); Eosinophil# 0.08 X10^3/uL; Eosinophils% 1.1 % (0-5); Hematocrit 38.6 % (37-47); Lymphocyte # 2.58 X10^3/ul (0.83-4.51); Lymphocyte % 36.1 % (19-41); Mean Corp Hgb Conc 33.7 g/dL (32-36); Mean Corpuscular Hgb 30.7 pg (27.0-32.0); Mean Corpuscular Volume 91.3 fL (81-99); Mean Platelet Vol. 9.4 fl (6.2-12.0); Monocyte# 0.49 X10^3/uL; Monocyte% 6.9 % (0-10); NRBC Flagged by Analyzer 0 % (0-5); Neutrophil # 3.92 X10^3/uL (2.7-7.7); Neutrophil % 54.9 % (47-70); Platelet Count 280 K/mm3 (150-450); RBC Distribution Width CV 12.9 % (11.6-14.6); RBC Distribution Width SD 41.8 fl (35.1-43.9); Red Blood Count 4.23 M/mm3 (4.2-5.4); White Blood Count 7.1 K/mm3 (4.4-11.0)
[2023-08-21 09:28] VITALS: BP 132/78; PULSE 64; RESP 14; TEMP 36.4; O2SAT 99
[2023-08-21 09:30] LABS: Internal QC Validated? YES +Cl - CLEAR BKGD; Pregnancy, Serum, hCG Quali. NEGATIVE Negative
[2023-08-21 09:37] LABS: Alcohol, Blood (Medical)-Serum < 3.0 mg/dL
[2023-08-21 09:38] LABS: Anion Gap 9 (5-15); BUN 13 mg/dL (7-18); BUN/Creat Ratio 18.3 RATIO (10-20); Calcium,Total 8.9 mg/dL (8.5-10.1); Chloride 107 mmol/L (98-107); Creatinine, Serum 0.71 mg/dL (0.55-1.02); EST Glomerular Filtration Rate 105 mL/min (>60); Est Glom Filt Rate - Afr Amer 127 mL/min (>60); Estimated Creatinine Clearance 94.97 ml/min; Glucose 95 mg/dL (74-106); Potassium 3.8 mmol/L (3.5-5.1); Sodium Level 143 mmol/L (136-145)
--- NOTE | 2023-08-21 09:52 | HP.PCM_ITS ---
HPI - General General Date of Admission: 08/21/23 Date of Service: 08/21/23 Chief Complaint: acute opioid withdrawal HPI Narrative RAYA CASTLE, is a 27 F with a PMh as outlined who presents via the ED on 08/21/2023 for acute opioid withdrawal. She uses fentanyl and heroin IV, and also admits to using methamphetamine. She went through detox over a year ago and managed to stay clean for about 8 months but subsequently relapsed. She comes in with complaints of active withdrawal. She last took heroin and fentanyl in the day before admission. She denies any dizziness or lightheadedness, palpitations, dizziness, nausea or vomiting. Review of systems otherwise negative. Vitals at time of review were blood pressure 110/73, pulse rate of 96, respirate rate of 16 and temperature of 97.5 Fahrenheit. She was saturating at 100% on room air. CBC and BMP were unremarkable. Urine tox was positive for amphetamines and MDMA. Serum alcohol level was less than 3. She has been admitted to manage for acute care. Withdrawal. [facility] Medical History Abscess of left external cheek Asthma Asthma Borderline personality disorder Cutaneous abscess of neck Depression affecting Felon of finger of right hand Hepatitis C History of MRSA infection Kidney stones Migraine headache without aura Murmur Obesity Open wound of left cheek Open wound of neck Open wound of right middle finger without damage to nail Opioid use Personal history of MRSA (methicillin resistant Staphylococcus aureus) Polysubstance dependence PTSD (post-traumatic stress disorder) Home Medications NK 08/21/23 [History Last Taken Unknown] Allergy/AdvReac Type Severity Reaction Status Date / Time Bleach (Sodium Hypochlorite) Allergy Hives Verified 08/21/23 08:29 diphenhydramine HCl Allergy Hives Verified 08/21/23 08:29 [From Benadryl] Family History Other Alcohol abuse Diabetes Drug abuse Hypertension Schizophrenia Tumor Surgical History History of salpingectomy History of tonsillectomy Hx of oral surgery S/P ERCP Social History Smoking Status: Current every day smoker tobacco type: e-cigarettes ROS Constitutional Constitutional: Denies anorexia, chills, fatigue, fever(s), malaise, night sweats, weakness or weight gain Eyes Eyes: Denies change in vision ENT HEENT: Denies dysphagia or headache(s) Cardiovascular Cardiovascular: Denies chest pain, edema, orthopnea, palpitations, paroxysmal nocturnal dyspnea or syncope Respiratory/Chest Respiratory/Chest: Denies cough, shortness of breath at rest or shortness of breath with exertion Gastrointestinal Gastrointestinal: Denies abdominal pain, nausea or vomiting Genitourinary Genitourinary: Denies dysuria Musculoskeletal Musculoskeletal: Denies muscle weakness Neurologic Neurologic: Denies dizziness, focal weakness, headache(s), lack of coordination, numbness or seizures Psychiatric Psychiatric: Denies anxiety or depression Vital Signs Vital Signs Vital Signs: 08/21/23 08:29 Temperature 97.8 F Temperature Source Temporal Pulse Rate 110 H Respiratory Rate 16 Blood Pressure 148/114 H Blood Pressure Mean 125 Pulse Ox 100 Oxygen Delivery Method Room Air Weight Weight: 171 lb 14.4 oz Body Mass Index (BMI) 31.4 Physical Exam Const alert, oriented x3 and no apparent distress Constitutional Narrative: lethargic HEENT normocephalic, head/scalp atraumatic, moist oral mucous membranes and oropharynx normal Eyes PERRL and EOMs intact bilaterally Neck no lymphadenopathy and supple Lymph Lymphatic: no lymphadenopathy noted and no lymphedema noted Resp normal respiratory effort, normal air movement and clear to auscultation bilaterally Cardio regular rate, regular rhythm, S1 normal heart sound, S2 normal heart sound and no murmurs GI normal to inspection, nondistended, normoactive bowel sounds, soft to palpation, non-tender and non-distended Extremity normal capillary refill, no clubbing, cyanosis or edema and no calf tenderness General Extremity: no tenderness to palpation of joints or extremities Skin Skin Narrative: multiple track maria over extremities Neuro CN's II-XII intact bilaterally, no focal motor deficits, no sensory deficits noted and deep tendon reflexes 2+ bilaterally Motor Exam: strength 5/5 throughout and general weakness Psych thought process normal and cooperative Mood & Affect: flat affect Results Lab / Micro Data 08/21/23 09:16 08/21/23 09:16 Labs: Laboratory Results - last 24 hr 08/21/23 08:49: Urine Opiates Screen NEGATIVE, Urine Methadone Screen NEGATIVE, Ur Barbiturates Screen NEGATIVE, Ur Phencyclidine Scrn NEGATIVE, Ur Amphetamines Screen POSITIVE H, MDMA (Ecstasy) Screen POSITIVE H, U Benzodiazepines Scrn NEGATIVE, Urine Cocaine Screen NEGATIVE, U Cannabinoids Screen NEGATIVE, Ur Drug Screen Comment 08/21/23 09:16: WBC 7.1, RBC 4.23, Hgb 13.0, Hct 38.6, MCV 91.3, MCH 30.7, MCHC 33.7, RDW Std Deviation 41.8, RDW Coeff of Joya 12.9, Plt Count 280, MPV 9.4, Immature Gran % (Auto) 0.300, Neut % (Auto) 54.9, Lymph % (Auto) 36.1, Stone % (Auto) 6.9, Eos % (Auto) 1.1, Baso % (Auto) 0.7, Absolute Neuts (auto) 3.9, Absolute Lymphs (auto) 2.58, Nucleated RBC % 0, Sodium 143, Potassium 3.8, Chloride 107, Carbon Dioxide 27.0, Anion Gap 9, BUN 13, Creatinine 0.71, Estim Creat Clear Calc 94.97, Est GFR (MDRD) Af Amer 127, Est GFR (MDRD) Non-Af 105, BUN/Creatinine Ratio 18.3, Glucose 95, Calcium 8.9, Serum , Qual NEGATIVE, Ethyl Alcohol < 3.0 Assessment & Plan Assessment/Plan (1) Opiate addiction: (2) Desire for detoxification: (3) Arm bruise: PLAN: Plan #Acute opioid withdrawal * She uses heroin and fentanyl IV. Urine tox positive for MDMA and amphetamines. * Admit to MedSurg 3. Started on opioid withdrawal protocol with buprenorphine monitor CINA score * Adjunctive meds for symptomatic relief. * Urine tox positive for amphetamines and MDMA * DVT prophylaxis: Low risk encourage ambulation. Charges/Coding Visit Charges Inpatient E&M: 92292 Init Hosp L3
[2023-08-21 12:30] VITALS: BP 110/73; PULSE 96; RESP 16; TEMP 36.4; O2SAT 100; BMI 31.4
--- NOTE | 2023-08-21 12:39 | NURSING ---
pt states she snorts, smokes, injects whatever I can. states last use was around 0630 this am about 1/2- 3/4 of gram of meth, injection. reports last use of heroin/fentanyl was 3 days ago. Smokes 1 ppd cigarettes/vape. denies any marijuana use.
--- NOTE | 2023-08-21 12:42 | NURSING ---
pt states she last took her Abilify in December 2022, unsure of dose, unsure of frequency.
[2023-08-21] MEDS: Methocarbamol 750 MG Tablet PO (13:59)
[2023-08-21] MEDS: hydrOXYzine PAM 25 MG Capsule 50 MG PO (13:59)
[2023-08-21] MEDS: Ondansetron 8 MG Tablet PO (13:59)
[2023-08-21] MEDS: Dicyclomine 10 MG Capsule 20 MG PO (13:59)
[2023-08-21] MEDS: cloNIDine HCl 0.1 MG Tablet PO (13:59)
[2023-08-21] MEDS: Buprenorphine HCl 2 MG TAB.SUBL SL (13:59)
--- NOTE | 2023-08-21 14:50 | CASEMGMT ---
Social Work Pt requesting to speak to SW and emotional per nursing. SW introduced self and role to patient. Pt tearful and requesting help. SW provided emotional support. SDOH indicated and explained to patient who agreed to assessment of needs. Pt needs assistance in all areas and has been homeless residing with a friend. Pt intends to do follow up care and would likely benefit from one-eighty assistance. SW also provided resources and information for patient. Patient additionally expressed concerns regarding the residence she left prior to coming to the hospital. Pt provided exceptionally concerning information regarding the children in that household. Pt reports difficulty leaving for detox due to being the only one that feeds and looks out for safety of 3 children in the home. Pt provided detailed information and stated belief that the children have been in grave danger and are currently at risk. Pt expressed guilt regarding situation. SW gathered detailed information of adults in residence, conditions, concerns, address, names of children and any other pertinent information and made immediate report to [facility] CPS. Deedee Anguiano FINANCIAL COST ANALYST, CASE PACKER AND SEALER
[2023-08-21] MEDS: Gabapentin 300 MG Capsule PO (16:02)
[2023-08-21 16:08] VITALS: BP 133/94; PULSE 93; RESP 18; TEMP 36.5; O2SAT 100
--- NOTE | 2023-08-21 16:16 | NURSING ---
approximately 1400- pt tearful and requesting nurse make phone call to pt mother and then to pt boyfriend and update them as her kids are under someones care. informed pt that said nurse will notify MARK who is here on the floor of pt request d/t some social issues. pt states she would like to talk to MARK. MARK Mark on floor and is aware of pt request to speak to her regarding social issues including pt children.
[2023-08-21 22:41] VITALS: BP 106/66; PULSE 72; RESP 18; TEMP 36.2; O2SAT 98
[2023-08-22 05:56] VITALS: BP 109/64; PULSE 75; RESP 18; TEMP 36.4; O2SAT 98
[2023-08-22] MEDS: Methocarbamol 750 MG Tablet PO ×3 (06:01→22:46)
[2023-08-22] MEDS: Buprenorphine HCl 2 MG TAB.SUBL SL ×3 (06:01→22:47)
[2023-08-22 10:00] VITALS: BP 107/58; PULSE 74; RESP 18; TEMP 36.6; O2SAT 100
[2023-08-22] MEDS: hydrOXYzine PAM 25 MG Capsule 50 MG PO (10:19)
--- NOTE | 2023-08-22 12:02 | PN_ITS ---
Subjective Subjective Patient seen and examined. She complained of feeling horrible, due to withdrawal symptoms. She denied any fever, chills, cough, chest pain, palpitations or any other symptoms. Review of systems is otherwise negative. Objective Data Objective Data Vital Signs: Vital Signs Temp Pulse Resp BP Pulse Ox O2 Del Method 97.8 F 74 18 107/58 L 100 Room Air 08/22/23 10:00 08/22/23 10:00 08/22/23 10:00 08/22/23 10:00 08/22/23 10:00 08/22/23 10:00 Oxygen Delivery Method Room Air Weight: 171 lb 14.4 oz Body Mass Index (BMI) 31.4 Intake & Output: Intake and Output for Last 24 Hours 08/20/23 08/21/23 08/22/23 23:59 23:59 23:59 Intake Total 200 / 200 100 / 100 Balance 200 / 200 100 / 100 Lab / Micro Data 08/21/23 09:16 08/21/23 09:16 Physical Exam Const alert, oriented x3 and no apparent distress HEENT normocephalic, head/scalp atraumatic, moist oral mucous membranes and oropharynx normal Eyes PERRL and EOMs intact bilaterally Neck no lymphadenopathy and supple Lymph Lymphatic: no lymphadenopathy noted and no lymphedema noted Resp normal respiratory effort, normal air movement and clear to auscultation alan aterally Cardio regular rate, regular rhythm, S1 normal heart sound, S2 normal heart sound and no murmurs GI normal to inspection, nondistended, normoactive bowel sounds, soft to palpation, non-tender and non-distended Extremity normal capillary refill, no clubbing, cyanosis or edema and no calf tenderness General Extremity: no tenderness to palpation of joints or extremities Skin Skin Narrative: multiple track maria over extremities Neuro CN's II-XII intact bilaterally, no focal motor deficits, no sensory deficits noted and deep tendon reflexes 2+ bilaterally Motor Exam: strength 5/5 throughout and general weakness Psych thought process normal and cooperative Activity / Motor Behavior: restless Assessment & Plan Assessment/Plan (1) Opiate addiction: (2) Desire for detoxification: (3) Arm bruise: PLAN: Plan #Acute opioid withdrawal * She uses heroin and fentanyl IV. Urine tox positive for MDMA and amphetamines. * on opioid withdrawal protocol with buprenorphine monitor CINA score * Adjunctive meds for symptomatic relief. * Urine tox positive for amphetamines and MDMA * DVT prophylaxis: Low risk encourage ambulation. Charges/Coding Visit Charges Inpatient E&M: 12623 Subs Hosp L2
[2023-08-22] MEDS: cloNIDine HCl 0.1 MG Tablet PO (15:14)
[2023-08-22] MEDS: Gabapentin 300 MG Capsule PO (15:14)
[2023-08-22 22:38] VITALS: BP 104/53; PULSE 81; RESP 16; TEMP 37; O2SAT 99
[2023-08-23 05:56] VITALS: BP 102/54; PULSE 63; RESP 18; TEMP 36.6; O2SAT 99
[2023-08-23] MEDS: Buprenorphine HCl 2 MG TAB.SUBL SL ×2 (06:02→14:38)
[2023-08-23 09:43] VITALS: BP 95/60; PULSE 65; RESP 18; TEMP 36.3; O2SAT 100
[2023-08-23] MEDS: Methocarbamol 750 MG Tablet PO ×2 (09:51→20:54)
--- NOTE | 2023-08-23 12:18 | PN.HOSP_ITS ---
Subjective Subjective Has a bit of a migraine this morning, no issues overnight. Cina score of 2 Objective Data Objective Data Vital Signs: Vital Signs Temp Pulse Resp BP Pulse Ox O2 Del Method 97.4 F L 65 18 95/60 100 Room Air 08/23/23 09:43 08/23/23 09:43 08/23/23 09:43 08/23/23 09:43 08/23/23 09:43 08/23/23 09:43 Oxygen Delivery Method Room Air Weight: 171 lb 14.4 oz Body Mass Index (BMI) 31.4 Intake & Output: Intake and Output for Last 24 Hours 08/22/23 08/23/23 08/24/23 03:59 03:59 03:59 Intake Total 200 / 200 500 / 500 200 / 200 Balance 200 / 200 500 / 500 200 / 200 Lab / Micro Data 08/21/23 09:16 08/21/23 09:16 Physical Exam Narrative General: Alert, Oriented x3, Cooperative, No apparent distress HEENT: Atraumatic, PERRLA, EOMI, Normocephalic Oral: Moist Mucosa Neck: Supple, No JVD Lungs: Clear to auscultation, Normal air movement, No rhonchi, No wheeze, No rales Cardiovascular: Regular rate, Regular Rhythm, Normal S1, Normal S2, No murmurs Abdomen: Soft, Non Tender, Non-Distended, No Hepato-splenomegaly Extremities: No edema, Capillary Refill Less than 3 Seconds Skin: Areas of either track maria or picking in various stages of healing Musculoskeletal: No Tenderness to Palpation of Joints or Extremities Neurological: Cranial nerves II-XII grossly intact, Motor Exam 5/5 strength throughout, Sensory exam intact to light touch and pain Psych/Mental Status: Flat Assessment & Plan Assessment/Plan (1) Opiate addiction: (2) Desire for detoxification: (3) Arm bruise: PLAN: Plan 1. Acute opiate withdrawal ? Continue with the opiate withdrawal protocol ? We will have her meet with [facility] for discharge planning ? She did test positive for MDMA as well as amphetamines DVT: Ambulation Charges/Coding Visit Charges Inpatient E&M: 53573 Subs Hosp L2
[2023-08-23] MEDS: Acetaminophen 325 MG Tablet 650 MG PO (15:32)
[2023-08-23 15:56] VITALS: BP 98/66; PULSE 88; RESP 16; TEMP 36.6; O2SAT 98
[2023-08-23 20:43] VITALS: BP 103/56; PULSE 72; RESP 16; TEMP 36.7; O2SAT 99
[2023-08-23] MEDS: cloNIDine HCl 0.1 MG Tablet PO (20:54)
[2023-08-24 02:43] VITALS: BP 108/63; PULSE 92; RESP 16; TEMP 36.6; O2SAT 100
[2023-08-24] MEDS: Acetaminophen 325 MG Tablet 650 MG PO (02:50)
[2023-08-24] MEDS: Hydrocortisone 2.5% Crm 1 APPLIC TOPICAL (02:51)
[2023-08-24] MEDS: Buprenorphine HCl 2 MG TAB.SUBL SL (02:51)
[2023-08-24] MEDS: Methocarbamol 750 MG Tablet PO ×2 (02:54→13:28)
--- NOTE | 2023-08-24 10:01 | PCM.PN.HOSP ---
Subjective Subjective Doing well, no issues overnight. CINA score of 2 Objective Data Objective Data Vital Signs: Vital Signs Temp Pulse Resp BP Pulse Ox O2 Del Method 97.9 F 92 16 108/63 100 Room Air 08/24/23 02:43 08/24/23 02:43 08/24/23 02:43 08/24/23 02:43 08/24/23 02:43 08/24/23 02:43 Oxygen Delivery Method Room Air Weight: 171 lb 14.4 oz Body Mass Index (BMI) 31.4 Intake & Output: Intake and Output for Last 24 Hours 08/23/23 08/24/23 08/25/23 03:59 03:59 03:59 Intake Total 500 / 500 1700 / 1700 300 / 300 Balance 500 / 500 1700 / 1700 300 / 300 Lab / Micro Data 08/21/23 09:16 08/21/23 09:16 Physical Exam Narrative General: Alert, Oriented x3, Cooperative, No apparent distress HEENT: Atraumatic, PERRLA, EOMI, Normocephalic Oral: Moist Mucosa Neck: Supple, No JVD Lungs: Clear to auscultation, Normal air movement, No rhonchi, No wheeze, No rales Cardiovascular: Regular rate, Regular Rhythm, Normal S1, Normal S2, No murmurs Abdomen: Soft, Non Tender, Non-Distended, No Hepato-splenomegaly Extremities: No edema, Capillary Refill Less than 3 Seconds Skin: Areas of either track maria or picking in various stages of healing Musculoskeletal: No Tenderness to Palpation of Joints or Extremities Neurological: Cranial nerves II-XII grossly intact, Motor Exam 5/5 strength throughout, Sensory exam intact to light touch and pain Psych/Mental Status: Flat Assessment & Plan Assessment/Plan (1) Opiate addiction: (2) Desire for detoxification: (3) Arm bruise: PLAN: Plan 1. Acute opiate withdrawal ? Continue with the opiate withdrawal protocol ? Plan for discharge to inpatient rehab tomorrow ? She did test positive for MDMA as well as amphetamines DVT: Ambulation Charges/Coding Visit Charges Inpatient E&M: 38769 Subs Hosp L2
[2023-08-24 10:26] VITALS: BP 106/69; PULSE 69; RESP 14; TEMP 36.6; O2SAT 99
[2023-08-24 13:26] VITALS: BP 112/60; PULSE 70; RESP 16; TEMP 36.6; O2SAT 100
[2023-08-24] MEDS: Ondansetron 8 MG Tablet PO (13:28)
[2023-08-24] MEDS: Gabapentin 300 MG Capsule PO (13:28)
--- NOTE | 2023-08-24 13:43 | ADDICTION ---
This commercial underwriter met with PT to conduct ASAM, MSE, AUDIT, DUDIT assessments and to plan for d/c. PT A+Ox4 and participated actively. All assessments completed and placed in PT's chart. PT plans to f/u with [facility] for follow-up in patient treatment services on Wednesday. [facility] will transport to treatment.
[2023-08-24] MEDS: Dicyclomine 10 MG Capsule 20 MG PO (18:54)
[2023-08-24] MEDS: hydrOXYzine PAM 25 MG Capsule 50 MG PO (18:54)
[2023-08-24 21:30] VITALS: BP 118/66; PULSE 74; RESP 18; TEMP 36.6; O2SAT 100
[2023-08-25 05:30] VITALS: BP 106/67; PULSE 72; RESP 16; TEMP 36.7; O2SAT 98
--- NOTE | 2023-08-25 07:11 | DCINST_ITS ---
Discharge Instructions Diet Discharge Diet: No restrictions Activity Discharge Activity: Return to Normal Activity Dressing / Incision Call your doctor if you observe: Fever of 101 or Higher, Shortness of breath, Dizziness, Fainting spells, Swelling in the ankles, Chest pain and Increased palpitations (irregular heartbeat) Follow Up Care Test Results: Test results from this visit will be discussed in further detail at your follow- up appointment, if applicable. Discharge Plan Admission Admit Date/Time: 08/21/23 09:53 Attending Provider: Tito Lang Primary Care Provider: Care Physician,Rosa Primary Consulting Providers: Keren De La Vega Discharge Orders/Prescriptions Prescriptions: No Action NK Referrals / Follow Up: Care Physician,No Primary [Primary Care Provider] - Disposition Disposition (needs filled in before D/C Order can be placed): Inpatient Rehab Unit/Facility
[2023-08-25 10:00] VITALS: BP 117/65; PULSE 74; RESP 18; TEMP 36.7; O2SAT 98
--- NOTE | 2023-08-25 14:46 | PCM.DC.SUM ---
Providers Date of Admission: 08/21/23 Primary Care Physician: No Primary Care Phys Reason For Visit: ACUTE OPIOID WITHDRAWAL Diagnosis Discharge Diagnosis (1) Opiate addiction: Status: Acute Code(s): F11.20 - Opioid dependence, uncomplicated (2) Desire for detoxification: Status: Acute (3) Arm bruise: Status: Acute Code(s): S40.029A - Contusion of unspecified upper arm, initial encounter Plan 1. Acute opiate withdrawal ? Continue with the opiate withdrawal protocol ? Plan for discharge to inpatient rehab tomorrow ? She did test positive for MDMA as well as amphetamines DVT: Ambulation Medications at Discharge Home Medications NK 08/21/23 Hospital Course Operations None Procedures None Summary of Care Provided Minutes Spent on Discharge: 32 Hospital Course: Per HPI: RAYA CASTLE, is a 27 F with a PMh as outlined who presents via the ED on 08/21/2023 for acute opioid withdrawal. She uses fentanyl and heroin IV, and also admits to using methamphetamine. She went through detox over a year ago and managed to stay clean for about 8 months but subsequently relapsed. She comes in with complaints of active withdrawal. She last took heroin and fentanyl in the day before admission. She denies any dizziness or lightheadedness, palpitations, dizziness, nausea or vomiting. Review of systems otherwise negative. Vitals at time of review were blood pressure 110/73, pulse rate of 96, respirate rate of 16 and temperature of 97.5 Fahrenheit. She was saturating at 100% on room air. CBC and BMP were unremarkable. Urine tox was positive for amphetamines and MDMA. Serum alcohol level was less than 3. She has been admitted to manage for acute care. Withdrawal. Hospital Course: 1. Acute opiate withdrawal?28-year-old female presents to the hospital requesting detox from opiates. She had been clean for about 8 months and relapsed over the last month or 2. She successfully completed the 3-day opiate detox and met with [facility] and requested inpatient rehab. She was able to be discharged today directly [facility] inpatient rehab. I discussed with her the plan for discharge today she expressed understanding of the risk benefits of going to rehab facility and would like to go today. Physical Exam Narrative General: Alert, Oriented x3, Cooperative, No apparent distress HEENT: Atraumatic, PERRLA, EOMI, Normocephalic Oral: Moist Mucosa Neck: Supple, No JVD Lungs: Clear to auscultation, Normal air movement, No rhonchi, No wheeze, No rales Cardiovascular: Regular rate, Regular Rhythm, Normal S1, Normal S2, No murmurs Abdomen: Soft, Non Tender, Non-Distended, No Hepato-splenomegaly Extremities: No edema, Capillary Refill Less than 3 Seconds Skin: Areas of either track maria or picking in various stages of healing Musculoskeletal: No Tenderness to Palpation of Joints or Extremities Neurological: Cranial nerves II-XII grossly intact, Motor Exam 5/5 strength throughout, Sensory exam intact to light touch and pain Psych/Mental Status: Flat Weight / BMI Weight Weight: 171 lb 14.4 oz Body Mass Index (BMI) 31.4 ABG / Lab / Microbiology Data 08/21/23 09:16 08/21/23 09:16 D/C Instructions Discharge Diet: No restrictions Call your doctor if you observe: Fever of 101 or Higher, Shortness of breath, Dizziness, Fainting spells, Swelling in the ankles, Chest pain and Increased palpitations (irregular heartbeat) Meaningful Use Info Meaningful Use Diagnoses (Choose all that apply): None applicable Discharge Plan Admission Admit Date/Time: 08/21/23 09:53 Attending Provider: Tito Lang Primary Care Provider: Care Physician,No Primary Consulting Providers: Keren De La Vega Discharge Orders/Prescriptions Prescriptions: No Action NK Referrals / Follow Up: Care Physician,No Primary [Primary Care Provider] - Disposition Disposition (needs filled in before D/C Order can be placed): Inpatient Rehab Unit/Facility Charges/Coding Visit Charges Inpatient E&M: 65547 Disch Hosp >30min
== END 2023-08-25 10:27 | DRG 773 ==
LOC: ED 09:16 → MS3 12:14
PROVIDERS: Admitting Provider Student in an Organized Health Care Education/Training Program; Emergency Provider Emergency Medicine; Visit Provider Family Medicine
DX: F11.23 Opioid dependence with withdrawal (principal); F17.290 Nicotine dependence, other tobacco product, uncomplicated; Z59.01 Sheltered homelessness; Z81.1 Family history of alcohol abuse and dependence; Z81.3 Family history of other psychoactive substance abuse and dependence
CPT/HCPCS: 36415; 80048; 80307; 82077; 84703; 85025; 99283

== ENCOUNTER 2023-11-17 20:29 | Emergency (ER) | payer MEDICAID, SELFPAY ==
[2023-11-17] VITALS (22 sets, daily range): BP systolic 118–146; BP diastolic 81–101; PULSE 73–94; RESP 14–26; TEMP 35.6; O2SAT 100; BMI 35.6
--- NOTE | 2023-11-17 21:04 | EKG12_ITS ---
Test Reason : CP Blood Pressure : / mmHG Vent. Rate : 094 BPM Atrial Rate : 094 BPM P-R Int : 132 ms QRS Dur : 074 ms QT Int : 354 ms P-R-T Axes : 034 023 019 degrees QTc Int : 442 ms Normal sinus rhythm Normal ECG Confirmed by JOB ZULUAGA, CHICA ([id number]), medical transcription editor WANDER STRONG ([id number]) on 11/19/2023 9:48:26 AM Referred By: Confirmed By:CHICA KAISER MD
--- NOTE | 2023-11-17 21:04 | ED.VIS.CHEST ---
HPI History of Present Illness Chief Complaint: Chest Pain Informant: patient Onset/Context/Timing Onset: Today Narrative Narrative: Patient presents with dizziness and near syncope followed by chest pain that started around 5:30 PM this evening. She complains of intermittent sharp pain along the left lateral ribs. She has been nauseated. [facility] Medical History Abscess of left external cheek Asthma Asthma Borderline personality disorder Cutaneous abscess of neck Depression affecting Felon of finger of right hand Hepatitis C History of MRSA infection Kidney stones Migraine headache without aura Murmur Obesity Open wound of left cheek Open wound of neck Open wound of right middle finger without damage to nail Opioid use Personal history of MRSA (methicillin resistant Staphylococcus aureus) Polysubstance dependence PTSD (post-traumatic stress disorder) Home Medications naproxen 500 mg tablet (Naprosyn) 500 mg PO BID PRN pain #20 tabs 11/17/23 [Rx Last Taken Unknown] Allergy/AdvReac Type Severity Reaction Status Date / Time Bleach (Sodium Hypochlorite) Allergy Hives Verified 11/17/23 20:33 diphenhydramine HCl Allergy Hives Verified 11/17/23 20:33 [From Benadryl] Family History Other Alcohol abuse Diabetes Drug abuse Hypertension Schizophrenia Tumor Surgical History History of salpingectomy History of tonsillectomy Hx of oral surgery S/P ERCP Social History Smoking Status: Current every day smoker tobacco type: e-cigarettes ROS ROS ED Constitutional Constitutional ED: Denies chills or fever(s) Eyes Eyes: Denies discharge from eye(s) ENT ENT ED: Denies discharge from eye(s), rhinorrhea or sore throat Cardiovascular Cardiovascular: Reports chest pain; Denies palpitations Respiratory/Chest Respiratory/Chest: Reports dyspnea; Denies cough Gastrointestinal Gastrointestinal: Reports nausea; Denies abdominal pain, diarrhea or vomiting Genitourinary Genitourinary ED: Denies dysuria Musculoskeletal Musculoskeletal: Denies back pain or extremity pain Integumentary Denies Abrasions or rash Neurologic Neurologic: Reports weakness; Denies headache(s) Psychiatric Psychiatric: Denies anxiety or depression Allergic/Immunologic Allergic/Immunologic ED: Denies lip swelling or urticaria EXAM Physical Exam Const Vital Signs: 11/17/23 20:30 11/17/23 20:54 11/17/23 21:05 Temperature 96.0 F L Temperature Source Temporal Pulse Rate 89 Respiratory Rate 15 Respiratory Pattern Normal Blood Pressure 146/101 H Blood Pressure Mean 116 Pulse Ox 100 Oxygen Delivery Method Room Air Room Air Positive well nourished HEENT Reports moist mucous membranes Eyes EOMs intact bilaterally Chest Wall inspection of chest normal and palpation of chest normal Resp normal respiratory effort and clear to auscultation bilaterally Cardio regular rate and regular rhythm GI soft to palpation and non-tender Extremity normal to inspection Extremity Narrative: No calf tenderness or edema. Neuro oriented x3 and no sensory deficits noted Motor Exam: strength 5/5 throughout Psych mental status grossly normal Skin no rashes or lesions noted MDM MDM MDM Narrative Medical decision making narrative: Patient placed on site monitor. IV line initiated. EKG obtained to evaluate for cardiac arrhythmia/ischemia. Chest x-ray obtained to evaluate for acute lung pathology, cardiac size, or mediastinal abnormality. Labwork obtained to evaluate for leukocytosis, anemia, and electrolyte derangement. Patient given IV fluids along with Zofran for nausea. History & Record Review Discussion w/independent historian: Patient Lab Data Attestation: I reviewed the patient's lab results. Labs: Laboratory Results - last 24 hr 11/17/23 11/17/23 20:53 22:54 WBC 7.7 RBC 4.86 Hgb 14.6 Hct 43.0 MCV 88.5 MCH 30.0 MCHC 34.0 RDW Std Deviation 40.5 RDW Coeff of Joya 12.3 Plt Count 163 MPV 11.5 Immature Gran % (Auto) 0.400 Neut % (Auto) 49.6 Lymph % (Auto) 39.0 Emmet % (Auto) 7.5 Eos % (Auto) 2.7 Baso % (Auto) 0.8 Absolute Neuts (auto) 3.8 Absolute Lymphs (auto) 3.01 Nucleated RBC % 0 Differential Comment SCANNED D-Dimer Quant (PE/DVT) < 0.27 L Sodium 141 Potassium 3.6 Chloride 107 Carbon Dioxide 27.0 Anion Gap 7 BUN 7 Creatinine 0.66 Estim Creat Clear Calc 132.27 Est GFR (MDRD) Af Amer 137 Est GFR (MDRD) Non-Af 113 BUN/Creatinine Ratio 10.5 Glucose 96 Calcium 10.0 Troponin I High Sens < 3 L < 3 L Radiography Chest X-Ray - ED: 1 View, Read by ED Physician, Normal, Heart, Lungs and Mediastinum Diagnostic Testing: Clinical Impression(s) from Imaging Studies Chest X-Ray 11/17/23 21:16 IMPRESSION: No radiographic evidence of acute cardiopulmonary disease. Electronically Signed: Jose Miguel Sauceda DO at 21:54 EST , EKG Initial EKG: Attestation: I personally reviewed and interpreted this EKG as follows: Interpretation: Sinus Rhythm (Sinus at 94 with no acute ischemia.) Treatment and Re-Evaluation :: CBC reveals normal white count 7.7 with normal differential. Hemoglobin normal at 14.6. Chemistry studies unremarkable. Initial troponin is less than 3 with repeat delta troponin of less than 3. D-dimer is less than 0.27. Portable chest x-ray per my interpretation feels no acute findings. Radiology interpretation reviewed and agrees. EKG is sinus rhythm with no evidence of ischemia. Patient has had no significant arrhythmias while here. She was given a dose of IV Toradol to help with pain. Test results are discussed with her and I will treat her with anti-inflammatories. She is comfortable with the plan. Discharge Plan Triage Chief Complaint: Chest Pain ED Provider: Yasmine Godinez Dx/Rx/DC Orders Clinical Impression: Atypical chest pain Instructions: ED Chest Pain, Uncertain Cause Prescriptions: New naproxen [Naprosyn] 500 mg tablet 500 mg PO BID PRN (Reason: pain) Qty: 20 0RF Primary Care Provider: Care Physician,No Primary Referrals: Jonathan Nelson MD [Med Staff - [employer]] - As Needed Care Physician,No Primary [Primary Care Provider] - Disposition Disposition: Home, Self Care Capacity Legal Checker In Reflex Medical hold order details:: IF a medical hold is selected below, a suggested order for a MEDICAL HOLD will reflex upon signing the document. Next of kin: [place] law dictates a PRIORITY LIST for identifying legal decision-maker/legal next of kin in the following order (LNOK): 1st: The patient?s legal guardian, if any 2nd: The patient's spouse (if status is questionable, consult Risk Management) 3rd: The patient?s adult child(katie) (majority, if multiple children) 4th: The patient?s parents 5th: The patient?s adult siblings (majority, if multiple children siblings)
[2023-11-17] MEDS: Ondansetron 4 MG/2 ML Vial IV (21:08)
[2023-11-17] MEDS: 0.9% Normal Saline (1000mL) 1,000 ML 150 ML IV (21:08)
[2023-11-17 21:15] LABS: Absolute Lymphocyte Count 3.01 X10^3/uL (0.83-4.51); Absolute Neutrophil Count 3.8 X10^3/uL (2.0-7.7); Basophil# 0.06 X10^3/uL; Basophil% 0.8 % (0-1); Eosinophil# 0.21 X10^3/uL; Eosinophils% 2.7 % (0-5); Hemoglobin 14.6 g/dL (12.0-15.0); Lymphocyte # 3.01 X10^3/ul (0.83-4.51); Mean Corpuscular Volume 88.5 fL (81-99); Mean Platelet Vol. 11.5 fl (6.2-12.0); Monocyte# 0.58 X10^3/uL; Monocyte% 7.5 % (0-10); NRBC Flagged by Analyzer 0 % (0-5); Neutrophil # 3.83 X10^3/uL (2.7-7.7); Neutrophil % 49.6 % (47-70); POSITIVE COUNT YES; Platelet Count 163 K/mm3 (150-450); RBC Distribution Width CV 12.3 % (11.6-14.6); RBC Distribution Width SD 40.5 fl (35.1-43.9); Red Blood Count 4.86 M/mm3 (4.2-5.4); White Blood Count 7.7 K/mm3 (4.4-11.0)
[2023-11-17 21:16] LABS: Differential Indicated SCAN CRITERIA MET
--- NOTE | 2023-11-17 21:16 | RAD_ITS ---
EXAM: XR CHEST, 1 VIEW CLINICAL INDICATION: chest pain TECHNIQUE: Frontal view of the chest. COMPARISON: 10/08/2020. FINDINGS: LUNGS AND PLEURAL SPACES: No significant abnormality. No consolidation or edema. No pneumothorax. No effusion. HEART: No significant abnormality. Cardiac silhouette not enlarged. MEDIASTINUM: Central airways and mediastinal contour are unremarkable. BONES/JOINTS: No significant abnormality. No acute fracture. SOFT TISSUES: No significant abnormality. RAD/Chest 1 View (Portable) IMPRESSION: No radiographic evidence of acute cardiopulmonary disease. Electronically Signed: Jose Miguel Sauceda DO at 21:54 EST ,
[2023-11-17 21:30] LABS: Anion Gap 7 (5-15); BUN 7 mg/dL (7-18); BUN/Creat Ratio 10.5 RATIO (10-20); Chloride 107 mmol/L (98-107); Creatinine, Serum 0.66 mg/dL (0.55-1.02); EST Glomerular Filtration Rate 113 mL/min (>60); Est Glom Filt Rate - Afr Amer 137 mL/min (>60); Estimated Creatinine Clearance 132.27 ml/min; Glucose 96 mg/dL (74-106); Potassium 3.6 mmol/L (3.5-5.1); Sodium Level 141 mmol/L (136-145); Troponin-I HS (w/2H Reflex) < 3 pg/mL (3.0-54.0)
--- OUTSIDE RECORDS SUMMARY | 2023-11-17 21:33 | XMS RPT_ITS | CCD ---
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 Primary Care Physicia n LIZ STERN MD Attending Unavail able [facility], [facility] Primary Care Unavailabl e [facility] WOOL BRUSHER.VESSEL SPECIALIST, [facility] Primary Care Provider Unavailable Primary Care Provider Unavailnic cobos Unknown, Pcp Unavailable Unavailable Charles Del Rosario Unavailable PROVIDER, UNKNOWN Attending Unavailable PROVIDER, UNKNOWN Admitting Unavailable LATOYA FARRELL Attending Unavailable PROVIDER, UNKNOWN Admitting Unavailable Adele Vogel MD Unavailable Unavailable KELSI MEZA Attending U claudio UNKNOWN, PCP Primary Care Unavailable KELSI MEZA Referring U navmaheshable Charles Del Rosario Attending Unavailab le UNKNOWN, PCP Primary Care Unavailable Blas Woods Attending Unavailable UNKNOWN, PCP Primary Care Unavailable Lakshmi Rodriguez MD Unavailable Unavailable Adele Vogel MD Unavailable Unavailable Unavailable Primary Care Provider UnavailAdele Lei MD Unavailable Unavailable Adele Vogel MD Unavailable [phone] ELIZABETH JONES Attending Unavailable THOMAS, ELIZABETH Referring Unavailable THOMAS, ELIZABETH Primary Care Unavailable THOMAS, ELIZABETH Primary Care Unavailable THOMAS, ELIZABETH Attending Unavailable ELIZABETH JONES Primary Care Unavailable ELIZABETH JONES Attending Unavailable ELIZABETH JONES Primary Care Unavailable ELIZABETH JONES Referring Unavailable THOMASELIZABETH Primary Care Unavailable Allergies Allergy Classification Reported Allergen(s) Allergy Type Date of Onset Reaction(s) Facility (4 sources) diphenhydrAMINE; Translations: [Benadryl] Drug Allergy 11-25-19 16 [facility] Repository (1 source) benedryl; Translations: [benedryl] Propensity to adverse reactions to drug (disorder) AOF [facility] Repository (2 sources) BLEACH drug allergy 11-25-19 16 [facility] Work Phone: (15 sources) diphenhydrAMINE; Translations: [DIPHENHYDRAMINE HCL] Drug Allergy 04-02-20 14 Hives, Rash [facility] (14 sources) Seasonal allergy; Translations: [SEASONAL ALLERGIES] Allergy to substance 07-26-20 14 Other: See Comments [facility] Work Phone: (1 source) diphenhydrAMINE / Pseudoephedrine Drug Allergy [facility] (1 source) diphenhydrAMINE; Translations: [DIPHENHYDRAMINE] Drug Allergy 10-12-20 22 [facility] Repository (2 sources) diphenhydrAMINE / Zinc acetate Drug Allergy 11-23-19 23 [facility] Work Phone: Medications Current Medications Medication Drug Class(es) Dates Sig (Normalized) Sig (Original) 2 antibiotic-unsure (1 source) Start: 02-27-2017 2 antibiotic-unsure 2 antibiotic-unsure , See Instructions, 0 Refill(s) Start Date: 02/27/17 Status: Ordered amoxicillin 875 mg oral tablet (1 source) Penicillin-class Antibacterial Start: 10-01-2022 End: 10-06-2022 take 1 tablet by mouth twice daily amoxicillin (AMOXIL) 875 mg tablet Indications: Tooth infection Take 1 tablet by mouth twice daily for 5 days. 10 tablet 0 10/01/2022 10/06/2022 Active Completed/Discontinued Medications Medication Drug Class(es) Dates Sig (Normalized) Sig (Original) acetaminophen 500 mg oral tablet (2 sources) Start: 10-12-2022 End: 10-12-2022 acetaminophen (TYLENOL) tablet Problems Active Problems Problem Classification Problem Date Documented Da te Episodic/Chronic Abdominal pain (1 source) Unspecified abdominal pain; Translations: [Unspecified abdominal pain] Onset: 11-09-2022 Episodic Anxiety disorders (20 sources) Mixed anxiety and depressive disorder; Translations: [Anxiety disorder, unspecified] Onset: 02-24-2017 02-24-2017 Chronic Asthma (14 sources) Asthma; Translations: [Unspecified asthma, uncomplicated] Onset: 02-13-2013 10-27-2021 Chronic Blindness and vision defects (1 source) Visual discomfort, unspecified; Translations: [Visual discomfort, unspecified] Onset: 10-14-2022 Episodic Disorders of teeth and jaw (1 source) Infection of tooth; Translations: [Periapical abscess without sinus] Episodic Genitourinary symptoms and ill-defined conditions (7 sources) Frequency of micturition Episodic Headache; including migraine (2 sources) Acute headache; Translations: [Acute nonintractable headache, unspecified headache type] Episodic Hemorrhoids (1 source) External hemorrhoids; Translations: [Residual hemorrhoidal skin tags] Episodic Hepatitis (17 sources) Chronic hepatitis C; Translations: [Chronic viral hepatitis C] Onset: 02-24-2017 02-24-2017 Chronic Hepatitis (1 source) Viral hepatitis C 02-27-2017 Episodic Immunizations and screening for infectious disease (1 source) Exposure to sexually transmissible disorder; Translations: [Contact with and (suspected) exposure to infections with a predominantly sexual mode of transmission] Episodic Miscellaneous mental health disorders (1 source) Chronic insomnia; Translations: [Psychophysiologic insomnia] Chronic Mood disorders (20 sources) Recurrent major depression in partial remission; Translations: [Major depressive disorder, recurrent, in partial remission] Onset: 08-09-2015 10-27-2021 Chronic Mood disorders (1 source) Mood disorders; Translations: [Depression, unspecified] Onset: 11-09-2022 Nausea and vomiting (6 sources) Nausea and vomiting; Translations: [Nausea] Onset: 10-13-2016 10-13-2016 Episodic Nonmalignant breast conditions (2 sources) Abscess of the breast and nipple; Translations: [Abscess of the breast and nipple] Onset: 10-07-2016 10-07-2016 Other connective tissue disease (2 sources) Myalgia, unspecified site; Translations: [Myalgia, unspecified site] Onset: 11-09-2022 Episodic Other female genital disorders (1 source) Vaginal discharge; Translations: [Other specified noninflammatory disorders of vagina] Episodic Other gastrointestinal disorders (1 source) Personal history of other diseases of the digestive system; Translations: [Personal history of other diseases of the digestive system] Onset: 11-09-2022 Episodic Other hereditary and degenerative nervous system conditions (2 sources) Restless legs; Translations: [Restless legs syndrome] Chronic Other infections; including parasitic (1 source) Personal history of other infectious and parasitic diseases; Translations: [History of hepatitis C] Episodic Other injuries and conditions due to external causes (1 source) Underdosing of other antipsychotics and neuroleptics, initial encounter; Translations: [Underdosing of oth antipsychotics and neuroleptics, init] Onset: 11-09-2022 Episodic Other injuries and conditions due to external causes (1 source) Underdosing of selective serotonin reuptake inhibitors, initial encounter; Translations: [Underdosing of selective serotonin reuptake inhibitors, init] Onset: 11-09-2022 Episodic Other injuries and conditions due to external causes (1 source) Underdosing of analeptics and opioid receptor antagonists, initial encounter; Translations: [Underdosing of analeptics and opioid receptor antag, init] Onset: 11-09-2022 Episodic Other nervous system disorders (13 sources) Bilateral carpal tunnel syndrome; Translations: [Carpal tunnel syndrome, bilateral upper limbs] Onset: 02-22-2017 02-22-2017 Chronic Other nervous system disorders (1 source) Other symptoms and signs involving cognitive functions and awareness; Translations: [Oth symptoms and signs w cognitive functions and awareness] Onset: 11-09-2022 Episodic Other nutritional; endocrine; and metabolic disorders (13 sources) Body mass index 40+ - severely obese; Translations: [Morbid (severe) obesity due to excess calories] Onset: 02-24-2017 02-24-2017 Chronic Other nutritional; endocrine; and metabolic disorders (3 sources) Polydipsia Episodic Other upper respiratory disease (1 source) Other specified disorders of nose and nasal sinuses; Translations: [Other specified disorders of nose and nasal sinuses] Onset: 11-09-2022 Episodic Other upper respiratory infections (1 source) Acute pharyngitis, unspecified; Translations: [Acute pharyngitis, unspecified] Onset: 11-09-2022 Episodic Residual codes; unclassified (3 sources) Generalized aches and pains; Translations: [Pain, unspecified] Episodic Residual codes; unclassified (4 sources) High risk heterosexual behavior Episodic Residual codes; unclassified (1 source) Tobacco use; Translations: [Tobacco use] Onset: 11-09-2022 Episodic Residual codes; unclassified (1 source) Immunization not carried out for unspecified reason; Translations: [Immunization not carried out for unspecified reason] Onset: 11-09-2022 Episodic Substance-related disorders (9 sources) History of drug abuse; Translations: [History of drug use] Onset: 12-22-2018 12-22-2018 Chronic Unclassified (1 source) Breast feeding (infant) (observable entity) 02-27-2017 Past or Other Problems Problem Classification Problem Date Documented Date Episodic/Chronic Bacterial infection; unspecified site (17 sources) Methicillin resistant Staphylococcus aureus infection; Translations: [History of methicillin resistant Staphylococcus aureus infection] Onset: 11-29-2015 10-13-2016 Episodic Calculus of urinary tract (3 sources) Kidney stone; Translations: [Personal history of urinary calculi] Onset: 04-22-2022 02-27-2017 Episodic Headache; including migraine (8 sources) Headache; including migraine; Translations: [Headache with orthostatic component, not elsewhere classified] Onset: 10-14-2022 10-14-2022 Results Test Name Value Interpretation Reference Range Facil it Vital Signs Date Time Vital Sign Value Performing Clinician Facility 03-02-2023 14:18-0400 Body temperature 98.01 [degF] Leigh Green APRN.CNP Work Phone: [facility] 03-02-2023 14:18-0400 Body weight 91.17 kg Leigh Green APRN.CNP Work Phone: [facility] 03-02-2023 14:18-0400 Diastolic blood pressure 76 mm[Hg] Leigh Green APRN.CNP Work Phone: [facility] 03-02-2023 14:18-0400 Heart rate 122 /min Leigh Green WOOL BRUSHER.VESSEL SPECIALIST Work Phone: [facility] 03-02-2023 14:18-0400 Respiratory rate 18 /min Leigh Green WOOL BRUSHER.VESSEL SPECIALIST Work Phone: [facility] 03-02-2023 14:18-0400 SaO2% (BldA) [Mass fraction] 97 % Leigh Green WOOL BRUSHER.VESSEL SPECIALIST Work Phone: [facility] 03-02-2023 14:18-0400 Systolic blood pressure 122 mm[Hg] Leigh Green WOOL BRUSHER.VESSEL SPECIALIST Work Phone: [facility] 11-05-2022 10:57-0500 Diastolic blood pressure 62 mm[Hg] Adele Rochester Work Phone: [facility] 11-05-2022 10:57-0500 Heart rate 76 /min Adele Rochester Work Phone: [facility] 11-05-2022 10:57-0500 Systolic blood pressure 104 mm[Hg] Adele Rochester Work Phone: [email or web address] 11-05-2022 10:56-0500 Body height 152.4 cm Adele Rochester Work Phone: [facility] 11-05-2022 10:56-0500 Body mass index (BMI) [Ratio] 43.08 kg/m2 Adele Rochester Work Phone: [facility] 11-05-2022 10:56-0500 Body surface area Derived from formula 2.06 m2 Adele Rochester Work Phone: [facility] 11-05-2022 10:56-0500 Body temperature 97.11 [degF] Adele Rochester Work Phone: [facility] 11-05-2022 10:56-0500 Body weight 100.06 kg Adele Rochester Work Phone: [facility] 11-05-2022 10:56-0500 Diastolic blood pressure 63 mm[Hg] Adele Rochester Work Phone: [facility] 11-05-2022 10:56-0500 Heart rate 77 /min Adele Rochester Work Phone: [facility] 11-05-2022 10:56-0500 SaO2% (BldA) [Mass fraction] 97 % Adele Rochester Work Phone: [facility] 11-05-2022 10:56-0500 Systolic blood pressure 101 mm[Hg] Adele Rochester Work Phone: [facility] 10-14-2022 14:52-0500 Body height 152.4 cm Pcp Unknown [facility] 10-14-2022 14:52-0500 Body temperature 97.34 [degF] Pcp Unknown [facility] 10-14-2022 14:52-0500 Body weight 90 kg Pcp Unknown [facility] 10-14-2022 14:52-0500 Diastolic blood pressure 59 mm[Hg] Pcp Unknown [facility] 10-14-2022 14:52-0500 Heart rate 63 /min Pcp Unknown [facility] 10-14-2022 14:52-0500 Respiratory rate 16 /min Pcp Unknown [facility] 10-14-2022 14:52-0500 SaO2% (BldA) [Mass fraction] 97 % Pcp Unknown [facility] 10-14-2022 14:52-0500 Systolic blood pressure 135 mm[Hg] Pcp Unknown [facility] 10-12-2022 17:52-0500 Body temperature 97.39 [degF] Latoya Farrell MD Work Phone: [facility] 10-12-2022 17:52-0500 Diastolic blood pressure 71 mm[Hg] Latoya Farrell MD Work Phone: [facility] 10-12-2022 17:52-0500 Heart rate 64 /min Latoya Farrell MD Work Phone: [facility] 10-12-2022 17:52-0500 Respiratory rate 17 /min Latoya Farrell MD Work Phone: [facility] 10-12-2022 17:52-0500 SaO2% (BldA) [Mass fraction] 99 % Latoya Farrell MD Work Phone: [facility] 10-12-2022 17:52-0500 Systolic blood pressure 97 mm[Hg] Latoya Farrell MD Work Phone: [facility] 07-04-2022 17:54-0400 Body temperature 98.6 [degF] LIZ STERN MD [facility] 07-04-2022 17:54-0400 Diastolic blood pressure 85 mm[Hg] LIZ STERN MD [facility] 07-04-2022 17:54-0400 Heart rate 104 /min LIZ STERN MD [facility] 07-04-2022 17:54-0400 Respiratory rate 18 /min LIZ STERN MD [facility] 07-04-2022 17:54-0400 Systolic blood pressure 132 mm[Hg] LIZ STERN MD [facility] 03-15-2017 15:47-0400 BMI (Body Mass Index) 39.16 kg/m2 Kristina Siddiqi MD [facility] Work Phone: 03-15-2017 15:47-0400 Body Temperature 98.2 [degF] Kristina Siddiqi MD [facility] Work Phone: 03-15-2017 15:47-0400 Body weight 94.8 kg Kristina Siddiqi MD [facility] Work Phone: 03-15-2017 15:47-0400 BP Diastolic 84 mm[Hg] Kristina Siddiqi MD [facility] Work Phone: 03-15-2017 15:47-0400 BP Systolic 123 mm[Hg] Kristina Siddiqi MD [facility] Work Phone: 03-15-2017 15:47-0400 BSA (Body Surface Area) 1.93 m2 Kristina Siddiqi MD [facility] Work Phone: 03-15-2017 15:47-0400 Height 155.57 cm Kristina Siddiqi MD [facility] Work Phone: 03-15-2017 15:47-0400 Pulse (Heart Rate) 69 /min Kristina Siddiqi MD [facility] Work Phone: 03-15-2017 15:47-0400 Pulse Oximetry 100 % Kristina Siddiqi MD [facility] Work Phone: 03-15-2017 15:47-0400 Respiratory Rate 16 /min Kristina Siddiqi MD [facility] Work Phone: 03-15-2017 15:47-0400 Weight 94.8 kg Kristina Siddiqi MD [facility] Work Phone: Encounters Encounter Date Encounter Type Care Provider Facility Start: 03-04-2023 Telephone encounter Cami GILL Work Phone: [facility] Procedures Date Procedure Procedure Detail Performing Clinician Start: 03-02-2023 Urnls dip stick/tabl et rgnt auto w/o microscopy Leigh Green APRN.PORSCHE Work Phone: Start: 11-23-2022 Lipid 1996 panel - S tamiko or Plasma Carolina Blair, PAEnaC Work Phone: Start: 11-13-2022 End: 11-13-2022 Glucose blood reagent strip Lakshmi Rodriguez MD Start: 10-12-2022 Ct head/brain w/o co ntrast material Ana Sheppard PA-C Work Phone: Start: 10-12-2022 EXTRA URINE Pilo Sp eice PA-C Work Phone: Start: 10-12-2022 VELAZQUEZ TOP TUBE, URINE Quynh Peters PA-C Work Phone: Start: 10-12-2022 RED/YELLOW TOP TUBE, URINE Pilo Pteers PA-C Work Phone: Start: 10-12-2022 Basic metabolic pane l calcium total [employer] Work Phone: Start: 10-12-2022 Urine test visual color cmprsn meths [employer] [facility] Work Phone: Start: 03-15-2017 End: 03-15-2017 Dietary management education, guidance, and counseling Kristina Siddiqi MD Start: 03-15-2017 End: 03-15-2017 Documentation of current medications Kristina Siddiqi MD Start: 10-13-2016 End: 10-13-2016 Follow up Appt 1 week Kristina Siddiqi MD Work Phone: Start: 10-07-2016 End: 10-07-2016 Follow up Appt 1 week Kristina Siddiqi MD Work Phone: Start: 10-07-2016 End: 10-07-2016 Incision & drainage abscess complicated/multiple Kristina Siddiqi MD Work Phone: Start: 06-03-2016 End: 06-25-2016 Incision & drainage abscess complicated/multiple Peter Levine MD Start: 05-18-2016 End: 06-25-2016 Follow up Appt 1 week Peter Levine MD Start: 05-11-2016 End: 05-21-2016 Follow up Appt 1 week Peter Levine MD Start: 05-06-2016 End: 05-11-2016 Follow up Appt 1 week Peter Levine MD Start: 04-30-2016 End: 05-11-2016 Follow up Appt 1 week Peter Levine MD Start: 04-28-2016 End: 04-29-2016 Follow Up Appt Other Peter Levine MD Start: 01-01-2016 End: 04-29-2016 Follow Up Appt Other Peter Levine MD Start: 12-09-2015 End: 04-29-2016 Follow up Appt 1 week Peter Levine MD Start: 11-29-2015 End: 04-29-2016 Follow up Appt 1 week Peter Levine MD Start: 11-25-2015 End: 11-26-2015 Radex fingr minimum 2 views Peter padgett MD Renal lithotripsy LIZ REY MD Tonsillectomy and adenoidectomy LIZ STERN MD Plan of Treatment Date Care Activity Detail Author Start: 2046 Shingles (RZV) Vaccine (1 of 2) Shingles (RZV) Vaccine (1 of 2) [facility] Start: 09-18-2030 Tetanus vaccination Imm-DTaP/Tdap/Td (12 - Td or Tdap) [facility] Start: 06-13-2029 Urine microalbumin profile DTAP,TDAP,TD (5 - Td or Tdap) [facility] Start: 11-22-2025 Hypertension screening Hypertension Screening (#1) [facility] Start: 11-23-2023 Diabetes mellitus screening Diabetes Screening [facility] Start: 11-23-2023 Lipid panel Lipid Screening [facility] Start: 11-23-2023 Tobacco use cessation education Tobacco Cessation Counseling (#1) [facility] Start: 11-01-2023 Depression screening Depression Annual Screen (#1) [facility] Start: 10-07-2023 ANNUAL PCP TEAM CHRONIC DISEASE VISIT ANNUAL PCP TEAM CHRONIC DISEASE VISIT [facility] Start: 10-01-2023 ANNUAL PCP TEAM CHRONIC DISEASE VISIT ANNUAL PCP TEAM CHRONIC DISEASE VISIT [facility] Start: 07-02-2023 Influenza vaccination INFLUENZA (Season Ended) [facility] Start: 04-22-2023 ANNUAL PCP TEAM CHRONIC DISEASE VISIT ANNUAL PCP TEAM CHRONIC DISEASE VISIT [facility] Start: 03-02-2023 End: 05-02-2023 Bacteria identified in Urine by Culture URINE CULTURE Microbiology Routine Vaginal discharge STD exposure Expected: 03/02/2023, Expires: 05/02/2023 [facility] Work Phone: Immunizations Immunization Date Immunization Notes Care Provider Chad faust 07-21-2019 influenza, injectabl e, quadrivalent, contains preservative Gretel Praisler-Wood WOOL BRUSHER.VESSEL SPECIALIST Work Phone: [facility] 06-13-2019 tetanus toxoid, redu donovan diphtheria toxoid, and acellular pertussis vaccine, adsorbed Gretel Praisler-Wood WOOL BRUSHER.VESSEL SPECIALIST Work Phone: [facility] 12-26-2014 measles, mumps and rubella virus vaccine Gretel Praisler-Wood WOOL BRUSHER.VESSEL SPECIALIST Work Phone: [facility] 11-06-2014 tetanus toxoid, redu donovan diphtheria toxoid, and acellular pertussis vaccine, adsorbed Gretel Praisler-Wood WOOL BRUSHER.VESSEL SPECIALIST Work Phone: [facility] 09-19-2014 influenza, seasonal, injectable Gretel Praisler-Wood WOOL BRUSHER.VESSEL SPECIALIST Work Phone: [facility] 08-14-2013 influenza virus vaccine, unspecified formulation Gretel Praisler-Wood WOOL BRUSHER.VESSEL SPECIALIST Work Phone: [facility] 08-14-2013 tetanus toxoid, redu donovan diphtheria toxoid, and acellular pertussis vaccine, adsorbed Gretel Praisler-Wood WOOL BRUSHER.VESSEL SPECIALIST Work Phone: [facility] 08-27-2008 influenza virus vaccine, unspecified formulation Gretel Praisler-Wood WOOL BRUSHER.VESSEL SPECIALIST Work Phone: [facility] Work Phone: 12-07-2007 human papilloma viru s vaccine, quadrivalent Gretel Praisler-Wood WOOL BRUSHER.VESSEL SPECIALIST Work Phone: [facility] Work Phone: 12-07-2007 influenza virus vaccine, unspecified formulation Gretel Praisler-Wood WOOL BRUSHER.VESSEL SPECIALIST Work Phone: [facility] Work Phone: 12-07-2007 Meningococcal, MCV4, unspecified conjugate formulation(groups A, C, Y and W-135) Gretel Posey APRN.[facility] Work Phone: [facility] Work Phone: 12-07-2007 tetanus toxoid, redu donovan diphtheria toxoid, and acellular pertussis vaccine, adsorbed Gretel Posey APRN.[facility] Work Phone: [facility] Work Phone: Payers Date Payer Category Payer Unknown 2018 Medicaid [place] [employer] [place] [employer] [id number] 2018-Present [phone] [address] [place] [address] Medicaid [id number] 2018 Medicaid [id number] 2018 Unknown [id number] 1996 Unknown [id number] 1996 Unknown [id number] 1996 Unknown [id number] 1996 Unknown [id number] 1996 Unknown [id number] 1996 Unknown [id number] Social History Date Type Detail Facility Start: 02-28-2013 End: 03-02-2023 Tobacco smoking status CTIS Never smoked tobacco [facility] Work Phone: Start: 02-28-2013 End: 03-02-2023 Tobacco use and exposure Smokeless tobacco non-user [facility] Work Phone: Start: 01-19-2022 End: 03-02-2023 Alcohol intake Current non-drinker of alcohol (finding) [facility] Start: 10-10-2020 End: 10-01-2022 History SDOH Alcohol Frequency 1 [facility] Start: 10-10-2020 History SDOH Alcohol Std Drinks 98 [facility] Start: 10-10-2020 End: 10-01-2022 History SDOH Social Connections Phone 5 [facility] Start: 10-10-2020 End: 10-01-2022 History SDOH Social Connections Get Together 2 [facility] Start: 10-10-2020 End: 10-01-2022 History SDOH Social Connections Living 7 [facility] Start: 10-10-2020 End: 10-01-2022 History SDOH Physical Activity DPW 3 [facility] Start: 10-10-2020 Education 11 [facility] Start: 12-02-2011 End: 03-02-2023 Tobacco Comment mom smokes inside and outside [facility] Start: 1995 Sex Assigned At Not on file C [facility] Start: 01-09-2022 End: 11-23-2022 Exposure to SARS-CoV-2 (event) Not sure [facility] Sex Assigned At Sex [facility] Start: 10-01-2022 History SDOH Alcohol Std Drinks 0 [facility] Start: 10-01-2022 History SDOH Physica l Activity MPS 6 [facility] Start: 12-09-2022 Tobacco smoking status CTIS Tobacco smoking consumption unknown [facility] Start: 11-05-2022 Tobacco smoking status NHIS Light tobacco smoker [facility] Start: 11-05-2022 History of tobacco use Light cigarette smoker (1-9 cigs/day) [facility] Start: 11-05-2022 Health-related Behavior Caffeine Use Details [facility] Start: 11-05-2022 Tobacco use and exposure (observable entity) Smoking Tobacco Use Details [facility] Start: 1995 [facility] Start: 11-23-2022 Tobacco smoking status NHIS Smokes tobacco daily [facility] Work Phone: History of tobacco use Cigarette Smoker [facility] Work Phone: Start: 11-23-2022 Cigarettes smoked current (pack per day) - Reported 0.3 [facility] Work Phone: Start: 11-23-2022 Alcohol intake Ex-drinker (finding) [facility] Work Phone: Start: 11-23-2022 Tobacco Comment 4-5 per day. Interested in quitting [facility] Work Phone: NEGATED: Highlighted row Alcohol intake Alcohol Use Details [facility] Clinical Notes 05-16-2019 to 03-04-2023 Telephone Encounter - Gabriella Morales MA - 03/04/2023 2:26 PM EDTTelephone Encounter - JAIRO Nieto - 03/04/2023 2:18 PM EDTTelephone Encounter - Lilly Day - 03/03/2023 7:55 PM EDT Note Date & Type Note Facility 03-04-2023 Miscellaneous Notes Formattin g of this note might be different from the original. Pt was notified of the results. Pt verbalized understanding. Gabriella Morales MA Please let patient know her urine culture did not show any significant bacterial growth. Follow-up with PCP if symptoms continue. documented in this encounter [facility] 03-03-2023 Miscellaneous Notes Formattin g of this note might be different from the original. Patient given results and verbalized understanding of instructions given. Lilly Day Patient's gonorrhea was positive patient's chlamydia was negative patient is already treated for the gonorrhea. Just let her know thank you documented in this encounter [facility] 03-03-2023 Miscellaneous Notes Formattin g of this note might be different from the original. Patient given results and verbalized understanding of instructions given. Lilly Day Was positive for bacterial vaginosis Flagyl twice a day for a week was called in please have patient go get it. Patient was negative for yeast trichomonas and still waiting on the chlamydia and gonorrhea results documented in this encounter [facility] 03-02-2023 Note HNO ID: [id number] Author: Pavithra Castro LPN Service: ? Author Type: ? Type: Progress Notes Filed: 03/02/2023 5:10 PM Note Text: Patient verified by name, date of , Rocephin injection administered. Pt tolerated injection well, no redness or bruising noted declined observation for fifteen minutes, left. Pavithra Castro LPN [facility] 03-02-2023 History of Presen t illness Narrative Patient verified by name, date of , Rocephin injection administered. Pt tolerated injection well, no redness or bruising noted declined observation for fifteen minutes, left. Pavithra Castro LPN CC: Patient presents with: STD: + gonorrhea exposure, vaginal drainage HPI Stephanie Green is a 27 year old female who presents with complaint of possible UTI. These symptoms have been present for 7 days. Associated symptoms: abnormal vaginal discharge Denies: burning, urgency, frequency, fever, chills, sweats, and flank pain Treatments: nothing The ROS was otherwise negative. PMH, Medications, labs, allergies, and recent past visits with PCP were reviewed and updated as able. PHYSICAL EXAM: BP 122/76 Pulse (!) 122 Temp 36.7 C (98 F) Resp 18 Wt 91.2 kg (201 lb) LMP 11/04/2020 (Within Days) SpO2 97% BMI 40.60 kg/m General: Well appearing and alert CV: Regular rate and rhythm without obvious murmur Lungs: clear to auscultation bilaterally Back: straight and symmetric Abdomen: soft, nontender, nondistended PAST MEDICAL HISTORY Diagnosis Date Anemia in 08/10/2013 Asthma Chlamydia 2014 Chronic hepatitis C virus infection (HCC) 02/24/2017 Kidney stone 11/2016 Recurrent major depression in partial remission (HCC) 08/09/2015 Unspecified asthma(493.90) PAST SURGICAL HISTORY Procedure Laterality Date ERCP DESTRUCTION/LITHOTRIPSY CALCULI ANY METHOD 11/2016 MRI BRAIN W/WO 07/06/2015 normal NEUROPLASTY &/TRANSPOS MEDIAN NRV CARPAL TUNNE Left 11/10/2019 Left carpal tunnel release and left ring trigger finger release NEXPLANON INSERTION 01/2015 AT removed PAST SURGICAL HISTORY OF TOOTH EXTRACTION PAST SURGICAL HISTORY OF MRSA- excision right middle finger PAST SURGICAL HISTORY OF 07/2016 MRSA excision, face, neck and BL breast SALPINGECTOMY COMPLETE/PARTIAL UNI/BI SPX Bilateral 08/01/2019 bilateral salpingectomy for sterilization TONSILLECTOMY PRIMARY/SECONDARY <AGE 12 Tonsillectomy ALLERGIES Benadryl [Diphenhydramine Hcl] and Seasonal Allergies MEDICATIONS traZODone (DESYREL) 100 mg tablet Take 0.5 tablets by mouth daily at bedtime. ondansetron orally disintegrating (ZOFRAN ODT) 4 mg disintegrating tablet Take 1 tablet by mouth every 6 hours as needed for nausea/vomiting. ibuprofen (MOTRIN) 800 mg tablet Take 1 tablet by mouth every 8 hours as needed for pain. Take with food. prazosin (MINIPRESS) 1 mg cap Take 1 mg by mouth twice daily. hydrOXYzine pamoate (VISTARIL) 25 mg capsule Take by mouth. sertraline (ZOLOFT) 50 mg tablet Take 50 mg by mouth once daily. gabapentin (NEURONTIN) 800 mg tablet Take 1 tablet by mouth once daily for 30 days. (Patient not taking: Reported on 03/02/2023) senna-docusate (SENNA-S) 8.6-50 mg per tablet Take 1 tablet by mouth once daily. (Patient not taking: Reported on 03/02/2023) hemorrhoid ointment (HEMORRHOID) rectal ointment by RECTAL route twice daily as needed. (Patient not taking: Reported on 03/02/2023) buprenorphine-naloxone (SUBOXONE) 8-2 mg film DISSOLVE 1 (ONE) FILM UNDER THE TONGUE TWICE DAILY FOR 7 DAYS (Patient not taking: Reported on 03/02/2023) FAMILY HISTORY Problem Relation Age of Onset Arthritis Mother Diabetes Mother Hypertension Mother Lipids Mother Heart Maternal Grandfather 2 MIs Diabetes Maternal Grandfather Arthritis Maternal Grandmother Diabetes Maternal Grandmother Alcohol/Drug Father ETOH Psychiatry Father other (brain tumor) Father Diabetes Paternal Grandmother Lipids Paternal Grandmother No Known Problems Sister No Known Problems Sister Heart Brother Heart Maternal Aunt Hypertension Maternal Aunt Lipids Maternal Aunt MAUNT X 2 No Known Problems Daughter No Known Problems Daughter Social History Tobacco Use Smoking status: Never Smokeless tobacco: Never Tobacco comments: mom smokes inside and outside Vaping Use Vaping Use: Never used Substance Use Topics Alcohol use: No Drug use: Yes Types: Crystal Meth Comment: No drug use since 2016 ASSESSMENT/PLAN: 1. Vaginal discharge - ICD9: 623.5, ICD10: N89.8 (primary diagnosis) - BACTERIAL VAGINOSIS AMPLIFICATION - ARON / TRICHOMONAS AMPLIFICATION - GC/CHLAMYDIA DNA DET - UA DIP, URINE (POC) Self swab - CEFTRIAXONE 500 MG SOLUTION FOR INJECTION - URINE CULTURE 2. STD exposure - ICD9: V01.6, ICD10: Z20.2 - BACTERIAL VAGINOSIS AMPLIFICATION - ARON / TRICHOMONAS AMPLIFICATION - GC/CHLAMYDIA DNA DET - CEFTRIAXONE 500 MG SOLUTION FOR INJECTION - only treatment given today. - URINE CULTURE Please treat if anything else comes back positive thank you Potential red flag symptoms discussed with the patient. Reviewed appropriate action plan to take if red flag symptoms occur. Patient agreeable to treatment plan. Leigh Green APRN.CNP documented in this encounter [facility] 03-02-2023 Note HNO ID: [id number] Author: Leigh Green APRN.CNP Service: ? Author Type: Nurse Practitioner Type: Progress Notes Filed: 03/02/2023 3:12 PM Note Text: CC: Patient presents with: STD: + gonorrhea exposure, vaginal drainage HPI Stephanie Green is a 27 year old female who presents with complaint of possible UTI. These symptoms have been present for 7 days. Associated symptoms: abnormal vaginal discharge Denies: burning, urgency, frequency, fever, chills, sweats, and flank pain Treatments: nothing The ROS was otherwise negative. PMH, Medications, labs, allergies, and recent past visits with PCP were reviewed and updated as able. PHYSICAL EXAM: BP 122/76 Pulse (!) 122 Temp 36.7 ?C (98 ?F) Resp 18 Wt 91.2 kg (201 lb) LMP 11/04/2020 (Within Days) SpO2 97% BMI 40.60 kg/m? General: Well appearing and alert CV: Regular rate and rhythm without obvious murmur Lungs: clear to auscultation bilaterally Back: straight and symmetric Abdomen: soft, nontender, nondistended PAST MEDICAL HISTORY Diagnosis Date Anemia in 08/10/2013 Asthma Chlamydia 2013 Chronic hepatitis C virus infection (HCC) 02/24/2017 Kidney stone 11/2016 Recurrent major depression in partial remission (HCC) 08/09/2015 Unspecified asthma(493.90) PAST SURGICAL HISTORY Procedure Laterality Date ERCP DESTRUCTION/LITHOTRIPSY CALCULI ANY METHOD 11/2016 MRI BRAIN W/WO 07/06/2015 normal NEUROPLASTY AND/TRANSPOS MEDIAN NRV CARPAL TUNNE Left 11/10/2019 Left carpal tunnel release and left ring trigger finger release NEXPLANON INSERTION 01/2015 AT removed PAST SURGICAL HISTORY OF TOOTH EXTRACTION PAST SURGICAL HISTORY OF MRSA- excision right middle finger PAST SURGICAL HISTORY OF 07/2016 MRSA excision, face, neck and BL breast SALPINGECTOMY COMPLETE/PARTIAL UNI/BI SPX Bilateral 08/01/2019 bilateral salpingectomy for sterilization TONSILLECTOMY PRIMARY/SECONDARY Tonsillectomy ALLERGIES Benadryl [Diphenhydramine Hcl] and Seasonal Allergies MEDICATIONS traZODone (DESYREL) 100 mg tablet Take 0.5 tablets by mouth daily at bedtime. ondansetron orally disintegrating (ZOFRAN ODT) 4 mg disintegrating tablet Take 1 tablet by mouth every 6 hours as needed for nausea/vomiting. ibuprofen (MOTRIN) 800 mg tablet Take 1 tablet by mouth every 8 hours as needed for pain. Take with food. prazosin (MINIPRESS) 1 mg cap Take 1 mg by mouth twice daily. hydrOXYzine pamoate (VISTARIL) 25 mg capsule Take by mouth. sertraline (ZOLOFT) 50 mg tablet Take 50 mg by mouth once daily. gabapentin (NEURONTIN) 800 mg tablet Take 1 tablet by mouth once daily for 30 days. (Patient not taking: Reported on 03/02/2023) senna-docusate (SENNA-S) 8.6-50 mg per tablet Take 1 tablet by mouth once daily. (Patient not taking: Reported on 03/02/2023) hemorrhoid ointment (HEMORRHOID) rectal ointment by RECTAL route twice daily as needed. (Patient not taking: Reported on 03/02/2023) buprenorphine-naloxone (SUBOXONE) 8-2 mg film DISSOLVE 1 (ONE) FILM UNDER THE TONGUE TWICE DAILY FOR 7 DAYS (Patient not taking: Reported on 03/02/2023) FAMILY HISTORY Problem Relation Age of Onset Arthritis Mother Diabetes Mother Hypertension Mother Lipids Mother Heart Maternal Grandfather 2 MIs Diabetes Maternal Grandfather Arthritis Maternal Grandmother Diabetes Maternal Grandmother Alcohol/Drug Father ETOH Psychiatry Father other (brain tumor) Father Diabetes Paternal Grandmother Lipids Paternal Grandmother No Known Problems Sister No Known Problems Sister Heart Brother Heart Maternal Aunt Hypertension Maternal Aunt Lipids Maternal Aunt MAUNT X 2 No Known Problems Daughter No Known Problems Daughter Social History Tobacco Use Smoking status: Never Smokeless tobacco: Never Tobacco comments: mom smokes inside and outside Vaping Use Vaping Use: Never used Substance Use Topics Alcohol use: No Drug use: Yes Types: Crystal Meth Comment: No drug use since 2016 ASSESSMENT/PLAN: 1. Vaginal discharge - ICD9: 623.5, ICD10: N89.8 (primary diagnosis) - BACTERIAL VAGINOSIS AMPLIFICATION - ARON / TRICHOMONAS AMPLIFICATION - GC/CHLAMYDIA DNA DET - UA DIP, URINE (POC) Self swab - CEFTRIAXONE 500 MG SOLUTION FOR INJECTION - URINE CULTURE 2. STD exposure - ICD9: V01.6, ICD10: Z20.2 - BACTERIAL VAGINOSIS AMPLIFICATION - ARON / TRICHOMONAS AMPLIFICATION - GC/CHLAMYDIA DNA DET - CEFTRIAXONE 500 MG SOLUTION FOR INJECTION - only treatment given today. - URINE CULTURE Please treat if anything else comes back positive thank you Potential red flag symptoms discussed with the patient. Reviewed appropriate action plan to take if red flag symptoms occur. Patient agreeable to treatment plan. Leigh Green APRN.[facility] [id number] History of Present illness Narrative* Nesha Dacosta - 12/21/2022 1:11 PM EST CHW faxed referral to [facility] for Hepatology, CHW will follow up if necessary. [facility] Work Phone: [phone]) 641-667801-27-2023 History of Present illness Narrative* Rossy Sandoval, LENCHO - 11/27/2022 5:03 PM EST Lab Result HPI Ms. Stephanie Green presents via telemedicine for 1 week follow up to discuss lab results. CBC, TSH, A1C, HIV and Syphilis were unremarkable. Abnormal TSH, A1C, Vitamin D, Acute Hepatitis, Lipid panel. Hepatitc C is positive. Lab Results Component Value Date HCVDNA 145,000 11/23/2022 Patient will be referred for treatment. Review of Systems Constitutional: Negative for chills, diaphoresis and fever. HENT: Negative for congestion, ear discharge, ear pain and sore throat. Eyes: Negative for pain, discharge and redness. Respiratory: Negative for cough and wheezing. Cardiovascular: Negative for palpitations and leg swelling. Gastrointestinal: Negative for blood in stool, constipation and diarrhea. Endocrine: Negative for polydipsia. Genitourinary: Negative for dysuria, frequency and urgency. Musculoskeletal: Negative for back pain and myalgias. Skin: Negative for rash. Allergic/Immunologic: Negative for environmental allergies. Neurological: Negative. Negative for seizures, weakness and headaches. Psychiatric/Behavioral: Negative for sleep disturbance. The patient is not nervous/anxious. Past Medical History: Diagnosis Date Bipolar disorder (HCC-CMS) Borderline personality disorder (HCC-CMS) Major depressive disorder, single episode Night terrors PTSD (post-traumatic stress disorder) No past surgical history on file. Social History Tobacco Use Smoking status: Every Day Packs/day: 0.25 Years: 1.50 Pack years: 0.38 Types: Cigarettes Smokeless tobacco: Never Tobacco comments: 4-5 per day. Interested in quitting Vaping Use Vaping Use: Every day Substances: Nicotine Devices: Disposable Substance and Sexual Activity Alcohol use: Not Currently Drug use: Yes Types: heroin, methamphetamine, marijuana, ecstasy, other, opioids Sexual activity: Not Currently Social History Narrative Lives in the sober house. Social Determinants of Health Financial Resource Strain: Not on File Financial Resource Strain: 0 Food Insecurity: Not on File Food: 0 Transportation Needs: Not on File Transportation: 0 Physical Activity: Not on File Physical Activity: 0 Stress: Not on File Stress: 0 Social Connections: Not on File Social Connections and Isolation: 0 Housing Stability: Not on File Housin Family History Problem Relation Name Age of Onset Hypertension Mother Diabetes Mother Other (Other) Brother 1. Hx of hepatitis C - REFERRAL TO HEPATITIS C CONSULT The consent for telephonic health services was reviewed with the client. The client provided verbalconsent to participate in telephonic services via Method of Communication, Choose One: Telephonic [Telephonic Visit only] due to the CDC recommendations regarding safe distancing for communicable diseases. Total time of visit: 5 minutes Rossy Sandoval PA-C documented in this [facility] Work Phone: [phone]) 231-258401-13-2023 History of Present illness Narrative* Encounter Date Complaint History Of Prese nt Illness Fatigue body aches Onset: 10 days a go. The pain is aching. Context: there is no injury. Associated symptoms include joint tenderness. Pertinent negatives include numbness, spasms, swelling and tingling in the legs. Headache Onset: 3 Months. Locations affected include occipital. Headache timing includes no pattern. Symptoms are associated with stress. Denies aggravating factors. Denies relieving factors. Associated symptoms include blurred vision and vomiting. Pertinent negatives include fever. Additional information: pt reports headache starts in occiput and travels forward , then has vomiting and passes out. [facility]01-05-2023 Evaluation note* Type Assessment Date assessment Headache with orthostatic compon ent, not elsewhere classified assessment Anxiety disorder, unspecified assessment Major depressive disorder, singl e episode, unspecified assessment Bipolar disorder, unspecified assessment Chronic hepatitis C assessment Post-traumatic stress disorder, unspecified assessment Urinary frequency assessment High risk heterosexual behavior [facility]01-05-2023 History of Present illness Narrative* Encounter Date Complaint History Of Dwayne nt Illness Headache Onset: 3 Months. Locations affected include occipital. Headache timing includes no pattern. Symptoms are associated with stress. Denies aggravating factors. Denies relieving factors. Associated symptoms include blurred vision and vomiting. Pertinent negatives include fever. Additional information: pt reports headache starts in occiput and travels forward , then has vomiting and passes out. [facility]12-30-2022 Miscellaneous Notes* Telephone Encounter - Angelica Grayson LPN - 10/30/2022 2:37 PM EST Patient calling to check status of refill request. * Telephone Encounter - Nohemi Bañuelos - 10/30/2022 2:18 PM EST Patient has been identified by name and date of : Yes, Provider THOMAS Patient phones for refill(s): Requested Prescriptions Pending Prescriptions Disp Refills gabapentin (NEURONTIN) 800 mg tablet 30 tablet 0 Sig: Take 1 tablet by mouth once daily for 30 days. traZODone (DESYREL) 100 mg tablet 30 tablet 0 Sig: Take 0.5 tablets by mouth daily at bedtime. baclofen (LIORESAL) 10 mg tablet Sig: Take 1 tablet by mouth three times daily as needed (muscle spasms). Date of last office visit in primary care: 10/07/22 Labs-04/22/22 NOV-11/04/22 Last 2 Encounter Wt Readings: Date: Wt: 04/22/2022 98.9 kg (218 lb) 01/19/2022 91.7 kg (202 lb 3.2 oz) Previous labs/tests for medication: Not applicable Please advise. Thank you. Nohemi Bañuelos [facility] Discharge instructions* Discharge Instructions* Ana Sheppard PA-C - 10/12/2022 8:05 PM EST Headache Instructions: Return to the ED if your headache worsens, you develop weakness or numbness on one side of the body or the other, you develop blurred vision or difficulty with speech Procedures done during this visit: None * Attachments The following attachments cannot be sent through Care Everywhere. * Headache Discharge Instructions, Adult (Serbian) documented in this [id number] NoteHNO ID: [id number] Author: Elizabeth Jones APRN.PORSCHE Service: ? Author Type: Nurse Practitioner Type: Progress Notes Filed: 10/07/2022 10:31 AM Note Text: Patient did not connect for video visit. Elizabeth Jones APRN.[facility]NP[facility]12-07-[facility]22 History of Present illness Narrative* Elizabeth Jones APRN.CNP - 10/07/2022 10:29 AM EST Patient did not connect for video visit. Elizabeth Jones APRN.CNP [facility] NoteHNO ID: [id number] Author: Elizabeth oJnes APRN.CNP Service: ? Author Type: Nurse Practitioner Type: Progress Notes Filed: 10/01/2022 4:24 PM Note Text: VIRTUAL VISIT PROGRESS NOTE This is a virtual visit using [employer] video visit. It required patient-provider interaction for the medical decision making as documented below. Stephanie Green is a 27 year old female seen for medication review. Today: Is doing very well. This past Wednesday has been 2 months sober. Tooth is hurting and making her right ear hurt. Has an appointment with her dentist in a couple weeks. Has a known exposed nerve on a tooth on the lower back right. Hemorrhoid-having a flareup of chronic hemorrhoids. Needs cream for these. Hurts to have a bowel movement. Is seeing [facility] tomorrow for urinary concerns. Scheduling with eye doctor. HISTORY REVIEWED (electronic chart updated): PAST MEDICAL HISTORY Diagnosis Date Anemia in 08/10/2013 Asthma Chlamydia 2014 Chronic hepatitis C virus infection (HCC) 02/24/2017 Kidney stone 11/2016 Recurrent major depression in partial remission (HCC) 08/09/2015 Unspecified asthma(493.90) PAST SURGICAL HISTORY Procedure Laterality Date ERCP DESTRUCTION/LITHOTRIPSY CALCULI ANY METHOD 11/2016 MRI BRAIN W/WO 07/06/2015 normal NEUROPLASTY AND/TRANSPOS MEDIAN NRV CARPAL TUNNE Left 11/10/2019 Left carpal tunnel release and left ring trigger finger release NEXPLANON INSERTION 01/2015 AT removed PAST SURGICAL HISTORY OF TOOTH EXTRACTION PAST SURGICAL HISTORY OF MRSA- excision right middle finger PAST SURGICAL HISTORY OF 07/2016 MRSA excision, face, neck and BL breast SALPINGECTOMY COMPLETE/PARTIAL UNI/BI SPX Bilateral 08/01/2019 bilateral salpingectomy for sterilization TONSILLECTOMY PRIMARY/SECONDARY Tonsillectomy FAMILY HISTORY Problem Relation Age of Onset Arthritis Mother Diabetes Mother Hypertension Mother Lipids Mother Heart Maternal Grandfather 2 MIs Diabetes Maternal Grandfather Arthritis Maternal Grandmother Diabetes Maternal Grandmother Alcohol/Drug Father ETOH Psychiatry Father other (brain tumor) Father Diabetes Paternal Grandmother Lipids Paternal Grandmother No Known Problems Sister No Known Problems Sister Heart Brother Heart Maternal Aunt Hypertension Maternal Aunt Lipids Maternal Aunt MAUNT X 2 No Known Problems Daughter No Known Problems Daughter Social History Tobacco Use Smoking status: Never Smokeless tobacco: Never Tobacco comments: mom smokes inside and outside Vaping Use Vaping Use: Never used Substance Use Topics Alcohol use: No Drug use: Yes Types: Crystal Meth Comment: No drug use since 2016 Current Outpatient Medications Medication Sig gabapentin (NEURONTIN) 300 mg capsule Take once capsule by mouth in the morning. Take 2 capsules by mouth at bedtime. prazosin (MINIPRESS) 1 mg cap Take 1 mg by mouth twice daily. hydrOXYzine pamoate (VISTARIL) 25 mg capsule Take by mouth. glecaprevir-pibrentasvir (MAVYRET) 100-40 mg tablet Take 3 tablets by mouth once daily with food (Patient not taking: Reported on 01/19/2022) phenazopyridine (PYRIDIUM) 200 mg tablet Take 1 tablet by mouth three times daily as needed. (Patient not taking: Reported on 01/19/2022 ) buprenorphine-naloxone (SUBOXONE) 8-2 mg film DISSOLVE 1 (ONE) FILM UNDER THE TONGUE TWICE DAILY FOR 7 DAYS hydrOXYzine pamoate (VISTARIL) 50 mg capsule Take 1 capsule by mouth three times daily as needed. (Patient not taking: Reported on 09/08/2021 ) traZODone (DESYREL) 100 mg tablet Take 1 tablet by mouth daily at bedtime. sertraline (ZOLOFT) 50 mg tablet Take 50 mg by mouth once daily. No current facility-administered medications for this visit. ALLERGIES Allergen Reactions Benadryl [Diphenhyd* Hives Seasonal Allergies Other: See Comments Sneezing and watery eyes REVIEW OF SYSTEMS: All other ROS: negative As noted in HPI PHYSICAL EXAMINATION: VIDEO EXAM: (if completed, performed via video enabled technology) No exam performed ASSESSMENT: (K04.7) Tooth infection (primary encounter diagnosis) (K64.4) External hemorrhoid (R11.0) Nausea PLAN: Tx with amoxicillin for dental infection. Hemorrhoid cream and stool softener. Zofran for nausea. Follow up prn. Elizabeth Jones APRN.CNPUniversity [facility]als [facility]12-01-2022 History of Present illness Narrative* Elizabeth Jones APRN.CNP - 10/01/2022 4:01 PM EST VIRTUAL VISIT PROGRESS NOTE This is a virtual visit using [employer] video visit. It required patient-provider interaction for themedical decision making as documented below. Stephanie Green is a 27 year old female seen for medication review. Today: Is doing very well. This past Wednesday has been 2 months sober. Tooth is hurting and making her right ear hurt. Has an appointment with her dentist in a couple weeks. Has a known exposed nerve on a tooth on the lower back right. Hemorrhoid-having a flareup of chronic hemorrhoids. Needs cream for these. Hurts to have a bowel movement. Is seeing [facility] tomorrow for urinary concerns. Scheduling with eye doctor. HISTORY REVIEWED (electronic chart updated): PAST MEDICAL HISTORY Diagnosis Date Anemia in 08/10/2013 Asthma Chlamydia 2013 Chronic hepatitis C virus infection (HCC) 02/24/2017 Kidney stone 11/2016 Recurrent major depression in partial remission (HCC) 08/09/2015 Unspecified asthma(493.90) PAST SURGICAL HISTORY Procedure Laterality Date ERCP DESTRUCTION/LITHOTRIPSY CALCULI ANY METHOD 11/2016 MRI BRAIN W/WO 07/06/2015 normal NEUROPLASTY &/TRANSPOS MEDIAN NRV CARPAL TUNNE Left 11/10/2019 Left carpal tunnel release and left ring trigger finger release NEXPLANON INSERTION 01/2015 AT removed PAST SURGICAL HISTORY OF TOOTH EXTRACTION PAST SURGICAL HISTORY OF MRSA- excision right middle finger PAST SURGICAL HISTORY OF 07/2016 MRSA excision, face, neck and BL breast SALPINGECTOMY COMPLETE/PARTIAL UNI/BI SPX Bilateral 08/01/2019 bilateral salpingectomy for sterilization TONSILLECTOMY PRIMARY/SECONDARY <AGE 12 Tonsillectomy FAMILY HISTORY Problem Relation Age of Onset Arthritis Mother Diabetes Mother Hypertension Mother Lipids Mother Heart Maternal Grandfather 2 MIs Diabetes Maternal Grandfather Arthritis Maternal Grandmother Diabetes Maternal Grandmother Alcohol/Drug Father ETOH Psychiatry Father other (brain tumor) Father Diabetes Paternal Grandmother Lipids Paternal Grandmother No Known Problems Sister No Known Problems Sister Heart Brother Heart Maternal Aunt Hypertension Maternal Aunt Lipids Maternal Aunt MAUNT X 2 No Known Problems Daughter No Known Problems Daughter Social History Tobacco Use Smoking status: Never Smokeless tobacco: Never Tobacco comments: mom smokes inside and outside Vaping Use Vaping Use: Never used Substance Use Topics Alcohol use: No Drug use: Yes Types: Crystal Meth Comment: No drug use since 2016 Current Outpatient Medications Medication Sig gabapentin (NEURONTIN) 300 mg capsule Take once capsule by mouth in the morning. Take 2 capsules bymouth at bedtime. prazosin (MINIPRESS) 1 mg cap Take 1 mg by mouth twice daily. hydrOXYzine pamoate (VISTARIL) 25 mg capsule Take by mouth. glecaprevir-pibrentasvir (MAVYRET) 100-40 mg tablet Take 3 tablets by mouth once daily with food (Patient not taking: Reported on 01/19/2022) phenazopyridine (PYRIDIUM) 200 mg tablet Take 1 tablet by mouth three times daily as needed. (Patient not taking: Reported on 01/19/2022 ) buprenorphine-naloxone (SUBOXONE) 8-2 mg film DISSOLVE 1 (ONE) FILM UNDER THE TONGUE TWICE DAILY FOR 7 DAYS hydrOXYzine pamoate (VISTARIL) 50 mg capsule Take 1 capsule by mouth three times daily as needed. (Patient not taking: Reported on 09/08/2021 ) traZODone (DESYREL) 100 mg tablet Take 1 tablet by mouth daily at bedtime. sertraline (ZOLOFT) 50 mg tablet Take 50 mg by mouth once daily. No current facility-administered medications for this visit. ALLERGIES Allergen Reactions Benadryl [Diphenhyd* Hives Seasonal Allergies Other: See Comments Sneezing and watery eyes REVIEW OF SYSTEMS: All other ROS: negative As noted in HPI PHYSICAL EXAMINATION: VIDEO EXAM: (if completed, performed via video enabled technology) No exam performed ASSESSMENT: (K04.7) Tooth infection (primary encounter diagnosis) (K64.4) External hemorrhoid (R11.0) Nausea PLAN: Tx with amoxicillin for dental infection. Hemorrhoid cream and stool softener. Zofran for nausea. Follow up prn. Elizabeth Jones APRN.VESSEL SPECIALIST documented in this encounterPremier [facility]12-01-2022 Miscellaneous Notes* Telephone Encounter - Kaylene Hooper LPN - 10/01/2022 9:57 AM EST PETE-04/22/22 NOV--10/21/22 LAST REFILL--05/22/22 90 WITH 1 REFILL LAST LABS--04/22/22 * Telephone Encounter - Dotty Curry Pss - 10/01/2022 8:46 AM EST Patient has been identified by name and date of : Yes Last office visit in this department: Visit date not found RX INSTRUCTIONS: Patient aware RX will be sent to pharmacy. No need to notify patient. Patient phones requesting refills as follows: Patient currently at rehab [facility] in [place] and is requesting this script states last rehab [facility] was giving her 800 mg three times a day. Sheis also having hard time getting her Vistaril 50 mg as she was discharged from [facility] on 09/08 andwas only giving 5 pills insurance is refusing to refill this as [facility] filled but did not give patient medication. Requested Prescriptions Pending Prescriptions Disp Refills gabapentin (NEURONTIN) 300 mg capsule 90 capsule 1 Sig: Take once capsule by mouth in the morning. Take 2 capsules by mouth at bedtime. Please review and advise. Dotty Ingram documented in this encounterPremier Health [facility]07-22-2022 Miscellaneous Notes* Telephone Encounter - Elizabeth Jones APRN.CNP - 05/22/2022 10:20 AM EDT The following approved medication requests have been transmitted electronically. Signed Prescriptions Disp Refills gabapentin (NEURONTIN) 300 mg capsule 90 capsule 1 Sig: Take once capsule by mouth in the morning. Take 2 capsules by mouth at bedtime. PHU: No Authorizing Provider: ELIZABETH JONES APRN.CNP PDMP website checked and validated. All prescriptions have been APPROPRIATELY filled. No suspiciousactivity was identified. 05/22/2022 by Elizabeth Jones CNP. * Telephone Encounter - Wanda Pena RN - 05/22/2022 10:12 AM EDT Patient called and states that she would like to keep the night time dose the same and add a morning dose. Please review and advise, Wanda Pena RN * Telephone Encounter - Thuy Mccullough Ma - 05/20/2022 6:36 PM EDT TC pt and VM not set up. WILL NEED TO TRY AGAIN LATER. Thuy Mccullough Ma * Telephone Encounter - Elizabeth Jones APRN.CNP - 05/20/2022 6:29 PM EDT When she is asking for the increase, does this mean 1. That the increase would be adding another dose in the morning and keeping the nighttime dose the same? Or 2. Increasing the pm dose AND adding amorning dose? Elizabeth Jones APRN.PORSCHE * Telephone Encounter - Emma Servin RN - 05/19/2022 12:59 PM EDT Patient reports she is taking gabapentin 300 mg 2 caps daily at bedtime. Having trouble with pain in her legs lately with RLS. Asking if pcp can increase dose of gabapentin? Thinks she needs to take it during the day as well as at night. Please phone patient with reply: [phone]. ANDRÉS Esquivel. documented in this encounterPremier Health [facility] Center07-18-2022 Miscellaneous Notes* Telephone Encounter - Thuy Mccullough Ma - 05/18/2022 12:11 PM EDT Faxed 05/18/22 MAYDA Mccullough Ma * Telephone Encounter - Sharon Zavala LPN - 05/18/2022 11:25 AM EDT Pt is requesting the letter from 04/22 be re-faxed to [facility], Attn: Anastacia Beltran # [phone] Sharon Zavala LPN documented in this encounterPremier Health [facility] Center06-22-2022 NoteHNO ID: [id number] Author: Elizabeth Jones APRN.PORSCHE Service: ? Author Type: Nurse Practitioner Type: Progress Notes Filed: 04/23/2022 11:03 AM Note Text: Chief Complaint Patient presents with: Medication Follow-up HPI Stephanie Green is a 26 year old female who presents here today for Above Complaints. Today: Feels like things aren't quite with her body. She can't pinpoint exactly what. Kidneys hurt. Just everything is off. Is 4 months sober, but significant hx of recreational drug use, promiscuity. Had a migraine for about 2 weeks straight. Was in and out of the hospital for 2 weeks. Was vomiting, felt paralyzed. Cannot have a CT of her head has not been completed r/t ankle monitoring-should be getting this off next Wednesday. Vision has been very blurred with the migraines. Migraine came from the back of her head and moved up to the front-was not on the sides. 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 This has been going well so far. Past medical history, appointments, medications, allergies reviewed. Previous Medical History PAST MEDICAL HISTORY Diagnosis Date - Anemia in 08/10/2013 - Asthma - Chlamydia 2013 - Chronic hepatitis C virus infection (HCC) 02/24/2017 - Kidney stone 11/2016 - Recurrent major depression in partial remission (HCC) 08/09/2015 - Unspecified asthma(493.90) Previous Surgical History PAST SURGICAL HISTORY Procedure Laterality Date - ERCP DESTRUCTION/LITHOTRIPSY CALCULI ANY METHOD 11/2016 - MRI BRAIN W/WO 07/06/2015 normal - NEUROPLASTY AND/TRANSPOS MEDIAN NRV CARPAL TUNNE Left 11/10/2019 Left carpal tunnel release and left ring trigger finger release - NEXPLANON INSERTION 01/2015 AT removed - PAST SURGICAL HISTORY OF TOOTH EXTRACTION - PAST SURGICAL HISTORY OF MRSA- excision right middle finger - PAST SURGICAL HISTORY OF 07/2016 MRSA excision, face, neck and BL breast - SALPINGECTOMY COMPLETE/PARTIAL UNI/BI SPX Bilateral 08/01/2019 bilateral salpingectomy for sterilization - TONSILLECTOMY PRIMARY/SECONDARY Tonsillectomy Family History FAMILY HISTORY Problem Relation Age of Onset - Arthritis Mother - Diabetes Mother - Hypertension Mother - Lipids Mother - Heart Maternal Grandfather 2 MIs - Diabetes Maternal Grandfather - Arthritis Maternal Grandmother - Diabetes Maternal Grandmother - Alcohol/Drug Father ETOH - Psychiatry Father - other (brain tumor) Father - Diabetes Paternal Grandmother - Lipids Paternal Grandmother - No Known Problems Sister - No Known Problems Sister - Heart Brother - Heart Maternal Aunt - Hypertension Maternal Aunt - Lipids Maternal Aunt MAUNT X 2 - No Known Problems Daughter - No Known Problems Daughter Patient Allergies ALLERGIES Allergen Reactions - Benadryl [Diphenhyd* Hives - Seasonal Allergies Other: See Comments Sneezing and watery eyes Current Medications Current Outpatient Medications on File Prior to Visit Medication Sig - prazosin (MINIPRESS) 1 mg cap Take 1 mg by mouth twice daily. - hydrOXYzine pamoate (VISTARIL) 25 mg capsule Take by mouth. - buprenorphine-naloxone (SUBOXONE) 8-2 mg film DISSOLVE 1 (ONE) FILM UNDER THE TONGUE TWICE DAILY FOR 7 DAYS - traZODone (DESYREL) 100 mg tablet Take 1 tablet by mouth daily at bedtime. - sertraline (ZOLOFT) 50 mg tablet Take 50 mg by mouth once daily. - glecaprevir-pibrentasvir (MAVYRET) 100-40 mg tablet Take 3 tablets by mouth once daily with food (Patient not taking: Reported on 01/19/2022) - phenazopyridine (PYRIDIUM) 200 mg tablet Take 1 tablet by mouth three times daily as needed. (Patient not taking: Reported on 01/19/2022 ) - gabapentin (NEURONTIN) 300 mg capsule Take 1 capsule by mouth daily at bedtime for 7 days, THEN 2 capsules daily at bedtime for 30 days. (Patient not taking: Reported on 09/08/2021) - hydrOXYzine pamoate (VISTARIL) 50 mg capsule Take 1 capsule by mouth three times daily as needed. (Patient not taking: Reported on 09/08/2021 ) No current facility-administered medications on file prior to visit. Social History Social History Tobacco Use - Smoking status: Never Smoker - Smokeless tobacco: Never Used - Tobacco comment: mom smokes inside and outside Vaping Use - Vaping Use: Never used Substance Use Topics - Alcohol use: No - Drug use: Yes Types: Crystal Meth Comment: No drug use since 2016 Review of Symptoms REVIEW OF SYSTEMS See HPI, otherwise negative EXAM: BP 120/80 (BP Site: Left Arm, BP Position: Sitting, BP Cuff Size: Regular Adult) Pulse 74 Resp 16 Wt 98.9 kg (218 lb) LMP 11/04/2020 (Within Days) SpO2 99% BMI 44.03 kg/m? General Appearance: Well appearing, alert, in no acute distress, well-hydrated, well nourished.. Lungs: Lungs clear to auscultation. No wheezing, rhonchi, rales.. Heart: RRR without murmur, gallop, or rubs. No ectopy. Psychiatric: pleasant, cooperative, no SI/HI. Health Maintenance L (more content not included)...[facility] 04-01-2022 Miscellaneous Notes* Telephone Encounter - Elizabeth Jones APRN.CNP - 04/01/2022 7:34 AM EDT Noted, thank you. Elizabeth Jones APRN.CNP * Telephone Encounter - Marely Max RN - 03/31/2022 11:14 AM EDT Pt called in and reports she has been in and [facility] the [facility] and [facility] with migraines. She states they are so bad they are to the point she will pass out. She reports she has tried everything over the counter, has tried caffeine, without caffeine. She says the ER and [facility] just give herToradol which helps for a while, but them the migraine comes right back. Tried to make an earlier appointment for Pt, but she was too busy and could only come evening. Pt scheduled 04/02/22 at200 pm. documented in this encounterPremier Health [facility]03-26-2022 Miscellaneous Notes* Telephone Encounter - Gretel Posey APRN.CNP - 01/24/2022 9:34 AM EDT I attempted to reach patient at the numbers provided. Her phone number is no longer working. I lefta message on her mother's phone asking her to relay a message to Stephanie to return the call to [facility]. If she returns call, patient should speak to a provider regarding her +BV (already treated) and lab tests. Gretel Posey APRN.CNP documented in this encounterPremier Health [facility]03-22-2022 Miscellaneous Notes* Telephone Encounter - Gretel Posey APRN.CNP - 01/20/2022 7:50 PM EDT I attempted to reach patient to advise of positive BV, trichomonas test result. No answer, unable to leave message. If patient returns call, may be advised she tested positive for Trichomonas and BV, she was treatedwith doxycycline and flagyl which is appropriate treatment. Please take medications as directed. Avoid intercourse until you have completed treatment and are asymptomatic. Sexual partners should be treated for trichomonas. Gretel Posey APRN.CNP ([employer] message sent). documented in this encounterPremier Health [facility]07-16-2019 History of Past illness Narrative* Problem Noted Date Resolved Date Encounter for sterilization 05/16/201901/2019 Overview: May 16, 2019 title 19 signed. Risks, benefits and alternatives to sterilization have been discussed with the patient. She declines reversible options including LARC. She understands sterilization is permanent, irreversible, risks of failure, regret and ectopic. In addition she understands there are surgical risks as well. Her questions were answered to her satisfaction and consent was signed Nicole Croft MD Medication exposure during first trimester of pr egnancy 12/22/2018 05/16/2019 Overview: 12/22/2018Patient is scheduled for carpal tunnel syndrome 01/04/[address] Lam. She is on Gabepintin to treat pain . Advised Category C medication and that she needs to call him to see if he wants her to continue medication and his plan of care at this time since she is . TKRN History of kidney stones 12/22/2018 019 Overview: 12/22/2018Patient has a history of kidney stones in 2017. Had surgery to remove stones. TKRN History of asthma 12/22/2018 08/04/2019 Overview: 12/22/2018History of asthma. Patient is currently in need of new RX for inhaler. Called Dr Ramirez's office and spoke to imaging scheduler . They will call her back with appointment time. TKRN History of hepatitis C 12/22/2018 9 Overview: December 28, 2018 Viral load approx 253,403, normal LFTs. Nicole Croft MD 12/22/2018Patient is known HepC +, last viral load drawn 2016. Patient has not been seen by her primary care for follow-up recently. Call to Dr Ramirez's office to set up appointment to discuss this and also to treat asthma. TKRN Obesity in 12/22/2018 08/04/2019 Overview: 12/22/2018Patient is obese. Will plan on GCT@ NOB.TKRN Nausea/vomiting in 12/22/201801/2019 Overview: 12/22/2018 Patient is complaining of nausea and occasional vomiting in . Recommended Vitamin B6. Dietary considerations discussed. Advised patient to call/come in if she is unable to keep any food or fluids down in a 24-hour period. TKRN Family history of congenital heart defect 201808/04/2019 Overview: 12/22/2018Patient's brother born with a heart valve abnormality and had corrective surgery at age 15. FOB's uncle born with hole in heart and at 2 months of age.TKRN Family history of genetic disease 12/22/2018 08/04/2019 Overview: 12/22/2018 FOB's uncle with C.F. He states he has never had genetic testing. Patient desires CF testing.FOB's uncle with Fleming's chorea. Denies any other family members affected. TKRN Patient request for diagnostic testing 9 01/23/2019 Overview: 12/22/2018Patient desires nuchal ultrasound. TKRN Back pain 07/01/2015 02/24/2017 Last Assessment & Plan: She has been having pain in the lower back pain for the past 6 months, No injury to the back, she had a baby 6 months ago, during she did not have the pain, 4 days later she started having pain. But it on and off , tylenol helped her. She is also constipated recently, and she thinks that it related. Not taken PT for the back, First time she went into the hospital she had kindey infection the second time she has kidney stones and Third time she had constipation, Constipation 07/01/2015 02/24/2017 Overview: She has constipation since she her first delivary. Last Assessment & Plan: She has constipation since she her first delivary. Numbness in both hands 07/01/2015 9 Last Assessment & Plan: The patient started having numbness after having her daughter, Her hands five way she she picks up things. She dropped her older kid due to this, The numbness starts all of a sudden and then stays so for the next 30 mins to an hour. Numbness also present in both legs, From the knee down her knees felt n umb and gave.she has had frequent urinary tract injections. Rubella non-immune status, antepartum 09/20/2014 12/28/2018 Short interval between pregn ancies complicating , antepartum 06/20/2014 02/24/2017 Anemia during 12/01/2013 01/24/20 14 Anemia in 08/10/2013 12/01/2013 Supervision of other high-risk (V23.89) 03/10/2013 12/01/2013 Overview: RR_ PNRA done June 14, 2013 Pt seen in ED 06/13 w/ c/o SOB for one month, acutely worse. Got spiral CT, was neg. D/donovan home. Nicole Croft MD GBS (group B streptococcus) UTI complicating pre gnancy 03/03/2013 12/01/2013 Overview: 03/03/13: Treated with Amoxicillin Teen 02/28/2013 12/01/2013 Overview: 02/28/2013Carmen is 17 years old. She is here today with her mother and the father of the baby. She is a 10th grader at [employer]. She is made aware of the [employer] program. 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 Vaginal discharge in 02/28/2013 0 06/14/2013 Overview: 02/28/2013 She states she has noted back pain and pelvic cramping for one month. She denies any bleeding, dysuria, or fever. She has noted an odorous discharge for the past 2 weeks. She denies that the discharge smells fishy . She states the discharge does not cause her any irritation and is clear in color. Discussed with Dr. Coon on-call and she will see patient following this appointment. Uncertain dates, antepartum 02/28/201303/01 Overview: 02/28/2013Patient is unsure of the date of her last menstrual period. An ultrasound was ordered by Dr. Coon for uncertain dates. Nausea and vomiting in 02/28/2013 06/14/2013 Overview: 02/28/2013Patient has noted nausea and vomiting. Discussed nausea vomiting in . Patient is advised to call/come in if she is unable to keep any food or fluids down for a 24-hour period. Patient is requesting a refill of Zofran. Dr. Coon prescribed Zofran for the patient. Family history of defects 02/28/2013 12/01/2013 Overview: 02/28/2013Patient's brother born with a heart valve abnormality and had corrective surgery at age 15. Patient requested diagnostic testing 02/28/2013 06/14/2013 Overview: 02/28/2013Patient requests early screening in with sequential testing. TKRN 04/06/2013negative Sequential screen first trimester. The first part of the Sequential Screen reports that her risk for Down syndrome decreased from her age-related risk of 1:850 to 1:10,000 and her Trisomy 18 risk decreased from her age-related risk of 1:3,000 to 1:10,000. Based on these results Dr. Cai's recommendation is for patient to follow-up with Sequential second trimester screening (04/16-04/30) and level II anatomy scan after 18wks. 04/17/2013of negative Sequential screen second trimester. The second part of the Sequential Screen reports that her risk for Down syndrome decreased from her age-related risk of 1:1,100 to 1:10,000, her Trisomy 18 risk decreased from her age-related risk of 1:4,500 to 1:10,000 and the ONTD risk is 1:6,000. Based on these results Dr. Cai's recommendation is for patient to follow-up with a level II anatomy ultrasound. documented as of this encounter (statuses as of 01/20/2022) [facility]07-[facility] History of Past illness Narrative* Problem Noted Date Resolved Date Encounter for sterilization 05/16/201901/2019 Overview: May 16, 2019 title 19 signed. Risks, benefits and alternatives to sterilization have been discussed with the patient. She declines reversible options including LARC. She understands sterilization is permanent, irreversible, risks of failure, regret and ectopic. In addition she understands there are surgical risks as well. Her questions were answered to her satisfaction and consent was signed Nicole Croft MD Medication exposure during first trimester of pr egnancy 12/22/2018 05/16/2019 Overview: 12/22/2018Patient is scheduled for carpal tunnel syndrome 01/04/[address] Lam. She is on Gabepintin to treat pain . Advised Category C medication and that she needs to call him to see if he wants her to continue medication and his plan of care at this time since she is . TKRN History of kidney stones 12/22/2018 019 Overview: 12/22/2018Patient has a history of kidney stones in 2017. Had surgery to remove stones. TKRN History of asthma 12/22/2018 08/04/2019 Overview: 12/22/2018History of asthma. Patient is currently in need of new RX for inhaler. Called Dr Ramirez's office and spoke to imaging scheduler . They will call her back with appointment time. TKRN History of hepatitis C 12/22/2018 9 Overview: December 28, 2018 Viral load approx 253,403, normal LFTs. Nicole Croft MD 12/22/2018Patient is known HepC +, last viral load drawn 2016. Patient has not been seen by her primary care for follow-up recently. Call to Dr Ramirez's office to set up appointment to discuss this and also to treat asthma. TKRN Obesity in 12/22/2018 08/04/2019 Overview: 12/22/2018Patient is obese. Will plan on GCT@ NOB.TKRN Nausea/vomiting in 12/22/201801/2019 Overview: 12/22/2018 Patient is complaining of nausea and occasional vomiting in . Recommended Vitamin B6. Dietary considerations discussed. Advised patient to call/come in if she is unable to keep any food or fluids down in a 24-hour period. TKRN Family history of congenital heart defect 201808/04/2019 Overview: 12/22/2018Patient's brother born with a heart valve abnormality and had corrective surgery at age 15. FOB's uncle born with hole in heart and at 2 months of age.TKRN Family history of genetic disease 12/22/2018 08/04/2019 Overview: 12/22/2018 FOB's uncle with C.F. He states he has never had genetic testing. Patient desires CF testing.FOB's uncle with Fleming's chorea. Denies any other family members affected. TKRN Patient request for diagnostic testing 9 01/23/2019 Overview: 12/22/2018Patient desires nuchal ultrasound. TKRN Back pain 07/01/2015 02/24/2017 Last Assessment & Plan: She has been having pain in the lower back pain for the past 6 months, No injury to the back, she had a baby 6 months ago, during she did not have the pain, 4 days later she started having pain. But it on and off , tylenol helped her. She is also constipated recently, and she thinks that it related. Not taken PT for the back, First time she went into the hospital she had kindey infection the second time she has kidney stones and Third time she had constipation, Constipation 07/01/2015 02/24/2017 Overview: She has constipation since she her first delivary. Last Assessment & Plan: She has constipation since she her first delivary. Numbness in both hands 07/01/2015 9 Last Assessment & Plan: The patient started having numbness after having her daughter, Her hands five way she she picks up things. She dropped her older kid due to this, The numbness starts all of a sudden and then stays so for the next 30 mins to an hour. Numbness also present in both legs, From the knee down her knees felt n umb and gave.she has had frequent urinary tract injections. Rubella non-immune status, antepartum 09/20/2014 12/28/2018 Short interval between pregn ancies complicating , antepartum 06/20/2014 02/24/2017 Anemia during 12/01/2013 01/24/20 14 Anemia in 08/10/2013 12/01/2013 Supervision of other high-risk (V23.89) 03/10/2013 12/01/2013 Overview: RR_ PNRA done June 14, 2013 Pt seen in ED 06/13 w/ c/o SOB for one month, acutely worse. Got spiral CT, was neg. D/[facility] home. Nicole Croft MD GBS (group B streptococcus) UTI complicating pre gnancy 03/03/2013 12/01/2013 Overview: 03/03/13: Treated with Amoxicillin Teen 02/28/2013 12/01/2013 Overview: 02/28/2013Carmen is 17 years old. She is here today with her mother and the father of the baby. She is a 10th grader at [employer]. She is made aware of the [employer] program. 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 Vaginal discharge in 02/28/2013 0 06/14/2013 Overview: 02/28/2013 She states she has noted back pain and pelvic cramping for one month. She denies any bleeding, dysuria, or fever. She has noted an odorous discharge for the past 2 weeks. She denies that the discharge smells fishy . She states the discharge does not cause her any irritation and is clear in color. Discussed with Dr. Coon on-call and she will see patient following this appointment. Uncertain dates, antepartum 02/28/201303/01 Overview: 02/28/2013Patient is unsure of the date of her last menstrual period. An ultrasound was ordered by Dr. Coon for uncertain dates. Nausea and vomiting in 02/28/2013 06/14/2013 Overview: 02/28/2013Patient has noted nausea and vomiting. Discussed nausea vomiting in . Patient is advised to call/come in if she is unable to keep any food or fluids down for a 24-hour period. Patient is requesting a refill of Zofran. Dr. Coon prescribed Zofran for the patient. Family history of defects 02/28/2013 12/01/2013 Overview: 02/28/2013Patient's brother born with a heart valve abnormality and had corrective surgery at age 15. Patient requested diagnostic testing 02/28/2013 06/14/2013 Overview: 02/28/2013Patient requests early screening in with sequential testing. TKRN 04/06/2013negative Sequential screen first trimester. The first part of the Sequential Screen reports that her risk for Down syndrome decreased from her age-related risk of 1:850 to 1:10,000 and her Trisomy 18 risk decreased from her age-related risk of 1:3,000 to 1:10,000. Based on these results Dr. Cai's recommendation is for patient to follow-up with Sequential second trimester screening (04/16-04/30) and level II anatomy scan after 18wks. 04/17/2013of negative Sequential screen second trimester. The second part of the Sequential Screen reports that her risk for Down syndrome decreased from her age-related risk of 1:1,100 to 1:10,000, her Trisomy 18 risk decreased from her age-related risk of 1:4,500 to 1:10,000 and the ONTD risk is 1:6,000. Based on these results Dr. Cai's recommendation is for patient to follow-up with a level II anatomy ultrasound. documented as of this encounter (statuses as of 01/24/2022) [facility]07-16-2019 History of Past illness Narrative* Problem Noted Date Resolved Date Encounter for sterilization 05/16/201901/2019 Overview: May 16, 2019 title 19 signed. Risks, benefits and alternatives to sterilization have been discussed with the patient. She declines reversible options including LARC. She understands sterilization is permanent, irreversible, risks of failure, regret and ectopic. In addition she understands there are surgical risks as well. Her questions were answered to her satisfaction and consent was signed Nicole Croft MD Medication exposure during first trimester of pr egnancy 12/22/2018 05/16/2019 Overview: 12/22/2018Patient is scheduled for carpal tunnel syndrome 01/04/[address] Lam. She is on Gabepintin to treat pain . Advised Category C medication and that she needs to call him to see if he wants her to continue medication and his plan of care at this time since she is . TKRN History of kidney stones 12/22/2018 019 Overview: 12/22/2018Patient has a history of kidney stones in 2017. Had surgery to remove stones. TKRN History of asthma 12/22/2018 08/04/2019 Overview: 12/22/2018History of asthma. Patient is currently in need of new RX for inhaler. Called Dr Ramirez's office and spoke to imaging scheduler . They will call her back with appointment time. TKRN History of hepatitis C 12/22/2018 9 Overview: December 28, 2018 Viral load approx 253,403, normal LFTs. Nicole Croft MD 12/22/2018Patient is known HepC +, last viral load drawn 2016. Patient has not been seen by her primary care for follow-up recently. Call to Dr Ramirez's office to set up appointment to discuss this and also to treat asthma. TKRN Obesity in 12/22/2018 08/04/2019 Overview: 12/22/2018Patient is obese. Will plan on GCT@ NOB.TKRN Nausea/vomiting in 12/22/201801/2019 Overview: 12/22/2018 Patient is complaining of nausea and occasional vomiting in . Recommended Vitamin B6. Dietary considerations discussed. Advised patient to call/come in if she is unable to keep any food or fluids down in a 24-hour period. TKRN Family history of congenital heart defect 201808/04/2019 Overview: 12/22/2018Patient's brother born with a heart valve abnormality and had corrective surgery at age 15. FOB's uncle born with hole in heart and at 2 months of age.TKRN Family history of genetic disease 12/22/2018 08/04/2019 Overview: 12/22/2018 FOB's uncle with C.F. He states he has never had genetic testing. Patient desires CF testing.FOB's uncle with Michelle's chorea. Denies any other family members affected. TKRN Patient request for diagnostic testing 9 01/23/2019 Overview: 12/22/2018Patient desires nuchal ultrasound. TKRN Back pain 07/01/2015 02/24/2017 Last Assessment & Plan: She has been having pain in the lower back pain for the past 6 months, No injury to the back, she had a baby 6 months ago, during she did not have the pain, 4 days later she started having pain. But it on and off , tylenol helped her. She is also constipated recently, and she thinks that it related. Not taken PT for the back, First time she went into the hospital she had kindey infection the second time she has kidney stones and Third time she had constipation, Constipation 07/01/2015 02/24/2017 Overview: She has constipation since she her first delivary. Last Assessment & Plan: She has constipation since she her first delivary. Numbness in both hands 07/01/2015 9 Last Assessment & Plan: The patient started having numbness after having her daughter, Her hands five way she she picks up things. She dropped her older kid due to this, The numbness starts all of a sudden and then stays so for the next 30 mins to an hour. Numbness also present in both legs, From the knee down her knees felt n umb and gave.she has had frequent urinary tract injections. Rubella non-immune status, antepartum 09/20/2014 12/28/2018 Short interval between pregn ancies complicating , antepartum 06/20/2014 02/24/2017 Anemia during 12/01/2013 01/24/20 14 Anemia in 08/10/2013 12/01/2013 Supervision of other high-risk (V23.89) 03/10/2013 12/01/2013 Overview: RR_ PNRA done June 14, 2013 Pt seen in ED 06/13 w/ c/o SOB for one month, acutely worse. Got spiral CT, was neg. D/[facility] home. Nicole Croft MD GBS (group B streptococcus) UTI complicating pre gnancy 03/03/2013 12/01/2013 Overview: 03/03/13: Treated with Amoxicillin Teen 02/28/2013 12/01/2013 Overview: 02/28/2013Carmen is 17 years old. She is here today with her mother and the father of the baby. She is a 10th grader at [employer]. She is made aware of the [employer] program. 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 Vaginal discharge in 02/28/2013 0 06/14/2013 Overview: 02/28/2013 She states she has noted back pain and pelvic cramping for one month. She denies any bleeding, dysuria, or fever. She has noted an odorous discharge for the past 2 weeks. She denies that the discharge smells fishy . She states the discharge does not cause her any irritation and is clear in color. Discussed with Dr. Coon on-call and she will see patient following this appointment. Uncertain dates, antepartum 02/28/201303/01 Overview: 02/28/2013Patient is unsure of the date of her last menstrual period. An ultrasound was ordered by Dr. Coon for uncertain dates. Nausea and vomiting in 02/28/2013 06/14/2013 Overview: 02/28/2013Patient has noted nausea and vomiting. Discussed nausea vomiting in . Patient is advised to call/come in if she is unable to keep any food or fluids down for a 24-hour period. Patient is requesting a refill of Zofran. Dr. Coon prescribed Zofran for the patient. Family history of defects 02/28/2013 12/01/2013 Overview: 02/28/2013Patient's brother born with a heart valve abnormality and had corrective surgery at age 15. Patient requested diagnostic testing 02/28/2013 06/14/2013 Overview: 02/28/2013Patient requests early screening in with sequential testing. TKRN 04/06/2013negative Sequential screen first trimester. The first part of the Sequential Screen reports that her risk for Down syndrome decreased from her age-related risk of 1:850 to 1:10,000 and her Trisomy 18 risk decreased from her age-related risk of 1:3,000 to 1:10,000. Based on these results Dr. Cai's recommendation is for patient to follow-up with Sequential second trimester screening (04/16-04/30) and level II anatomy scan after 18wks. 04/17/2013of negative Sequential screen second trimester. The second part of the Sequential Screen reports that her risk for Down syndrome decreased from her age-related risk of 1:1,100 to 1:10,000, her Trisomy 18 risk decreased from her age-related risk of 1:4,500 to 1:10,000 and the ONTD risk is 1:6,000. Based on these results Dr. Cai's recommendation is for patient to follow-up with a level II anatomy ultrasound. documented as of this encounter (statuses as of 04/01/2022) [facility]07-16-2019 History of Past illness Narrative* Problem Noted Date Resolved Date Encounter for sterilization 05/16/201901/2019 Overview: May 16, 2019 title 19 signed. Risks, benefits and alternatives to sterilization have been discussed with the patient. She declines reversible options including LARC. She understands sterilization is permanent, irreversible, risks of failure, regret and ectopic. In addition she understands there are surgical risks as well. Her questions were answered to her satisfaction and consent was signed Nicole Croft MD Medication exposure during first trimester of pr egnancy 12/22/2018 05/16/2019 Overview: 12/22/2018Patient is scheduled for carpal tunnel syndrome 01/04/[address] Lam. She is on Gabepintin to treat pain . Advised Category C medication and that she needs to call him to see if he wants her to continue medication and his plan of care at this time since she is . TKRN History of kidney stones 12/22/2018 019 Overview: 12/22/2018Patient has a history of kidney stones in 2017. Had surgery to remove stones. TKRN History of asthma 12/22/2018 08/04/2019 Overview: 12/22/2018History of asthma. Patient is currently in need of new RX for inhaler. Called Dr Ramirez's office and spoke to imaging scheduler . They will call her back with appointment time. TKRN History of hepatitis C 12/22/2018 9 Overview: December 28, 2018 Viral load approx 253,403, normal LFTs. Nicole Croft MD 12/22/2018Patient is known HepC +, last viral load drawn 2016. Patient has not been seen by her primary care for follow-up recently. Call to Dr Ramirez's office to set up appointment to discuss this and also to treat asthma. TKRN Obesity in 12/22/2018 08/04/2019 Overview: 12/22/2018Patient is obese. Will plan on GCT@ NOB.TKRN Nausea/vomiting in 12/22/201801/2019 Overview: 12/22/2018 Patient is complaining of nausea and occasional vomiting in . Recommended Vitamin B6. Dietary considerations discussed. Advised patient to call/come in if she is unable to keep any food or fluids down in a 24-hour period. TKRN Family history of congenital heart defect 201808/04/2019 Overview: 12/22/2018Patient's brother born with a heart valve abnormality and had corrective surgery at age 15. FOB's uncle born with hole in heart and at 2 months of age.TKRN Family history of genetic disease 12/22/2018 08/04/2019 Overview: 12/22/2018 FOB's uncle with C.F. He states he has never had genetic testing. Patient desires CF testing.FOB's uncle with Fleming's chorea. Denies any other family members affected. TKRN Patient request for diagnostic testing 9 01/23/2019 Overview: 12/22/2018Patient desires nuchal ultrasound. TKRN Back pain 07/01/2015 02/24/2017 Last Assessment & Plan: She has been having pain in the lower back pain for the past 6 months, No injury to the back, she had a baby 6 months ago, during she did not have the pain, 4 days later she started having pain. But it on and off , tylenol helped her. She is also constipated recently, and she thinks that it related. Not taken PT for the back, First time she went into the hospital she had kindey infection the second time she has kidney stones and Third time she had constipation, Constipation 07/01/2015 02/24/2017 Overview: She has constipation since she her first delivary. Last Assessment & Plan: She has constipation since she her first delivary. Numbness in both hands 07/01/2015 9 Last Assessment & Plan: The patient started having numbness after having her daughter, Her hands five way she she picks up things. She dropped her older kid due to this, The numbness starts all of a sudden and then stays so for the next 30 mins to an hour. Numbness also present in both legs, From the knee down her knees felt n umb and gave.she has had frequent urinary tract injections. Rubella non-immune status, antepartum 09/20/2014 12/28/2018 Short interval between pregn ancies complicating , antepartum 06/20/2014 02/24/2017 Anemia during 12/01/2013 01/24/20 14 Anemia in 08/10/2013 12/01/2013 Supervision of other high-risk (V23.89) 03/10/2013 12/01/2013 Overview: RR_ PNRA done June 14, 2013 Pt seen in ED 06/13 w/ c/o SOB for one month, acutely worse. Got spiral CT, was neg. D/[facility] home. Nicole Croft MD GBS (group B streptococcus) UTI complicating pre gnancy 03/03/2013 12/01/2013 Overview: 03/03/13: Treated with Amoxicillin Teen 02/28/2013 12/01/2013 Overview: 02/28/2013Carmen is 17 years old. She is here today with her mother and the father of the baby. She is a 10th grader at [employer]. She is made aware of the [employer] program. 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 Vaginal discharge in 02/28/2013 0 06/14/2013 Overview: 02/28/2013 She states she has noted back pain and pelvic cramping for one month. She denies any bleeding, dysuria, or fever. She has noted an odorous discharge for the past 2 weeks. She denies that the discharge smells fishy . She states the discharge does not cause her any irritation and is clear in color. Discussed with Dr. Coon on-call and she will see patient following this appointment. Uncertain dates, antepartum 02/28/201303/01 Overview: 02/28/2013Patient is unsure of the date of her last menstrual period. An ultrasound was ordered by Dr. Coon for uncertain dates. Nausea and vomiting in 02/28/2013 06/14/2013 Overview: 02/28/2013Patient has noted nausea and vomiting. Discussed nausea vomiting in . Patient is advised to call/come in if she is unable to keep any food or fluids down for a 24-hour period. Patient is requesting a refill of Zofran. Dr. Coon prescribed Zofran for the patient. Family history of defects 02/28/2013 12/01/2013 Overview: 02/28/2013Patient's brother born with a heart valve abnormality and had corrective surgery at age 15. Patient requested diagnostic testing 02/28/2013 06/14/2013 Overview: 02/28/2013Patient requests early screening in with sequential testing. DUANE 04/06/2013negative Sequential screen first trimester. The first part of the Sequential Screen reports that her risk for Down syndrome decreased from her age-related risk of 1:850 to 1:10,000 and her Trisomy 18 risk decreased from her age-related risk of 1:3,000 to 1:10,000. Based on these results Dr. Cai's recommendation is for patient to follow-up with Sequential second trimester screening (04/16-04/30) and level II anatomy scan after 18wks. 04/17/2013of negative Sequential screen second trimester. The second part of the Sequential Screen reports that her risk for Down syndrome decreased from her age-related risk of 1:1,100 to 1:10,000, her Trisomy 18 risk decreased from her age-related risk of 1:4,500 to 1:10,000 and the ONTD risk is 1:6,000. Based on these results Dr. Cai's recommendation is for patient to follow-up with a level II anatomy ultrasound. documented as of this encounter (statuses as of 05/18/2022) [facility]07-16-2019 History of Past illness Narrative* Problem Noted Date Resolved Date Encounter for sterilization 05/16/201901/2019 Overview: May 16, 2019 title 19 signed. Risks, benefits and alternatives to sterilization have been discussed with the patient. She declines reversible options including LARC. She understands sterilization is permanent, irreversible, risks of failure, regret and ectopic. In addition she understands there are surgical risks as well. Her questions were answered to her satisfaction and consent was signed Nicole Croft MD Medication exposure during first trimester of pr egnancy 12/22/2018 05/16/2019 Overview: 12/22/2018Patient is scheduled for carpal tunnel syndrome 01/04/[address] Lam. She is on Gabepintin to treat pain . Advised Category C medication and that she needs to call him to see if he wants her to continue medication and his plan of care at this time since she is . TKRN History of kidney stones 12/22/2018 019 Overview: 12/22/2018Patient has a history of kidney stones in 2017. Had surgery to remove stones. TKRN History of asthma 12/22/2018 08/04/2019 Overview: 12/22/2018History of asthma. Patient is currently in need of new RX for inhaler. Called Dr Ramirez's office and spoke to imaging scheduler . They will call her back with appointment time. TKRN History of hepatitis C 12/22/2018 9 Overview: December 28, 2018 Viral load approx 253,403, normal LFTs. Nicole Croft MD 12/22/2018Patient is known HepC +, last viral load drawn 2016. Patient has not been seen by her primary care for follow-up recently. Call to Dr Ramirez's office to set up appointment to discuss this and also to treat asthma. TKRN Obesity in 12/22/2018 08/04/2019 Overview: 12/22/2018Patient is obese. Will plan on GCT@ NOB.TKRN Nausea/vomiting in 12/22/201801/2019 Overview: 12/22/2018 Patient is complaining of nausea and occasional vomiting in . Recommended Vitamin B6. Dietary considerations discussed. Advised patient to call/come in if she is unable to keep any food or fluids down in a 24-hour period. TKRN Family history of congenital heart defect 201808/04/2019 Overview: 12/22/2018Patient's brother born with a heart valve abnormality and had corrective surgery at age 15. FOB's uncle born with hole in heart and at 2 months of age.TKRN Family history of genetic disease 12/22/2018 08/04/2019 Overview: 12/22/2018 FOB's uncle with C.F. He states he has never had genetic testing. Patient desires CF testing.FOB's uncle with Michelle's chorea. Denies any other family members affected. TKRN Patient request for diagnostic testing 9 01/23/2019 Overview: 12/22/2018Patient desires nuchal ultrasound. TKRN Back pain 07/01/2015 02/24/2017 Last Assessment & Plan: She has been having pain in the lower back pain for the past 6 months, No injury to the back, she had a baby 6 months ago, during she did not have the pain, 4 days later she started having pain. But it on and off , tylenol helped her. She is also constipated recently, and she thinks that it related. Not taken PT for the back, First time she went into the hospital she had kindey infection the second time she has kidney stones and Third time she had constipation, Constipation 07/01/2015 02/24/2017 Overview: She has constipation since she her first delivary. Last Assessment & Plan: She has constipation since she her first delivary. Numbness in both hands 07/01/2015 9 Last Assessment & Plan: The patient started having numbness after having her daughter, Her hands five way she she picks up things. She dropped her older kid due to this, The numbness starts all of a sudden and then stays so for the next 30 mins to an hour. Numbness also present in both legs, From the knee down her knees felt n umb and gave.she has had frequent urinary tract injections. Rubella non-immune status, antepartum 09/20/2014 12/28/2018 Short interval between pregn ancies complicating , antepartum 06/20/2014 02/24/2017 Anemia during 12/01/2013 01/24/20 14 Anemia in 08/10/2013 12/01/2013 Supervision of other high-risk (V23.89) 03/10/2013 12/01/2013 Overview: RR_ PNRA done June 14, 2013 Pt seen in ED 06/13 w/ c/o SOB for one month, acutely worse. Got spiral CT, was neg. D/[facility] home. Nicole Croft MD GBS (group B streptococcus) UTI complicating pre gnancy 03/03/2013 12/01/2013 Overview: 03/03/13: Treated with Amoxicillin Teen 02/28/2013 12/01/2013 Overview: 02/28/2013Carmen is 17 years old. She is here today with her mother and the father of the baby. She is a 10th grader at [employer]. She is made aware of the [employer] program. 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 Vaginal discharge in 02/28/2013 0 06/14/2013 Overview: 02/28/2013 She states she has noted back pain and pelvic cramping for one month. She denies any bleeding, dysuria, or fever. She has noted an odorous discharge for the past 2 weeks. She denies that the discharge smells fishy . She states the discharge does not cause her any irritation and is clear in color. Discussed with Dr. Coon on-call and she will see patient following this appointment. Uncertain dates, antepartum 02/28/201303/01 Overview: 02/28/2013Patient is unsure of the date of her last menstrual period. An ultrasound was ordered by Dr. Coon for uncertain dates. Nausea and vomiting in 02/28/2013 06/14/2013 Overview: 02/28/2013Patient has noted nausea and vomiting. Discussed nausea vomiting in . Patient is advised to call/come in if she is unable to keep any food or fluids down for a 24-hour period. Patient is requesting a refill of Zofran. Dr. Coon prescribed Zofran for the patient. Family history of defects 02/28/2013 12/01/2013 Overview: 02/28/2013Patient's brother born with a heart valve abnormality and had corrective surgery at age 15. Patient requested diagnostic testing 02/28/2013 06/14/2013 Overview: 02/28/2013Patient requests early screening in with sequential testing. TKRN 04/06/2013negative Sequential screen first trimester. The first part of the Sequential Screen reports that her risk for Down syndrome decreased from her age-related risk of 1:850 to 1:10,000 and her Trisomy 18 risk decreased from her age-related risk of 1:3,000 to 1:10,000. Based on these results Dr. Cai's recommendation is for patient to follow-up with Sequential second trimester screening (04/16-04/30) and level II anatomy scan after 18wks. 04/17/2013of negative Sequential screen second trimester. The second part of the Sequential Screen reports that her risk for Down syndrome decreased from her age-related risk of 1:1,100 to 1:10,000, her Trisomy 18 risk decreased from her age-related risk of 1:4,500 to 1:10,000 and the ONTD risk is 1:6,000. Based on these results Dr. Cai's recommendation is for patient to follow-up with a level II anatomy ultrasound. documented as of this encounter (statuses as of 05/22/2022) [facility]07-16-2019 History of Past illness Narrative* Problem Noted Date Resolved Date Encounter for sterilization 05/16/201901/2019 Overview: May 16, 2019 title 19 signed. Risks, benefits and alternatives to sterilization have been discussed with the patient. She declines reversible options including LARC. She understands sterilization is permanent, irreversible, risks of failure, regret and ectopic. In addition she understands there are surgical risks as well. Her questions were answered to her satisfaction and consent was signed Nicole Croft MD Medication exposure during first trimester of pr egnancy 12/22/2018 05/16/2019 Overview: 12/22/2018Patient is scheduled for carpal tunnel syndrome 01/04/[address] Lam. She is on Gabepintin to treat pain . Advised Category C medication and that she needs to call him to see if he wants her to continue medication and his plan of care at this time since she is . TKRN History of kidney stones 12/22/2018 019 Overview: 12/22/2018Patient has a history of kidney stones in 2017. Had surgery to remove stones. TKRN History of asthma 12/22/2018 08/04/2019 Overview: 12/22/2018History of asthma. Patient is currently in need of new RX for inhaler. Called Dr Ramirez's office and spoke to imaging scheduler . They will call her back with appointment time. TKRN History of hepatitis C 12/22/2018 9 Overview: December 28, 2018 Viral load approx 253,403, normal LFTs. Nicole Croft MD 12/22/2018Patient is known HepC +, last viral load drawn 2016. Patient has not been seen by her primary care for follow-up recently. Call to Dr Ramirez's office to set up appointment to discuss this and also to treat asthma. TKRN Obesity in 12/22/2018 08/04/2019 Overview: 12/22/2018Patient is obese. Will plan on GCT@ NOB.TKRN Nausea/vomiting in 12/22/201801/2019 Overview: 12/22/2018 Patient is complaining of nausea and occasional vomiting in . Recommended Vitamin B6. Dietary considerations discussed. Advised patient to call/come in if she is unable to keep any food or fluids down in a 24-hour period. TKRN Family history of congenital heart defect 201808/04/2019 Overview: 12/22/2018Patient's brother born with a heart valve abnormality and had corrective surgery at age 15. FOB's uncle born with hole in heart and at 2 months of age.TKRN Family history of genetic disease 12/22/2018 08/04/2019 Overview: 12/22/2018 FOB's uncle with C.F. He states he has never had genetic testing. Patient desires CF testing.FOB's uncle with Fleming's chorea. Denies any other family members affected. TKRN Patient request for diagnostic testing 9 01/23/2019 Overview: 12/22/2018Patient desires nuchal ultrasound. TKRN Back pain 07/01/2015 02/24/2017 Last Assessment & Plan: She has been having pain in the lower back pain for the past 6 months, No injury to the back, she had a baby 6 months ago, during she did not have the pain, 4 days later she started having pain. But it on and off , tylenol helped her. She is also constipated recently, and she thinks that it related. Not taken PT for the back, First time she went into the hospital she had kindey infection the second time she has kidney stones and Third time she had constipation, Constipation 07/01/2015 02/24/2017 Overview: She has constipation since she her first delivary. Last Assessment & Plan: She has constipation since she her first delivary. Numbness in both hands 07/01/2015 9 Last Assessment & Plan: The patient started having numbness after having her daughter, Her hands five way she she picks up things. She dropped her older kid due to this, The numbness starts all of a sudden and then stays so for the next 30 mins to an hour. Numbness also present in both legs, From the knee down her knees felt n umb and gave.she has had frequent urinary tract injections. Rubella non-immune status, antepartum 09/20/2014 12/28/2018 Short interval between pregn ancies complicating , antepartum 06/20/2014 02/24/2017 Anemia during 12/01/2013 01/24/20 14 Anemia in 08/10/2013 12/01/2013 Supervision of other high-risk (V23.89) 03/10/2013 12/01/2013 Overview: RR_ PNRA done June 14, 2013 Pt seen in ED 06/13 w/ c/o SOB for one month, acutely worse. Got spiral CT, was neg. D/donovan home. Nicole Croft MD GBS (group B streptococcus) UTI complicating pre gnancy 03/03/2013 12/01/2013 Overview: 03/03/13: Treated with Amoxicillin Teen 02/28/2013 12/01/2013 Overview: 02/28/2013Carmen is 17 years old. She is here today with her mother and the father of the baby. She is a 10th grader at [employer]. She is made aware of the [employer] program. 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 Vaginal discharge in 02/28/2013 0 06/14/2013 Overview: 02/28/2013 She states she has noted back pain and pelvic cramping for one month. She denies any bleeding, dysuria, or fever. She has noted an odorous discharge for the past 2 weeks. She denies that the discharge smells fishy . She states the discharge does not cause her any irritation and is clear in color. Discussed with Dr. Coon on-call and she will see patient following this appointment. Uncertain dates, antepartum 02/28/2013 05 Overview: 02/28/2013Patient is unsure of the date of her last menstrual period. An ultrasound was ordered by Dr. Coon for uncertain dates. Nausea and vomiting in 02/28/2013 06/14/2013 Overview: 02/28/2013Patient has noted nausea and vomiting. Discussed nausea vomiting in . Patient is advised to call/come in if she is unable to keep any food or fluids down for a 24-hour period. Patient is requesting a refill of Zofran. Dr. Coon prescribed Zofran for the patient. Family history of defects 02/28/2013 12/01/2013 Overview: 02/28/2013Patient's brother born with a heart valve abnormality and had corrective surgery at age 15. Patient requested diagnostic testing 02/28/2013 06/14/2013 Overview: 02/28/2013Patient requests early screening in with sequential testing. TKRN 04/06/2013negative Sequential screen first trimester. The first part of the Sequential Screen reports that her risk for Down syndrome decreased from her age-related risk of 1:850 to 1:10,000 and her Trisomy 18 risk decreased from her age-related risk of 1:3,000 to 1:10,000. Based on these results Dr. Cai's recommendation is for patient to follow-up with Sequential second trimester screening (04/16-04/30) and level II anatomy scan after 18wks. 04/17/2013of negative Sequential screen second trimester. The second part of the Sequential Screen reports that her risk for Down syndrome decreased from her age-related risk of 1:1,100 to 1:10,000, her Trisomy 18 risk decreased from her age-related risk of 1:4,500 to 1:10,000 and the ONTD risk is 1:6,000. Based on these results Dr. Cai's recommendation is for patient to follow-up with a level II anatomy ultrasound. documented as of this encounter (statuses as of 10/01/2022) [facility]07-16-2019 History of Past illness Narrative* Problem Noted Date Resolved Date Encounter for sterilization 05/16/201901/2019 Overview: May 16, 2019 title 19 signed. Risks, benefits and alternatives to sterilization have been discussed with the patient. She declines reversible options including LARC. She understands sterilization is permanent, irreversible, risks of failure, regret and ectopic. In addition she understands there are surgical risks as well. Her questions were answered to her satisfaction and consent was signed Nicole Croft MD Medication exposure during first trimester of pr egnancy 12/22/2018 05/16/2019 Overview: 12/22/2018Patient is scheduled for carpal tunnel syndrome 01/04/[address] Lam. She is on Gabepintin to treat pain . Advised Category C medication and that she needs to call him to see if he wants her to continue medication and his plan of care at this time since she is . TKRN History of kidney stones 12/22/2018 019 Overview: 12/22/2018Patient has a history of kidney stones in 2017. Had surgery to remove stones. TKRN History of asthma 12/22/2018 08/04/2019 Overview: 12/22/2018History of asthma. Patient is currently in need of new RX for inhaler. Called Dr Ramirez's office and spoke to imaging scheduler . They will call her back with appointment time. TKRN History of hepatitis C 12/22/2018 9 Overview: December 28, 2018 Viral load approx 253,403, normal LFTs. Nicole Croft MD 12/22/2018Patient is known HepC +, last viral load drawn 2016. Patient has not been seen by her primary care for follow-up recently. Call to Dr Ramirez's office to set up appointment to discuss this and also to treat asthma. TKRN Obesity in 12/22/2018 08/04/2019 Overview: 12/22/2018Patient is obese. Will plan on GCT@ NOB.TKRN Nausea/vomiting in 12/22/201801/2019 Overview: 12/22/2018 Patient is complaining of nausea and occasional vomiting in . Recommended Vitamin B6. Dietary considerations discussed. Advised patient to call/come in if she is unable to keep any food or fluids down in a 24-hour period. TKRN Family history of congenital heart defect 201808/04/2019 Overview: 12/22/2018Patient's brother born with a heart valve abnormality and had corrective surgery at age 15. FOB's uncle born with hole in heart and at 2 months of age.TKRN Family history of genetic disease 12/22/2018 08/04/2019 Overview: 12/22/2018 FOB's uncle with C.F. He states he has never had genetic testing. Patient desires CF testing.FOB's uncle with Fleming's chorea. Denies any other family members affected. TKRN Patient request for diagnostic testing 9 01/23/2019 Overview: 12/22/2018Patient desires nuchal ultrasound. TKRN Back pain 07/01/2015 02/24/2017 Last Assessment & Plan: She has been having pain in the lower back pain for the past 6 months, No injury to the back, she had a baby 6 months ago, during she did not have the pain, 4 days later she started having pain. But it on and off , tylenol helped her. She is also constipated recently, and she thinks that it related. Not taken PT for the back, First time she went into the hospital she had kindey infection the second time she has kidney stones and Third time she had constipation, Constipation 07/01/2015 02/24/2017 Overview: She has constipation since she her first delivary. Last Assessment & Plan: She has constipation since she her first delivary. Numbness in both hands 07/01/2015 9 Last Assessment & Plan: The patient started having numbness after having her daughter, Her hands five way she she picks up things. She dropped her older kid due to this, The numbness starts all of a sudden and then stays so for the next 30 mins to an hour. Numbness also present in both legs, From the knee down her knees felt n umb and gave.she has had frequent urinary tract injections. Rubella non-immune status, antepartum 09/20/2014 12/28/2018 Short interval between pregn ancies complicating , antepartum 06/20/2014 02/24/2017 Anemia during 12/01/2013 01/24/20 14 Anemia in 08/10/2013 12/01/2013 Supervision of other high-risk (V23.89) 03/10/2013 12/01/2013 Overview: RR_ PNRA done June 14, 2013 Pt seen in ED 06/13 w/ c/o SOB for one month, acutely worse. Got spiral CT, was neg. D/donovan home. Nicole Croft MD GBS (group B streptococcus) UTI complicating pre gnancy 03/03/2013 12/01/2013 Overview: 03/03/13: Treated with Amoxicillin Teen 02/28/2013 12/01/2013 Overview: 02/28/2013Carmen is 17 years old. She is here today with her mother and the father of the baby. She is a 10th grader at [employer]. She is made aware of the [employer] program. 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 Vaginal discharge in 02/28/2013 0 06/14/2013 Overview: 02/28/2013 She states she has noted back pain and pelvic cramping for one month. She denies any bleeding, dysuria, or fever. She has noted an odorous discharge for the past 2 weeks. She denies that the discharge smells fishy . She states the discharge does not cause her any irritation and is clear in color. Discussed with Dr. Coon on-call and she will see patient following this appointment. Uncertain dates, antepartum 02/28/2013 05 Overview: 02/28/2013Patient is unsure of the date of her last menstrual period. An ultrasound was ordered by Dr. Coon for uncertain dates. Nausea and vomiting in 02/28/2013 06/14/2013 Overview: 02/28/2013Patient has noted nausea and vomiting. Discussed nausea vomiting in . Patient is advised to call/come in if she is unable to keep any food or fluids down for a 24-hour period. Patient is requesting a refill of Zofran. Dr. Coon prescribed Zofran for the patient. Family history of defects 02/28/2013 12/01/2013 Overview: 02/28/2013Patient's brother born with a heart valve abnormality and had corrective surgery at age 15. Patient requested diagnostic testing 02/28/2013 06/14/2013 Overview: 02/28/2013Patient requests early screening in with sequential testing. TKRN 04/06/2013negative Sequential screen first trimester. The first part of the Sequential Screen reports that her risk for Down syndrome decreased from her age-related risk of 1:850 to 1:10,000 and her Trisomy 18 risk decreased from her age-related risk of 1:3,000 to 1:10,000. Based on these results Dr. Cai's recommendation is for patient to follow-up with Sequential second trimester screening (04/16-04/30) and level II anatomy scan after 18wks. 04/17/2013of negative Sequential screen second trimester. The second part of the Sequential Screen reports that her risk for Down syndrome decreased from her age-related risk of 1:1,100 to 1:10,000, her Trisomy 18 risk decreased from her age-related risk of 1:4,500 to 1:10,000 and the ONTD risk is 1:6,000. Based on these results Dr. Cai's recommendation is for patient to follow-up with a level II anatomy ultrasound. documented as of this encounter (statuses as of 10/01/2022) [facility]07-16-2019 History of Past illness Narrative* Problem Noted Date Resolved Date Encounter for sterilization 05/16/201901/2019 Overview: May 16, 2019 title 19 signed. Risks, benefits and alternatives to sterilization have been discussed with the patient. She declines reversible options including LARC. She understands sterilization is permanent, irreversible, risks of failure, regret and ectopic. In addition she understands there are surgical risks as well. Her questions were answered to her satisfaction and consent was signed Nicole Croft MD Medication exposure during first trimester of pr egnancy 12/22/2018 05/16/2019 Overview: 12/22/2018Patient is scheduled for carpal tunnel syndrome 01/04/[address] Lam. She is on Gabepintin to treat pain . Advised Category C medication and that she needs to call him to see if he wants her to continue medication and his plan of care at this time since she is . TKRN History of kidney stones 12/22/2018 10/04/2 019 Overview: 12/22/2018Patient has a history of kidney stones in 2017. Had surgery to remove stones. TKRN History of asthma 12/22/2018 08/04/2019 Overview: 12/22/2018History of asthma. Patient is currently in need of new RX for inhaler. Called Dr Ramirez's office and spoke to imaging scheduler . They will call her back with appointment time. TKRN History of hepatitis C 12/22/2018 9 Overview: December 28, 2018 Viral load approx 253,403, normal LFTs. Nicole Croft MD 12/22/2018Patient is known HepC +, last viral load drawn 2016. Patient has not been seen by her primary care for follow-up recently. Call to Dr Ramirez's office to set up appointment to discuss this and also to treat asthma. TKRN Obesity in 12/22/2018 08/04/2019 Overview: 12/22/2018Patient is obese. Will plan on GCT@ NOB.TKRN Nausea/vomiting in 12/22/201801/2019 Overview: 12/22/2018 Patient is complaining of nausea and occasional vomiting in . Recommended Vitamin B6. Dietary considerations discussed. Advised patient to call/come in if she is unable to keep any food or fluids down in a 24-hour period. TKRN Family history of congenital heart defect 201808/04/2019 Overview: 12/22/2018Patient's brother born with a heart valve abnormality and had corrective surgery at age 15. FOB's uncle born with hole in heart and at 2 months of age.TKRN Family history of genetic disease 12/22/2018 08/04/2019 Overview: 12/22/2018 FOB's uncle with C.F. He states he has never had genetic testing. Patient desires CF testing.FOB's uncle with Fleming's chorea. Denies any other family members affected. TKRN Patient request for diagnostic testing 9 01/23/2019 Overview: 12/22/2018Patient desires nuchal ultrasound. TKRN Back pain 07/01/2015 02/24/2017 Last Assessment & Plan: She has been having pain in the lower back pain for the past 6 months, No injury to the back, she had a baby 6 months ago, during she did not have the pain, 4 days later she started having pain. But it on and off , tylenol helped her. She is also constipated recently, and she thinks that it related. Not taken PT for the back, First time she went into the hospital she had kindey infection the second time she has kidney stones and Third time she had constipation, Constipation 07/01/2015 02/24/2017 Overview: She has constipation since she her first delivary. Last Assessment & Plan: She has constipation since she her first delivary. Numbness in both hands 07/01/2015 9 Last Assessment & Plan: The patient started having numbness after having her daughter, Her hands five way she she picks up things. She dropped her older kid due to this, The numbness starts all of a sudden and then stays so for the next 30 mins to an hour. Numbness also present in both legs, From the knee down her knees felt n umb and gave.she has had frequent urinary tract injections. Rubella non-immune status, antepartum 09/20/2014 12/28/2018 Short interval between pregn ancies complicating , antepartum 06/20/2014 02/24/2017 Anemia during 12/01/2013 01/24/20 14 Anemia in 08/10/2013 12/01/2013 Supervision of other high-risk (V23.89) 03/10/2013 12/01/2013 Overview: RR_ PNRA done June 14, 2013 Pt seen in ED 06/13 w/ c/o SOB for one month, acutely worse. Got spiral CT, was neg. D/don[facility] home. Nicole Croft MD GBS (group B streptococcus) UTI complicating pre gnancy 03/03/2013 12/01/2013 Overview: 03/03/13: Treated with Amoxicillin Teen 02/28/2013 12/01/2013 Overview: 02/28/2013Carmen is 17 years old. She is here today with her mother and the father of the baby. She is a 10th grader at [employer]. She is made aware of the [employer] program. 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 Vaginal discharge in 02/28/2013 0 06/14/2013 Overview: 02/28/2013 She states she has noted back pain and pelvic cramping for one month. She denies any bleeding, dysuria, or fever. She has noted an odorous discharge for the past 2 weeks. She denies that the discharge smells fishy . She states the discharge does not cause her any irritation and is clear in color. Discussed with Dr. Coon on-call and she will see patient following this appointment. Uncertain dates, antepartum 02/28/201303/01 Overview: 02/28/2013Patient is unsure of the date of her last menstrual period. An ultrasound was ordered by Dr. Coon for uncertain dates. Nausea and vomiting in 02/28/2013 06/14/2013 Overview: 02/28/2013Patient has noted nausea and vomiting. Discussed nausea vomiting in . Patient is advised to call/come in if she is unable to keep any food or fluids down for a 24-hour period. Patient is requesting a refill of Zofran. Dr. Coon prescribed Zofran for the patient. Family history of defects 02/28/2013 12/01/2013 Overview: 02/28/2013Patient's brother born with a heart valve abnormality and had corrective surgery at age 15. Patient requested diagnostic testing 02/28/2013 06/14/2013 Overview: 02/28/2013Patient requests early screening in with sequential testing. TKRN 04/06/2013negative Sequential screen first trimester. The first part of the Sequential Screen reports that her risk for Down syndrome decreased from her age-related risk of 1:850 to 1:10,000 and her Trisomy 18 risk decreased from her age-related risk of 1:3,000 to 1:10,000. Based on these results Dr. Cai's recommendation is for patient to follow-up with Sequential second trimester screening (04/16-04/30) and level II anatomy scan after 18wks. 04/17/2013of negative Sequential screen second trimester. The second part of the Sequential Screen reports that her risk for Down syndrome decreased from her age-related risk of 1:1,100 to 1:10,000, her Trisomy 18 risk decreased from her age-related risk of 1:4,500 to 1:10,000 and the ONTD risk is 1:6,000. Based on these results Dr. Cai's recommendation is for patient to follow-up with a level II anatomy ultrasound. documented as of this encounter (statuses as of 10/07/2022) [facility]07-16-2019 History of Past illness Narrative* Problem Noted Date Resolved Date Encounter for sterilization 05/16/201901/2019 Overview: May 16, 2019 title 19 signed. Risks, benefits and alternatives to sterilization have been discussed with the patient. She declines reversible options including LARC. She understands sterilization is permanent, irreversible, risks of failure, regret and ectopic. In addition she understands there are surgical risks as well. Her questions were answered to her satisfaction and consent was signed Nicole Croft MD Medication exposure during first trimester of pr egnancy 12/22/2018 05/16/2019 Overview: 12/22/2018Patient is scheduled for carpal tunnel syndrome 01/04/[address] Lam. She is on Gabepintin to treat pain . Advised Category C medication and that she needs to call him to see if he wants her to continue medication and his plan of care at this time since she is . TKRN History of kidney stones 12/22/2018 019 Overview: 12/22/2018Patient has a history of kidney stones in 2017. Had surgery to remove stones. TKRN History of asthma 12/22/2018 08/04/2019 Overview: 12/22/2018History of asthma. Patient is currently in need of new RX for inhaler. Called Dr Ramirez's office and spoke to imaging scheduler . They will call her back with appointment time. TKRN History of hepatitis C 12/22/2018 9 Overview: December 28, 2018 Viral load approx 253,403, normal LFTs. Nicole Croft MD 12/22/2018Patient is known HepC +, last viral load drawn 2016. Patient has not been seen by her primary care for follow-up recently. Call to Dr Ramirez's office to set up appointment to discuss this and also to treat asthma. TKRN Obesity in 12/22/2018 08/04/2019 Overview: 12/22/2018Patient is obese. Will plan on GCT@ NOB.TKRN Nausea/vomiting in 12/22/201801/2019 Overview: 12/22/2018 Patient is complaining of nausea and occasional vomiting in . Recommended Vitamin B6. Dietary considerations discussed. Advised patient to call/come in if she is unable to keep any food or fluids down in a 24-hour period. TKRN Family history of congenital heart defect 201808/04/2019 Overview: 12/22/2018Patient's brother born with a heart valve abnormality and had corrective surgery at age 15. FOB's uncle born with hole in heart and at 2 months of age.TKRN Family history of genetic disease 12/22/2018 08/04/2019 Overview: 12/22/2018 FOB's uncle with C.F. He states he has never had genetic testing. Patient desires CF testing.FOB's uncle with Fleming's chorea. Denies any other family members affected. TKRN Patient request for diagnostic testing 9 01/23/2019 Overview: 12/22/2018Patient desires nuchal ultrasound. TKRN Back pain 07/01/2015 02/24/2017 Last Assessment & Plan: She has been having pain in the lower back pain for the past 6 months, No injury to the back, she had a baby 6 months ago, during she did not have the pain, 4 days later she started having pain. But it on and off , tylenol helped her. She is also constipated recently, and she thinks that it related. Not taken PT for the back, First time she went into the hospital she had kindey infection the second time she has kidney stones and Third time she had constipation, Constipation 07/01/2015 02/24/2017 Overview: She has constipation since she her first delivary. Last Assessment & Plan: She has constipation since she her first delivary. Numbness in both hands 07/01/2015 9 Last Assessment & Plan: The patient started having numbness after having her daughter, Her hands five way she she picks up things. She dropped her older kid due to this, The numbness starts all of a sudden and then stays so for the next 30 mins to an hour. Numbness also present in both legs, From the knee down her knees felt n umb and gave.she has had frequent urinary tract injections. Rubella non-immune status, antepartum 09/20/2014 12/28/2018 Short interval between pregn ancies complicating , antepartum 06/20/2014 02/24/2017 Anemia during 12/01/2013 01/24/20 14 Anemia in 08/10/2013 12/01/2013 Supervision of other high-risk (V23.89) 03/10/2013 12/01/2013 Overview: RR_ PNRA done June 14, 2013 Pt seen in ED 06/13 w/ c/o SOB for one month, acutely worse. Got spiral CT, was neg. D/donovan home. Nicole Croft MD GBS (group B streptococcus) UTI complicating pre gnancy 03/03/2013 12/01/2013 Overview: 03/03/13: Treated with Amoxicillin Teen 02/28/2013 12/01/2013 Overview: 02/28/2013Carmen is 17 years old. She is here today with her mother and the father of the baby. She is a 10th grader at [employer]. She is made aware of the [employer] program. 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 Vaginal discharge in 02/28/2013 0 06/14/2013 Overview: 02/28/2013 She states she has noted back pain and pelvic cramping for one month. She denies any bleeding, dysuria, or fever. She has noted an odorous discharge for the past 2 weeks. She denies that the discharge smells fishy . She states the discharge does not cause her any irritation and is clear in color. Discussed with Dr. Coon on-call and she will see patient following this appointment. Uncertain dates, antepartum 02/28/201303/01 Overview: 02/28/2013Patient is unsure of the date of her last menstrual period. An ultrasound was ordered by Dr. Coon for uncertain dates. Nausea and vomiting in 02/28/2013 06/14/2013 Overview: 02/28/2013Patient has noted nausea and vomiting. Discussed nausea vomiting in . Patient is advised to call/come in if she is unable to keep any food or fluids down for a 24-hour period. Patient is requesting a refill of Zofran. Dr. Coon prescribed Zofran for the patient. Family history of defects 02/28/2013 12/01/2013 Overview: 02/28/2013Patient's brother born with a heart valve abnormality and had corrective surgery at age 15. Patient requested diagnostic testing 02/28/2013 06/14/2013 Overview: 02/28/2013Patient requests early screening in with sequential testing. TKRN 04/06/2013negative Sequential screen first trimester. The first part of the Sequential Screen reports that her risk for Down syndrome decreased from her age-related risk of 1:850 to 1:10,000 and her Trisomy 18 risk decreased from her age-related risk of 1:3,000 to 1:10,000. Based on these results Dr. Cai's recommendation is for patient to follow-up with Sequential second trimester screening (04/16-04/30) and level II anatomy scan after 18wks. 04/17/2013of negative Sequential screen second trimester. The second part of the Sequential Screen reports that her risk for Down syndrome decreased from her age-related risk of 1:1,100 to 1:10,000, her Trisomy 18 risk decreased from her age-related risk of 1:4,500 to 1:10,000 and the ONTD risk is 1:6,000. Based on these results Dr. Cai's recommendation is for patient to follow-up with a level II anatomy ultrasound. documented as of this encounter (statuses as of 11/04/2022) [facility]07-16-2019 History of Past illness Narrative* Problem Noted Date Resolved Date Encounter for sterilization 05/16/201901/2019 Overview: May 16, 2019 title 19 signed. Risks, benefits and alternatives to sterilization have been discussed with the patient. She declines reversible options including LARC. She understands sterilization is permanent, irreversible, risks of failure, regret and ectopic. In addition she understands there are surgical risks as well. Her questions were answered to her satisfaction and consent was signed Nicole Croft MD Medication exposure during first trimester of pr egnancy 12/22/2018 05/16/2019 Overview: 12/22/2018Patient is scheduled for carpal tunnel syndrome 01/04/[address] Lam. She is on Gabepintin to treat pain . Advised Category C medication and that she needs to call him to see if he wants her to continue medication and his plan of care at this time since she is . TKRN History of kidney stones 12/22/2018 019 Overview: 12/22/2018Patient has a history of kidney stones in 2017. Had surgery to remove stones. TKRN History of asthma 12/22/2018 08/04/2019 Overview: 12/22/2018History of asthma. Patient is currently in need of new RX for inhaler. Called Dr Ramirez's office and spoke to imaging scheduler . They will call her back with appointment time. TKRN History of hepatitis C 12/22/2018 9 Overview: December 28, 2018 Viral load approx 253,403, normal LFTs. Nicole Croft MD 12/22/2018Patient is known HepC +, last viral load drawn 2016. Patient has not been seen by her primary care for follow-up recently. Call to Dr Ramirez's office to set up appointment to discuss this and also to treat asthma. TKRN Obesity in 12/22/2018 08/04/2019 Overview: 12/22/2018Patient is obese. Will plan on GCT@ NOB.TKRN Nausea/vomiting in 12/22/201801/2019 Overview: 12/22/2018 Patient is complaining of nausea and occasional vomiting in . Recommended Vitamin B6. Dietary considerations discussed. Advised patient to call/come in if she is unable to keep any food or fluids down in a 24-hour period. TKRN Family history of congenital heart defect 201808/04/2019 Overview: 12/22/2018Patient's brother born with a heart valve abnormality and had corrective surgery at age 15. FOB's uncle born with hole in heart and at 2 months of age.TKRN Family history of genetic disease 12/22/2018 08/04/2019 Overview: 12/22/2018 FOB's uncle with C.F. He states he has never had genetic testing. Patient desires CF testing.FOB's uncle with Michelle's chorea. Denies any other family members affected. TKRN Patient request for diagnostic testing 9 01/23/2019 Overview: 12/22/2018Patient desires nuchal ultrasound. TKRN Back pain 07/01/2015 02/24/2017 Last Assessment & Plan: She has been having pain in the lower back pain for the past 6 months, No injury to the back, she had a baby 6 months ago, during she did not have the pain, 4 days later she started having pain. But it on and off , tylenol helped her. She is also constipated recently, and she thinks that it related. Not taken PT for the back, First time she went into the hospital she had kindey infection the second time she has kidney stones and Third time she had constipation, Constipation 07/01/2015 02/24/2017 Overview: She has constipation since she her first delivary. Last Assessment & Plan: She has constipation since she her first delivary. Numbness in both hands 07/01/2015 9 Last Assessment & Plan: The patient started having numbness after having her daughter, Her hands five way she she picks up things. She dropped her older kid due to this, The numbness starts all of a sudden and then stays so for the next 30 mins to an hour. Numbness also present in both legs, From the knee down her knees felt n umb and gave.she has had frequent urinary tract injections. Rubella non-immune status, antepartum 09/20/2014 12/28/2018 Short interval between pregn ancies complicating , antepartum 06/20/2014 02/24/2017 Anemia during 12/01/2013 01/24/20 14 Anemia in 08/10/2013 12/01/2013 Supervision of other high-risk (V23.89) 03/10/2013 12/01/2013 Overview: RR_ PNRA done June 14, 2013 Pt seen in ED 06/13 w/ c/o SOB for one month, acutely worse. Got spiral CT, was neg. D/donovan home. Nicole Croft MD GBS (group B streptococcus) UTI complicating pre gnancy 03/03/2013 12/01/2013 Overview: 03/03/13: Treated with Amoxicillin Teen 02/28/2013 12/01/2013 Overview: 02/28/2013Carmen is 17 years old. She is here today with her mother and the father of the baby. She is a 10th grader at [employer]. She is made aware of the [employer] program. 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 Vaginal discharge in 02/28/2013 0 06/14/2013 Overview: 02/28/2013 She states she has noted back pain and pelvic cramping for one month. She denies any bleeding, dysuria, or fever. She has noted an odorous discharge for the past 2 weeks. She denies that the discharge smells fishy . She states the discharge does not cause her any irritation and is clear in color. Discussed with Dr. Coon on-call and she will see patient following this appointment. Uncertain dates, antepartum 02/28/201303/01 Overview: 02/28/2013Patient is unsure of the date of her last menstrual period. An ultrasound was ordered by Dr. Coon for uncertain dates. Nausea and vomiting in 02/28/2013 06/14/2013 Overview: 02/28/2013Patient has noted nausea and vomiting. Discussed nausea vomiting in . Patient is advised to call/come in if she is unable to keep any food or fluids down for a 24-hour period. Patient is requesting a refill of Zofran. Dr. Coon prescribed Zofran for the patient. Family history of defects 02/28/2013 12/01/2013 Overview: 02/28/2013Patient's brother born with a heart valve abnormality and had corrective surgery at age 15. Patient requested diagnostic testing 02/28/2013 06/14/2013 Overview: 02/28/2013Patient requests early screening in with sequential testing. TKRN 04/06/2013negative Sequential screen first trimester. The first part of the Sequential Screen reports that her risk for Down syndrome decreased from her age-related risk of 1:850 to 1:10,000 and her Trisomy 18 risk decreased from her age-related risk of 1:3,000 to 1:10,000. Based on these results Dr. Cai's recommendation is for patient to follow-up with Sequential second trimester screening (04/16-04/30) and level II anatomy scan after 18wks. 04/17/2013of negative Sequential screen second trimester. The second part of the Sequential Screen reports that her risk for Down syndrome decreased from her age-related risk of 1:1,100 to 1:10,000, her Trisomy 18 risk decreased from her age-related risk of 1:4,500 to 1:10,000 and the ONTD risk is 1:6,000. Based on these results Dr. Cai's recommendation is for patient to follow-up with a level II anatomy ultrasound. documented as of this encounter (statuses as of 03/03/2023) [facility]07-16-2019 History of Past illness Narrative* Problem Noted Date Resolved Date Encounter for sterilization 05/16/201901/2019 Overview: May 16, 2019 title 19 signed. Risks, benefits and alternatives to sterilization have been discussed with the patient. She declines reversible options including LARC. She understands sterilization is permanent, irreversible, risks of failure, regret and ectopic. In addition she understands there are surgical risks as well. Her questions were answered to her satisfaction and consent was signed Nicole Croft MD Medication exposure during first trimester of pr egnancy 12/22/2018 05/16/2019 Overview: 12/22/2018Patient is scheduled for carpal tunnel syndrome 01/04/[address] Lam. She is on Gabepintin to treat pain . Advised Category C medication and that she needs to call him to see if he wants her to continue medication and his plan of care at this time since she is . TKRN History of kidney stones 12/22/2018 019 Overview: 12/22/2018Patient has a history of kidney stones in 2017. Had surgery to remove stones. TKRN History of asthma 12/22/2018 08/04/2019 Overview: 12/22/2018History of asthma. Patient is currently in need of new RX for inhaler. Called Dr Ramirez's office and spoke to imaging scheduler . They will call her back with appointment time. TKRN History of hepatitis C 12/22/2018 9 Overview: December 28, 2018 Viral load approx 253,403, normal LFTs. Nicole Croft MD 12/22/2018Patient is known HepC +, last viral load drawn 2016. Patient has not been seen by her primary care for follow-up recently. Call to Dr Ramirez's office to set up appointment to discuss this and also to treat asthma. TKRN Obesity in 12/22/2018 08/04/2019 Overview: 12/22/2018Patient is obese. Will plan on GCT@ NOB.TKRN Nausea/vomiting in 12/22/201801/2019 Overview: 12/22/2018 Patient is complaining of nausea and occasional vomiting in . Recommended Vitamin B6. Dietary considerations discussed. Advised patient to call/come in if she is unable to keep any food or fluids down in a 24-hour period. TKRN Family history of congenital heart defect 201808/04/2019 Overview: 12/22/2018Patient's brother born with a heart valve abnormality and had corrective surgery at age 15. FOB's uncle born with hole in heart and at 2 months of age.TKRN Family history of genetic disease 12/22/2018 08/04/2019 Overview: 12/22/2018 FOB's uncle with C.F. He states he has never had genetic testing. Patient desires CF testing.FOB's uncle with Fleming's chorea. Denies any other family members affected. TKRN Patient request for diagnostic testing 9 01/23/2019 Overview: 12/22/2018Patient desires nuchal ultrasound. TKRN Back pain 07/01/2015 02/24/2017 Last Assessment & Plan: She has been having pain in the lower back pain for the past 6 months, No injury to the back, she had a baby 6 months ago, during she did not have the pain, 4 days later she started having pain. But it on and off , tylenol helped her. She is also constipated recently, and she thinks that it related. Not taken PT for the back, First time she went into the hospital she had kindey infection the second time she has kidney stones and Third time she had constipation, Constipation 07/01/2015 02/24/2017 Overview: She has constipation since she her first delivary. Last Assessment & Plan: She has constipation since she her first delivary. Numbness in both hands 07/01/2015 9 Last Assessment & Plan: The patient started having numbness after having her daughter, Her hands five way she she picks up things. She dropped her older kid due to this, The numbness starts all of a sudden and then stays so for the next 30 mins to an hour. Numbness also present in both legs, From the knee down her knees felt n umb and gave.she has had frequent urinary tract injections. Rubella non-immune status, antepartum 09/20/2014 12/28/2018 Short interval between pregn ancies complicating , antepartum 06/20/2014 02/24/2017 Anemia during 12/01/2013 01/24/20 14 Anemia in 08/10/2013 12/01/2013 Supervision of other high-risk (V23.89) 03/10/2013 12/01/2013 Overview: RR_ PNRA done June 14, 2013 Pt seen in ED 06/13 w/ c/o SOB for one month, acutely worse. Got spiral CT, was neg. D/donovan home. Nicole Croft MD GBS (group B streptococcus) UTI complicating pre gnancy 03/03/2013 12/01/2013 Overview: 03/03/13: Treated with Amoxicillin Teen 02/28/2013 12/01/2013 Overview: 02/28/2013Carmen is 17 years old. She is here today with her mother and the father of the baby. She is a 10th grader at [employer]. She is made aware of the [employer] program. 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 Vaginal discharge in 02/28/2013 0 06/14/2013 Overview: 02/28/2013 She states she has noted back pain and pelvic cramping for one month. She denies any bleeding, dysuria, or fever. She has noted an odorous discharge for the past 2 weeks. She denies that the discharge smells fishy . She states the discharge does not cause her any irritation and is clear in color. Discussed with Dr. Coon on-call and she will see patient following this appointment. Uncertain dates, antepartum 02/28/201303/01 Overview: 02/28/2013Patient is unsure of the date of her last menstrual period. An ultrasound was ordered by Dr. Coon for uncertain dates. Nausea and vomiting in 02/28/2013 06/14/2013 Overview: 02/28/2013Patient has noted nausea and vomiting. Discussed nausea vomiting in . Patient is advised to call/come in if she is unable to keep any food or fluids down for a 24-hour period. Patient is requesting a refill of Zofran. Dr. Coon prescribed Zofran for the patient. Family history of defects 02/28/2013 12/01/2013 Overview: 02/28/2013Patient's brother born with a heart valve abnormality and had corrective surgery at age 15. Patient requested diagnostic testing 02/28/2013 06/14/2013 Overview: 02/28/2013Patient requests early screening in with sequential testing. TKRN 04/06/2013negative Sequential screen first trimester. The first part of the Sequential Screen reports that her risk for Down syndrome decreased from her age-related risk of 1:850 to 1:10,000 and her Trisomy 18 risk decreased from her age-related risk of 1:3,000 to 1:10,000. Based on these results Dr. Cai's recommendation is for patient to follow-up with Sequential second trimester screening (04/16-04/30) and level II anatomy scan after 18wks. 04/17/2013of negative Sequential screen second trimester. The second part of the Sequential Screen reports that her risk for Down syndrome decreased from her age-related risk of 1:1,100 to 1:10,000, her Trisomy 18 risk decreased from her age-related risk of 1:4,500 to 1:10,000 and the ONTD risk is 1:6,000. Based on these results Dr. Cai's recommendation is for patient to follow-up with a level II anatomy ultrasound. documented as of this encounter (statuses as of 03/04/2023) [facility] note* Clinical Note Date No Information [facility]* Clinical Note Date No Information [facility] Plan note No data available for this section [facility] Evaluation note* Diagnosis RLS (restless legs syndrome) Restless legs syndrome (RLS) Body aches Generalized pain [facility] RLS (restless legs syndrome) Restless legs syndrome (RLS) Body aches Generalized pain [facility] Diagnosis Tooth infection- Primary Acute apical periodontitis of pulpal origin External hemorrhoid External hemorrhoids without mention of complication Nausea Nausea alone [facility] Diagnosis Body aches- Primary Generalized pain [facility] Diagnosis Acute nonintractable headache, unspecified headache type- Primary [facility] Diagnosis Chronic insomnia Insomnia, unspecified RAFITA (generalized anxiety disorder) Generalized anxiety disorder Panic attacks Panic disorder without agoraphobia [facility]* Type Assessment Date No Information [facility]* Diagnosis Hx of hepatitis C- Primary Personal history of other infectious and parasitic disease documented in this encounter [facility] Work Phone: Evaluation note* Diagnosis Vaginal discharge- Primary Leukorrhea, not specified as infective STD exposure [facility] Date [facility] No data available for this section [facility] Instructions* Date Instruction Additional Infor mation No Information [facility] No data available for this section [facility] Progress note* Clinical Note Date No Information [facility] SvReason for referral (narrative)* Reason For Referral No Information [facility] Summary Purpose Family History No Family History Records Found Family Member Type Diagnosis Age At Onset No Information Advance Directives No Advanced Directives Records FoundDocuments on File Type Date Recorded Patient Manager Drive Expl anation Advance Directive(s) 04/18/2020 1:02 PM Advance Directive(s) 04/10/2020 11:05 AM Advance Directive(s) 11/10/2019 9:11 AM Advance Directive(s) 11/02/2019 4:31 PM Advance Directive(s) 02/25/2017 3:09 PM Directive Yes / No Effective Date File Name No Information Chief Complaint and Reason for Visit From encounter dated '11/05/2022 11:15'. Headache (chief complaint). Description: Onset: 3 Months. Locations affected include occipital. Headache timing includes no pattern. Symptoms are associated with stress. Denies aggravating factors. Denies relieving factors. Associated symptoms include blurred vision and vomiting. Pertinent negatives include fever. Additional information: pt reports headache starts in occiput and travels forward ,then has vomiting and passes out. No Information No Information From encounter dated '11/05/2022 11:15'. Headache (chief complaint). Description: Onset: 3 Months. Locations affected include occipital. Headache timing includes no pattern. Symptoms are associated with stress. Denies aggravating factors. Denies relieving factors. Associated symptoms include blurred vision and vomiting. Pertinent negatives include fever. Additional information: pt reports headache starts in occiput and travels forward ,then has vomiting and passes out. Physical Exam Exam Findings Details Eyes Normal Conjunctiva - Ri ght: Normal. Pupil - Right: Normal, Left: Normal. Respiratory Normal Inspection - Nor mal. Auscultation - Normal. Effort - Normal. Abdomen Normal Auscultation - N ormal. No abdominal tenderness. No hepatic enlargement. No spleen enlargement. No hernia. Abdomen * Inspection - obe se. Psychiatric Normal Orientation - Or iented to time, place, person & situation. Appropriate mood and affect. Cardiovascular Normal Regular rate and rhythm. No murmurs, gallops, or rubs. Exam Findings Details No Information Reason for Referral Specialty Diagnoses / Procedures Referred By [facility] Referred To Contact Hepatology Diagnoses Hx of hepatitis C Carolina Ozuna DMS[facility], PA-C [address] [place] [address] Referral ID Status Reason Start Date Expiration Date Visits Requested Visits Authorized [id number] New Request Specialty Services Required 12/21/2022 12/21/2023 1 1 Comments Indication: Chronic Hepatitis C Facility: [facility] Please fax results to Carolina Ozuan [facility] Fax No. Health Concerns Assessment Noted Time PHQ-9 Depression Total Score: 6 11/23/19 2:00 PM PST Assessment Noted Time PHQ-9 Depression Total Score: 6 11/23/19 2:00 PM PST Medications Administered Section Inactive Administered Medications - up to 3 most recent administrations Medication Order MAR Action Action Date Dose Rate Site cefTRIAXone 500 mg intramuscular injection (ROCEPHIN) 500 mg, INTRAMUSCULAR, ONCE, 1 dose, On Wed03/02/23 at 1500, Please document the antimicrobial indication: Empiric Given 03/02/2023 3:52 PM EDT 500 mg Buttocks, Left Additional Source Comments INFORMATION SOURCE (unrecogn ized section and content) DATE CREATED AUTHOR AUTHOR'S ORGANIZ ATION 11/10/2019 [facility] DATE CREATED AUTHOR AUTHOR'S ORGANIZ ATION 08/23/2022 [facility] ([place]) DATE CREATED AUTHOR AUTHOR'S ORGANIZ ATION 10/22/2022 [facility] DATE CREATED AUTHOR AUTHOR'S ORGANIZ ATION 12/01/2022 [facility] DATE CREATED AUTHOR AUTHOR'S ORGANIZ ATION 03/06/2023 [facility] Source Comments (unrecognize d section and content) In the event this informatio n is protected by the Federal Confidentiality of Alcohol and Drug Abuse Patient Records regulations: The Federal rules restrict any use of the information to criminally investigate or prosecute any alcohol or drug abuse patient.[facility] the event this information is protected by the Federal Confidentiality of Alcohol and Drug Abuse Patient Records regulations: The Federal rules restrict any use of the information to criminally investigate or prosecute any alcohol or drug abuse patient.[facility] the event this information is protected by the Federal Confidentiality of Alcohol and Drug Abuse Patient Records regulations: The Federal rules restrict any use of the information to criminally investigate or prosecute any alcohol or drug abuse patient.[facility] [facility] CenterIn the event this information is protected by the Federal Confidentiality of Alcohol and Drug Abuse Patient Records regulations: The Federal rules restrict any use of the information to criminally investigate or prosecute any alcohol or drug abuse patient.[facility] CenterIn the event this information is protected by the Federal Confidentiality of Alcohol and Drug Abuse Patient Records regulations: The Federal rules restrict any use of the information to criminally investigate or prosecute any alcohol or drug abuse patient.[facility] CenterIn the event this information is protected by the Federal Confidentiality of Alcohol and Drug Abuse Patient Records regulations: The Federal rules restrict any use of the information to criminally investigate or prosecute any alcohol or drug abuse patient.[facility] CenterIn the event this information is protected by the Federal Confidentiality of Alcohol and Drug Abuse Patient Records regulations: The Federal rules restrict any use of the information to criminally investigate or prosecute any alcohol or drug abuse patient.[facility] CenterIn the event this information is protected by the Federal Confidentiality of Alcohol and Drug Abuse Patient Records regulations: The Federal rules restrict any use of the information to criminally investigate or prosecute any alcohol or drug abuse patient.[facility] CenterIn the event this information is protected by the Federal Confidentiality of Alcohol and Drug Abuse Patient Records regulations: The Federal rules restrict any use of the information to criminally investigate or prosecute any alcohol or drug abuse patient.[facility] CenterIn the event this information is protected by the Federal Confidentiality of Alcohol and Drug Abuse Patient Records regulations: The Federal rules restrict any use of the information to criminally investigate or prosecute any alcohol or drug abuse patient.[facility] CenterIn the event this information is protected by the Federal Confidentiality of Alcohol and Drug Abuse Patient Records regulations: The Federal rules restrict any use of the information to criminally investigate or prosecute any alcohol or drug abuse patient.[facility] CenterIn the event this information is protected by the Federal Confidentiality of Alcohol and Drug Abuse Patient Records regulations: The Federal rules restrict any use of the information to criminally investigate or prosecute any alcohol or drug abuse patient.[facility] CenterIn the event this information is protected by the Federal Confidentiality of Alcohol and Drug Abuse Patient Records regulations: The Federal rules restrict any use of the information to criminally investigate or prosecute any alcohol or drug abuse patient.[facility] Reason for Visit (unrecogniz ed section and content) Reason Comments Appointment Patient Update Reason Comments Letter Reason Comments Medication Question Reason Onset Date Comments Refill Request 10/01/2022 Reason Comments medication review Reason Comments Headache 8/10 Vomiting X1....resolved with zofran given by EMS Reason Onset Date Comments Refill Request 10/30/2022 Reason Comments Lab Result Reason Comments Care Coordination reffeal Reason Comments STD + gonorrhea exposure , vaginal drainage Care Teams (unrecognized sec tion and content) Steel Wool Machine Operator Relationship Specialty Start Date End Date Elizabeth Jones APRN.VESSEL SPECIALIST [address] [place] [address] PCP - General Family Practice 08/21/21 Steel Wool Machine Operator Relationship Specialty Start Date End Date Elizabeth Jones APRN.VESSEL SPECIALIST [address] [place] [address] PCP - General Family Practice 08/21/21 Steel Wool Machine Operator Relationship Specialty Start Date End Date Elizabeth Jones, WOOL BRUSHER.VESSEL SPECIALIST [address] [place] [address] PCP - General Family Practice 08/21/21 Steel Wool Machine Operator Relationship Specialty Start Date End Date Elizabeth Jones, WOOL BRUSHER.VESSEL SPECIALIST [address] [place] [address] PCP - General Family Medicine 08/21/21 Steel Wool Machine Operator Relationship Specialty Start Date End Date Elizabeth Jones, WOOL BRUSHER.VESSEL SPECIALIST [address] [place] [address] PCP - General Family Medicine 08/21/21 Steel Wool Machine Operator Relationship Specialty Start Date End Date Elizabeth Jones, WOOL BRUSHER.VESSEL SPECIALIST [address] [place] [address] PCP - General Family Medicine 08/21/21 Name Effective Dates (start - stop) Status Members No Information Steel Wool Machine Operator Relationship Specialty Start Date End Date Elizabeth Jones, WOOL BRUSHER.VESSEL SPECIALIST [address] [place] [address] PCP - General Family Medicine 08/21/21 Adele Vogel MD [address] [place] [address] Family Medicine 12/30/22 Steel Wool Machine Operator Relationship Specialty Start Date End Date Elizabeth Jones, WOOL BRUSHER.VESSEL SPECIALIST [address] [place] [address] PCP - General Family Medicine 08/21/21 Adele Vogel MD [address] [place] [address] Family Medicine 12/30/22 Care Team (unrecognized sect ion and content) Care Team Personnel Name: ELIZABETH JONES DEBRA-VESSEL SPECIALIST Member Role: Primary Care Physician Address: Address: [address] [facility] [place] [address]- Care Team Related Persons Name: SHAKIR TINSLEY Name: SHAKIR SANTIAGO Address: [address] [place] [address] Scheduled Active and Recently Administ ered Medications (unrecognized section and content) <item> Privacy Markings (unrecogniz ed section and content) Section Author: Kelly Servin PROHIBITION ON REDISCLOSURE OF CONFIDENTIAL INFORMATION This notice accompanies a disclosure of information concerning a client made to you with the consent of such client. FOR RECORDS PERTAINING TO PATIENTS WHO ARE OR HAVE BEEN ENROLLED IN A CHEMICAL DEPENDENCY/SUBSTANCEABUSE PROGRAM, SOME INFORMATION MAY BE OMITTED. This clinical summary was aggregated from multiple sources. Caution should be exercised in using it in the provision of clinical care. This summary normalizes information from multiple sources, and as a consequence, information in this document may materially change the coding, format and clinical context of patient data. In addition, data may be omitted in some cases. CLINICAL DECISIONS SHOULD BE BASED ON THE PRIMARY CLINICAL RECORDS. [employer] provides no warranty or guarantee of the accuracy or completeness of information in this document.
[2023-11-17 21:41] LABS: D-Dimer Quantitative (DVT/PE) < 0.27 FEU/ug/m (0.27-0.49)
[2023-11-17 21:54] LABS: Differential Comment SCANNED
[2023-11-17] MEDS: Ketorolac 30 MG/ML Syringe IV (22:44)
[2023-11-17 23:10] LABS: Reflex Troponin-HS? (from REC) Y
[2023-11-17 23:26] LABS: Troponin-I HS < 3 pg/mL (3.0-54.0)
== END 2023-11-17 23:50 | disposition home or self-care (01) ==
PROVIDERS: Emergency Provider Emergency Medicine; Visit Provider Emergency Medicine
DX: R07.89 Other chest pain (principal); F17.290 Nicotine dependence, other tobacco product, uncomplicated
CPT/HCPCS: 71045; 80048; 84484; 85025; 85379; 93005; 96374; 96375; 99285; J7030; A4216; J2405

== ENCOUNTER 2024-01-11 22:12 | Emergency (ER) | payer MEDICAID, SELFPAY ==
[2024-01-11 22:13] VITALS: BP 135/83; PULSE 81; RESP 16; TEMP 36.3; O2SAT 99; BMI 36.9
--- NOTE | 2024-01-11 23:07 | EDS_ITS ---
HPI History of Present Illness Chief Complaint: Dental Informant: patient Narrative Narrative: Patient has had an indolent dental infection for a year or so, she has never not in pain. She has been following with a dentist and oral surgeon, she is basically waiting for documistic insurance to cover her surgery that she needs to get this definitively taken care of. She has been off and on antibiotics for months, she can member the last time she was on 1, was not within the last week or 2. She states the pain is getting worse. She has a history of addiction and is in a program so she does not want narcotics, but she has been taking Tylenol and ibuprofen and they are not helping, she think she needs more antibiotics. She does occasionally get a foul taste in her mouth no bleeding. No significant swelling compared to usual. Same tooth as usual. PFSH PFS Medical History Abscess of left external cheek Asthma Asthma Borderline personality disorder Cutaneous abscess of neck Depression affecting Felon of finger of right hand Hepatitis C History of MRSA infection Kidney stones Migraine headache without aura Murmur Obesity Open wound of left cheek Open wound of neck Open wound of right middle finger without damage to nail Opioid use Personal history of MRSA (methicillin resistant Staphylococcus aureus) Polysubstance dependence PTSD (post-traumatic stress disorder) Home Medications amoxicillin 500 mg tablet 500 mg PO TID #30 tabs 01/11/24 [Rx Last Taken Unknown] Allergy/AdvReac Type Severity Reaction Status Date / Time Bleach (Sodium Hypochlorite) Allergy Hives Verified 01/11/24 22:14 diphenhydramine HCl Allergy Hives Verified 01/11/24 22:14 [From Benadryl] Family History Other Alcohol abuse Diabetes Drug abuse Hypertension Schizophrenia Tumor Surgical History History of salpingectomy History of tonsillectomy Hx of oral surgery S/P ERCP Social History Smoking Status: Current every day smoker tobacco type: e-cigarettes ROS ROS ED Constitutional Constitutional ED: Denies chills or fever(s) Eyes Eyes: Denies change in vision or double vision ENT ENT ED: Reports dental pain; Denies sinus pain or throat swelling Cardiovascular Cardiovascular: Denies chest pain or palpitations Respiratory/Chest Respiratory/Chest: Denies cough or dyspnea Integumentary Denies abscess or rash Neurologic Neurologic: Denies headache(s), paresthesias or weakness EXAM Physical Exam Const Vital Signs: 01/11/24 22:13 Temperature 97.4 F L Temperature Source Temporal Pulse Rate 81 Respiratory Rate 16 Blood Pressure 135/83 H Blood Pressure Mean 100 Pulse Ox 99 Oxygen Delivery Method Room Air Positive well nourished and well developed General Appearance ED: well developed and NAD HEENT HEENT Narrative: Decayed tooth down to the gumline approximately #30. There is some tenderness in the gingiva and buccal mucosa just caudal to this but there is no fluctuance or palpable collection/abscess, both internally and externally. No trismus. Posterior oropharynx in the posterior part of the mandible intraorally all normal. No palpable lymphadenopathy. Normal phonation. Face and Sinus: sinuses nontender Throat: posterior oropharynx normal Eyes PERRL and EOMs intact bilaterally Neck no lymphadenopathy and supple Resp normal respiratory effort Neuro oriented x3 and CN's II-XII intact bilaterally Sensorium / Orientation: alert Gait (Neuro): normal gait Psych mental status grossly normal and thought process normal Skin no rashes or lesions noted and no wounds MDM MDM MDM Narrative Medical decision making narrative: Patient is amenable to starting on amoxicillin and a dental block which was done see the procedure note. She tolerated well. No complications. The potential infectious process is well anterior to the site of injection for inferior alveolar nerve block. Procedures Other Procedures Procedure(s): Right inferior alveolar nerve block: 1.8 cc of 0.5% Marcaine with epinephrine was injected via the usual technique, 45 degree angle, needle felt to the inside of the mandible and then backed off half centimeter before injecting. No complications, no blood aspirated prior to injecting anesthetic. Discharge Plan Triage Chief Complaint: Dental ED Provider: Genaro Paez Dx/Rx/DC Orders Clinical Impression: Dental infection Instructions: ED Dental Cavity Prescriptions: New amoxicillin 500 mg tablet 500 mg PO TID Qty: 30 0RF Primary Care Provider: Julissa Bingham NP Referrals: Julissa Bingham NP, [facility]ISTRATE-C [Primary Care Provider] - Dentist,Your [STAFF PHYSICIAN] - (As directed) Disposition Disposition: Home, Self Care
[2024-01-11] MEDS: Bupivacaine 0.5%/Epi 1.8 ML Syringe INFILT (23:23)
[2024-01-11] MEDS: Naproxen 250 MG Tablet 500 MG PO (23:23)
[2024-01-11] MEDS: AMOXICILLIN 500 MG CAPSULE PO (23:23)
[2024-01-11 23:24] VITALS: BP 122/84; PULSE 65; RESP 16; TEMP 36.7; O2SAT 100
== END 2024-01-11 23:25 | disposition home or self-care (01) ==
LOC: ED 23:15
PROVIDERS: Emergency Provider Emergency Medicine; PCP Nurse Practitioner Family; Visit Provider Emergency Medicine
DX: K04.7 Periapical abscess without sinus (principal); F17.290 Nicotine dependence, other tobacco product, uncomplicated
CPT/HCPCS: 64999; 99283; A4216

== ENCOUNTER 2024-01-18 20:01 | Emergency (ER) | payer MEDICAID, SELFPAY ==
[2024-01-18 20:02] VITALS: BP 148/102; PULSE 82; RESP 18; TEMP 36.7; O2SAT 100; BMI 38.7
--- NOTE | 2024-01-18 20:48 | CT_ITS ---
INDICATION: oral infection EXAMINATION: CT NECK WITH CONTRAST - CT Soft Tissue Neck W/ Contrast Injection TECHNIQUE: Helically acquired images were obtained of the neck following IV contrast. A radiation dose optimization technique was used for this scan. IV Contrast dosage and agent: 100 cc [id number]-300 COMPARISON: None. FINDINGS: NASOPHARYNX: Unremarkable. SUPRAHYOID NECK: Unremarkable oropharynx, oral cavity, parapharyngeal space, and retropharyngeal space. INFRAHYOID NECK: Unremarkable larynx, hypopharynx, and supraglottis. THYROID: No focal lesions. SALIVARY GLANDS: Unremarkable. LYMPH NODES: No cervical or supraclavicular lymphadenopathy. VASCULAR STRUCTURES: Unremarkable. VISUALIZED PORTIONS OF THE ORBITS, PARANASAL SINUSES, MASTOID AIR CELLS AND SKULL BASE: Unremarkable. BONES: Unremarkable. THORACIC INLET: Clear lung apices. TEETH: Periapical lucency of a right mandibular canine. CT/Soft Tissue Neck WITH Contrast IMPRESSION: Dental abscess of the right mandibular canine. Electronically Signed: Johan Hutson MD at 23:44 EDT ,
--- NOTE | 2024-01-18 21:03 | EDS_ITS ---
HPI History of Present Illness Chief Complaint: Sore Throat Informant: patient Narrative Narrative: Patient presents secondary to right-sided dental pain. She states that she has had throat pain and dental issues for the last year or so. It is recently worsened. She is scheduled to have surgery a week from Wednesday on her teeth by a physician at [facility] in [place]. Patient states that she has been on antibiotics and is currently on amoxicillin. She feels that her throat is tightening and she is having more difficulty swallowing. [facility] Medical History (Updated 01/18/24 @ 23:[address] Yasmine Godinez MD) Abscess of left external cheek Asthma Borderline personality disorder Cutaneous abscess of neck Depression affecting Felon of finger of right hand Hepatitis C History of MRSA infection Kidney stones Migraine headache without aura Murmur Obesity Open wound of left cheek Open wound of neck Open wound of right middle finger without damage to nail Opioid use Personal history of MRSA (methicillin resistant Staphylococcus aureus) Polysubstance dependence PTSD (post-traumatic stress disorder) Home Medications amoxicillin 500 mg tablet 500 mg PO TID #30 tabs 01/11/24 [Rx Last Taken Unknown] clindamycin HCl 150 mg capsule 300 mg (2 x 150 mg) PO 4X/DAY #80 CAPSULES 01/18/24 [Rx Last Taken Unknown] hydrocodone-acetaminophen 5-325mg 5mg-325mg 1 tab PO Q6H PRN PRN Pain 3 days #10 TABLETS 01/18/24 [Rx Last Taken Unknown] Allergy/AdvReac Type Severity Reaction Status Date / Time Bleach (Sodium Hypochlorite) Allergy Hives Verified 01/18/24 20:02 diphenhydramine HCl Allergy Hives Verified 01/18/24 20:02 [From Benadryl] Family History Other Alcohol abuse Diabetes Drug abuse Hypertension Schizophrenia Tumor Surgical History History of salpingectomy History of tonsillectomy Hx of oral surgery S/P ERCP Social History Smoking Status: Current every day smoker tobacco type: e-cigarettes ROS ROS ED Constitutional Constitutional ED: Denies chills or fever(s) Eyes Eyes: Denies change in vision ENT ENT ED: Reports sore throat and other Details: Right lower dental pain ; Denies rhinorrhea Cardiovascular Cardiovascular: Denies chest pain or palpitations Respiratory/Chest Respiratory/Chest: Denies cough or dyspnea Gastrointestinal Gastrointestinal: Denies abdominal pain Musculoskeletal Musculoskeletal: Denies arthralgias Psychiatric Psychiatric: Denies anxiety or depression EXAM Physical Exam Narrative Exam Narrative: Patient tolerating secretions and speaking with a strong voice. Const Vital Signs: 01/18/24 20:02 01/18/24 22:00 Temperature 98.1 F Temperature Source Temporal Pulse Rate 82 75 Respiratory Rate 18 18 Blood Pressure 148/102 H 131/86 H Blood Pressure Mean 117 101 Pulse Ox 100 100 Oxygen Delivery Method Room Air Positive well nourished and well developed General Appearance ED: well developed HEENT Reports moist mucous membranes HEENT Narrative: Patient has dental decay of the right mandibular first molar with surrounding lateral gum edema. I do not appreciate any evidence of Rubén's angina. Posterior pharynx is unremarkable. Eyes EOMs intact bilaterally Neck no lymphadenopathy Chest Wall inspection of chest normal and palpation of chest normal Resp normal respiratory effort and clear to auscultation bilaterally Cardio regular rate and regular rhythm GI non-tender Palpation: soft Extremity normal to inspection Neuro oriented x3 Sensorium / Orientation: alert Skin no rashes or lesions noted MDM MDM MDM Narrative Medical decision making narrative: IV line established. Patient will undergo CT scan of the soft tissue neck to ensure no evidence of deep infection, airway compromise. She is given a dose of morphine and Zofran for pain and nausea. Radiography Diagnostic Testing: Clinical Impression(s) from Imaging Studies Soft Tissue Neck CT 01/18/24 20:48 IMPRESSION: Dental abscess of the right mandibular canine. Electronically Signed: Johan Hutson MD at 23:44 EDT , Treatment and Re-Evaluation :: CT scan reveals evidence of a dental abscess of the right mandibular canine. No bony changes noted. No submandibular fullness or swelling. Patient has been on amoxicillin, Augmentin, clindamycin, and Pen-Vee K over the past 3 to 4 months. She states that she feels that she did better on the clindamycin. I will write her a prescription for 10 days of clindamycin which will take her up to her surgical date. I will also write her a short course of [place] to help with pain. Discharge Plan Triage Chief Complaint: Sore Throat ED Provider: Yasmine Godinez Dx/Rx/DC Orders Clinical Impression: Abscess, dental Instructions: ED Dental Abscess Prescriptions: New clindamycin HCl 150 mg capsule 300 mg PO 4X/DAY Qty: 80 0RF hydrocodone-acetaminophen 5-325 mg tablet 1 tab PO Q6H PRN PRN (Reason: Pain) 3 Days Qty: 10 0RF No Action amoxicillin 500 mg tablet 500 mg PO TID Qty: 30 0RF Primary Care Provider: Julissa Bingham NP Referrals: Julissa Bingham NP, [employer]-C [Primary Care Provider] - Activity Restrictions/Additional Instructions: Follow-up with your dentist on the as scheduled. Disposition Disposition: Home, Self Care
[2024-01-18] MEDS: Morphine 4 MG/ML Syringe IV (21:29)
[2024-01-18] MEDS: Ondansetron 4 MG/2 ML Vial IV (21:29)
[2024-01-18 22:00] VITALS: BP 131/86; PULSE 75; RESP 18; O2SAT 100
[2024-01-18 22:30] VITALS: BP 139/89; O2SAT 100
[2024-01-18 23:00] VITALS: BP 126/87; O2SAT 100
[2024-01-18 23:30] VITALS: BP 127/85; O2SAT 100
[2024-01-18] MEDS: Clindamycin HCl 150 MG Capsule 300 MG PO (23:59)
[2024-01-19 00:07] VITALS: BP 127/85; PULSE 75; RESP 18; TEMP 37; O2SAT 98
== END 2024-01-19 00:08 | disposition home or self-care (01) ==
PROVIDERS: Emergency Provider Emergency Medicine; PCP Nurse Practitioner Family; Visit Provider Emergency Medicine
DX: K04.7 Periapical abscess without sinus (principal); F17.290 Nicotine dependence, other tobacco product, uncomplicated
CPT/HCPCS: 70491; 96374; 96375; 99282; Q9967; A4216; J2405

== ENCOUNTER 2025-08-07 13:19 | Emergency (ER) | payer MEDICAID, SELFPAY ==
[2025-08-07 13:21] VITALS: BP 140/90; PULSE 81; RESP 16; TEMP 37.1; O2SAT 99; BMI 54.3
[2025-08-07 14:13] LABS: Mucous, Urine 0 SEEN /hpf (<or=2+); Red Blood Cells-Urine 0 SEEN /hpf (0-5)
[2025-08-07 14:15] LABS: Color, Urine Yellow (Yellow); Glucose, Dipstick Normal (Normal); Ketone-Dipstick Negative (Negative); Leukocyte Esterase-Dipstick Negative /ul (Negative); Nitrite-Dipstick Negative (Negative); Occult Blood-Urine Negative /ul (Negative); Protein-Dipstick Negative (Negative); Specific Gravity, Urine 1.010 (1.002-1.030); Urine Bilirubin Dipstick Negative (Negative)
[2025-08-07 14:22] LABS: Internal QC Validated? YES +Cl - CLEAR BKGD; Pregnancy, Urine Negative Negative; Record Kit Lot#,Urine Preg 9806078; Squamous Epithelial Cells - UA 0-5 SEEN /hpf (5-10)
--- NOTE | 2025-08-07 14:28 | EDS_ITS ---
HPI History of Present Illness Chief Complaint: General Illness Narrative Narrative: Patient is a 29-year-old female with past medical history of polysubstance abuse, PTSD, borderline personality disorder, hepatitis C, history of MRSA infection, asthma who presents to the emergency department with a chief complaint of vaginal burning. States that she had her period about 3 weeks ago and notes that following this she developed diarrhea. States that she had diarrhea and then few days later she started develop some burning near her vagina. She states that this has been progressively worsening to the point prompting her to come here for further evaluation management. States that she originally went to urgent care and they told her she needed to come to the emergency department to be evaluated. She states that it feels like my vagina is on fire. She states that she is sexually active but with the same partner and does not have any concern for STDs. She notes that she does not have her tubes so she denies any possibility of . She states that she does not use tampons. [facility] Medical History Opioid use Polysubstance dependence Murmur Kidney stones Borderline personality disorder PTSD (post-traumatic stress disorder) Obesity History of MRSA infection Hepatitis C Depression affecting Open wound of neck Open wound of left cheek Personal history of MRSA (methicillin resistant Staphylococcus aureus) Cutaneous abscess of neck Abscess of left external cheek Asthma Migraine headache without aura Open wound of right middle finger without damage to nail Felon of finger of right hand Home Medications ?Medication ?Instructions ?Recorded ?Last Taken ?Type acetaminophen 500 mg tablet (Pain 1,000 mg PO Q6H PRN pain/fever 08/07/25 08/07/25 History Relief (acetaminophen)) bupropion HCl 150 mg 24 hr tablet, 150 mg PO QHS smoki ng cessation 08/07/2504/25 History extended release citalopram 20 mg tablet 20 mg PO QHS mood 08/07/25 1 History dicyclomine 20 mg tablet 20 mg PO Q6H PRN abdominal p ain 08/07/25 Unknown History fluconazole 150 mg tablet 150 mg PO DAILY #1 TAB 08/07 Unknown Rx hydroxyzine HCl 25 mg tablet 25 mg PO TID PRN anxiety 08/07/25 08/06/25 History ibuprofen 200 mg capsule 800 mg PO Q8H PRN fever or p ain 08/07/25 08/06/25 History loperamide 2 mg capsule 2 mg PO PRN diarrhea 5 08/06/25 History Allergy/AdvReac Type Severity Reaction Status Date / Time Bleach (Sodium Hypochlorite) Allergy Hives Verified 08/07/25 13:21 diphenhydramine HCl (From Allergy Hives Verified 08/07/25 13:21 Benadryl) Family History Other Alcohol abuse Diabetes Drug abuse Hypertension Schizophrenia Tumor Surgical History History of tonsillectomy History of salpingectomy S/P ERCP Hx of oral surgery Social History Smoking Status: Current every day smoker tobacco type: e-cigarettes ROS ROS ED ROS Narrative Constitutional: States that she had a fever at urgent care but notes that they checked her temperature with a ear thermometer and states that her fever broke by the time she got here even though she did not take anything for her fever Abdomen: Complains of diffuse abdominal pain and nausea : Complains of clear discharge coming from her vagina and states that she has pain as noted above denies any blood in her urine Neurological: Denies numbness, weeks, tingling Musculoskeletal: Denies back pain Skin: Denies any rashes or lesions EXAM Physical Exam Narrative Exam Narrative: General: Patient was lying in bed rest comfortably did not appear to be acute distress Head: Atraumatic, normocephalic Eyes: PERRL bilaterally, EOMI bilaterally, no conjunctival injection noted Neck: Soft, supple, trachea midline Cardiovascular: Regular rate and rhythm Respiratory: Clear to auscultation bilaterally Abdomen: Soft, nondistended, no tenderness to palpation Extremities: +5/5 strength noted in the bilateral upper and lower extremities Neurological: Patient follow commands that she was at [facility] the year is 2024 Skin: Warm, dry, intact no rashes or lesions noted Const Vital Signs: 08/07/25 13:21 08/07/25 13:34 08/07/25 15:20 Temperature 98.7 F Temperature Source Oral Pulse Rate 81 64 Respiratory Rate 16 17 Respiratory Effort Normal Non-Labored Respiratory Pattern Normal Blood Pressure 140/90 H 125/91 H Blood Pressure Mean 106 102 Pulse Ox 99 100 Oxygen Delivery Method Room Air Room Air MDM MDM MDM Narrative Medical decision making narrative: Patient is a 29-year-old female who presents to the emergency department with a chief complaint of vaginal burning. On the differential diagnose includes but not limited to UTI, yeast infection, gonorrhea, chlamydia, trichomonas or other STI. Once workup is obtained and reviewed she will be reevaluated. Patient's CBC was reviewed showed no evidence leukocytosis white blood count over 9.5, he was 13.7, plate count 275. Patient sodium is 140, potassium normal 3.7, creatinine 0.68. Patient AST and ALT were normal at 24 and 26 respectively total bilirubin normal at 0.22. Patient's urinalysis reviewed showed no evidence of infection test was negative. Gonorrhea, chlamydia, trichomonas was negative as well as syphilis. Pelvic exam was performed she has no evidence of herpes, no other lesions noted on her labia majora, vaginal canal does not have any evidence of trauma there was clear discharge noted cervix was visualized os closed no evidence of inflammatory changes of the cervix or evidence of strawberry cervix. After pelvic exam patient was then concerned about kidney stones therefore CT abdomen pelvis without contrast was added on. Patient CT and pelvis without contrast reviewed and showed no evidence of kidney stones she has diffuse hepatic steatosis. Patient does appear to be constipated. Patient be given a dose of Diflucan here and she was advised that in a few days if she is not feeling better she should take a second dose. She was advised to follow-up with her doctors outpatient setting return with worsening symptoms or any concerns. She is agreeable this plan all question concerns answered she was discharged home in stable condition. Lab Data Labs: Laboratory Results - last 24 hr 08/07/25 08/07/25 14:09 14:35 WBC 9.5 RBC 4.51 Hgb 13.7 Hct 39.6 MCV 87.8 MCH 30.4 MCHC 34.6 RDW Std Deviation 39.8 RDW Coeff of Joya 12.5 Plt Count 275 MPV 9.9 Immature Gran % (Auto) 0.700 Neut % (Auto) 62.9 Lymph % (Auto) 28.4 [place] % (Auto) 5.5 Eos % (Auto) 1.8 Baso % (Auto) 0.7 Absolute Neuts (auto) 6.0 Absolute Lymphs (auto) 2.70 Nucleated RBC % 0 Sodium 140 Potassium 3.7 Chloride 105 Carbon Dioxide 23.1 Anion Gap 12 BUN 6 Creatinine 0.68 L Estim Creat Clear Calc 151.36 Est GFR (MDRD) Non-Af 122 BUN/Creatinine Ratio 8.1 L Glucose 89 Calcium 9.2 Total Bilirubin 0.22 AST 24 ALT 26 Alkaline Phosphatase 71 Total Protein 6.8 Albumin 4.2 Globulin 2.6 Albumin/Globulin Ratio 1.6 Urine Color Yellow Urine Clarity Clear Urine pH 6.5 Ur Specific [place] 1.010 Urine Protein Negative Urine Glucose (UA) Normal Urine Ketones Negative Urine Occult Blood Negative Urine Nitrite Negative Urine Bilirubin Negative Urine Urobilinogen Normal Ur Leukocyte Esterase Negative Urine RBC 0 SEEN Urine WBC 0 SEEN Ur Squamous Epith Cells 0-5 SEEN Urine Bacteria 0 SEEN Urine Mucus 0 SEEN Urine Test Negative Syphilis Total Ab Nonreactive Radiography Diagnostic Testing: Clinical Impression(s) from Imaging Studies Abdomen/Pelvis CT 08/07/25 15:45 IMPRESSION: Diffuse hepatic steatosis. No definite evidence of any renal calculi or bilateral hydronephrosis. Mild soft tissue induration within lower lumbosacral region likely inflammatory. Normal uterine size and contour. Please note evaluation of pelvic viscera is limited on this examination. If there is concern for any pelvic pathology consider ultrasound pelvis. Reading Location: [facility] Discharge Plan Triage Chief Complaint: General Illness ED Provider: Terry Jha Dx/Rx/DC Orders Clinical Impression: Vaginal discharge, Vaginal pain, History of asthma Prescriptions: New fluconazole 150 mg tablet 150 mg PO DAILY Qty: 1 0RF No Action loperamide 2 mg capsule 2 mg PO PRN citalopram 20 mg tablet 20 mg PO QHS dicyclomine 20 mg tablet 20 mg PO Q6H PRN (Reason: abdominal pain) bupropion HCl 150 mg tablet extended release 24 hr 150 mg PO QHS hydroxyzine HCl 25 mg tablet 25 mg PO TID PRN (Reason: anxiety) Patient Comments: states she usually takes at bedtime acetaminophen [Pain Relief (acetaminophen)] 500 mg tablet 1,000 mg PO Q6H PRN (Reason: pain/fever) ibuprofen 200 mg capsule 800 mg PO Q8H PRN (Reason: fever or pain) Patient Comments: uses otc Primary Care Provider: Elizabeth Jones NP Referrals: Elizabeth Jones NP, [facility] [Primary Care Provider, Palliative Medicine] Activity Restrictions/Additional Instructions: Follow-up your doctor in outpatient setting. You tested negative for gonorrhea, chlamydia, trichomonas here in the emergency department. Your blood work did not show any acute findings your CT did not show any evidence of kidney stones. 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 Return with worsening symptoms or any concerns. Print Language: Swiss Disposition Disposition: Home, Self Care
[2025-08-07 14:47] LABS: Hematocrit 39.6 % (37-47); Hemoglobin 13.7 g/dL (12.0-15.0); Immature Granulocytes Count 0.070 X10^3/uL (0.0-0.0); Mean Corp Hgb Conc 34.6 g/dL (32-36); Mean Corpuscular Volume 87.8 fL (81-99); Mean Platelet Vol. 9.9 fl (6.2-12.0); NRBC Flagged by Analyzer 0 % (0-5); Platelet Count 275 K/mm3 (150-450); RBC Distribution Width CV 12.5 % (11.6-14.6); RBC Distribution Width SD 39.8 fl (35.1-43.9); Red Blood Count 4.51 M/mm3 (4.2-5.4); White Blood Count 9.5 K/mm3 (4.4-11.0)
[2025-08-07 15:20] VITALS: BP 125/91; PULSE 64; RESP 17; O2SAT 100
[2025-08-07 15:24] LABS: AST(SGOT) 24 U/L (<=31); Alanine Aminotransfer ALT/SGPT 26 U/L (<=34); Albumin, Serum 4.2 g/dL (3.5-5.0); Alkaline Phosphatase 71 U/L (35-104); Anion Gap 12 (5-15); BUN 6 mg/dL (4-19); BUN/Creat Ratio 8.1 RATIO (10-20); Calcium,Total 9.2 mg/dL (7.6-11.0); Carbon Dioxide 23.1 mmol/L (21.0-32.0); Chloride 105 mmol/L (98-108); Estimated Creatinine Clearance 151.36 ml/min (50-250); Globulin 2.6 g/dL (2.2-4.2); Glucose 89 mg/dL (70-99); Potassium 3.7 mmol/L (3.3-5.1); Syphilis Antibodies Nonreactive (Nonreactive)
--- NOTE | 2025-08-07 15:45 | CT_ITS ---
PROCEDURE: ABDOMEN/PELVIS WITHOUT CONT 08/07/2025 REASON FOR EXAM: FLANK PAIN TECHNIQUE: Procedure Code: CTABDPEL Modality: CT Procedure: ABDOMEN/PELVIS WITHOUT CONT Noncontrast technique limits evaluation of the abdominal and pelvic viscera. Coronal and Sagittal reconstruction series were provided. One or more dose reduction techniques were used (e.g., Automated exposure control, adjustment of the mA and/or kV according to patient size, use of iterative reconstruction technique). RADIATION DOSE SUMMARY: CTDlvol: 23.9 mGy DLP: 1294.35 mGycm COMPARISON: CT abdomen and pelvis without contrast 12/04/2020 FINDINGS: Lung bases: Bilateral dependent atelectasis. Liver: Diffuse fatty infiltration. Gallbladder: Gallbladder is distended with sludge. Spleen: Normal size. Pancreas: Normal size. No surrounding inflammation. Adrenals: Unremarkable Kidneys: No evidence of any obstructive uropathy or obstructing biatrial calculi. No hydronephrosis is visualized in bilateral kidneys. Bladder: Distended urinary bladder. Reproductive Organs: Normal uterine size and contour. Bowel: [id number] stool burden. Colonic diverticulosis without evidence of diverticulitis. There is high density material within right lower quadrant could be related to prior surgery. Appendix: The appendix is not identified. There is no inflammatory process identified in the right lower quadrant to suggest appendicitis. Lymph nodes: Multiple scattered mesenteric lymph nodes such as right upper quadrant mesenteric lymph node measuring 6 mm additional multiple scattered lymph nodes are also visualized within pelvis. Vasculature: The abdominal aorta and IVC contours are normal. Noncontrast technique limits evaluation. Multiple pelvic phleboliths are again visualized. Peritoneum / Retroperitoneum: Mild scattered stranding within peritoneum. Bones: Diffuse osteopenia of visualized bones, unchanged since prior study. There is soft tissue induration within lower lumbosacral region likely inflammatory. CT/Abdomen/Pelvis without Cont IMPRESSION: Diffuse hepatic steatosis. No definite evidence of any renal calculi or bilateral hydronephrosis. Mild soft tissue induration within lower lumbosacral region likely inflammatory . Normal uterine size and contour. Please note evaluation of pelvic viscera is l imited on this examination. If there is concern for any pelvic pathology consider ultrasound pelvis. Reading Location: [id number]
[2025-08-07 17:00] VITALS: BP 142/86; PULSE 65; RESP 18; TEMP 36.8; O2SAT 100
[2025-08-07] MEDS: FLUCONAZOLE 150 MG TABLET PO (17:25)
== END 2025-08-07 17:28 | disposition home or self-care (01) ==
PROVIDERS: Emergency Provider Emergency Medicine; PCP Nurse Practitioner Family; Visit Provider Emergency Medicine
DX: N89.8 Other specified noninflammatory disorders of vagina (principal); F19.10 Other psychoactive substance abuse, uncomplicated; F60.3 Borderline personality disorder; F43.10 Post-traumatic stress disorder, unspecified; J45.909 Unspecified asthma, uncomplicated; F17.290 Nicotine dependence, other tobacco product, uncomplicated; Z86.14 Personal history of Methicillin resistant Staphylococcus aureus infection; Z86.19 Personal history of other infectious and parasitic diseases; Z79.899 Other long term (current) drug therapy
CPT/HCPCS: 74176; 80053; 81001; 81025; 85025; 86780; 87491; 87591; 87661; 99282